=== PATIENT | male | born 1945 | race Caucasian/White ===

== ENCOUNTER → 2024-10-16 | Outpatient (CLI) | payer OTHER, SELFPAY ==
--- NOTE | 2024-10-16 15:30 | XR_ITS ---
Examination: Foot, left, 3 views Technique: AP, oblique, lateral views foot, 3 views Date and time of exam: October 16, 2024 1559 hrs. Indications: Left foot pain beginning 2 months ago. Findings: Moderate osteopenia Mild osteoarthritis first metatarsophalangeal joint Minimal bunion deformity No fracture No opaque foreign body No cortical bone destruction Mild osteoarthritis intertarsal joints Impression: Minimal bunion deformity Mild osteoarthritis
== END | disposition home or self-care (01) ==
PROVIDERS: PCP Physician Assistant; Referring Provider Physician Assistant; Visit Provider Physician Assistant
DX: M21.612 Bunion of left foot (principal); M19.072 Primary osteoarthritis, left ankle and foot
CPT/HCPCS: 73630

== ENCOUNTER → 2024-10-19 | Outpatient (CLI) | payer OTHER, SELFPAY | END | disposition home or self-care (01) | LOC: COPL 09:39 | PROVIDERS: PCP Physician Assistant; Referring Provider Physician Assistant; Visit Provider Physician Assistant | DX: I73.9 Peripheral vascular disease, unspecified (principal) ==

== ENCOUNTER → 2024-11-03 | Outpatient (CLI) | payer OTHER, SELFPAY ==
--- NOTE | 2024-11-03 11:00 | XR_ITS ---
Examination: Arterial duplex lower extremity study. Date and time of exam: November 03, 1999 2513 hours INDICATIONS: Sharp left foot pain intermittent beginning 3 months ago, high blood pressure Findings: Duplex sonographic imaging of the lower extremity arteries using B-mode/Allred scale imaging and Doppler spectral analysis and color flow. Ankle brachial indices have been recorded. Right common femoral artery demonstrates monophasic flow. Right superficial femoral artery demonstrates biphasic flow. Right popliteal artery demonstrates biphasic flow. Right posterior tibial artery demonstrated biphasic flow. Right ankle/brachial index is 0.6. Left common femoral artery demonstrates monophasic flow. Left superficial femoral artery demonstrates monophasic flow. Left popliteal artery demonstrates monophasic flow. Left posterior tibial artery demonstrated monophasic flow. Left ankle/brachial index is 1.6. Impression: Severe bilateral peripheral obstructive arterial disease Consider correlation with CTA abdominal aorta iliofemoral runoff post intravenous contrast follow-up
== END | disposition home or self-care (01) ==
PROVIDERS: PCP Physician Assistant; Referring Provider Physician Assistant; Visit Provider Physician Assistant
DX: I73.9 Peripheral vascular disease, unspecified (principal)
CPT/HCPCS: 93925

== ENCOUNTER → 2024-12-21 | Outpatient (CLI) | payer OTHER, SELFPAY ==
--- NOTE | 2024-12-21 16:33 | EKG_ITS ---
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
[2024-12-21 17:12] LABS: Basophils # (Auto) 0.1 Thou/mm3 (0.0-0.2); Basophils % (Auto) 1 % (0-2.5); Eosinophils # (Auto) 0.2 Thou/mm3 (0.0-0.5); Eosinophils % (Auto) 2 % (0-10); Hematocrit 47.5 % (41.0-53.0); Hemoglobin 15.6 g/dL (13.5-16.0); Immature Granulocytes % (Auto) 1 % (0-0); Immature Granulocytes Auto 0.06 Thou/mm3 (0.00-0.00); Lymphocytes # (Auto) 1.9 Thou/mm3 (1.0-4.8); Lymphocytes % (Auto) 21 % (10-50); Mean Corpuscular HGB Conc 32.8 g/dl (31.0-37.0); Mean Corpuscular Hemoglobin 24.6 pg (25.0-35.0); Mean Corpuscular Volume 75 fL (80-100); Monocytes # (Auto) 0.4 Thou/mm3 (0.0-0.8); Monocytes % (Auto) 5 % (0-12); Neutrophils # (Auto) 6.5 Thou/mm3 (1.8-7.7); Neutrophils % (Auto) 71 % (37-80); Nucleated Red Blood Cell % 0 /100 WBC (0); Platelet Count 518 Thou/mm3 (140-440); RDW Standard Deviation 48.2 fL (35.1-43.9); Red Blood Count 6.35 Miln/mm3 (4.50-5.90); White Blood Count 9.3 Thou/mm3 (3.8-10.6)
[2024-12-21 17:35] LABS: Albumin, Serum 4.2 gm/dL (3.4-4.8); Anion Gap 6 (7-16); Aspartate Amino Transferase 12 U/L (0-34); Calcium 9.8 mg/dL (8.3-10.6); Calcium (Corrected) 9.8 mg/dL (8.5-10.1); Carbon Dioxide 28.8 mMol/L (20.0-31.0); Chloride 103 mMol/L (98-107); Glucose 110 mg/dL (74-106); Potassium 4.8 mMol/L (3.4-5.1); Sodium 138 mMol/L (136-145); eGFR > 60 See Note
[2024-12-21 19:54] LABS: Alanine Aminotransferase 11 U/L (10-49); Albumin/Globulin Ratio 2.1 (1.2-2.2); BUN/Creatinine Ratio 19 Ratio (12-20); Bilirubin,Total 0.4 mg/dL (0.3-1.2); Blood Urea Nitrogen 19 mg/dL (9-23); Osmolality,Calculated 278 (275-295); Total Protein 6.2 gm/dL (5.7-8.2)
[2024-12-21 20:13] LABS: Alkaline Phosphatase 86 U/L (46-116)
== END | disposition home or self-care (01) ==
LOC: COPL 16:00
PROVIDERS: PCP Physician Assistant; Referring Provider Surgery Vascular Surgery; Visit Provider Surgery Vascular Surgery
DX: Z01.818 Encounter for other preprocedural examination (principal); I73.9 Peripheral vascular disease, unspecified; Z79.01 Long term (current) use of anticoagulants
CPT/HCPCS: 36415; 80053; 85025; 85610; 85730; 93005

== ENCOUNTER → 2025-01-26 | Outpatient (CLI) | payer OTHER, SELFPAY ==
[2025-01-26 10:03] LABS: Basophils # (Auto) 0.1 Thou/mm3 (0.0-0.2); Basophils % (Auto) 1 % (0-2.5); Eosinophils # (Auto) 0.2 Thou/mm3 (0.0-0.5); Eosinophils % (Auto) 3 % (0-10); Hematocrit 46.9 % (41.0-53.0); Hemoglobin 15.2 g/dL (13.5-16.0); Immature Granulocytes % (Auto) 1 % (0-0); Immature Granulocytes Auto 0.05 Thou/mm3 (0.00-0.00); Lymphocytes # (Auto) 1.2 Thou/mm3 (1.0-4.8); Lymphocytes % (Auto) 18 % (10-50); Mean Corpuscular HGB Conc 32.4 g/dl (31.0-37.0); Mean Corpuscular Volume 77 fL (80-100); Monocytes # (Auto) 0.4 Thou/mm3 (0.0-0.8); Monocytes % (Auto) 6 % (0-12); Neutrophils # (Auto) 4.7 Thou/mm3 (1.8-7.7); Neutrophils % (Auto) 72 % (37-80); Nucleated Red Blood Cell % 0 /100 WBC (0); Platelet Count 528 Thou/mm3 (140-440); RDW Standard Deviation 53.6 fL (35.1-43.9); Red Blood Count 6.09 Miln/mm3 (4.50-5.90); White Blood Count 6.5 Thou/mm3 (3.8-10.6)
[2025-01-26 10:10] LABS: Glucose Estimated Average 111 mg/dL (80-131); Hemoglobin A1C 5.5 % Hgb (4.8-6.0)
[2025-01-26 10:40] LABS: Albumin, Serum 4.2 gm/dL (3.4-4.8); Albumin/Globulin Ratio 2.1 (1.2-2.2); Alkaline Phosphatase 92 U/L (46-116); Anion Gap 6 (7-16); Aspartate Amino Transferase 13 U/L (0-34); BUN/Creatinine Ratio 12 Ratio (12-20); Bilirubin,Total 0.6 mg/dL (0.3-1.2); Blood Urea Nitrogen 13 mg/dL (9-23); Calcium 9.3 mg/dL (8.3-10.6); Calcium (Corrected) 9.3 mg/dL (8.5-10.1); Carbon Dioxide 30.7 mMol/L (20.0-31.0); Cardiac Risk Estimate 3.7 RATIO (4.0-6.7); Chloride 103 mMol/L (98-107); Cholesterol 154 mg/dL (132-200); Creatinine (Component) 1.1 mg/dL (0.6-1.3); Glucose 110 mg/dL (74-106); HDL Cholesterol 42 mg/dL (40-60); LDL Cholesterol,Calculated 87 mg/dL (0-130); Osmolality,Calculated 280 (275-295); Potassium 4.5 mMol/L (3.4-5.1); Sodium 140 mMol/L (136-145); Total Protein 6.2 gm/dL (5.7-8.2); Triglycerides 127 mg/dL (30-150); eGFR > 60 See Note
[2025-01-26 10:42] LABS: Alanine Aminotransferase 11 U/L (10-49)
[2025-01-26 10:57] LABS: Path Review Blood Smear Sent to Pathologist
== END | disposition home or self-care (01) ==
LOC: COPL 08:50
PROVIDERS: PCP Family Medicine; Referring Provider Physician Assistant; Visit Provider Physician Assistant
DX: I10 Essential (primary) hypertension (principal); E78.5 Hyperlipidemia, unspecified; R73.01 Impaired fasting glucose; D58.2 Other hemoglobinopathies; D75.839 Thrombocytosis, unspecified
CPT/HCPCS: 36415; 80053; 80061; 83036; 85025

== ENCOUNTER → 2025-01-27 | Outpatient (CLI) | payer OTHER, SELFPAY ==
--- NOTE | 2025-01-27 14:00 | XR_ITS ---
Examination: CT chest, without intravenous contrast. Sagittal and coronal 2-D reconstructions. Exam date and time: January 27, 2025 at 1400 hours Comparison June 04, 2024 INDICATIONS: Smoking history [address] years, [address] chest August 04, 2024 multiple bilateral pulmonary nodules CTDI:vol (mGy) 7.91 DLP: (mGycm) 354 Technique: Multiple 3.0 mm axial sections of the chest to been obtained. Bone and lung density settings are obtained. Sagittal and coronal 2-D reconstructions have been obtained. Low dose protocols were performed. One or more of the following dose reduction techniques were used; automated exposure control, adjustment of the mA and/or KV according to patient size, use of iterative reconstruction technique. Findings: Thoracic aortic calcification, no aneurysmal dilatation Pulmonary artery segments are not enlarged No interval paratracheal tracheobronchial or bronchopulmonary adenopathy Airspace destruction throughout the lungs 1 new 2 mm pulmonary nodule left upper lobe image 132 The remaining pulmonary nodules are unchanged No interval pneumonia or pulmonary edema Biophysical scarring No visualized liver or splenic lesion Contracted gallbladder No pancreatic or adrenal mass IMPRESSION: One new 2 mm pulmonary nodule left upper lobe, suggest continued 6 month follow-up CT chest without contrast
== END | disposition home or self-care (01) ==
LOC: CCTX 13:32
PROVIDERS: PCP Physician Assistant; Referring Provider Physician Assistant; Visit Provider Physician Assistant
DX: R91.1 Solitary pulmonary nodule (principal)
CPT/HCPCS: 71250

== ENCOUNTER 2025-03-30 15:39 | Inpatient (IN) | payer OTHER, MEDICARE, SELFPAY ==
[2025-03-30] VITALS (9 sets, daily range): BP systolic 100–138; BP diastolic 68–99; PULSE 69–112; RESP 14–98; TEMP 36.4–37; O2SAT 98–99; BMI 18.6
--- NOTE | 2025-03-30 16:00 | XR_ITS ---
Examination: CT abdomen with intravenous contrast CT pelvis with intravenous contrast 2-D coronal reconstructions 2-D sagittal reconstructions Date and time of exam:March 30, 2025, 1834 hours INDICATIONS: Abdominal pain with gastrointestinal bleeding today. CTDI: vol (mGy) 5.98 DLP: (mGycm) 326 Technique: Multiple axial sections of the abdomen and pelvis have been obtained. 64 slice high-resolution scanner used. 3 mm axial sections have been obtained, post intravenous injection 60 cc Isovue 370 2-D sagittal, coronal reconstructions obtained. Low dose protocols were performed. One or more of the following dose reduction techniques were used; automated exposure control, adjustment of the mA and/or KV according to patient size, use of iterative reconstruction technique. Findings: Fluid distended distal esophagus COPD with areas of airspace distraction No liver or splenic lesion No gallstones Marked mucosal thickening in the gastric antrum, axial image 89 with perigastric inflammatory change Mild edema around the pancreatic head Abdominal aortic calcification No hydronephrosis Normal appendix Colonic diverticulosis No diverticulitis Urinary bladder wall thickening up to 6 mm Transverse prostate dimension 3.8 cm Moderate osteopenia IMPRESSION: Fluid distended esophagus, consider reflux esophagitis Marked mucosal thickening gastric antrum, differential would include severe gastritis, underlying gastric tumor not excluded, recommend endoscopy follow-up Suspicious for mild pancreatitis Normal appendix Colonic diverticulosis Mild thickening of the urinary bladder wall, consider cystitis
--- NOTE | 2025-03-30 16:01 | PD.EDRME ---
Rapid Medical Screening Exam E Arrival date/time: 03/30/25 15:39 79-year-old male presents emergency dept today for complaint abdominal pain intermittently for the last couple of months patient reports vomiting dark black emesis yesterday Chief Complaint: Abdominal Pain Vital signs: Vital Signs Temperature 97.5 F 03/30/25 15:41 Pulse Rate 98 03/30/25 15:41 Respiratory Rate 18 03/30/25 15:41 Blood Pressure 102/69 03/30/25 15:41 Pulse Oximetry (%) 99 03/30/25 15:41 Oxygen Delivery Method Room Air 03/30/25 15:41
[2025-03-30 16:33] LABS: Basophils # (Auto) 0.1 Thou/mm3 (0.0-0.2); Basophils % (Auto) 1 % (0-2.5); Eosinophils # (Auto) 0.1 Thou/mm3 (0.0-0.5); Eosinophils % (Auto) 1 % (0-10); Hematocrit 31.1 % (41.0-53.0); Hemoglobin 10.4 g/dL (13.5-16.0); Immature Granulocytes % (Auto) 1 % (0-0); Immature Granulocytes Auto 0.17 Thou/mm3 (0.00-0.00); Lymphocytes % (Auto) 8 % (10-50); Mean Corpuscular HGB Conc 33.4 g/dl (31.0-37.0); Mean Corpuscular Hemoglobin 24.2 pg (25.0-35.0); Mean Corpuscular Volume 72 fL (80-100); Monocytes # (Auto) 0.5 Thou/mm3 (0.0-0.8); Monocytes % (Auto) 4 % (0-12); Neutrophils # (Auto) 10.2 Thou/mm3 (1.8-7.7); Neutrophils % (Auto) 85 % (37-80); Nucleated Red Blood Cell % 0 /100 WBC (0); Platelet Count 735 Thou/mm3 (140-440); RDW Standard Deviation 44.2 fL (35.1-43.9); White Blood Count 12.1 Thou/mm3 (3.8-10.6)
--- NOTE | 2025-03-30 16:38 | PC.NURSE ---
CALLED ME TO PT IN LOBBY. PT LOOKS PALE AND DIAPHORETIC AND SLUMPED OVER IN WHEELCHAIR. WHEN ASKED WHAT HAPPENED SHE STATED THAT HE TRIED TO GO TO BATHROOM AND GIVE A URINE SAMPLE BUT HE ALMOST PASSED OUT AND HE IS NOT DOING TO WELL, AND IS AL SWEATY . PT TAKEN INTO TRIAGE ROOM FOR REEVAL AND CHARGE NURSE AWARE AND PT TAKEN TO ROOM 12.
[2025-03-30 16:46] LABS: Partial Thromboplastin Time 25.5 Seconds (22.0-36.0); Prothrombin Time 11.4 Seconds (9.0-12.2)
--- NOTE | 2025-03-30 16:47 | PC.NURSE ---
PT MOVED TO ROOM 3 AT THIS TIME. PT BP 84/60 HR 89. PT REPORTED THAT HE WAS VOMITING COFFEE GROUND EMESIS SINCE YESTERDAY. 2 TIMES YESTERDAY AND 2 TIMES TODAY. PT HAS HISTORY OF BLEEDING ULCERS. PT STATES THAT 2 WEEKS AGO HE DID HAVE 1 EPISODE OF BLACK STOOL BUT STATES THAT AFTER THAT HIS STOOL HAS BEEN NORMAL COLOR. PT ON CC MONITOR. DR ASH AT BEDSIDE. FAMILY AT BEDSIDE
--- NOTE | 2025-03-30 16:50 | EKG_ITS ---
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: : 1945 Requested By: Donovan Lyles (DONALD) Order Number: [id number] Reading MD: Donovan Lyles (PHYSICAL SCIENCE AIDE) Measurements Intervals [place] Rate: 84 P: 83 [place]: 174 QRS: -75 QRSD: 104 T: 80 QT: 367 QTc: 436 Interpretive Statements SINUS RHYTHM POSSIBLE RIGHT VENTRICULAR CONDUCTION DELAY [RSR (QR) IN V1/V2] LEFT ANTERIOR FASCICULAR BLOCK [QRS AXIS <= -45, QR IN I, RS IN II] Compared to ECG 12/21/2024 16:42:20 Left anterior fascicular block now present Sinus bradycardia no longer present Left-axis deviation no longer present Incomplete right bundle-branch block no longer present /store/S0/[id number]/[id number].pdf
[2025-03-30] MEDS: PANTOPRAZOLE INJ 40 MG VIAL 80 MG IVP (16:55)
[2025-03-30] MEDS: SODIUM CHLORIDE 0.9% 1000 ML 1,000 ML 999 ML IV (16:59)
[2025-03-30 17:17] LABS: B-Type Natriuretic Peptide 22 pg/mL (0-100)
[2025-03-30 17:25] LABS: Alanine Aminotransferase 9 U/L (10-49); Albumin, Serum 4.2 gm/dL (3.4-4.8); Albumin/Globulin Ratio 2.2 (1.2-2.2); Alkaline Phosphatase 76 U/L (46-116); Anion Gap 13 (7-16); Aspartate Amino Transferase 11 U/L (0-34); BUN/Creatinine Ratio 30 Ratio (12-20); Bilirubin,Total 0.4 mg/dL (0.3-1.2); Blood Urea Nitrogen 36 mg/dL (9-23); Calcium 9.1 mg/dL (8.3-10.6); Calcium (Corrected) 9.1 mg/dL (8.5-10.1); Carbon Dioxide 25.5 mMol/L (20.0-31.0); Chloride 105 mMol/L (98-107); Creatinine (Component) 1.2 mg/dL (0.6-1.3); Estimated Creatinine Clearance 41.6 mL/min (>60); Globulin 1.9 gm/dL (2.3-3.5); Glucose 126 mg/dL (74-106); Lipase 142 U/L (12-53); Osmolality,Calculated 295 (275-295); Potassium 4.4 mMol/L (3.4-5.1); Sodium 143 mMol/L (136-145); Total Protein 6.1 gm/dL (5.7-8.2); eGFR > 60 See Note
--- NOTE | 2025-03-30 17:30 | PD.EDABDPN ---
ED Abdominal Pain RME/HPI General Chief Complaint: Abdominal Pain Stated complaint: ABDOMINAL PAIN Time seen by provider: 03/30/25 18:10 Arrival date/time: 03/30/25 15:39 RME / HPI RME / HPI narrative: 03/30/25 15:39 79-year-old male presents emergency dept today for complaint abdominal pain intermittently for the last couple of months patient reports vomiting dark black emesis yesterday DR. ASH MAIN ED EVALUATION: 79 year old male presents to the ED for evaluation of abdominal pain that began yesterday morning. The pain is located most to the epigastric region and just above the umbilicus, occurring intermittently. He describes it as aching and rates it as moderate to severe. Associated with nausea and vomiting. Although he has been able to tolerate small amounts of food, he reports that eating oatmeal yesterday seemed to exacerbate his pain. States he consulted his PCP Keila Shepard yesterday and was told the symptoms may be related to an ulcer. Labs were ordered, but pain became worse today prompting ED visit. Reports having a bowel movement yesterday, which was normal for him, no blood or black stools. Although reports he did havde small amount of blood in stool 2 weeks ago. He denies diarrhea. 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 in [place], [place]. Denies fever, chills, chest pain, cough, shortness of breath, or urinary symptoms. Related Data Home Medications ?Medication ?Instructions ?Recorded ?Confirmed fluticasone 250 mcg-salmeterol 50 1 inh inhalation BID dyspnea 07/31/21 03/31/25 mcg/dose blistr powdr for inhalation (Advair Diskus) losartan 50 mg tablet 50 mg PO HS 07/31/21 03/31/25 tiotropium bromide 18 mcg capsule 1 cap inhalation DAILY dyspnea 07/31/21 03/31/25 with inhalation device (Spiriva with HandiHaler) famotidine 10 mg tablet 10 mg PO HS 02/18/23 03/31/25 varenicline tartrate 1 mg tablet 1 mg PO DAILY 02/18/23 03/31/25 sildenafil 100 mg tablet 100 mg PO DAILY 02/17/24 03/31/25 albuterol sulfate 90 mcg/actuation 1 puff inhalation Q8H PRN 03/31/25 03/31/25 aerosol inhaler shortness of breath or wheezing aspirin 81 mg tablet 81 mg PO HS 03/31/25 03/31/25 cholecalciferol (vitamin D3) 25 25 mcg PO HS 03/31/25 03/31/25 mcg (1,000 unit) capsule (Vitamin D3) clopidogrel 75 mg tablet 75 mg PO QDAY 03/31/25 03/31/25 cyanocobalamin (vitamin B-12) 100 100 mcg PO HS 03/31/25 03/31/25 mcg tablet (Vitamin B-12) fluticasone fur. 100 mcg-umeclid 1 inh inhalation QDAY 03/31/25 03/31/25 62.5 mcg-vilant 25 mcg inhalat.powder (Trelegy Ellipta) omeprazole 20 mg capsule,delayed 20 mg PO QDAY 03/31/25 03/31/25 release Allergies Allergy/AdvReac Type Severity Reaction Status Date / Time Iodinated Contrast Media Allergy Intermediate Flushing Verified 03/30/25 17:03 Review of Systems Review of Systems Systems Reviewed: All systems reviewed, normal except as documented Past Medical History Past Medical History NEUROLOGIC: Negative Neurological Disorders, Cerebrovascular Accident or Seizures CARDIAC: Positive Cardiac Disorders, Cardiac Arrhythmia and Hypertension; Negative Atrial Fibrillation, Angina, Hypercholesterolemia, Congestive Heart Failure or Valvular Heart Disease RESPIRATORY: Positive Chronic Obstructive Pulmonary Disease (COPD), Asthma (copd) and Pneumonia; Negative Emphysema or Tuberculosis GASTROINTESTINAL: Positive Gastrointestinal Bleed, Ulcer and Gastroesophageal Reflux Disease; Negative Gastrointestinal Disorders or Diverticulosis GENITOURINARY: Positive Benign Prostatic Hyperplasia; Negative Genitourinary Disorders or Renal Disease MUSCULOSKELETAL: Positive Arthritis and Fractures (thumb); Negative Musculoskeletal Disorders ENT: Positive Cataracts (2017) ENDOCRINE: Negative Endocrine Disorders, Diabetes Mellitus Type 1, Diabetes Mellitus Type 2, Hyperthyroidism or Hypothyroidism HEMATOLOGIC: Negative Blood Disorders or Anemia PSYCHO/SOCIAL: Negative Depression or Anxiety OTHER HISTORY: Positive Blood Transfusions; Negative Falls, Blood Transfusion Reaction, Anesthesia Reactions or Cancer Family History FAMILY HISTORY: Positive Family Respiratory Disorders (mother lung cancer); Negative Family Cardiac Disorders Surgical History SURGICAL: Positive Eye Surgery and Abdominal Surgery (GASTRIC ULCER SX); Negative Cardiac Surgery or Pacemaker OTHER SURGICAL HX: STENTS PLACED IN BILATERAL LEGS DUE TO BLOOD CLOTS Social History SMOKING STATUS: Former smoker 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 HEENT: NC, AT. MMM. EOMI, clear conjunctiva, oropharynx clear. NECK: Supple without lymphadenopathy. No stiffness or restricted ROM. HEART: Normal rate and regular rhythm, normal S1/S1, no m/r/g. LUNGS: CTAB, moving air well. No crackles or wheezes are heard. ABDOMEN: Soft, large vertical midline surgical scar noted, epigastric tenderness mild to moderate, no rebound, no guarding, nondistended with good bowel sounds heard. BACK: No midline C/T/L spine pain or deformity, No CVAT, no obvious deformity. EXTREMITIES: Without cyanosis, clubbing or edema. MUSCULOSKELETAL: FROM of all major joints, no chest tenderness NEUROLOGICAL: Grossly nonfocal. Alert and oriented, moving all 4 extremities. CN not formally tested but appear grossly intact. Skin: Warm and dry without any rash. Course Quality Measures none Orders Category Date Time Status CT Screening NOW Care 03/30/25 16:01 Completed Orthopedically Impaired Teacher NOW Care 03/30/25 16:50 Active EKG (ED ONLY) *Do not use* NOW Care 03/30/25 16:50 Completed Insert IV NOW Care 03/30/25 16:[address] abdomen pelvis w con Stat Exams 03/30/25 16:00 Completed EKG (ED Only) Stat Exams 03/30/25 16:50 Draft B-Type Natriuretic Peptide Stat Lab 03/30/25 16:20 Completed CBC Stat Lab 03/30/25 16:20 Completed Comprehensive Metabolic Panel Stat Lab 03/30/25 16:20 Completed Lipase Stat Lab 03/30/25 16:20 Completed PT [Prothrombin Time with INR] Stat Lab 03/30/25 16:20 Completed PTT [Partial Thromboplastin Time] Stat Lab 03/30/25 16:20 Completed Troponin I Stat Lab 03/30/25 16:20 Completed Type and Screen Stat Lab 03/30/25 17:02 Completed UA, C/S IF [Urinalysis, C/S if Indicated] Stat Lab 03/31/25 06:00 Completed DiphenhydrAMINE INJ [Benadryl Inj] Med 03/30/25 17:03 Discontinued 50 mg IVP X1 ONE Pantoprazole Inj [Protonix Inj] Med 03/30/25 16:50 Discontinued 80 mg IVP X1 ONE Pantoprazole/Ns 80Mg IV Premix [Protonix/NS 80mg IV Med 03/30/25 19:43 Discontinued Premix] 80 mg in 100 ml IV Q10H Sodium Chloride 0.9% 1000 ml [Ns] 1,000 ml Med 03/30/25 16:50 Discontinued IV 999 mls/hr Vital Signs Vital signs: Vital Signs Temperature 97.5 F 03/30/25 15:41 Pulse Rate 98 03/30/25 15:41 Respiratory Rate 18 03/30/25 15:41 Blood Pressure 102/69 03/30/25 15:41 Pulse Oximetry (%) 99 03/30/25 15:41 Oxygen Delivery Method Room Air 03/30/25 15:41 Pulse ox is 99% on room air which is adequate. Abdominal Pain MDM MDM Narrative MDM Narrative:: Brianne Reyna am scribing for and in the presence of Dr. Ash. 79 year old male presents to the ED with epigastric abdominal pain that began yesterday morning. The pain is intermittent and localized to the epigastric region and just above the umbilicus. The pain is associated with nausea and vomiting. He consulted with his primary care provider, Dr. Keila Shepard, who suspected a possible ulcer and ordered labs; however, due to worsening symptoms today, the patient came today. The patient has a significant past medical history notable for a bleeding gastric ulcer that required surgical intervention in [place], [place] 50 years ago during which he states his pyloric valve was ?rearranged.? He reports a normal bowel movement yesterday, without blood or melena, though he did note a small amount of blood in his stool approximately two weeks ago. On physical examination, the patient has localized epigastric tenderness without signs of peritonitis. Laboratory evaluation reveals an elevated lipase level of 142, which is greater than two times the upper limit of normal and strongly suggestive of acute pancreatitis. Given this lab finding and clinical presentation, acute pancreatitis is high on differentials list. A CT scan of the abdomen has been ordered. Case was signed out to Dr. Wilcox for continued management and pending final disposition. Patient data External records reviewed:: [facility] previous records (I reviewed H&P from 02/18/2025) Clinical information provided by:: patient Social determinants that could affect healthcare access:: none Patient has the following chronic illnesses:: hypertension, COPD, CAD s/p PCI on Plavix, previous abdominal surgery as noted in HPI How is presenting disease/condition affected by chronic disease/condition?: exacerbated by Evaluation data The following diagnostics were reviewed and interpreted by me:: lab results, radiology exam(s) and EKG tracing(s) (EKG 03/30/2025 @ 1656. Sinus rhythm, rate 84, borderline widened QRS incomplete RBBB pattern. ) Lab and/or radiology exams considered but not ordered:: None Interpretation Summary: As noted above Medications / Prescriptions Medications or Prescriptions considered but not ordered:: None Medication administrations:: Medication Administration History Acetaminophen (Acetaminophen 325 Mg Tablet) 650 mg PO Q6H PRN PRN Reason: pain(1-3) and Fever >100.4 Stop: 04/29/25 20:23 Hydrocodone Bitart/Acetaminophen (Hydrocodone/Apap 5/325 Tablet) 1 tab PO Q4HR PRN PRN Reason: PAIN SCALE 4-10(Mod-Sev Stop: 04/04/25 20:23 Albuterol/Ipratropium (Albuterol/Ipratropium (Duoneb) Rt Alessandra 3 Ml Nebu) 3 ml INH Q4HRRT PRN PRN Reason: SOB or wheezing Stop: 04/29/25 22:59 Octreotide Acetate 1,000 mcg/ (Sodium Chloride) 102 mls @ 5.1 mls/hr IV .Q20H HYACINTH; Protocol Stop: 04/30/25 16:44 Octreotide Acetate 1,000 mcg/ (Sodium Chloride) 102 mls @ 5.1 mls/hr IV .Q20H ONE; Protocol Stop: 03/31/25 16:44 Last Admin: 03/30/25 21:13 Dose: 50 mcg/hr, 5.1 mls/hr Documented By: DT Ondansetron HCl (Ondansetron Inj 2 Mg/Ml Inj 2 Ml) 4 mg IVP Q6H PRN; Protocol PRN Reason: NAUSEA OR VOMITING Stop: 04/29/25 20:23 Pantoprazole Sodium (Pantoprazole Inj 40 Mg Vial) 40 mg IVP Q12HR HYACINTH Stop: 04/29/25 20:59 Last Admin: 03/30/25 20:51 Dose: 40 mg Documented By: DT Discontinued Medications Diphenhydramine HCl (Diphenhydramine Inj 50 Mg/Ml Vial) 50 mg IVP X1 ONE Stop: 03/30/25 17:04 Last Admin: 03/30/25 18:18 Dose: 50 mg Documented By: SMILEY Sodium Chloride (Ns) 1,000 mls @ 999 mls/hr IV .Q1H1M ONE Stop: 03/30/25 17:50 Last Infusion: 03/30/25 19:06 Dose: Infused Documented By: Admin: 03/30/25 16:59 Dose: 999 mls/hr Documented By: SMILEY Pantoprazole Sodium (Protonix/Ns 80mg Iv Premix) 80 mg in 100 mls @ 10 mls/hr IV Q10H HYACINTH Stop: 04/02/25 17:42 Sodium Chloride (Ns) 1,000 mls @ 75 mls/hr IV .[id number] HYACINTH Stop: 03/31/25 09:49 Sodium Chloride (Ns) 1,000 mls @ 200 mls/hr IV .Q5H HYACINTH Stop: 03/31/25 06:40 Last Admin: 03/31/25 01:52 Dose: 200 mls/hr Documented By: Infusion: 03/31/25 01:49 Dose: Infused Documented By: Admin: 03/30/25 20:49 Dose: 200 mls/hr Documented By: JESSICA Pantoprazole Sodium (Pantoprazole Inj 40 Mg Vial) 80 mg IVP X1 ONE Stop: 03/30/25 16:51 Last Admin: 03/30/25 16:55 Dose: 80 mg Documented By: SMILEY See above Consultations Consultation(s) initiated? (list below): No Diagnosis Differential diagnosis abdominal pain: abdominal pain, acute appendicitis, diverticulitis, gastroenteritis, pancreatitis and small bowel obstruction Most likely diagnosis given after review of the tests above:: Abdominal pain, r/o pancreatitis Admission Indicated Admission indicated?: not indicated Explain why admission is indicated or not indicated:: Patient signed out to Dr. Wilcox. Admission Request Was there a request for admission?: No Disposition Plan Disposition Plan: other (specify) (Signed out to Dr. Wilcox pending CT. ) Discharge Plan Plan Patient Disposition: Admit Acute Care w/in Hospital Problem List Clinical Impression: Pancreatitis
[2025-03-30 17:37] LABS: Troponin I < 0.002 ng/mL (0.0-0.045)
--- NOTE | 2025-03-30 18:09 | EDNOTE_ITS ---
Emergency Room Addendum <Linsey Mcfarlane - Last Filed: 03/30/25 20:25> Addendum Narrative: 1800: Care assumed from Dr. Brown (emergency physician). Past medical, surgical, social and family history reviewed. Vitals and home medications reviewed. Results and treatment plan discussed. They will assume the care of the patient at this time and will follow the patient, pending Abdomen CT. The following addendum documentation note is intended to reflect any pending information, findings, or radiology results not included in the patient?s initial chart by the previous shift [email or web address]. 1940: Patient CT shows some gastric wall thickening. In speaking with the patient he states that he developed upper abdominal pain yesterday and had a large coffee-ground/black emesis. He saw his physician who ordered some tests but he was unable to get those done. Patient woke up this morning and developed pain again and vomited a large amount of black emesis again. In the afternoon he had another episode of large amount of black emesis. Patient has been treated here in the emergency department with Protonix and fluids as well as Benadryl. He states that the pain and the nausea have improved. However lying in the bed the patient has a heart rate of 76 with a blood pressure 133/72. When standing the patient became very lightheaded, heart rate went to 113 and he was unable to stand long enough to perform the blood pressure. Will place patient on a Protonix drip and will call for admission to the hospital. RADIOLOGY Patient: RIKA SYKES [facility]. Record#: [id number] Birthdate: 1945 Age/Sex: 79 / M Location: [facility] Attending Dr: Ordering Physician: Rafal (DONALD)Donovan NP Date of Service: 03/30/25 Procedure(s): CT abdomen pelvis w con Accession Number(s): [id number] cc: Rafal ERVIN),Donovan BENNETT; Eddi Middleton MD; Keila Shepard PA-C~ Examination: CT abdomen with intravenous contrast CT pelvis with intravenous contrast 2-D coronal reconstructions 2-D sagittal reconstructions Date and time of exam:March 30, 2025, 1834 hours INDICATIONS: Abdominal pain with gastrointestinal bleeding today. CTDI: vol (mGy) 5.98 DLP: (mGycm) 326 Technique: Multiple axial sections of the abdomen and pelvis have been obtained. 64 slice high-resolution scanner used. 3 mm axial sections have been obtained, post intravenous injection 60 cc Isovue 370 2-D sagittal, coronal reconstructions obtained. Low dose protocols were performed. One or more of the following dose reduction techniques were used; automated exposure control, adjustment of the mA and/or KV according to patient size, use of iterative reconstruction technique. Findings: Fluid distended distal esophagus COPD with areas of airspace distraction No liver or splenic lesion No gallstones Marked mucosal thickening in the gastric antrum, axial image 89 with perigastric inflammatory change Mild edema around the pancreatic head Abdominal aortic calcification No hydronephrosis Normal appendix Colonic diverticulosis No diverticulitis Urinary bladder wall thickening up to 6 mm Transverse prostate dimension 3.8 cm Moderate osteopenia IMPRESSION: Fluid distended esophagus, consider reflux esophagitis Marked mucosal thickening gastric antrum, differential would include severe gastritis, underlying gastric tumor not excluded, recommend endoscopy follow-up Suspicious for mild pancreatitis Normal appendix Colonic diverticulosis Mild thickening of the urinary bladder wall, consider cystitis Dictated By: Eddi Middleton MD Signed By: <Electronically signed by Eddi Middleton MD in OV> 03/30/25 190 1945: Resident for Dr. Lowry, our Hospitalist, made aware of the patient?s HPI, PMHx, lab and/or radiology results. Treatment plan was discussed. Will admit for further evaluation and management. Accepts patient for admission. <Niraj Wilcox MD - Last Filed: 03/30/25 19:43> Addendum Narrative: 1800: Care assumed from Dr. Brown (emergency physician). Past medical, surgical, social and family history reviewed. Vitals and home medications reviewed. Results and treatment plan discussed. They will assume the care of the patient at this time and will follow the patient, pending Abdomen CT. The following addendum documentation note is intended to reflect any pending information, findings, or radiology results not included in the patient?s initial chart by the previous shift [email or web address]. 1940: Patient CT shows some gastric wall thickening. In speaking with the patient he states that he developed upper abdominal pain yesterday and had a large coffee-ground/black emesis. He saw his physician who ordered some tests but he was unable to get those done. Patient woke up this morning and developed pain again and vomited a large amount of black emesis again. In the afternoon he had another episode of large amount of black emesis. Patient has been treated here in the emergency department with Protonix and fluids as well as Benadryl. He states that the pain and the nausea have improved. However lying in the bed the patient has a heart rate of 76 with a blood pressure 133/72. When standing the patient became very lightheaded, heart rate went to 113 and he was unable to stand long enough to perform the blood pressure. Will place patient on a Protonix drip and will call for admission to the hospital. RADIOLOGY Patient: RIKA SYKES. Record#: [id number] Birthdate: 1945 Age/Sex: 79 / M Location: [facility] Attending Dr: Ordering Physician: Rafal ERVIN)Donovan NP Date of Service: 03/30/25 Procedure(s): CT abdomen pelvis w con Accession Number(s): [id number] cc: Rafal ERVIN)Donovan NP; Eddi Middleton MD; Keila Shepard PA-C~ Examination: CT abdomen with intravenous contrast CT pelvis with intravenous contrast 2-D coronal reconstructions 2-D sagittal reconstructions Date and time of exam:March 30, 2025, 1834 hours INDICATIONS: Abdominal pain with gastrointestinal bleeding today. CTDI: vol (mGy) 5.98 DLP: (mGycm) 326 Technique: Multiple axial sections of the abdomen and pelvis have been obtained. 64 slice high-resolution scanner used. 3 mm axial sections have been obtained, post intravenous injection 60 cc Isovue 370 2-D sagittal, coronal reconstructions obtained. Low dose protocols were performed. One or more of the following dose reduction techniques were used; automated exposure control, adjustment of the mA and/or KV according to patient size, use of iterative reconstruction technique. Findings: Fluid distended distal esophagus COPD with areas of airspace distraction No liver or splenic lesion No gallstones Marked mucosal thickening in the gastric antrum, axial image 89 with perigastric inflammatory change Mild edema around the pancreatic head Abdominal aortic calcification No hydronephrosis Normal appendix Colonic diverticulosis No diverticulitis Urinary bladder wall thickening up to 6 mm Transverse prostate dimension 3.8 cm Moderate osteopenia IMPRESSION: Fluid distended esophagus, consider reflux esophagitis Marked mucosal thickening gastric antrum, differential would include severe gastritis, underlying gastric tumor not excluded, recommend endoscopy follow-up Suspicious for mild pancreatitis Normal appendix Colonic diverticulosis Mild thickening of the urinary bladder wall, consider cystitis Dictated By: Eddi Middleton MD Signed By: <Electronically signed by Eddi Middleton MD in OV> 03/30/25 1905 <Fariba Jovi - Last Filed: 04/01/25 05:01> Addendum Narrative: 1800: Care assumed from Dr. Brown (emergency physician). Past medical, surgical, social and family history reviewed. Vitals and home medications reviewed. Results and treatment plan discussed. They will assume the care of the patient at this time and will follow the patient, pending CT abdomen pelvis. Please refer to the emergency department record for history and examination from initial visit. 1941: Patient CT shows some gastric wall thickening. After speaking with the patient, he states that he developed upper abdominal pain yesterday and had a large coffee-ground/black emesis. He saw his physician who ordered some tests but he was unable to get those done. Patient woke up this morning and developed pain again and vomited a large amount of black emesis again. In the afternoon, he had another episode of large amount of black emesis. Patient has been treated here in the emergency department with Protonix and fluids as well as Benadryl. He states that the pain and the nausea have improved. However lying in the bed the patient has a heart rate of 76 with a blood pressure 133/72. When standing the patient became very lightheaded, heart rate went to 113 and he was unable to stand long enough to perform the blood pressure. Will place patient on a Protonix drip and will call for admission to the hospital. 1944: Discussed case with Dr. Silverio, attending Dr. Lowry, our Hospitalist, made aware of the patient?s HPI, PMHx, lab and/or radiology results. Treatment plan was discussed. Will admit for further evaluation and management. Accepts patient for admission. RADIOLOGY Patient: RIKA SYKES. Record#: [id number] Birthdate: 1945 Age/Sex: 79 / M Location: [facility] Attending Dr: Ordering Physician: Rafal (DONALD)Donovan NP Date of Service: 03/30/25 Procedure(s): CT abdomen pelvis w con Accession Number(s): [id number] cc: Rafal ERVIN),Donovan BENNETT; Eddi Middleton MD; Keila Shepard PA-C~ Examination: CT abdomen with intravenous contrast CT pelvis with intravenous contrast 2-D coronal reconstructions 2-D sagittal reconstructions Date and time of exam:March 30, 2025, 1834 hours INDICATIONS: Abdominal pain with gastrointestinal bleeding today. CTDI: vol (mGy) 5.98 DLP: (mGycm) 326 Technique: Multiple axial sections of the abdomen and pelvis have been obtained. 64 slice high-resolution scanner used. 3 mm axial sections have been obtained, post intravenous injection 60 cc Isovue 370 2-D sagittal, coronal reconstructions obtained. Low dose protocols were performed. One or more of the following dose reduction techniques were used; automated exposure control, adjustment of the mA and/or KV according to patient size, use of iterative reconstruction technique. Findings: Fluid distended distal esophagus COPD with areas of airspace distraction No liver or splenic lesion No gallstones Marked mucosal thickening in the gastric antrum, axial image 89 with perigastric inflammatory change Mild edema around the pancreatic head Abdominal aortic calcification No hydronephrosis Normal appendix Colonic diverticulosis No diverticulitis Urinary bladder wall thickening up to 6 mm Transverse prostate dimension 3.8 cm Moderate osteopenia IMPRESSION: Fluid distended esophagus, consider reflux esophagitis Marked mucosal thickening gastric antrum, differential would include severe gastritis, underlying gastric tumor not excluded, recommend endoscopy follow-up Suspicious for mild pancreatitis Normal appendix Colonic diverticulosis Mild thickening of the urinary bladder wall, consider cystitis Dictated By: Eddi Middleton MD Signed By: <Electronically signed by Eddi Middleton MD in OV> 03/30/25 1905 Critical Care Time <Linsey Mcfarlane - Last Filed: 03/30/25 20:25> Critical Care Time Critical Care Time: Yes Total Critical Care Time (min.): 35 Attestation: The high probability of sudden, clinically significant deterioration in the patient?s condition required the highest level of my preparedness to intervene urgently. The services I provided to this patient were to treat and/or prevent clinically significant deterioration. Services included the following: chart data review, reviewing nursing notes and/or old charts, documentation time, clinical sales consultant collaboration regarding findings and treatment options, medication orders and management, direct patient care, vital sign assessments and ordering, interpreting and reviewing diagnostic studies and lab tests. Aggregate critical care time includes only time during which I was engaged in work directly related to the patient?s care, as described above, whether at bedside or elsewhere in the Emergency Department. It did not include time spent performing other reported procedures or the services of residents, students, nurses or physician assistants.
[2025-03-30] MEDS: DiphenhydrAMINE INJ 50 MG/ML VIAL IVP (18:18)
--- NOTE | 2025-03-30 20:32 | PD.RESHP ---
Documentation for date of: 03/30/25 HPI History of Present Illness Chief complaint: coffee ground emesis, abdominal pain History of present illness: 79-year-old male with past medical history of bleeding peptic ulcer disease, PAD s/p stent placement 1 month ago (on Plavix and aspirin), COPD, and hypertension was admitted to the hospital on 03/30/2025 after he came in to the ED with complaints of abdominal pain and coffee-ground emesis that started today. On assessment patient stated that today he started having some nausea in the morning had a vomiting episode of very dark vomit and that again in the afternoon he had another episode of very dark vomit as well. He mentioned that he did have peptic ulcer disease earlier in his age and that he had some surgery because it had bled. Patient stated that he is currently on Plavix and aspirin for the last month and a half more or less as he had stents placed on his peripheral arteries due to PAD. He denied any blood in the stool or dark stools. Patient also stated that now he drinks socially, but in the past he used to drink a little bit heavier. He had abdominal pain as well along with the nausea and vomiting. Otherwise no other complaints. Patient's hemoglobin did drop from 15.2 10/2019 5-10.4 today. ED course: Initially came in afebrile and normotensive. Initial labs were relevant for leukocytosis, low hemoglobin (10.4), thrombocytosis, and increased lipase. Initial imaging fluid abdomen/pelvis CT which showed some mild edema of the pancreas, fluid distended esophagus, mucosal thickening of gastric antrum, and colonic diverticulosis. EKG shows sinus rhythm with no acute ST changes. PMH: As above Social Hx: Past smoker, alcohol socially, denies any drugs Surgical Hx: Stent placement on peripheral arteries, shoulder surgery Medications: Plavix and aspirin Review of Systems Review of Systems Narrative Review of Systems: Constitutional: Denies sweats, Denies weight loss/gain, Denies fever, Denies chills. HEENT: Denies hearing loss, Denies ear pain, Denies postnasal drip, Denies double vision, Denies blurry vision. Respiratory: Denies shortness of breath, Denies cough, Denies wheezing. Cardiovascular: Denies chest pain, Denies palpitations, Denies sudden loss of consciousness. GI: Denies blood in stool, Denies constipation, Admits abdominal pain, Denies difficulty swallowing, Admits nausea or vomit (black). : Denies urinary incontinence, Denies pain while urinating, Denies increased urinary frequency. MSK: Denies joint pain, Denies joint swelling, Denies numbness. Skin: Denies rash, Denies itching, Denies easy bruising. Neuro: Denies headaches, Denies dizziness, Denies seizures. Past Medical History Past Medical History NEUROLOGIC: Negative Neurological Disorders, Cerebrovascular Accident or Seizures CARDIAC: Positive Cardiac Disorders, Cardiac Arrhythmia and Hypertension; Negative Atrial Fibrillation, Angina, Hypercholesterolemia, Congestive Heart Failure or Valvular Heart Disease RESPIRATORY: Positive Chronic Obstructive Pulmonary Disease (COPD), Asthma (copd) and Pneumonia; Negative Emphysema or Tuberculosis GASTROINTESTINAL: Positive Gastrointestinal Bleed, Ulcer and Gastroesophageal Reflux Disease; Negative Gastrointestinal Disorders or Diverticulosis GENITOURINARY: Positive Benign Prostatic Hyperplasia; Negative Genitourinary Disorders or Renal Disease MUSCULOSKELETAL: Positive Arthritis and Fractures (thumb); Negative Musculoskeletal Disorders ENT: Positive Cataracts (2017) ENDOCRINE: Negative Endocrine Disorders, Diabetes Mellitus Type 1, Diabetes Mellitus Type 2, Hyperthyroidism or Hypothyroidism HEMATOLOGIC: Negative Blood Disorders or Anemia PSYCHO/SOCIAL: Negative Depression or Anxiety OTHER HISTORY: Positive Blood Transfusions; Negative Falls, Blood Transfusion Reaction, Anesthesia Reactions or Cancer Family History FAMILY HISTORY: Positive Family Respiratory Disorders (mother lung cancer); Negative Family Cardiac Disorders Surgical History SURGICAL: Positive Eye Surgery and Abdominal Surgery (GASTRIC ULCER SX); Negative Cardiac Surgery or Pacemaker OTHER SURGICAL HX: STENTS PLACED IN BILATERAL LEGS DUE TO BLOOD CLOTS Social History SMOKING STATUS: Former smoker 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 Anicteric, vision grossly intact. Ears: No ear pain, no ear discharge, Hearing grossly intact. Nose: No nasal discharge. Mouth/Throat: Moist mucous membranes, no redness, no lesions. Neck: Neck supple, non-tender, no cervical lymphadenopathy. Lungs: Clear FARA to auscultation and percussion, No accessory muscle use. Cardio: Normal S1/S2, regular rhythm, no murmurs, no JVD Abdomen: Soft, epigastric tenderness, no palpable masses, peristalsis present, no guarding or rebound. Extremities: Symmetrical, no significant deformities, no peripheral edema , non-tender, peripheral pulses presents. Skin: No rashes, no lesions, warm to touch. Neuro: No focal neurological deficits. motor and sensory intact Psych: Cooperative, appropriate mood and effect. Results: Labs 03/30/25 16:20 03/30/25 16:20 Labs: Short CBC 03/30/25 Range/Units 16:20 WBC 12.1 H (3.8-10.6) Thou/mm3 Hgb 10.4 L (13.5-16.0) g/dL Hct 31.1 L (41.0-53.0) % Plt Count 735 H (140-440) Thou/mm3 BMP 03/30/25 16:20 Sodium 143 Potassium 4.4 Chloride 105 Carbon Dioxide 25.5 BUN 36 H Creatinine 1.2 Glucose 126 H Calcium 9.1 Cardiac Enzymes 03/30/25 Range/Units 16:20 Troponin I < 0.002 (0.0-0.045) ng/mL Liver Function 03/30/25 Range/Units 16:20 Total Bilirubin 0.4 (0.3-1.2) mg/dL AST 11 (0-34) U/L ALT 9 L (10-49) U/L Alkaline Phosphatase 76 (46-116) U/L Albumin 4.2 (3.4-4.8) gm/dL Quality Measures Quality Measures none Advance care planning discussed with:: patient and child Medications Home Medications and Allergies Home Medications ?Medication ?Instructions ?Recorded ?Confirmed ?Type fluticasone 250 mcg-salmeterol 50 1 inh inhalation BID dyspnea 07/31/21 02/18/23 History mcg/dose blistr powdr for inhalation (Advair Diskus) losartan 50 mg tablet 50 mg PO HS 07/31/21 02/17/24 History tiotropium bromide 18 mcg capsule 1 cap inhalation DAILY dyspnea 07/31/21 02/18/23 History with inhalation device (Spiriva with HandiHaler) famotidine 10 mg tablet 10 mg PO DAILY 02/18/23 02/17/24 History varenicline tartrate 1 mg tablet 1 mg PO DAILY 02/18/23 02/17/24 History sildenafil 100 mg tablet 100 mg PO DAILY 02/17/24 02/17/24 History Allergies Allergy/AdvReac Type Severity Reaction Status Date / Time Iodinated Contrast Media Allergy Intermediate Flushing Verified 03/30/25 17:03 Visit Medications Acetaminophen (Acetaminophen 325 Mg Tablet) 650 mg PO Q6H PRN PRN Reason: pain(1-3) and Fever >100.4 Stop: 04/29/25 20:23 Hydrocodone Bitart/Acetaminophen (Hydrocodone/Apap 5/325 Tablet) 1 tab PO Q4HR PRN PRN Reason: PAIN SCALE 4-10(Mod-Sev Stop: 04/04/25 20:23 Albuterol/Ipratropium (Albuterol/Ipratropium (Duoneb) Rt Alessandra 3 Ml Nebu) 3 ml INH Q4HRRT PRN PRN Reason: SOB or wheezing Stop: 04/29/25 22:59 Sodium Chloride (Ns) 1,000 mls @ 75 mls/hr IV .[id number] HYACINTH Stop: 03/31/25 09:49 Octreotide Acetate 1,000 mcg/ (Sodium Chloride) 102 mls @ 5.1 mls/hr IV .Q20H HYACINTH; Protocol Stop: 04/30/25 16:44 Octreotide Acetate 1,000 mcg/ (Sodium Chloride) 102 mls @ 5.1 mls/hr IV .Q20H ONE; Protocol Stop: 03/31/25 16:44 Ondansetron HCl (Ondansetron Inj 2 Mg/Ml Inj 2 Ml) 4 mg IVP Q6H PRN; Protocol PRN Reason: NAUSEA OR VOMITING Stop: 04/29/25 20:23 Pantoprazole Sodium (Pantoprazole Inj 40 Mg Vial) 40 mg IVP Q12HR HYACINTH Stop: 04/29/25 20:59 Discontinued Medications Diphenhydramine HCl (Diphenhydramine Inj 50 Mg/Ml Vial) 50 mg IVP X1 ONE Stop: 03/30/25 17:04 Last Admin: 03/30/25 18:18 Dose: 50 mg Sodium Chloride (Ns) 1,000 mls @ 999 mls/hr IV .Q1H1M ONE Stop: 03/30/25 17:50 Last Infusion: 03/30/25 19:06 Dose: Infused Pantoprazole Sodium (Protonix/Ns 80mg Iv Premix) 80 mg in 100 mls @ 10 mls/hr IV Q10H HYACINTH Stop: 04/02/25 17:42 Pantoprazole Sodium (Pantoprazole Inj 40 Mg Vial) 80 mg IVP X1 ONE Stop: 03/30/25 16:51 Last Admin: 03/30/25 16:55 Dose: 80 mg Assessment & Plan Plan 79-year-old male with past medical history of bleeding peptic ulcer disease, PAD s/p stent placement 1 month ago (on Plavix and aspirin), COPD, and hypertension was admitted to the hospital on 03/30/2025 acute blood loss anemia likely in the setting of GI bleed and mild pancreatitis. #Acute blood loss anemia #GI bleed #Hematemesis #Hx of bleeding peptic ulcer disease Patient came in with complaints of coffee-ground emesis and abdominal pain. Patient's hemoglobin today was 10.4 and previously was 15.2 on 01/2025 Patient does have a history of peptic ulcer disease which was bleeding in the past in his early 80s. Patient has not had any other endoscopy done in the past. Patient's abdomen/pelvis CT that shows some gastric antrum thickening which could be possible gastritis versus malignancy Patient does have a history of previous alcohol use heavier than usual. Plan: Octreotide drip in the setting of possible esophageal varices Protonix 40 mg twice daily IV fluids Zofran for nausea N.p.o. Repeat H&H at 2200 Type and screen ordered GI consulted, appreciate recommendations #Mild pancreatitis Patient did have some epigastric pain and lipase was elevated and abdomen/pelvis CT that show mild pancreatitis pattern. Plan: Aggressive IV hydration with normal saline at 200 mL/h. Pain management with [place] 5 and Tylenol for now as patient did not have excruciating pain. Will continue to monitor #Leukocytosis Patient is WBC 12.1 likely reactive No signs of infection nor fevers at this time. Plan: Will continue to monitor #Hx of PAD s/p stents Patient had stents placed in the peripheral arteries around a month and a half ago He was on DAPT Last took his DAPT last night Plan: In the setting of GI bleed we will hold off on DAPT therapy today Will consider starting Plavix after endoscopy. Consider stopping aspirin upon discharge and continuing Plavix upon discharge. #Hx of hypertension Patient blood pressure has been well-controlled since he came to the ED Will hold off on antihypertensive medications for now in the setting of bleed to avoid shock. Disposition: Patient admitted to med surg for GI bleed. Diet: NPO GI prophylaxis: protonix DVT prophylaxis: SCDs in the setting of possible bleed Code: FULL Case disclosed with Attending Dr. Alen Cummings PGY1 Disclaimer: Even though this this note was dictated by speech recognition and even though it was carefully revised there may still be minor errors in screen examiner due to voice recognition software. Attending Provider Attestation/Addendum Face to face evaluation was performed by me. I have personally seen and examined the patient. I discussed the assessment and plan with the entire medicine team. I reviewed available medical records, imaging studies, laboratory results. I agree with the above subjective data, objective findings, assessment and plan except as corrected by me or noted below # Anemia, suspect acute on chronic due to iron deficiency?likely acute from GI loss as below # Suspected upper GI bleed # Coffee-ground emesis # Hx of bleeding peptic ulcer disease status post EGD in 1964 per patient #Essential hypertension #Peripheral vascular disease on dual antiplatelet therapy with aspirin and Plavix -IV PPI twice daily, clear liquid diet and n.p.o. after midnight, hold dual antiplatelet therapy?might need to resume tomorrow clopidogrel, per patient he had stents placed in his lower extremity arteries 1.[address] Godoy at outpatient surgical center in [place]. GI consulted, will follow recommendations possible EGD. Trend hemoglobin closely no active bleeding hemoglobin about 11 transfuse if actively bleeding or hemoglobin drops below 7. Ambulation and SCDs for DVT prophylaxis More than > 30 minutes spent on the encounter
[2025-03-30] MEDS: SODIUM CHLORIDE 0.9% 1000 ML 1,000 ML 200 ML IV (20:49)
[2025-03-30] MEDS: PANTOPRAZOLE INJ 40 MG VIAL IVP (20:51)
[2025-03-30] MEDS: OCTREOTIDE ACET INJ 1,000 MCG in SODIUM CHLORIDE 0.9% 100 ML 5.1 MCG IV (21:13)
--- NOTE | 2025-03-30 21:36 | PD.IMCONS ---
HPI Data of Consult Requesting Physician: Anish Lowry MD Primary Care Provider: Keila Shepard PA-C Consult Narrative Reason for consult: Coffee-ground emesis History of present illness: 79 years old male evaluated at request of the ER physician and the internal medicine team for coffee-ground emesis Patient has a history of peripheral arterial disease underwent stenting and has been on aspirin and Plavix for last 1 month He does have underlying COPD and essential hypertension Presenting hemoglobin 7.1 g cc:: cc: Anish Lowry MD Review of Systems Review of Systems Systems Reviewed: All systems reviewed, normal except as documented Past Medical History Surgical History OTHER SURGICAL HX: As in the history of present illness Meds Home Medications and Allergies Home Medications ?Medication ?Instructions ?Recorded ?Confirmed ?Type fluticasone 250 mcg-salmeterol 50 1 inh inhalation BID dyspnea 07/31/21 03/31/25 History mcg/dose blistr powdr for inhalation (Advair Diskus) losartan 50 mg tablet 50 mg PO HS 07/31/21 03/31/25 History tiotropium bromide 18 mcg capsule 1 cap inhalation DAILY dyspnea 07/31/21 03/31/25 History with inhalation device (Spiriva with HandiHaler) famotidine 10 mg tablet 10 mg PO HS 02/18/23 03/31/25 History varenicline tartrate 1 mg tablet 1 mg PO DAILY 02/18/23 03/31/25 History sildenafil 100 mg tablet 100 mg PO DAILY 02/17/24 03/31/25 History albuterol sulfate 90 mcg/actuation 1 puff inhalation Q8H PRN 03/31/25 03/31/25 History aerosol inhaler shortness of breath or wheezing aspirin 81 mg tablet 81 mg PO HS 03/31/25 03/31/25 History cholecalciferol (vitamin D3) 25 25 mcg PO HS 03/31/25 03/31/25 History mcg (1,000 unit) capsule (Vitamin D3) clopidogrel 75 mg tablet 75 mg PO QDAY 03/31/25 03/31/25 History cyanocobalamin (vitamin B-12) 100 100 mcg PO HS 03/31/25 03/31/25 History mcg tablet (Vitamin B-12) fluticasone fur. 100 mcg-umeclid 1 inh inhalation QDAY 03/31/25 03/31/25 History 62.5 mcg-vilant 25 mcg inhalat.powder (Trelegy Ellipta) omeprazole 20 mg capsule,delayed 20 mg PO QDAY 03/31/25 03/31/25 History release Allergies Allergy/AdvReac Type Severity Reaction Status Date / Time Iodinated Contrast Media Allergy Intermediate Flushing Verified 03/30/25 17:03 Exam Vital Signs Temp Pulse Resp BP Pulse Ox O2 Del Method 98.6 F 75 14 135/85 H 99 Room Air 03/30/25 20:00 03/30/25 20:00 03/30/25 20:00 03/30/25 20:00 03/30/25 20:00 03/30/25 20:00 Routine Respiratory Exam Comments: Scattered rhonchi Routine Abdominal Exam Comments: Soft nontender Results Labs 04/01/25 12:50 04/01/25 12:50 Labs: Short CBC 03/30/25 Range/Units 16:20 WBC 12.1 H (3.8-10.6) Thou/mm3 Hgb 10.4 L (13.5-16.0) g/dL Hct 31.1 L (41.0-53.0) % Plt Count 735 H (140-440) Thou/mm3 BMP 03/30/25 16:20 Sodium 143 Potassium 4.4 Chloride 105 Carbon Dioxide 25.5 BUN 36 H Creatinine 1.2 Glucose 126 H Calcium 9.1 Cardiac Enzymes 03/30/25 Range/Units 16:20 Troponin I < 0.002 (0.0-0.045) ng/mL Liver Function 03/30/25 Range/Units 16:20 Total Bilirubin 0.4 (0.3-1.2) mg/dL AST 11 (0-34) U/L ALT 9 L (10-49) U/L Alkaline Phosphatase 76 (46-116) U/L Albumin 4.2 (3.4-4.8) gm/dL Assessment and Plan Additional Assessment & Plan Additional Plan: # Coffee-ground emesis # Acute posthemorrhagic anemia Plan Fiberoptic esophagogastroduodenoscopy with possible biopsy possible therapeutic intervention under intravenous moderate sedation Informed consent obtained we will proceed with the procedure Other medical problems include COPD Essential hypertension PAD status post stenting on Plavix and aspirin Thank you very much for the opportunity to participate in care of this patient
[2025-03-30 23:53] LABS: AFP Non-Pregnant < 1.30 ng/mL (<8.10)
[2025-03-31] VITALS (17 sets, daily range): BP systolic 97–133; BP diastolic 45–85; PULSE 50–79; RESP 12–98; TEMP 35.9–37; O2SAT 95–100; BMI 19.2; BMI 19.1
--- NOTE | 2025-03-31 00:02 | PC.NURSE ---
INFORMED PATIENT URINE SAMPLE NEEDED. PER PATIENT I AM UNABLE TO GO RIGHT NOW . INFORMED PATIENT OF POSSIBLE NEED FOR STRIAGHT CATH. PER PATIENT I REFUSE ANY KIND OF CATHETER .
[2025-03-31 00:14] LABS: Hematocrit 25.8 % (41.0-53.0)
[2025-03-31 00:20] LABS: Hemoglobin 8.4 g/dL (13.5-16.0)
[2025-03-31] MEDS: SODIUM CHLORIDE 0.9% 1000 ML 1,000 ML 200 ML IV (01:52)
[2025-03-31 05:41] LABS: Basophils # (Auto) 0.1 Thou/mm3 (0.0-0.2); Basophils % (Auto) 1 % (0-2.5); Eosinophils # (Auto) 0.1 Thou/mm3 (0.0-0.5); Eosinophils % (Auto) 1 % (0-10); Hematocrit 24.3 % (41.0-53.0); Immature Granulocytes % (Auto) 1 % (0-0); Immature Granulocytes Auto 0.11 Thou/mm3 (0.00-0.00); Lymphocytes # (Auto) 1.3 Thou/mm3 (1.0-4.8); Lymphocytes % (Auto) 14 % (10-50); Mean Corpuscular HGB Conc 31.7 g/dl (31.0-37.0); Mean Corpuscular Hemoglobin 23.5 pg (25.0-35.0); Mean Corpuscular Volume 74 fL (80-100); Monocytes # (Auto) 0.6 Thou/mm3 (0.0-0.8); Monocytes % (Auto) 6 % (0-12); Neutrophils # (Auto) 7.4 Thou/mm3 (1.8-7.7); Neutrophils % (Auto) 77 % (37-80); Nucleated Red Blood Cell % 0 /100 WBC (0); Platelet Count 560 Thou/mm3 (140-440); RDW Standard Deviation 46.1 fL (35.1-43.9); Red Blood Count 3.27 Miln/mm3 (4.50-5.90); White Blood Count 9.6 Thou/mm3 (3.8-10.6)
[2025-03-31 06:18] LABS: Collection Type, Urine Clean Catch
[2025-03-31 06:46] LABS: Alanine Aminotransferase 7 U/L (10-49); Albumin, Serum 3.4 gm/dL (3.4-4.8); Albumin/Globulin Ratio 2.3 (1.2-2.2); Alkaline Phosphatase 58 U/L (46-116); Anion Gap 12 (7-16); Aspartate Amino Transferase 11 U/L (0-34); BUN/Creatinine Ratio 37 Ratio (12-20); Bilirubin,Total 0.3 mg/dL (0.3-1.2); Blood Urea Nitrogen 41 mg/dL (9-23); Calcium (Corrected) 8.5 mg/dL (8.5-10.1); Chloride 111 mMol/L (98-107); Creatinine (Component) 1.1 mg/dL (0.6-1.3); Estimated Creatinine Clearance 46.8 mL/min (>60); Globulin 1.5 gm/dL (2.3-3.5); Glucose 121 mg/dL (74-106); Magnesium 1.9 mg/dL (1.6-2.6); Osmolality,Calculated 297 (275-295); Potassium 4.2 mMol/L (3.4-5.1); Sodium 144 mMol/L (136-145); Total Protein 4.9 gm/dL (5.7-8.2); eGFR > 60 See Note
[2025-03-31 07:30] LABS: Bilirubin,Urine Negative (Negative); Blood,Urine Negative (Negative); Clarity,Urine Clear (Clear/Hazy); Color,Urine Lt-Yellow (Lt Yel-Yel); Culture Indicated,Urine Not Indicated; Glucose, Urine Negative (Negative); Ketones,Urine 1+ (Negative); Leukocyte Esterase,Urine Negative (Negative); Nitrite,Urine Negative (Negative); Protein,Urine Negative (Neg - Trace); RBC,Urine 3 /hpf (0-3); Squamous Epithelial Cell,Urine < 1 /hpf (0-5); Urobilinogen,Urine Negative mg/dL (0.0-1.0); WBC,Urine 3 /hpf (0-5)
[2025-03-31 07:38] LABS: Specific Gravity,Urine 1.015 (1.001-1.035)
[2025-03-31 08:01] LABS: Hemoglobin 7.7 g/dL (13.5-16.0)
[2025-03-31] MEDS: PANTOPRAZOLE INJ 40 MG VIAL IVP ×2 (08:43→20:59)
--- NOTE | 2025-03-31 09:54 | PC.NURSE ---
Report given to endo nurse Calderon.
--- NOTE | 2025-03-31 10:38 | PC.SS ---
Follow up note: EGD today.
[2025-03-31] MEDS: RINGERS LACTATED 1000 ML 1,000 ML 150 ML IV ×2 (10:51→21:00)
[2025-03-31] MEDS: cefTRIAXone/D5w 1gm IV premix 1 GM/50 ML BAG IV (10:51)
[2025-03-31 11:22] LABS: Lipase 45 U/L (12-53)
[2025-03-31 11:56] LABS: Basophils % (Auto) 1 % (0-2.5); Eosinophils # (Auto) 0.1 Thou/mm3 (0.0-0.5); Eosinophils % (Auto) 2 % (0-10); Hematocrit 22.7 % (41.0-53.0); Immature Granulocytes % (Auto) 1 % (0-0); Immature Granulocytes Auto 0.04 Thou/mm3 (0.00-0.00); Lymphocytes % (Auto) 14 % (10-50); Mean Corpuscular HGB Conc 32.2 g/dl (31.0-37.0); Mean Corpuscular Hemoglobin 23.8 pg (25.0-35.0); Mean Corpuscular Volume 74 fL (80-100); Monocytes # (Auto) 0.4 Thou/mm3 (0.0-0.8); Monocytes % (Auto) 5 % (0-12); Neutrophils # (Auto) 5.2 Thou/mm3 (1.8-7.7); Neutrophils % (Auto) 78 % (37-80); Nucleated Red Blood Cell % 0 /100 WBC (0); Platelet Count 545 Thou/mm3 (140-440); Red Blood Count 3.07 Miln/mm3 (4.50-5.90); White Blood Count 6.7 Thou/mm3 (3.8-10.6)
[2025-03-31 12:00] LABS: Hemoglobin 7.3 g/dL (13.5-16.0)
--- NOTE | 2025-03-31 12:23 | PC.NURSE ---
Patient to endo via gurney in stable condition.
--- NOTE | 2025-03-31 13:20 | SUR.PHASEI ---
3824 Patient arrived to recovery, report received from Anu SEBASTIAN
--- NOTE | 2025-03-31 14:13 | SUR.PHASEI ---
1400 Report given to Bradley RN, patient meets discharge criteria from recovery, awake and alert, breathing unlabored, vital sign stable, denies pain and nausea, drinking water tolerating well 1413 Patient transported via gurney to room 370 without incident, patient able to ambulate from gurney to bed with standby assist from this mortgage loan underwriter, patient has a friend in his room awaiting, Bradley RN promptly in patients room, patient sitting comfortably in his bed with call light in reach when this mortgage loan underwriter left patients room
--- NOTE | 2025-03-31 15:11 | PD.ONCCONS ---
HPI Data of Consult Consult date: 03/31/25 Requesting Physician: Anish Lowry MD Primary Care Provider: Keila Shepard PA-C Consult Narrative Reason for consult: Suspected gastric cancer History of present illness: 79-year-old gentleman with history of peptic ulcer disease and peripheral vascular disease on dual antiplatelet therapy with aspirin and Plavix admitted with coffee-ground emesis and suspected upper GI bleed. Had marked mucosal thickening of the gastric antrum on CT along with fluid distended esophagus and suspicious for mild pancreatitis. Also noted was colonic diverticulosis and mild thickening of the urinary bladder. CBC this a.m. 7.3 hemoglobin 6.7 WBC 545 platelets. AFP 1.30 LFTs not elevated. Upper endoscopy reportedly performed earlier today by Dr. Ascencio results not immediately available. Patient referred for oncological consultation. cc:: cc: Anish Lowry MD Past Medical History Past Medical History Comments PMH COMMENT: Cardiac disorders cardiac arrhythmia hypertension COPD recent GI bleed history of GE reflux ulcer. BPH arthritis cataracts Meds Home Medications and Allergies Home Medications ?Medication ?Instructions ?Recorded ?Confirmed ?Type fluticasone 250 mcg-salmeterol 50 1 inh inhalation BID dyspnea 07/31/21 03/31/25 History mcg/dose blistr powdr for inhalation (Advair Diskus) losartan 50 mg tablet 50 mg PO HS 07/31/21 03/31/25 History tiotropium bromide 18 mcg capsule 1 cap inhalation DAILY dyspnea 07/31/21 03/31/25 History with inhalation device (Spiriva with HandiHaler) famotidine 10 mg tablet 10 mg PO HS 02/18/23 03/31/25 History varenicline tartrate 1 mg tablet 1 mg PO DAILY 02/18/23 03/31/25 History sildenafil 100 mg tablet 100 mg PO DAILY 02/17/24 03/31/25 History albuterol sulfate 90 mcg/actuation 1 puff inhalation Q8H PRN 03/31/25 03/31/25 History aerosol inhaler shortness of breath or wheezing aspirin 81 mg tablet 81 mg PO HS 03/31/25 03/31/25 History cholecalciferol (vitamin D3) 25 25 mcg PO HS 03/31/25 03/31/25 History mcg (1,000 unit) capsule (Vitamin D3) clopidogrel 75 mg tablet 75 mg PO QDAY 03/31/25 03/31/25 History cyanocobalamin (vitamin B-12) 100 100 mcg PO HS 03/31/25 03/31/25 History mcg tablet (Vitamin B-12) fluticasone fur. 100 mcg-umeclid 1 inh inhalation QDAY 03/31/25 03/31/25 History 62.5 mcg-vilant 25 mcg inhalat.powder (Trelegy Ellipta) omeprazole 20 mg capsule,delayed 20 mg PO QDAY 03/31/25 03/31/25 History release Allergies Allergy/AdvReac Type Severity Reaction Status Date / Time Iodinated Contrast Media Allergy Intermediate Flushing Verified 03/30/25 17:03 Exam Vital Signs Temp Pulse Resp BP Pulse Ox O2 Del Method O2 Flow Rate 97.4 F 57 L 18 110/53 L 99 Room Air 3 03/31/25 15:02 03/31/25 15:02 03/31/25 15:02 03/31/25 15:02 03/31/25 15:02 03/31/25 15:02 03/31/25 13:35 Narrative Exam Patient in no acute distress answering questions well. Results Labs 03/31/25 11:30 03/31/25 04:30 Labs: Short CBC 03/30/25 03/30/25 03/31/25 Range/Units 16:20 23:39 04:30 WBC 12.1 H 9.6 (3.8-10.6) Thou/mm3 Hgb 10.4 L 8.4 L D 7.7 L (13.5-16.0) g/dL Hct 31.1 L 25.8 L 24.3 L (41.0-53.0) % Plt Count 735 H 560 H D (140-440) Thou/mm3 03/31/25 Range/Units 11:30 WBC 6.7 (3.8-10.6) Thou/mm3 Hgb 7.3 L (13.5-16.0) g/dL Hct 22.7 L (41.0-53.0) % Plt Count 545 H (140-440) Thou/mm3 BMP 03/30/25 03/31/25 16:20 04:30 Sodium 143 144 Potassium 4.4 4.2 Chloride 105 111 H Carbon Dioxide 25.5 21.0 BUN 36 H 41 H Creatinine 1.2 1.1 Glucose 126 H 121 H Calcium 9.1 8.0 L Cardiac Enzymes 03/30/25 Range/Units 16:20 Troponin I < 0.002 (0.0-0.045) ng/mL Liver Function 03/30/25 03/31/25 Range/Units 16:20 04:30 Total Bilirubin 0.4 0.3 (0.3-1.2) mg/dL AST 11 11 (0-34) U/L ALT 9 L 7 L (10-49) U/L Alkaline Phosphatase 76 58 D (46-116) U/L Albumin 4.2 3.4 D (3.4-4.8) gm/dL Urine 03/31/25 Range/Units 06:00 Urine Color Lt-Yellow (Lt Yel-Yel) Urine Clarity Clear (Clear/Hazy) Urine pH 5.0 (5.0-7.0) Ur Specific [place] 1.015 (1.001-1.035) Urine Protein Negative (Neg - Trace) Urine Glucose (UA) Negative (Negative) Assessment and Plan Additional Assessment & Plan Additional Plan: 1. Admitted with coffee emesis abdominal pain. 2. Upper endoscopy performed today results pending. 2. Will follow.
[2025-03-31] MEDS: METOCLOPRAMIDE INJ 5 MG/ML VIAL 2 ML IVP (17:36)
--- NOTE | 2025-03-31 17:43 | ESPR_ITS ---
<Statement entered by aKren Barrera MD - 04/01/25 07:59> I agree with plan and examination findings on this note , I have personally seen and examined patient. Labs and imaging reviewed. Karen Barrera PGY3 Documentation for date of: 03/31/25 Subjective Subjective Interval history: Patient is an overnight admit. Patient seen and examined at bedside this morning. Patient states that he initially had an episode of coughing small amount of blood which then started having hematemesis with dark color vomit patient does not have history of peptic ulcer disease and was recently placed on Plavix and aspirin due to stents placed by vascular surgeon Dr. Godoy patient underwent endoscopy this afternoon, results are pending. Will continue to monitor patient's CBC and will transfuse if hemoglobin drops below 7. Patient does not complain of any abdominal pain nausea or vomiting currently. Patient states he has not noticed any melena or hematochezia. Vitals are stable and labs are reviewed. Exam Vital Signs Temp Pulse Resp BP Pulse Ox O2 Del Method O2 Flow Rate 97.4 F 57 L 18 110/53 L 99 Room Air 3 03/31/25 15:02 03/31/25 15:02 03/31/25 15:02 03/31/25 15:02 03/31/25 15:02 03/31/25 15:02 03/31/25 13:35 Narrative Exam GENERAL: elder thin male, cooperative, awake A&Ox3, Not in acute distress NEURO: no focal neurological deficits noted HEENT: Atraumatic, Normocephalic. mucous membranes moist. Eyes open, symmetrical, & clear HEART: Normal Heart Sounds LUNGS: Clear to auscultation with no wheezing or crackles. ABDOMEN: soft, non-distended, non-tender, bowel sounds heard, no guarding or rebound tenderness SKIN: No Rash or ecchymoses EXTREMITIES: No edema, tenderness, able to move all 4 extremities, pedal pulses palpated Objective Labs 04/01/25 12:50 04/01/25 12:50 Labs: Laboratory Results - last 24 hr 03/30/25 03/30/25 03/31/25 17:02 23:39 04:30 WBC 9.6 RBC 3.27 L Hgb 8.4 L D 7.7 L Hct 25.8 L 24.3 L MCV 74 L MCH 23.5 L MCHC 31.7 RDW Std Deviation 46.1 H Plt Count 560 H D Neut % (Auto) 77 Lymph % (Auto) 14 [place] % (Auto) 6 Eos % (Auto) 1 Baso % (Auto) 1 Neut # (Auto) 7.4 Lymph # (Auto) 1.3 [place] # (Auto) 0.6 Eos # (Auto) 0.1 Baso # (Auto) 0.1 Immature Gran # (Auto) 0.11 H Absolute Nucleated RBC 0.00 Immature Gran % 1 H Nucleated RBC % 0 Sodium 144 Potassium 4.2 Chloride 111 H Carbon Dioxide 21.0 Anion Gap 12 BUN 41 H Creatinine 1.1 Estim Creat Clear Calc 46.8 L eGFR > 60 BUN/Creatinine Ratio 37 H Glucose 121 H Calculated Osmolality 297 H Calcium 8.0 L Corrected Calcium 8.5 Magnesium 1.9 Total Bilirubin 0.3 AST 11 ALT 7 L Alkaline Phosphatase 58 D Total Protein 4.9 L Albumin 3.4 D Globulin 1.5 L Albumin/Globulin Ratio 2.3 H Lipase 45 D Tumor Marker AFP < 1.30 Ur Collection Type Urine Color Urine Clarity Urine pH Ur Specific [place] Urine Protein Urine Glucose (UA) Urine Ketones Urine Blood Urine Nitrite Urine Bilirubin Urine Urobilinogen (Auto) Ur Leukocyte Esterase Urine RBC Urine WBC Ur Squamous Epith Cells Urine Bacteria Ur Culture Indicated? Blood Type A Positive Antibody Screen NEGATIVE Blood Bank Wristband ID Yes 03/31/25 03/31/25 06:00 11:30 WBC 6.7 RBC 3.07 L Hgb 7.3 L Hct 22.7 L MCV 74 L MCH 23.8 L MCHC 32.2 RDW Std Deviation 46.0 H Plt Count 545 H Neut % (Auto) 78 Lymph % (Auto) 14 [place] % (Auto) 5 Eos % (Auto) 2 Baso % (Auto) 1 Neut # (Auto) 5.2 Lymph # (Auto) 1.0 [place] # (Auto) 0.4 Eos # (Auto) 0.1 Baso # (Auto) 0.0 Immature Gran # (Auto) 0.04 H Absolute Nucleated RBC 0.00 Immature Gran % 1 H Nucleated RBC % 0 Sodium Potassium Chloride Carbon Dioxide Anion Gap BUN Creatinine Estim Creat Clear Calc eGFR BUN/Creatinine Ratio Glucose Calculated Osmolality Calcium Corrected Calcium Magnesium Total Bilirubin AST ALT Alkaline Phosphatase Total Protein Albumin Globulin Albumin/Globulin Ratio Lipase Tumor Marker AFP Ur Collection Type Clean Catch Urine Color Lt-Yellow Urine Clarity Clear Urine pH 5.0 Ur Specific [place] 1.015 Urine Protein Negative Urine Glucose (UA) Negative Urine Ketones 1+ A Urine Blood Negative Urine Nitrite Negative Urine Bilirubin Negative Urine Urobilinogen (Auto) Negative Ur Leukocyte Esterase Negative Urine RBC 3 Urine WBC 3 Ur Squamous Epith Cells < 1 Urine Bacteria None Ur Culture Indicated? Not Indicated Blood Type Antibody Screen Blood Bank Wristband ID Quality Measures Quality Measures none Advance care planning discussed with:: patient Assessment & Plan Assessment Current Active Medications: Generic Name Dose Route Start Last Admin Trade Name Freq PRN Reason Stop Dose Admin Acetaminophen 650 mg 03/30/25 20:24 Acetaminophen 325 Mg Tablet PO 04/29/25 20:23 Q6H PRN pain(1-3) and Fever >100.4 Hydrocodone Bitart/Acetaminophen 1 tab 03/30/25 20:24 Hydrocodone/Apap 5/325 Tablet PO 04/04/25 20:23 Q4HR PRN PAIN SCALE 4-10(Mod-Sev Albuterol/Ipratropium 3 ml 03/30/25 20:24 Albuterol/Ipratropium (Duoneb) Rt Alessandra 3 Ml Nebu INH 04/29/25 22:59 Q4HRRT PRN SOB or wheezing Lactated Ringer's 1,000 mls @ 150 mls/hr 03/31/25 10:35 03/31/25 10:51 Lactated Ringers IV 04/30/25 10:34 150 mls/hr .Q6H40M HYACINTH Administration Ceftriaxone Sodium/Dextrose 1 gm in 50 mls @ 100 mls/hr 03/31/25 10:45 03/31/25 10:51 Rocephin/D5w 1gm Iv Premix IV 04/07/25 10:33 100 mls/hr QDAY HYACINTH Administration Metoclopramide HCl 5 mg 03/31/25 13:15 03/31/25 17:36 Metoclopramide Inj 5 Mg/Ml Vial 2 Ml IVP 04/30/25 13:14 5 mg Q12H HYACINTH Administration Protocol Ondansetron HCl 4 mg 03/30/25 20:24 Ondansetron Inj 2 Mg/Ml Inj 2 Ml IVP 04/29/25 20:23 Q6H PRN NAUSEA OR VOMITING Protocol Pantoprazole Sodium 40 mg 03/30/25 21:00 03/31/25 08:43 Pantoprazole Inj 40 Mg Vial IVP 04/29/25 20:59 40 mg Q12HR HYACINTH Administration Plan Mr. Melendez is a 79-year-old male with past medical history of bleeding peptic ulcer disease, PAD s/p stent placement 1 month ago (on Plavix and aspirin), COPD, and hypertension was admitted to the hospital on 03/30/2025 acute blood loss anemia likely in the setting of GI bleed. #Acute blood loss anemia #GI bleed #Hematemesis #Hx of bleeding peptic ulcer disease Patient came in with complaints of coffee-ground emesis and abdominal pain. Patient's hemoglobin today was 10.4 and previously was 15.2 on 01/2025 Patient does have a history of peptic ulcer disease which was bleeding in the past in his early 80s. Patient has not had any other endoscopy done in the past. Patient's abdomen/pelvis CT that shows some gastric antrum thickening which could be possible gastritis versus malignancy Patient does have a history of previous alcohol use heavier than usual. Plan: -Octreotide drip in the setting of possible esophageal varices -Protonix 40 mg twice daily -IV fluids -Zofran for nausea -Monitor Repeat H&H , will transfuse if Hgb <7, Type and screen done -GI consulted, appreciate recommendations -Endoscopy pending #Mild pancreatitis, low suspicion Patient did have some epigastric pain and lipase was elevated and abdomen/pelvis CT that show mild pancreatitis pattern. Plan: -Aggressive IV hydration with normal saline at 200 mL/h. -Pain management with [place] 5 and Tylenol for now as patient did not have excruciating pain. -repeat lipase 45 -Will continue to monitor #Leukocytosis, resolved Patient is WBC 12.1 likely reactive No signs of infection nor fevers at this time. Plan: -Will continue to monitor #Hx of PAD s/p stents Patient had stents placed in the peripheral arteries around a month and a half ago He was on DAPT Last took his DAPT last night Plan: -In the setting of GI bleed we will hold off on DAPT therapy today -Will consider starting Plavix after endoscopy. -Will Consider stopping aspirin upon discharge and continuing Plavix upon discharge. #Hx of hypertension Patient blood pressure has been well-controlled since he came to the ED Will hold off on antihypertensive medications for now in the setting of bleed to avoid shock. Health maintenance Disposition: Patient admitted to [facility] surg for GI bleed. Diet: NPO GI prophylaxis: protonix DVT prophylaxis: SCDs in the setting of possible bleed Code: FULL Assessment and plan discussed with my senior resident Dr. Barrera & attending physician Dr. Herminia Gutierrez (PGY-1)- Internal medicine resident Attending Provider Attestation/Addendum I attest that I was physically present for the evaluation, physical examination, lab and imaging review of the patient with the residents. I discussed the case with the residents and agree with the findings and plans of care as documented above. At bedside today, patient states she is feeling well and denies any complaints. His abdominal pain, nausea and vomiting have resolved. Appears comfortable, vital signs are stable. Lab results show hemoglobin of 7.7 this morning, we will obtain follow-up hemoglobin. Chemistry panel shows BUN of 41, rest of the labs are nonconcerning. Underwent EGD with gastroenterology. Oncology was consulted by GI, suspicion for malignancy. Oncology recommended tumor markers awaiting EGD and pathology results. He is also on fluid for mild pancreatitis. Sage Hope MD
[2025-03-31 19:08] LABS: Hematocrit 24.2 % (41.0-53.0)
[2025-03-31 20:36] LABS: Carcinoembryonic Antigen 0.8 ng/mL (0.0-5.0)
--- NOTE | 2025-03-31 20:45 | PC.NURSE ---
Call made to Dr Ascencio, did talked to family member, regarding patient condition and plan of care. Families and patient expressed understanding.
[2025-04-01] VITALS (8 sets, daily range): BP systolic 90–123; BP diastolic 51–56; PULSE 51–66; RESP 15–98; TEMP 36.1–36.5; O2SAT 96–100
[2025-04-01] MEDS: METOCLOPRAMIDE INJ 5 MG/ML VIAL 2 ML IVP ×2 (00:46→12:52)
[2025-04-01] MEDS: RINGERS LACTATED 1000 ML 1,000 ML 150 ML IV (03:52)
[2025-04-01] MEDS: PANTOPRAZOLE INJ 40 MG VIAL IVP ×2 (09:21→21:52)
[2025-04-01] MEDS: cefTRIAXone/D5w 1gm IV premix 1 GM/50 ML BAG IV (09:21)
--- NOTE | 2025-04-01 11:35 | PC.SS ---
Note copied from initial assessment by previous finished goods planner. SS met with patient regarding his d/c plan. Pt is alert/oriented. Pt was admitted for GI Bleed. Pt confirmed demographic and contact information is correct on facesheet. Pt resides alone. Pt ambulates independently without assistance or DME. Pt is ok with all ADLs. Patient?s pharmacy of choice is [facility]. Pt named his dtr, Aliya Melendez medical decision maker if he is unable. SS provided dc options for home or SNF. Patient?s choice is to return home upon d/c. Pt does not have an advance directive, SS offered, and pt was receptive. Pt states not diabetic and is not on dialysis. Family or Friend will provide transportation home. Pt states he followed up with PCP on Saturday. D/C plan: Return home Next of Kin: Aliya Melendez dtr, phone# [phone] PCP: Dr. Keila Shepard Address: Correct on facesheet
[2025-04-01 13:03] LABS: Basophils % (Auto) 1 % (0-2.5); Eosinophils # (Auto) 0.2 Thou/mm3 (0.0-0.5); Eosinophils % (Auto) 2 % (0-10); Immature Granulocytes % (Auto) 1 % (0-0); Immature Granulocytes Auto 0.03 Thou/mm3 (0.00-0.00); Lymphocytes # (Auto) 1.1 Thou/mm3 (1.0-4.8); Lymphocytes % (Auto) 18 % (10-50); Mean Corpuscular HGB Conc 32.1 g/dl (31.0-37.0); Mean Corpuscular Hemoglobin 23.4 pg (25.0-35.0); Mean Corpuscular Volume 73 fL (80-100); Monocytes # (Auto) 0.3 Thou/mm3 (0.0-0.8); Monocytes % (Auto) 5 % (0-12); Neutrophils # (Auto) 4.8 Thou/mm3 (1.8-7.7); Neutrophils % (Auto) 74 % (37-80); Nucleated Red Blood Cell % 0 /100 WBC (0); Platelet Count 562 Thou/mm3 (140-440); RDW Standard Deviation 45.8 fL (35.1-43.9); Red Blood Count 3.29 Miln/mm3 (4.50-5.90); White Blood Count 6.4 Thou/mm3 (3.8-10.6)
[2025-04-01 13:16] LABS: Hemoglobin 7.7 g/dL (13.5-16.0)
[2025-04-01 13:50] LABS: Alanine Aminotransferase 9 U/L (10-49); Albumin, Serum 3.5 gm/dL (3.4-4.8); Albumin/Globulin Ratio 2.7 (1.2-2.2); Alkaline Phosphatase 60 U/L (46-116); Anion Gap 9 (7-16); Aspartate Amino Transferase 12 U/L (0-34); BUN/Creatinine Ratio 18 Ratio (12-20); Bilirubin,Total 0.2 mg/dL (0.3-1.2); Blood Urea Nitrogen 16 mg/dL (9-23); Calcium 8.1 mg/dL (8.3-10.6); Calcium (Corrected) 8.5 mg/dL (8.5-10.1); Carbon Dioxide 26.6 mMol/L (20.0-31.0); Chloride 108 mMol/L (98-107); Creatinine (Component) 0.9 mg/dL (0.6-1.3); Estimated Creatinine Clearance 57.2 mL/min (>60); Globulin 1.3 gm/dL (2.3-3.5); Glucose 118 mg/dL (74-106); Magnesium 1.8 mg/dL (1.6-2.6); Osmolality,Calculated 289 (275-295); Potassium 3.9 mMol/L (3.4-5.1); Sodium 144 mMol/L (136-145); Total Protein 4.8 gm/dL (5.7-8.2); eGFR > 60 See Note
--- NOTE | 2025-04-01 15:42 | PC.SS ---
Rounding note: pending Dr. Ascencio's orders before discharge. D/c plan is home.
--- NOTE | 2025-04-01 19:44 | ESPR_ITS ---
<Statement entered by Karen Barrera MD - 04/02/25 13:38> I agree with plan and examination findings on this note , I have personally seen and examined patient. Labs and imaging reviewed. Karen Barrera PGY3 Documentation for date of: 04/01/25 Subjective Subjective Interval history: No acute overnight events reported. Patient seen and examined at bedside this morning. Initially for the first half of the morning and early afternoon patient refused to draw labs due to pain. Patient consented to labs later in the afternoon labs are reviewed hemoglobin is 7.7, hematocrit 24.0, MCV 73 MCH 23.4, CMP no significant findings. Patient had undergone EGD which showed large central ulcerated mass in the distal body of the stomach and an oozing gastric ulcer was biopsied GIs impression this mass is likely adenocarcinoma therefore oncologist Dr. Phillips is consulted and following the case. Still pending final path report for confirmation of the malignancy. Otherwise patient denies any shortness of breath dizziness denies any abdominal pain nausea or vomiting. Patient states he was able to tolerate his breakfast this morning and feels comfortable does not have any complaints right now. Exam Vital Signs Temp Pulse Resp BP Pulse Ox O2 Del Method O2 Flow Rate 97.0 F 58 L 15 97/54 L 100 Room Air 3 04/01/25 16:00 04/01/25 16:00 04/01/25 16:00 04/01/25 16:04/01/25 16:04/01/25 16:00 03/31/25 13:35 Narrative Exam GENERAL: elder thin male, cooperative, awake A&Ox3, Not in acute distress NEURO: no focal neurological deficits noted HEENT: Atraumatic, Normocephalic. mucous membranes moist. Eyes open, symmetrical, & clear HEART: Normal Heart Sounds LUNGS: Clear to auscultation with no wheezing or crackles. ABDOMEN: soft, non-distended, non-tender, bowel sounds heard, no guarding or rebound tenderness SKIN: No Rash or ecchymoses EXTREMITIES: No edema, tenderness, able to move all 4 extremities, pedal pulses palpated Objective Labs 04/02/25 04:45 04/02/25 04:45 Labs: Laboratory Results - last 24 hr 03/31/25 04/01/25 18:25 12:50 WBC 6.4 RBC 3.29 L Hgb 7.7 L Hct 24.0 L MCV 73 L MCH 23.4 L MCHC 32.1 RDW Std Deviation 45.8 H Plt Count 562 H Neut % (Auto) 74 Lymph % (Auto) 18 [place] % (Auto) 5 Eos % (Auto) 2 Baso % (Auto) 1 Neut # (Auto) 4.8 Lymph # (Auto) 1.1 [place] # (Auto) 0.3 Eos # (Auto) 0.2 Baso # (Auto) 0.0 Immature Gran # (Auto) 0.03 H Absolute Nucleated RBC 0.00 Immature Gran % 1 H Nucleated RBC % 0 Sodium 144 Potassium 3.9 Chloride 108 H Carbon Dioxide 26.6 Anion Gap 9 BUN 16 Creatinine 0.9 Estim Creat Clear Calc 57.2 L eGFR > 60 BUN/Creatinine Ratio 18 Glucose 118 H Calculated Osmolality 289 Calcium 8.1 L Corrected Calcium 8.5 Magnesium 1.8 Total Bilirubin 0.2 L AST 12 ALT 9 L Alkaline Phosphatase 60 Total Protein 4.8 L Albumin 3.5 Globulin 1.3 L Albumin/Globulin Ratio 2.7 H Carcinoembryonic Ag 0.8 Quality Measures Quality Measures none Advance care planning discussed with:: patient Assessment & Plan Assessment Current Active Medications: Generic Name Dose Route Start Last Admin Trade Name Freq PRN Reason Stop Dose Admin Acetaminophen 650 mg 03/30/25 20:24 Acetaminophen 325 Mg Tablet PO 04/29/25 20:23 Q6H PRN pain(1-3) and Fever >100.4 Hydrocodone Bitart/Acetaminophen 1 tab 03/30/25 20:24 Hydrocodone/Apap 5/325 Tablet PO 04/04/25 20:23 Q4HR PRN PAIN SCALE 4-10(Mod-Sev Albuterol/Ipratropium 3 ml 03/30/25 20:24 Albuterol/Ipratropium (Duoneb) Rt Alessandra 3 Ml Nebu INH 04/29/25 22:59 Q4HRRT PRN SOB or wheezing Metoclopramide HCl 5 mg 03/31/25 13:15 04/01/25 12:52 Metoclopramide Inj 5 Mg/Ml Vial 2 Ml IVP 04/30/25 13:14 5 mg Q12H HYACINTH Administration Protocol Ondansetron HCl 4 mg 03/30/25 20:24 Ondansetron Inj 2 Mg/Ml Inj 2 Ml IVP 04/29/25 20:23 Q6H PRN NAUSEA OR VOMITING Protocol Pantoprazole Sodium 40 mg 03/30/25 21:00 04/01/25 09:21 Pantoprazole Inj 40 Mg Vial IVP 04/29/25 20:59 40 mg Q12HR HYACINTH Administration Plan Mr. Melendez is a 79-year-old male with past medical history of bleeding peptic ulcer disease, PAD s/p stent placement 1 month ago (on Plavix and aspirin), COPD, and hypertension was admitted to the hospital on 03/30/2025 acute blood loss anemia likely in the setting of GI bleed. 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 Patient's hemoglobin today was 10.4 and previously was 15.2 on 01/2025 Patient does have a history of peptic ulcer disease which was bleeding in the past in his early 80s. Patient has not had any other endoscopy done in the past. Patient's abdomen/pelvis CT that shows some gastric antrum thickening which could be possible gastritis versus malignancy Patient does have a history of previous alcohol use heavier than usual. EGD which showed large central ulcerated mass in the distal body of the stomach and an oozing gastric ulcer was biopsied GIs impression this mass is likely adenocarcinoma therefore oncologist Dr. Phillips is consulted and following the case. Plan: -Octreotide drip discontinued on 03/31 -Protonix 40 mg twice daily -IV fluids -Zofran for nausea -Monitor Repeat H&H , will transfuse if Hgb <7, Type and screen done -GI consulted, appreciate recommendations -Oncologist Dr. Phillips consulted, appreciate recommendations #Mild pancreatitis, low suspicion Patient did have some epigastric pain and lipase was elevated and abdomen/pelvis CT that show mild pancreatitis pattern. Plan: -Aggressive IV hydration with normal saline at 200 mL/h. -Pain management with [place] 5 and Tylenol for now as patient did not have excruciating pain. -repeat lipase 45 -Will continue to monitor #Leukocytosis, resolved Patient is WBC 12.1 likely reactive No signs of infection nor fevers at this time. Plan: -Will continue to monitor #Hx of PAD s/p stents Patient had stents placed in the peripheral arteries around a month and a half ago He was on DAPT Last took his DAPT last night Plan: -In the setting of GI bleed we will hold off on DAPT therapy today -Will Consider stopping aspirin upon discharge and continuing Plavix upon discharge. #Hx of hypertension Patient blood pressure has been well-controlled since he came to the ED Will hold off on antihypertensive medications for now in the setting of bleed to avoid shock. Health maintenance Disposition: Patient admitted to [facility] for GI bleed. Diet: NPO GI prophylaxis: protonix DVT prophylaxis: SCDs in the setting of possible bleed Code: FULL Assessment and plan discussed with my senior resident Dr. Barrera & attending physician Dr. Herminia Gutierrez (PGY-1)- Internal medicine resident Attending Provider Attestation/Addendum I attest that I was physically present for the evaluation, physical examination, lab and imaging review of the patient with the residents. I discussed the case with the residents and agree with the findings and plans of care as documented above. At bedside today, patient states he is feeling well and denies any complaints. Vital signs are stable. Lab results showed drop in hemoglobin from 8.0 yesterday to 7.7 today. Discussed with GI, recommended to monitor hemoglobin level closely for 1 more day. If hemoglobin remained stable, we will plan for discharge tomorrow. Sage Hope MD
--- NOTE | 2025-04-01 22:30 | PC.NURSE ---
PATIENT WANTS TO TALK TO DR. MOORE.DR. MOORE MADE AWAE.CHELO CAME AND TALK TO PATIENT.
[2025-04-02] VITALS: BP 121/72; PULSE 63; RESP 19; TEMP 36.3; O2SAT 98
[2025-04-02] MEDS: METOCLOPRAMIDE INJ 5 MG/ML VIAL 2 ML IVP (01:07)
[2025-04-02 04:00] VITALS: BP 123/63; PULSE 65; RESP 19; TEMP 36.8; O2SAT 95
[2025-04-02 06:02] LABS: Basophils % (Auto) 1 % (0-2.5); Eosinophils # (Auto) 0.2 Thou/mm3 (0.0-0.5); Eosinophils % (Auto) 2 % (0-10); Hematocrit 23.5 % (41.0-53.0); Immature Granulocytes % (Auto) 1 % (0-0); Immature Granulocytes Auto 0.05 Thou/mm3 (0.00-0.00); Lymphocytes # (Auto) 1.3 Thou/mm3 (1.0-4.8); Lymphocytes % (Auto) 20 % (10-50); Mean Corpuscular HGB Conc 32.8 g/dl (31.0-37.0); Mean Corpuscular Hemoglobin 23.8 pg (25.0-35.0); Mean Corpuscular Volume 73 fL (80-100); Monocytes # (Auto) 0.4 Thou/mm3 (0.0-0.8); Monocytes % (Auto) 7 % (0-12); Neutrophils # (Auto) 4.4 Thou/mm3 (1.8-7.7); Neutrophils % (Auto) 70 % (37-80); Nucleated Red Blood Cell % 0 /100 WBC (0); Platelet Count 557 Thou/mm3 (140-440); RDW Standard Deviation 45.5 fL (35.1-43.9); Red Blood Count 3.23 Miln/mm3 (4.50-5.90); White Blood Count 6.3 Thou/mm3 (3.8-10.6)
[2025-04-02 06:04] LABS: Hemoglobin 7.7 g/dL (13.5-16.0)
[2025-04-02 06:27] LABS: Alanine Aminotransferase < 7 U/L (10-49); Albumin, Serum 3.3 gm/dL (3.4-4.8); Albumin/Globulin Ratio 2.2 (1.2-2.2); Alkaline Phosphatase 56 U/L (46-116); Anion Gap 12 (7-16); Aspartate Amino Transferase 11 U/L (0-34); BUN/Creatinine Ratio 13 Ratio (12-20); Bilirubin,Total 0.2 mg/dL (0.3-1.2); Blood Urea Nitrogen 12 mg/dL (9-23); Calcium 7.9 mg/dL (8.3-10.6); Calcium (Corrected) 8.5 mg/dL (8.5-10.1); Chloride 108 mMol/L (98-107); Creatinine (Component) 0.9 mg/dL (0.6-1.3); Estimated Creatinine Clearance 57.2 mL/min (>60); Globulin 1.5 gm/dL (2.3-3.5); Glucose 93 mg/dL (74-106); Magnesium 1.8 mg/dL (1.6-2.6); Osmolality,Calculated 288 (275-295); Potassium 3.5 mMol/L (3.4-5.1); Sodium 145 mMol/L (136-145); Total Protein 4.8 gm/dL (5.7-8.2); eGFR > 60 See Note
[2025-04-02 07:28] VITALS: PULSE 68; RESP 16; RESP 95; O2SAT 95
[2025-04-02 08:00] VITALS: BP 124/58; PULSE 59; RESP 18; TEMP 36.6; O2SAT 96
[2025-04-02] MEDS: PANTOPRAZOLE INJ 40 MG VIAL IVP (08:22)
[2025-04-02] MEDS: POTASSIUM CHLORIDE 20 mEq TABCR 40 MEQ PO (10:29)
--- NOTE | 2025-04-02 10:37 | ESPR_ITS ---
Documentation for date of: 04/02/25 Subjective Subjective Interval history: Spent a lot of time with the patient Clear to outline primarily with Dr. Phillips and oncology team locally here Once staging is accomplished and patient is a surgical candidate after preoperative chemoradiation I will send him to Dr. Yoon at [facility] for surgical intervention Both the patient and the daughter who are visiting from [place] are in agreement with my approach Exam Vital Signs Temp Pulse Resp BP Pulse Ox O2 Del Method O2 Flow Rate 97.9 F 59 L 18 124/58 L 96 Room Air 3 04/02/25 08:00 04/02/25 08:00 04/02/25 08:00 04/02/25 08:00 04/02/25 08:00 04/02/25 08:00 04/02/25 08:00 Objective Labs 04/02/25 04:45 04/02/25 04:45 Labs: Laboratory Results - last 24 hr 04/01/25 04/02/25 12:50 04:45 WBC 6.4 6.3 RBC 3.29 L 3.23 L Hgb 7.7 L 7.7 L Hct 24.0 L 23.5 L MCV 73 L 73 L MCH 23.4 L 23.8 L MCHC 32.1 32.8 RDW Std Deviation 45.8 H 45.5 H Plt Count 562 H 557 H Neut % (Auto) 74 70 Lymph % (Auto) 18 20 [place] % (Auto) 5 7 Eos % (Auto) 2 2 Baso % (Auto) 1 1 Neut # (Auto) 4.8 4.4 Lymph # (Auto) 1.1 1.3 [place] # (Auto) 0.3 0.4 Eos # (Auto) 0.2 0.2 Baso # (Auto) 0.0 0.0 Immature Gran # (Auto) 0.03 H 0.05 H Absolute Nucleated RBC 0.00 0.00 Immature Gran % 1 H 1 H Nucleated RBC % 0 0 Sodium 144 145 Potassium 3.9 3.5 Chloride 108 H 108 H Carbon Dioxide 26.6 25.0 Anion Gap 9 12 BUN 16 12 Creatinine 0.9 0.9 Estim Creat Clear Calc 57.2 L 57.2 L eGFR > 60 > 60 BUN/Creatinine Ratio 18 13 Glucose 118 H 93 Calculated Osmolality 289 288 Calcium 8.1 L 7.9 L Corrected Calcium 8.5 8.5 Magnesium 1.8 1.8 Total Bilirubin 0.2 L 0.2 L AST 12 11 ALT 9 L < 7 L Alkaline Phosphatase 60 56 Total Protein 4.8 L 4.8 L Albumin 3.5 3.3 L Globulin 1.3 L 1.5 L Albumin/Globulin Ratio 2.7 H 2.2 Impressions Impression: Adenocarcinoma gastric Plan As under HPI Assessment & Plan A&P Narrative # Coffee-ground emesis # Acute posthemorrhagic anemia Plan Fiberoptic esophagogastroduodenoscopy with possible biopsy possible therapeutic intervention under intravenous moderate sedation Informed consent obtained we will proceed with the procedure Other medical problems include COPD Essential hypertension PAD status post stenting on Plavix and aspirin Thank you very much for the opportunity to participate in care of this patient Time Spent With Patient Time: Total time spent is greater than 50% in coordination of care (as documented) at patient's floor/unit and/or counseling patient:
--- NOTE | 2025-04-02 10:46 | PC.SS ---
Follow up note: Pt is d/c for today. Pt will return home.
--- NOTE | 2025-04-02 11:04 | PD.ONCPROG ---
Documentation for date of: 04/02/25 Subjective Subjective Interval history: Patient admitted with hematemesis underwent endoscopy 03/31/2025 revealing large central ulcerated mass distal body of the stomach region of the antrum and pylorus. Spoke with Dr. Dumont of [facility] who stated that on preliminary diagnosis it is adenocarcinoma. Exam Vital Signs Temp Pulse Resp BP Pulse Ox O2 Del Method O2 Flow Rate 97.9 F 59 L 18 124/58 L 96 Room Air 3 04/02/25 08:00 04/02/25 08:00 04/02/25 08:00 04/02/25 08:00 04/02/25 08:00 04/02/25 08:00 04/02/25 08:00 Narrative Exam Appears comfortable no Objective Labs 04/02/25 04:45 04/02/25 04:45 Labs: Laboratory Results - last 24 hr 04/01/25 04/02/25 12:50 04:45 WBC 6.4 6.3 RBC 3.29 L 3.23 L Hgb 7.7 L 7.7 L Hct 24.0 L 23.5 L MCV 73 L 73 L MCH 23.4 L 23.8 L MCHC 32.1 32.8 RDW Std Deviation 45.8 H 45.5 H Plt Count 562 H 557 H Neut % (Auto) 74 70 Lymph % (Auto) 18 20 [place] % (Auto) 5 7 Eos % (Auto) 2 2 Baso % (Auto) 1 1 Neut # (Auto) 4.8 4.4 Lymph # (Auto) 1.1 1.3 [place] # (Auto) 0.3 0.4 Eos # (Auto) 0.2 0.2 Baso # (Auto) 0.0 0.0 Immature Gran # (Auto) 0.03 H 0.05 H Absolute Nucleated RBC 0.00 0.00 Immature Gran % 1 H 1 H Nucleated RBC % 0 0 Sodium 144 145 Potassium 3.9 3.5 Chloride 108 H 108 H Carbon Dioxide 26.6 25.0 Anion Gap 9 12 BUN 16 12 Creatinine 0.9 0.9 Estim Creat Clear Calc 57.2 L 57.2 L eGFR > 60 > 60 BUN/Creatinine Ratio 18 13 Glucose 118 H 93 Calculated Osmolality 289 288 Calcium 8.1 L 7.9 L Corrected Calcium 8.5 8.5 Magnesium 1.8 1.8 Total Bilirubin 0.2 L 0.2 L AST 12 11 ALT 9 L < 7 L Alkaline Phosphatase 60 56 Total Protein 4.8 L 4.8 L Albumin 3.5 3.3 L Globulin 1.3 L 1.5 L Albumin/Globulin Ratio 2.7 H 2.2 Assessment & Plan A&P Narrative 1. Adenocarcinoma noted on preliminary evaluation by Dr. Dumont of [facility] of biopsy taken from ulcerated mass from stomach following Dr. Ascencio's endoscopy 03/31/2025. 2. Patient has been given follow-up to be seen at the cancer treatment center 04/13/2025 8 AM 3. Brief discussion with patient and adult daughter present regarding need for completion of staging workup including a PET scan and referral to tertiary hospital for possible surgery and meeting medical oncologist Dr. Patricia for likely chemo. Time Spent With Patient Time: Total time spent is greater than 50% in coordination of care (as documented) at patient's floor/unit and/or counseling patient:
[2025-04-02 12:00] VITALS: BP 131/55; PULSE 60; RESP 17; TEMP 36.5; O2SAT 98
--- NOTE | 2025-04-02 13:12 | PD.RESDS ---
Planned Discharge Date 04/02/25 DS: Providers Provider Date of admission: 03/30/25 20:24 Primary care physician: Keila Shepard PA-C Admitting Provider: Anish Lowry MD Attending Provider on Admission: Sage Hope MD Consults: 03/30/25 20:30 Consult to Gastroenterology Routine Comment: Consulting Provider: Malachi Ascencio 03/31/25 02:20 Referral Registered Dietitian Routine Comment: Referral Respiratory Therapy Routine Comment: 03/31/25 13:18 Consult to Oncology Routine Comment: Consulting Provider: Collin Phillips Attending Provider on DC: Jennyfer Gutierrez MD Discharging Provider: Jennyfer Gutierrez MD DS: Diagnosis Problem List Completed Was Problem List Reviewed/Reconciled?: Yes Hospital Course Hospital Course Hospital course: Mr. Melendez 79-year-old male with past medical history of bleeding peptic ulcer disease, PAD s/p stent placement 1 month ago (on Plavix and aspirin), COPD, and hypertension presented to [facility] ED on 03/30/2025 with chief complaint of abdominal pain and coffee-ground emesis. Patient had 3 episodes of hemetemesis, Patient was admitted to the hospital for further work up. Patient was started on octreotide and protonix drips and GI specialist Dr. Ascencio was consulted. Patient underwent EGD and Findings were consist with normal esophagus, large central ulcerated mass in the distal body of the stomach region of the antrum and pylorus and Oozing gastric ulcer in the middle of the mass. Multiple biopsies were taken and sent to pathology. Due to high suspicion of malignancy, radiation oncologist Dr. Phillips was consulted to establish care and further recommendations. 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 Patient and his daughter who is the medical decision maker are informed of the preliminary pathology reports. Patient's symptoms of nausea and vomiting have completely resolved. Pt denies any epigastric or abdominal pain. Patient also tolerated oral diet and hemodynamically stable to be discharged home to self care. As per GI recommendations, Pt's aspirin and plavix are resumed on discharge and advised to follow up with vascular surgeon Dr. Godoy to further discuss decision anticoagulation. Discharge Recommendations -Follow-up outpatient with your primary care within 1 week after discharge follow-up outpatient with vascular surgeon Dr. Godoy outpatient to discuss your hospitalist admission and resuming aspirin and Plavix. As per GI clearance we are continuing your aspirin and Plavix however please discuss it with Dr. Godoy -You will need to repeat CBC to monitor your hemoglobin as you were in the hospital due to gastric ulcer bleed -Follow-up outpatient with radiation oncologist Dr. Phillips for further workup and final pathology reports -Take all your medications as directed -Please return to the ED if you have new or worsening symptoms Hospitalization Diagnosis #Microcytic Anemia in the setting of #Acute blood loss anemia, upper GI bleed #Ulcerated gastric mass, likely #Gastric Adenocarcinoma, preliminary report #Hematemesis - resolved #Hx of bleeding peptic ulcer disease #Mild pancreatitis, low suspicion -resolved #Leukocytosis, resolved #Hx of PAD s/p stents #Hx of hypertension Assessment and plan discussed with my attending physician Dr. Herminia Gutierrez (PGY-1)- Internal medicine resident Time Spent with Patient Time attestation: Total time spent providing and/or coordinating discharge services: Time spent: Greater than 30 minutes Exam Vital Signs Temp Pulse Resp BP Pulse Ox O2 Del Method O2 Flow Rate 97.7 F 60 17 131/55 H 98 Room Air 3 04/02/25 12:04/02/25 12:04/02/25 12:04/02/25 12:04/02/25 12:04/02/25 12:04/02/25 08:00 Narrative Exam GENERAL: elderly thin male, cooperative, awake A&Ox3, Not in acute distress NEURO: no focal neurological deficits noted HEENT: Atraumatic, Normocephalic. mucous membranes moist. Eyes open, symmetrical, & clear HEART: Normal Heart Sounds LUNGS: Clear to auscultation with no wheezing or crackles. ABDOMEN: soft, non-distended, non-tender, bowel sounds heard, no guarding or rebound tenderness SKIN: No Rash or ecchymoses EXTREMITIES: No edema, tenderness, able to move all 4 extremities, pedal pulses palpated Discharge Plan Plan Patient Disposition: HOME (Self Care) Patient condition on transfer: Stable Care Plan Goals: -Follow-up outpatient with your primary care within 1 week after discharge follow-up outpatient with vascular surgeon Dr. Godoy outpatient to discuss your hospitalist admission and resuming aspirin and Plavix. As per GI clearance we are continuing your aspirin and Plavix however please discuss it with Dr. Godoy -You will need to repeat CBC to monitor your hemoglobin as you were in the hospital due to gastric ulcer bleed -Follow-up outpatient with radiation oncologist Dr. Phillips for further workup and final pathology reports -Take all your medications as directed -Please return to the ED if you have new or worsening symptoms Prescriptions/Referrals Prescriptions/Med Rec: Continued losartan 50 mg Tablet 50 mg PO HS famotidine 10 mg Tablet 10 mg PO HS clopidogrel 75 mg tablet 75 mg PO QDAY Patient Comments: take 1 tablet by mouth once daily aspirin 81 mg tablet 81 mg PO HS omeprazole 20 mg capsule,delayed release(DR/EC) 20 mg PO QDAY cholecalciferol (vitamin D3) [Vitamin D3] 25 mcg (1,000 unit) capsule 25 mcg PO HS cyanocobalamin (vitamin B-12) [Vitamin B-12] 100 mcg tablet 100 mcg PO HS albuterol sulfate 90 mcg/actuation HFA aerosol inhaler 1 puff INHALATION Q8H PRN (Reason: shortness of breath or wheezing) Patient Comments: inhale 1 puff by mouth every 4 hours if needed Trelegy Ellipta 100-62.5-25 mcg blister with device 1 inh inhalation QDAY Discontinued fluticasone propion-salmeterol [Advair Diskus] 250-50 mcg/dose Blister With Device 1 inh INHALATION BID tiotropium bromide [Spiriva with HandiHaler] 18 mcg Capsule, W/Inhalation Device 1 cap INHALATION DAILY varenicline tartrate 1 mg tablet 1 mg PO DAILY Patient Comments: take 1/2 tablet by mouth once daily for 3 days then 1/2 tablet tw... (REFER TO PRESCRIPTION NOTES). sildenafil 100 mg Tablet 100 mg PO DAILY Referrals: Keila Shepard PA-C [Primary Care Provider] - Patient/Caregiver Discharge Instructions Print Language: Nepalese Stand Alone Forms: [facility]al Award Info., Patient Portal Info Letter Discharge Order Discharge Orders: Discharge (Routine); Ordered 04/02/25 Ordered By: Jennyfer Gutierrez Quality Discharge Quality Measures none MD Attestestation MD Attestation I attest that I was physically present for the evaluation, physical examination, lab and imaging review of the patient with the residents. I discussed the case with the residents and agree with the findings and plans of care as documented above. Sage Hope MD
[2025-04-06 06:39] LABS: CA 19-9 Antigen* 44 U/mL (<34)
== END 2025-04-02 13:14 | disposition home or self-care (01) | DRG 374 ==
LOC: SERX 18:10 → SERHOLD 21:29 → S3SX 03-31 06:01
PROVIDERS: Nurse Practitioner Primary Care; Radiology Therapeutic Radiology; Specialist; Student in an Organized Health Care Education/Training Program; Admitting Provider Internal Medicine; Emergency Provider Emergency Medicine; PCP Physician Assistant; Visit Provider Student in an Organized Health Care Education/Training Program
PROC: 0DB78ZX Excision of Stomach, Pylorus, Via Natural or Artificial Opening Endoscopic, Diagnostic (ICD-10-PCS; CPT 43239; principal; 2025-03-31 16:30)
DX: C16.9 Malignant neoplasm of stomach, unspecified (principal); K25.4 Chronic or unspecified gastric ulcer with hemorrhage; K85.90 Acute pancreatitis without necrosis or infection, unspecified; D62 Acute posthemorrhagic anemia; K92.0 Hematemesis; Z87.891 Personal history of nicotine dependence; I10 Essential (primary) hypertension; J44.9 Chronic obstructive pulmonary disease, unspecified; I73.9 Peripheral vascular disease, unspecified; R19.09 Other intra-abdominal and pelvic swelling, mass and lump; D50.9 Iron deficiency anemia, unspecified; I25.10 Atherosclerotic heart disease of native coronary artery without angina pectoris; K57.30 Diverticulosis of large intestine without perforation or abscess without bleeding; N40.0 Benign prostatic hyperplasia without lower urinary tract symptoms; K22.89 Other specified disease of esophagus; K86.89 Other specified diseases of pancreas; D75.839 Thrombocytosis, unspecified; Z79.02 Long term (current) use of antithrombotics/antiplatelets; Z79.82 Long term (current) use of aspirin; Z98.61 Coronary angioplasty status
CPT/HCPCS: 36415; 74177; 80053; 81001; 82105; 82378; 83690; 83735; 83880; 84484; 85014; 85018; 85025; 85610; 85730; 86301; 86850; 86900; 86901; 93005; 96360; 96361; 96374; 96375; 99291; A4217; A4649; J0696; J1200; J2250; J2354; J2470; J2765; J3010; J7030; J7050; J7120; Q9967; A9270

== ENCOUNTER → 2025-04-08 | Outpatient (CLI) | payer OTHER, SELFPAY ==
[2025-04-08 16:26] LABS: Basophils # (Auto) 0.1 Thou/mm3 (0.0-0.2); Basophils % (Auto) 1 % (0-2.5); Eosinophils # (Auto) 0.2 Thou/mm3 (0.0-0.5); Eosinophils % (Auto) 2 % (0-10); Hematocrit 27.2 % (41.0-53.0); Immature Granulocytes % (Auto) 1 % (0-0); Immature Granulocytes Auto 0.08 Thou/mm3 (0.00-0.00); Lymphocytes # (Auto) 1.4 Thou/mm3 (1.0-4.8); Lymphocytes % (Auto) 15 % (10-50); Mean Corpuscular Hemoglobin 22.7 pg (25.0-35.0); Mean Corpuscular Volume 71 fL (80-100); Monocytes # (Auto) 0.5 Thou/mm3 (0.0-0.8); Monocytes % (Auto) 6 % (0-12); Neutrophils # (Auto) 7.1 Thou/mm3 (1.8-7.7); Neutrophils % (Auto) 76 % (37-80); Nucleated Red Blood Cell % 0 /100 WBC (0); Platelet Count 788 Thou/mm3 (140-440); RDW Standard Deviation 44.7 fL (35.1-43.9); Red Blood Count 3.83 Miln/mm3 (4.50-5.90); White Blood Count 9.3 Thou/mm3 (3.8-10.6)
[2025-04-08 16:27] LABS: Hemoglobin 8.7 g/dL (13.5-16.0)
== END | disposition home or self-care (01) ==
LOC: COPL 15:34
PROVIDERS: Referring Provider Nurse Practitioner Family; Visit Provider Nurse Practitioner Family
DX: D62 Acute posthemorrhagic anemia (principal)
CPT/HCPCS: 36415; 85025

== ENCOUNTER 2025-04-13 07:51 | Outpatient (RCR) | payer OTHER, SELFPAY ==
--- NOTE | 2025-04-13 13:07 | CTCFLWUP_ITS ---
[facility] [address], [place] [address] FOLLOW-UP NOTE Date: 04/13/2025 MR#: [id number] Name: RIKA SYKES : 1945 Dx: C16.5 Malignant neoplasm of lesser curvature of stomach, unspecified Identification. Patient was admitted 2 weeks ago to [facility] for hematemesis and underwent upper endoscopy performed 03/31/[address] Ascencio revealing large central ulcerated mass in the distal body of stomach region of the antrum and pylorus. The lesion was described to be 30 mm in largest dimension oozing cratered gastric ulcer in the gastric antrum. Biopsy revealed invasive adenocarcinoma intestinal type with no loss of expression in all 4 mismatch repair proteins with Her 2 gastric.GEA equivocal 2+. H. pylori IHC landry occasional positive fragments suspicious for H. pylori organisms Imaging studies abdomen pelvis 03/30/2025 revealed fluid distended esophagus marked mucosal gastric antrum mild pancreatitis mild thickening of the urinary bladder. No liver or splenic lesions. Chest CT 4-25 2 mm pulmonary nodule left upper lobe. 04/08/2025 CBC hemoglobin 8.7 WBC 9.3 platelets 788,000 CEA 0.8 CA 19?9 mildly elevated at 44 Now out of the hospital patient states that he has had 1 episode of hematemesis but still able to swallow food reasonably well. Has lost 10 pounds in the past 3 months. Assessment.#1. Invasive adenocarcinoma intestinal type distal body of stomach no loss of expression in all 4 mismatch proteins #2. HER2 gastric/GEA equivocal score 2+ #3. H. pylori IHC landry occasional positive fragments suspicious for H. pylori organisms #4. CT shows no obvious regional or distant mets #5. Patient unsure whether he will move now to [place] where his 2 adult children live or be referred to tertiary center in [place]. #6. Told patient that he should decide soon since surgical eval along with medical oncology eval are needed soon. Cc: MD Keila Restrepo Electronically signed by: Collin Phillips M.D. 04/13/2025 1:04 PM
== END 2025-04-26 23:59 | disposition home or self-care (01) ==
LOC: SCTC 07:51
PROVIDERS: PCP Physician Assistant; Referring Provider Physician Assistant; Visit Provider Radiology Therapeutic Radiology
DX: C16.3 Malignant neoplasm of pyloric antrum (principal)
CPT/HCPCS: 99213; G0463

== ENCOUNTER → 2025-04-14 | Outpatient (CLI) | payer OTHER, SELFPAY ==
[2025-04-14 17:42] LABS: Urea Breath Test Positive (Negative)
== END | disposition home or self-care (01) ==
LOC: COPL 14:33
PROVIDERS: PCP Family Medicine; Referring Provider Radiology Therapeutic Radiology; Visit Provider Radiology Therapeutic Radiology
DX: C16.5 Malignant neoplasm of lesser curvature of stomach, unspecified (principal)
CPT/HCPCS: 83013; 83014

== ENCOUNTER → 2025-04-23 | Outpatient (CLI) | payer OTHER, SELFPAY ==
[2025-04-23 14:16] LABS: Basophils # (Auto) 0.1 Thou/mm3 (0.0-0.2); Basophils % (Auto) 1 % (0-2.5); Eosinophils # (Auto) 0.2 Thou/mm3 (0.0-0.5); Eosinophils % (Auto) 2 % (0-10); Hematocrit 24.8 % (41.0-53.0); Immature Granulocytes % (Auto) 1 % (0-0); Immature Granulocytes Auto 0.13 Thou/mm3 (0.00-0.00); Lymphocytes # (Auto) 1.1 Thou/mm3 (1.0-4.8); Lymphocytes % (Auto) 11 % (10-50); Mean Corpuscular Hemoglobin 21.3 pg (25.0-35.0); Mean Corpuscular Volume 69 fL (80-100); Monocytes # (Auto) 0.6 Thou/mm3 (0.0-0.8); Monocytes % (Auto) 6 % (0-12); Neutrophils # (Auto) 7.7 Thou/mm3 (1.8-7.7); Neutrophils % (Auto) 79 % (37-80); Nucleated Red Blood Cell % 0 /100 WBC (0); Platelet Count 623 Thou/mm3 (140-440); RDW Standard Deviation 43.9 fL (35.1-43.9); Red Blood Count 3.61 Miln/mm3 (4.50-5.90); White Blood Count 9.9 Thou/mm3 (3.8-10.6)
[2025-04-23 14:18] LABS: Hemoglobin 7.7 g/dL (13.5-16.0)
[2025-04-23 14:35] LABS: Ferritin 7 ng/mL (10.5-307.3); Iron 7 mcg/dL (65-175)
== END | disposition home or self-care (01) ==
LOC: COPL 13:33
PROVIDERS: PCP Family Medicine; Referring Provider Physician Assistant; Visit Provider Physician Assistant
DX: D64.9 Anemia, unspecified (principal); D75.839 Thrombocytosis, unspecified
CPT/HCPCS: 36415; 82728; 83540; 85025

== ENCOUNTER 2025-04-24 03:24 | Emergency (ER) | payer OTHER, SELFPAY ==
[2025-04-24 03:28] VITALS: BMI 18.7
[2025-04-24 03:56] VITALS: BP 102/64; PULSE 84; RESP 16; TEMP 36.7; O2SAT 97
--- NOTE | 2025-04-24 04:52 | PD.EDRME ---
Rapid Medical Screening Exam E Arrival date/time: 04/24/25 03:24 79M with history of HTN and recently diagnosed stomach cancer w/ +H. pylori presents to ED with generalized weakness. PCP states patient needs blood transfusion due to low HgB. Patient is not currently vomiting blood or having dark stools. Chief Complaint: General Adult/Misc Complain Vital signs: Vital Signs Temperature 98.0 F 04/24/25 03:56 Pulse Rate 84 04/24/25 03:56 Respiratory Rate 16 04/24/25 03:56 Blood Pressure 102/64 04/24/25 03:56 Pulse Oximetry (%) 97 04/24/25 03:56 Oxygen Delivery Method Room Air 04/24/25 03:56
[2025-04-24 06:15] VITALS: BP 102/62; PULSE 70; RESP 16; TEMP 36.5; O2SAT 98
[2025-04-24 06:26] LABS: Basophils # (Auto) 0.1 Thou/mm3 (0.0-0.2); Basophils % (Auto) 1 % (0-2.5); Eosinophils # (Auto) 0.2 Thou/mm3 (0.0-0.5); Eosinophils % (Auto) 3 % (0-10); Hematocrit 25.7 % (41.0-53.0); Immature Granulocytes % (Auto) 1 % (0-0); Immature Granulocytes Auto 0.04 Thou/mm3 (0.00-0.00); Lymphocytes # (Auto) 1.2 Thou/mm3 (1.0-4.8); Lymphocytes % (Auto) 15 % (10-50); Mean Corpuscular HGB Conc 31.1 g/dl (31.0-37.0); Mean Corpuscular Hemoglobin 21.5 pg (25.0-35.0); Mean Corpuscular Volume 69 fL (80-100); Monocytes # (Auto) 0.6 Thou/mm3 (0.0-0.8); Monocytes % (Auto) 7 % (0-12); Neutrophils # (Auto) 6.1 Thou/mm3 (1.8-7.7); Neutrophils % (Auto) 74 % (37-80); Nucleated Red Blood Cell % 0 /100 WBC (0); Platelet Count 640 Thou/mm3 (140-440); RDW Standard Deviation 44.7 fL (35.1-43.9); Red Blood Count 3.72 Miln/mm3 (4.50-5.90); White Blood Count 8.3 Thou/mm3 (3.8-10.6)
[2025-04-24 06:39] LABS: Alanine Aminotransferase 30 U/L (10-49); Albumin, Serum 4.3 gm/dL (3.4-4.8); Alkaline Phosphatase 87 U/L (46-116); Anion Gap 7 (7-16); Aspartate Amino Transferase 29 U/L (0-34); BUN/Creatinine Ratio 13 Ratio (12-20); Bilirubin,Total 0.5 mg/dL (0.3-1.2); Blood Urea Nitrogen 17 mg/dL (9-23); Calcium 9.3 mg/dL (8.3-10.6); Calcium (Corrected) 9.3 mg/dL (8.5-10.1); Carbon Dioxide 24.7 mMol/L (20.0-31.0); Chloride 107 mMol/L (98-107); Creatinine (Component) 1.3 mg/dL (0.6-1.3); Estimated Creatinine Clearance 37.5 mL/min (>60); Globulin 2.2 gm/dL (2.3-3.5); Glucose 117 mg/dL (74-106); Osmolality,Calculated 280 (275-295); Potassium 4.1 mMol/L (3.4-5.1); Sodium 139 mMol/L (136-145); Total Protein 6.5 gm/dL (5.7-8.2); eGFR 56 See Note
--- NOTE | 2025-04-24 06:48 | PD.EDRECHK ---
ED Recheck Abnl Lab Rx-RME/HPI General Chief Complaint: General Adult/Misc Complain Stated Complaint: abnormal labs needs blood transfusion hgb Time Seen by Provider: 04/24/25 06:43 Arrival date/time: 04/24/25 03:24 Limitations: no limitations RME / HPI RME / HPI narrative: 04/24/25 03:24 79M with history of HTN and recently diagnosed stomach cancer w/ +H. pylori presents to ED with generalized weakness. PCP states patient needs blood transfusion due to low HgB. Patient is not currently vomiting blood or having dark stools. DR. KELLY MAIN ED EVALUATION: 79 year old male with history of PAD status post stents, hypertension, and peptic ulcer disease, presents to the ED after being referred by his PCP for evaluation of low hemoglobin and possible blood transfusion. Reports that he was recently discharged from this facility and had follow-up lab work done with his PCP. The patient was contacted by his PCP?s office yesterday and informed that his hemoglobin was low and advised to present to the ED for further evaluation and management. Patient reports feeling globally weak but denies any other specific symptoms. Denies fevers, chills, chest pain, shortness of breath, or bleeding. Per the EMR, during his recent admission from 03/30/2025 to 04/01/2025, the patient underwent an EGD with biopsies. Preliminary findings suggested gastric adenocarcinoma, and the patient was advised to follow up with oncologist Dr. Phillips for final pathology results and further care. Related Data Home Medications ?Medication ?Instructions ?Recorded ?Confirmed losartan 50 mg tablet 50 mg PO HS 07/31/21 03/31/25 famotidine 10 mg tablet 10 mg PO HS 02/18/23 03/31/25 albuterol sulfate 90 mcg/actuation 1 puff inhalation Q8H PRN 03/31/25 03/31/25 aerosol inhaler shortness of breath or wheezing aspirin 81 mg tablet 81 mg PO HS 03/31/25 03/31/25 cholecalciferol (vitamin D3) 25 25 mcg PO HS 03/31/25 03/31/25 mcg (1,000 unit) capsule (Vitamin D3) clopidogrel 75 mg tablet 75 mg PO QDAY 03/31/25 03/31/25 cyanocobalamin (vitamin B-12) 100 100 mcg PO HS 03/31/25 03/31/25 mcg tablet (Vitamin B-12) fluticasone fur. 100 mcg-umeclid 1 inh inhalation QDAY 03/31/25 03/31/25 62.5 mcg-vilant 25 mcg inhalat.powder (Trelegy Ellipta) omeprazole 20 mg capsule,delayed 20 mg PO QDAY 03/31/25 03/31/25 release Previous Rx's ?Medication ?Instructions ?Recorded ferrous sulfate 325 mg (65 mg 325 mg PO QDAY #30 tabs 04/24/25 iron) tablet,delayed release folic acid 1 mg tablet 1 mg PO QDAY #30 tabs 04/24/25 Allergies Allergy/AdvReac Type Severity Reaction Status Date / Time Iodinated Contrast Media Allergy Intermediate Flushing Verified 04/24/25 03:33 Review of Systems Review of Systems Systems Reviewed: All systems reviewed, normal except as documented Past Medical History Past Medical History CARDIAC: Positive Cardiac Disorders, Cardiac Arrhythmia and Hypertension RESPIRATORY: Positive Chronic Obstructive Pulmonary Disease (COPD), Asthma and Pneumonia GASTROINTESTINAL: Positive Gastrointestinal Bleed, Ulcer and Gastroesophageal Reflux Disease GENITOURINARY: Positive Benign Prostatic Hyperplasia MUSCULOSKELETAL: Positive Arthritis and Fractures ENT: Positive Cataracts OTHER HISTORY: Positive Blood Transfusions Family History FAMILY HISTORY: Positive Family Respiratory Disorders Surgical History SURGICAL: Positive Eye Surgery and Abdominal Surgery; Negative Cardiac Surgery or Pacemaker Social History SMOKING STATUS: Former smoker 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 General Limitations: Present no limitations General appearance: Present alert and in no apparent distress Head Head exam: Present atraumatic, normocephalic and normal inspection Eye Eye exam: Present normal appearance, PERRL and EOMI ENT ENT exam: Present normal exam, normal oropharynx and mucous membranes moist Neck Neck exam: Present normal inspection, full ROM and trachea midline Chest Chest inspection: Present normal inspection and symmetric chest wall rise Respiratory Respiratory exam: Present normal lung sounds bilaterally Cardiovascular Cardiovascular exam: Present regular rate, normal rhythm and normal heart sounds Abdominal Exam Abdominal exam: Present soft and normal bowel sounds Extremities Exam Extremities exam: Present normal inspection and full ROM Back Exam Back exam: Present normal inspection and full ROM Neurological Exam Neurological exam: Present alert, oriented X3 and CN II-XII intact Psychiatric Psychiatric exam: Present normal affect and normal mood Skin Skin exam: Present warm, dry, intact and normal color Course Quality Measures none Orders Category Date Time Status CBC Stat Lab 04/24/25 05:57 Completed CMP [Comprehensive Metabolic Panel] Stat Lab 04/24/25 05:57 Completed Type and Screen Stat Lab 04/24/25 05:57 Results Vital Signs Vital signs: Vital Signs Temperature 98.0 F 04/24/25 03:56 Pulse Rate 84 04/24/25 03:56 Respiratory Rate 16 04/24/25 03:56 Blood Pressure 102/64 04/24/25 03:56 Pulse Oximetry (%) 97 04/24/25 03:56 Oxygen Delivery Method Room Air 04/24/25 03:56 Recheck / Abnormal Lab / Rx MDM Narrative MDM Narrative:: Brianne Reyna am scribing for and in the presence of Dr. Kelly. Assessment: Symptomatic anemia Plan: Transfusion if indicated to bring HGB above 8 Hemoglobin yesterday 7.7 and repeat today is 8.0. Blood transfusion is not indicated. I recommended an Iron transfusion however he refused. Will discharge home with po Iron and Folic acid as he is already taking vitamin B12. Patient data External records reviewed:: [facility] previous records (I reviewed admission from 03/30/2025 through 04/01/2025 ) Clinical information provided by:: patient Social determinants that could affect healthcare access:: none Patient has the following chronic illnesses:: PAD status post stents, hypertension, and peptic ulcer disease Preliminary findings suggested gastric adenocarcinoma during recent admission 03/30-04/01/2025 How is presenting disease/condition affected by chronic disease/condition?: exacerbated by Evaluation data The following diagnostics were reviewed and interpreted by me:: lab results Lab and/or radiology exams considered but not ordered:: None Interpretation Summary: As noted above Medications / Prescriptions Medications or Prescriptions considered but not ordered:: None Medication administrations:: None Consultations Consultation(s) initiated? (list below): No Diagnosis Recheck Differential Diagnosis: other (anemia, severe anemia, syptomatic anemia, GI bleed) Most likely diagnosis given after review of the tests above:: Anemia, iron deficiency Admission Indicated Admission indicated?: not indicated Admission Request Was there a request for admission?: No Disposition Plan Disposition Plan: Discharge Discharge Attestation Discharge Attestation: The patient and all family members were given an opportunity to ask questions and understood the discharge instructions. Discharge instructions specifically effects, indications for sooner follow up or return to the emergency department, and the expected course of current diagnosis. Patient condition: Stable Discharge Plan Plan Patient Disposition: HOME (Self Care) Prescriptions/Referrals Prescriptions/Med Rec: New ferrous sulfate 325 mg (65 mg iron) tablet,delayed release (DR/EC) 325 mg PO QDAY Qty: 30 3RF folic acid 1 mg tablet 1 mg PO QDAY Qty: 30 3RF No Action losartan 50 mg Tablet 50 mg PO HS famotidine 10 mg Tablet 10 mg PO HS clopidogrel 75 mg tablet 75 mg PO QDAY Patient Comments: take 1 tablet by mouth once daily aspirin 81 mg tablet 81 mg PO HS omeprazole 20 mg capsule,delayed release(DR/EC) 20 mg PO QDAY cholecalciferol (vitamin D3) [Vitamin D3] 25 mcg (1,000 unit) capsule 25 mcg PO HS cyanocobalamin (vitamin B-12) [Vitamin B-12] 100 mcg tablet 100 mcg PO HS albuterol sulfate 90 mcg/actuation HFA aerosol inhaler 1 puff INHALATION Q8H PRN (Reason: shortness of breath or wheezing) Patient Comments: inhale 1 puff by mouth every 4 hours if needed Trelegy Ellipta 100-62.5-25 mcg blister with device 1 inh inhalation QDAY Referrals: Keila Shepard PA-C [Primary Care Provider] - In 1 week Problem List Clinical Impression: Anemia, iron deficiency Patient/Caregiver Discharge Instructions Education Materials: Anemia, Anemia During Cancer, Iron Supplements Print Language: Mongolian Stand Alone Forms: Ghazal Award Info., Patient Portal Info Letter
[2025-04-24 08:23] VITALS: BP 116/87; PULSE 68; RESP 16; TEMP 36.6; O2SAT 99
== END 2025-04-24 08:28 | disposition home or self-care (01) ==
PROVIDERS: Physician Assistant; Emergency Provider Emergency Medicine; PCP Physician Assistant
DX: D50.9 Iron deficiency anemia, unspecified (principal); I10 Essential (primary) hypertension
CPT/HCPCS: 36415; 80053; 85025; 86850; 86900; 86901; 99283

== ENCOUNTER 2025-04-27 03:50 | Emergency (ER) | payer OTHER, SELFPAY ==
[2025-04-27 03:52] VITALS: BMI 18.1
[2025-04-27 04:05] VITALS: BP 105/73; PULSE 94; RESP 22; TEMP 36.6; O2SAT 97
--- NOTE | 2025-04-27 04:11 | PD.EDRME ---
Rapid Medical Screening Exam RME Arrival date/time: 04/27/25 03:50 Chief Complaint: General Adult/Misc Complain Time Seen by Provider: 04/27/25 03:57 Vital signs: Vital Signs Temperature 97.8 F 04/27/25 04:05 Pulse Rate 94 04/27/25 04:05 Respiratory Rate 22 H 04/27/25 04:05 Blood Pressure 105/73 04/27/25 04:05 Pulse Oximetry (%) 97 04/27/25 04:05 Oxygen Delivery Method Room Air 04/27/25 04:05 RME Narrative: Patient states he was evaluated in the ED 04/24 for anemia. hgb 8.0 at that time. Patient is requesting an iron transfusion. Patient informed no iron infusion available in the ED at this time. He states he will f/u at the cancer center in the morning. Patient does take oral iron at home. Oncologist: Dr. Phillips.
--- NOTE | 2025-04-27 04:43 | PC.NURSE ---
PT LEFT AFTER TALKING TO PROVIDER.
== END 2025-04-27 05:00 | disposition left against medical advice (07) ==
PROVIDERS: Emergency Provider Emergency Medicine
DX: D64.9 Anemia, unspecified (principal); Z53.29 Procedure and treatment not carried out because of patient's decision for other reasons
CPT/HCPCS: 99281

== ENCOUNTER 2025-05-04 10:06 | Emergency (ER) | payer OTHER, SELFPAY ==
[2025-05-04 10:11] VITALS: BMI 24.3
--- NOTE | 2025-05-04 10:11 | EKG_ITS ---
[facility] Test Date: 2025-05-04 Pat Name: RIKA SYKES Department: Room: - Gender: Male [employer] F[employer]: : 1945 Requested By: Champ Neri Order Number: [id number] Reading MD: Champ Neri Measurements Intervals [place] Rate: 88 P: 78 LA: 164 QRS: -77 QRSD: 110 T: 80 QT: 354 QTc: 429 Interpretive Statements SINUS RHYTHM POSSIBLE RIGHT VENTRICULAR CONDUCTION DELAY [RSR (QR) IN V1/V2] LEFT ANTERIOR FASCICULAR BLOCK [QRS AXIS <= -45, QR IN I, RS IN II] Compared to ECG 03/30/2025 16:56:10 No significant changes /store/S0/[id number]/[id number]
[2025-05-04 10:19] VITALS: BP 70/45; PULSE 96; RESP 20; TEMP 36.6; O2SAT 97
--- NOTE | 2025-05-04 10:39 | PD.EDCHEST ---
ED Chest Pain RME/HPI General Chief Complaint: Abdominal Pain Stated Complaint: ABD PAIN, CHEST PAIN Time Seen by Provider: 05/04/25 10:39 Arrival date/time: 05/04/25 10:06 Limitations: no limitations RME / HPI RME / HPI narrative: 79 year old male with history of PAD status post stents, hypertension, peptic ulcer disease, and recently diagnosed with gastric adenocarcinoma presents to the ED for chest pain beginning ~ 30 minutes before coming to the ED. Described as pressure in sensation that is located to the left side of chest, not exacerbated with walking. States he took a nitro shortly after onset of pain which did not provide relief. Additionally complains of epigastric abdominal pain beginning this morning. Patient mentioned he was scheduled to have labs performed today before his scheduled blood transfusion tomorrow. Wireless Team Member: Dr. Rousseau Oncologist: Dr. Phillips Related Data Home Medications ?Medication ?Instructions ?Recorded ?Confirmed losartan 50 mg tablet 50 mg PO HS 07/31/21 03/31/25 famotidine 10 mg tablet 10 mg PO HS 02/18/23 03/31/25 albuterol sulfate 90 mcg/actuation 1 puff inhalation Q8H PRN 03/31/25 03/31/25 aerosol inhaler shortness of breath or wheezing aspirin 81 mg tablet 81 mg PO HS 03/31/25 03/31/25 cholecalciferol (vitamin D3) 25 25 mcg PO HS 03/31/25 03/31/25 mcg (1,000 unit) capsule (Vitamin D3) clopidogrel 75 mg tablet 75 mg PO QDAY 03/31/25 03/31/25 cyanocobalamin (vitamin B-12) 100 100 mcg PO HS 03/31/25 03/31/25 mcg tablet (Vitamin B-12) fluticasone fur. 100 mcg-umeclid 1 inh inhalation QDAY 03/31/25 03/31/25 62.5 mcg-vilant 25 mcg inhalat.powder (Trelegy Ellipta) omeprazole 20 mg capsule,delayed 20 mg PO QDAY 03/31/25 03/31/25 release Previous Rx's ?Medication ?Instructions ?Recorded ferrous sulfate 325 mg (65 mg 325 mg PO QDAY #30 tabs 04/24/25 iron) tablet,delayed release folic acid 1 mg tablet 1 mg PO QDAY #30 tabs 04/24/25 Allergies Allergy/AdvReac Type Severity Reaction Status Date / Time Iodinated Contrast Media Allergy Intermediate Flushing Verified 05/04/25 10:14 Review of Systems Review of Systems Systems Reviewed: All systems reviewed, normal except as documented Past Medical History Past Medical History CARDIAC: Positive Cardiac Disorders, Cardiac Arrhythmia and Hypertension RESPIRATORY: Positive Chronic Obstructive Pulmonary Disease (COPD), Asthma and Pneumonia GASTROINTESTINAL: Positive Gastrointestinal Bleed, Ulcer and Gastroesophageal Reflux Disease GENITOURINARY: Positive Benign Prostatic Hyperplasia MUSCULOSKELETAL: Positive Arthritis and Fractures ENT: Positive Cataracts OTHER HISTORY: Positive Blood Transfusions and Cancer (STOMACH CANCER) Family History FAMILY HISTORY: Positive Family Respiratory Disorders and Family Cancer (PT'S MOM LUNG CANCER) Surgical History SURGICAL: Positive Eye Surgery and Abdominal Surgery Social History SMOKING STATUS: Never smoker 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 Exam General Limitations: Present no limitations General appearance: Present alert, in no apparent distress and other (Thin male ) Head Head exam: Present atraumatic Eye Eye exam: Present normal appearance, PERRL and EOMI ENT ENT exam: Present normal exam, normal oropharynx and mucous membranes moist Neck Neck exam: Present normal inspection, full ROM and trachea midline Chest Chest inspection: Present normal inspection and symmetric chest wall rise Respiratory Respiratory exam: Present normal lung sounds bilaterally Cardiovascular Cardiovascular exam: Present regular rate, normal rhythm, normal heart sounds and diastolic murmur (left upper sternal border, referral of heart sounds to bilateral carotids ) Abdominal Exam Abdominal exam: Present soft, tenderness (epigastric area ), normal bowel sounds and other (old surgical scar noted, well healed. 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 Care 05/04/25 10:40 Active Continuous Pulse Oximetry ONCE Care 05/04/25 10:40 Active EKG (ED ONLY) *Do not use* NOW Care 05/04/25 10:11 Completed Insert IV STAT Care 05/04/25 10:40 Active EKG (ED Only) Stat Exams 05/04/25 10:11 Draft XR chest 1V portable Stat Exams 05/04/25 10:40 Completed B-Type Natriuretic Peptide Stat Lab 05/04/25 11:16 Completed CBC Stat Lab 05/04/25 11:16 Completed Comprehensive Metabolic Panel Stat Lab 05/04/25 11:16 Completed Lipase Stat Lab 05/04/25 11:16 Completed Magnesium Stat Lab 05/04/25 11:16 Completed Partial Thromboplastin Time Stat Lab 05/04/25 11:16 Completed Prothrombin Time with INR Stat Lab 05/04/25 11:16 Completed Troponin I Stat Lab 05/04/25 11:16 Completed Troponin I Stat Lab 05/04/25 14:10 Completed Aspirin Chew Med 05/04/25 10:40 Discontinued 324 mg PO X1 ONE Ondansetron Inj [Zofran Inj] Med 05/04/25 11:11 Discontinued 4 mg IVP X1 ONE Pantoprazole Inj [Protonix Inj] Med 05/04/25 11:11 Discontinued 40 mg IVP X1 ONE Sodium Chloride 0.9% 1000 ml [Ns] 1,000 ml Med 05/04/25 10:40 Discontinued IV 999 mls/hr Oxygen Delivery NOW RT 05/04/25 10:40 Active Vital Signs Vital signs: Vital Signs Temperature 97.8 F 05/04/25 10:19 Pulse Rate 96 05/04/25 10:19 Respiratory Rate 20 05/04/25 10:19 Blood Pressure 70/45 L 05/04/25 10:19 Pulse Oximetry (%) 97 05/04/25 10:19 Oxygen Delivery Method Room Air 05/04/25 10:19 Pulse ox is 97% on room air which is adequate. Chest Pain MDM Narrative MDM Narrative:: IBrianne am scribing for and in the presence of Dr. Bowen. Patient data External records reviewed:: [facility] previous records (I reviewed ED visit on 04/24/2025 ) Clinical information provided by:: patient Social determinants that could affect healthcare access:: none Patient has the following chronic illnesses:: PAD status post stents, hypertension, peptic ulcer disease, and recently diagnosed with gastric adenocarcinoma How is presenting disease/condition affected by chronic disease/condition?: exacerbated by Evaluation data The following diagnostics were reviewed and interpreted by me:: lab results, radiology exam(s) and EKG tracing(s) (05/04/2025 @ 10:14 AM. NSR, rate 84, left axis deviation, incomplete right bundle branch block, nonspecific ST and T-wave changes, no STEMI. ) Lab and/or radiology exams considered but not ordered:: None Interpretation Summary: Ordering Physician: Champ Bowen MD Date of Service: 05/04/25 Procedure(s): XR chest 1V portable Accession Number(s): [id number] cc: Champ Bowen MD; Eddi Middleton MD~ Examination: AP chest single view Technique one AP portable upright chest single view Date and time: May 04, 2025 at 1028 hours Comparison August 02, 2021 INDICATIONS: Chest pain today. FINDINGS: Normal heart size Moderate hyperexpansion. No pneumonia or pulmonary edema Minimal biapical pleural thickening IMPRESSION: Moderate hyperexpansion, COPD No pneumonia or pulmonary edema Dictated By: Eddi Middleton MD Signed By: <Electronically signed by Eddi Middleton MD in OV> 05/04/25 1110 Medications / Prescriptions Medications or Prescriptions considered but not ordered:: None Medication administrations:: Medication Administration History Discontinued Medications Aspirin (Aspirin 81 Mg Chew) 324 mg PO X1 ONE Stop: 05/04/25 10:41 Last Admin: 05/04/25 11:03 Dose: 324 mg Documented By: Sodium Chloride (Ns) 1,000 mls @ 999 mls/hr IV .Q1H1M ONE Stop: 05/04/25 11:40 Last Infusion: 05/04/25 14:11 Dose: Infused Documented By: Admin: 05/04/25 11:14 Dose: 999 mls/hr Documented By: Ondansetron HCl (Ondansetron Inj 2 Mg/Ml Inj 2 Ml) 4 mg IVP X1 ONE; Protocol Stop: 05/04/25 11:12 Last Admin: 05/04/25 11:20 Dose: 4 mg Documented By: Pantoprazole Sodium (Pantoprazole Inj 40 Mg Vial) 40 mg IVP X1 ONE Stop: 05/04/25 11:12 Last Admin: 05/04/25 11:20 Dose: 40 mg Documented By: See above Consultations Consultation(s) initiated? (list below): No Diagnosis Most likely diagnosis given after review of the tests above:: Chest pain of uncertain cause Stomach cancer Admission Indicated Admission indicated?: not indicated Admission Request Was there a request for admission?: No Disposition Plan Disposition Plan: Discharge Discharge Attestation Discharge Attestation: The patient and all family members were given an opportunity to ask questions and understood the discharge instructions. Discharge instructions specifically effects, indications for sooner follow up or return to the emergency department, and the expected course of current diagnosis. Patient condition: Stable Discharge Plan Plan Patient Disposition: HOME (Self Care) Prescriptions/Referrals Prescriptions/Med Rec: No Action losartan 50 mg Tablet 50 mg PO HS famotidine 10 mg Tablet 10 mg PO HS clopidogrel 75 mg tablet 75 mg PO QDAY Patient Comments: take 1 tablet by mouth once daily aspirin 81 mg tablet 81 mg PO HS omeprazole 20 mg capsule,delayed release(DR/EC) 20 mg PO QDAY cholecalciferol (vitamin D3) [Vitamin D3] 25 mcg (1,000 unit) capsule 25 mcg PO HS cyanocobalamin (vitamin B-12) [Vitamin B-12] 100 mcg tablet 100 mcg PO HS albuterol sulfate 90 mcg/actuation HFA aerosol inhaler 1 puff INHALATION Q8H PRN (Reason: shortness of breath or wheezing) Patient Comments: inhale 1 puff by mouth every 4 hours if needed Trelegy Ellipta 100-62.5-25 mcg blister with device 1 inh inhalation QDAY ferrous sulfate 325 mg (65 mg iron) tablet,delayed release (DR/EC) 325 mg PO QDAY Qty: 30 3RF folic acid 1 mg tablet 1 mg PO QDAY Qty: 30 3RF Referrals: Keila Shepard PA-C [Primary Care Provider] - In 1 week Problem List Clinical Impression: Chest pain of uncertain etiology, Cancer of stomach Patient/Caregiver Discharge Instructions Education Materials: ED Chest Pain, Uncertain Cause Additional Instructions: Follow-up with your director of marketing google performance ads in 1-2 days for recheck. You can return to the emergency department sooner if symptoms worsen or if you notice any new, concerning issues. Print Language: Pashto Stand Alone Forms: [facility] Award Info., Patient Portal Info Letter
[2025-05-04 10:40] VITALS: PULSE 65; RESP 100; RESP 12
[2025-05-04 10:41] VITALS: BMI 19.6
[2025-05-04] MEDS: ASPIRIN 81 MG CHEW 324 MG PO (11:03)
[2025-05-04] MEDS: SODIUM CHLORIDE 0.9% 1000 ML 1,000 ML 999 ML IV (11:14)
[2025-05-04] MEDS: ONDANSETRON INJ 2 MG/ML INJ 2 ML 4 MG IVP (11:20)
[2025-05-04 11:32] VITALS: BP 116/45; PULSE 70; RESP 17; TEMP 36.8; O2SAT 100
[2025-05-04 11:37] LABS: Basophils # (Auto) 0.1 Thou/mm3 (0.0-0.2); Basophils % (Auto) 1 % (0-2.5); Eosinophils # (Auto) 0.1 Thou/mm3 (0.0-0.5); Eosinophils % (Auto) 1 % (0-10); Hematocrit 30.9 % (41.0-53.0); Hemoglobin 9.6 g/dL (13.5-16.0); Immature Granulocytes Auto 0.18 Thou/mm3 (0.00-0.00); Lymphocytes # (Auto) 0.7 Thou/mm3 (1.0-4.8); Lymphocytes % (Auto) 6 % (10-50); Mean Corpuscular HGB Conc 31.1 g/dl (31.0-37.0); Mean Corpuscular Hemoglobin 21.6 pg (25.0-35.0); Mean Corpuscular Volume 70 fL (80-100); Monocytes # (Auto) 0.5 Thou/mm3 (0.0-0.8); Monocytes % (Auto) 5 % (0-12); Neutrophils # (Auto) 10.5 Thou/mm3 (1.8-7.7); Neutrophils % (Auto) 87 % (37-80); Nucleated Red Blood Cell # 0.00 Thou/mm3 (0.00-0.00); Nucleated Red Blood Cell % 0 /100 WBC (0); Platelet Count 782 Thou/mm3 (140-440); RDW Standard Deviation 52.7 fL (35.1-43.9); Red Blood Count 4.44 Miln/mm3 (4.50-5.90); White Blood Count 12.1 Thou/mm3 (3.8-10.6)
[2025-05-04 11:50] LABS: INR 1.0 (0.9-1.3); Partial Thromboplastin Time 29.3 Seconds (22.0-36.0); Prothrombin Time 10.7 Seconds (9.0-12.2)
[2025-05-04 11:57] LABS: Alanine Aminotransferase 173 U/L (10-49); Albumin, Serum 4.4 gm/dL (3.4-4.8); Albumin/Globulin Ratio 1.8 (1.2-2.2); Alkaline Phosphatase 455 U/L (46-116); Anion Gap 12 (7-16); Aspartate Amino Transferase 92 U/L (0-34); BUN/Creatinine Ratio 18 Ratio (12-20); Bilirubin,Total 2.1 mg/dL (0.3-1.2); Blood Urea Nitrogen 21 mg/dL (9-23); Calcium 9.4 mg/dL (8.3-10.6); Calcium (Corrected) 9.4 mg/dL (8.5-10.1); Carbon Dioxide 22.7 mMol/L (20.0-31.0); Chloride 105 mMol/L (98-107); Creatinine (Component) 1.2 mg/dL (0.6-1.3); Estimated Creatinine Clearance 42.6 mL/min (>60); Globulin 2.4 gm/dL (2.3-3.5); Glucose 100 mg/dL (74-106); Lipase 147 U/L (12-53); Magnesium 2.1 mg/dL (1.6-2.6); Osmolality,Calculated 282 (275-295); Potassium 4.3 mMol/L (3.4-5.1); Sodium 140 mMol/L (136-145); Total Protein 6.8 gm/dL (5.7-8.2); Troponin I < 0.020 ng/mL (0.0-0.045); eGFR > 60 See Note
[2025-05-04 12:23] LABS: B-Type Natriuretic Peptide 42 pg/mL (0-100)
[2025-05-04 13:00] VITALS: BP 110/51; PULSE 65; RESP 23; TEMP 36.7; O2SAT 99
[2025-05-04 14:14] VITALS: BP 116/66; PULSE 61; PULSE 85; RESP 18; O2SAT 98
[2025-05-04 14:45] LABS: Troponin I < 0.020 ng/mL (0.0-0.045)
[2025-05-04 15:08] VITALS: BP 110/63; PULSE 76; RESP 16; O2SAT 98
== END 2025-05-04 15:09 | disposition home or self-care (01) ==
PROVIDERS: Emergency Provider Family Medicine; PCP Physician Assistant
DX: R07.9 Chest pain, unspecified (principal); C16.9 Malignant neoplasm of stomach, unspecified; I44.4 Left anterior fascicular block; J44.9 Chronic obstructive pulmonary disease, unspecified; I10 Essential (primary) hypertension
CPT/HCPCS: 36415; 71045; 80053; 83690; 83735; 83880; 84484; 85025; 85610; 85730; 93005; 96361; 96372; 96374; 96375; 99283; J2405; J2470; J7030; A9270

== ENCOUNTER → 2025-05-06 | Outpatient (CLI) | payer OTHER, SELFPAY ==
[2025-05-06] VITALS (10 sets, daily range): BP systolic 114–132; BP diastolic 56–66; PULSE 55–78; RESP 16–20; TEMP 36.4–36.9; O2SAT 96–99; BMI 19.9
== END | disposition home or self-care (01) ==
LOC: SFLEX 05:59
PROVIDERS: PCP Family Medicine; Referring Provider Family Medicine; Visit Provider Family Medicine
PROC: (CPT 36430; principal; 2025-05-06 06:00)
DX: D50.9 Iron deficiency anemia, unspecified (principal)
CPT/HCPCS: 36415; 36430; 86850; 86900; 86901; 86923; P9016

== ENCOUNTER → 2025-05-10 | Outpatient (CLI) | payer OTHER, SELFPAY ==
[2025-05-10 13:22] LABS: Immature Reticulocyte Fraction 20.8 % (2.3-13.4); Reticulocyte % (Auto) 2.2 % (0.5-1.5); Reticulocyte Absolute Auto 115.1 Biln/L (25.0-75.0); Reticulocyte Hgb Content 24.4 pg (28.0-35.0)
[2025-05-10 13:28] LABS: LDH (Lactate Dehydrogenase) 158 U/L (120-246)
[2025-05-10 13:36] LABS: Carcinoembryonic Antigen 1.3 ng/mL (0.0-5.0); Folate 21.00 ng/mL (>5.38); Vitamin B12 > 2000 pg/mL (211-911)
[2025-05-10 13:37] LABS: Ferritin 44 ng/mL (10.5-307.3); Iron 21 mcg/dL (65-175); Percent Iron Saturation 5 % (20-55); Total Iron Binding Capacity 360 mcg/dL (250-425); Unsaturated Iron Binding 339 (225-295)
[2025-05-18 06:46] LABS: Haptoglobin* 220 mg/dL (43-212)
== END | disposition home or self-care (01) ==
LOC: SCTO 11:51
PROVIDERS: PCP Physician Assistant; Referring Provider Internal Medicine Hematology & Oncology; Visit Provider Internal Medicine Hematology & Oncology
DX: C16.5 Malignant neoplasm of lesser curvature of stomach, unspecified (principal)
CPT/HCPCS: 36415; 82378; 82607; 82728; 82746; 83010; 83540; 83550; 83615; 85046

== ENCOUNTER → 2025-05-11 | Outpatient (CLI) | payer OTHER, SELFPAY ==
[2025-05-17 07:48] LABS: Helicobacter pylori Ag, Stool* NOT DETECTED (NOT DETECTED)
== END | disposition home or self-care (01) ==
LOC: SLDO 15:16
PROVIDERS: Referring Provider Internal Medicine Hematology & Oncology; Visit Provider Internal Medicine Hematology & Oncology
DX: C16.5 Malignant neoplasm of lesser curvature of stomach, unspecified (principal)
CPT/HCPCS: 87338

== ENCOUNTER 2025-05-14 08:19 | Outpatient (RCR) | payer OTHER, SELFPAY ==
--- NOTE | 2025-05-06 06:30 | CTCFLWUP_ITS ---
Patient: RIKA SYKES : 1945 Page 3 of 5 FOLLOW UP NOTE DATE OF SERVICE: 05/05/2025 NAME: RIKA SYKES ACCOUNT: [id number] : 1945 AGE: 79 INTERVAL HISTORY: Patient is here with his daughter . patient have step daughters who are here to help him. Patient have not yet decided if you want to stay in [place] or not. He wants to pursue treatment and need a referral to see surgery. Have decreased intake of food and have been losing weight. ONCOLOGY HISTORY: DIAGNOSIS: ?CloneDiagnosis? 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 Ascencio revealing large central ulcerated mass in the distal body of stomach region of the antrum and pylorus. The lesion was described to be 30 mm in largest dimension oozing cratered gastric ulcer in the gastric antrum. Biopsy revealed invasive adenocarcinoma intestinal type with no loss of expression in all 4 mismatch repair proteins with Her 2 gastric.GEA equivocal 2+. H. pylori IHC landry occasional positive fragments suspicious for H. pylori organisms Imaging studies abdomen pelvis 03/30/2025 revealed fluid distended esophagus marked mucosal gastric antrum mild pancreatitis mild thickening of the urinary bladder. No liver or splenic lesions. Chest CT 02-19 2 mm pulmonary nodule left upper lobe.patient was treated with antibiotics for 3 weeks per patient . He have lost about 60 pounds for last year . 04/08/2025 CBC hemoglobin 8.7 WBC 9.3 platelets 788,000 CEA 0.8 CA 19?9 mildly elevated at 44 OTHER MEDICAL HISTORY/CONDITIONS: invasive carcinoma stomach-intestinal type - dx 03/31/25 COPD HTN BLE stents - 01/19 Right inguinal hernai repair - 2004 Left shoulder surgery - 1972 Surgery for gastric ulcer - 1965 T and A - as child ?Clone Other Med Hx? FAMILY HISTORY: Mother:?MOTHER?LUNG?CA?-?dx?age?73 ?Clone Family Hx? SOCIAL HISTORY: Occupational?History:?[employer] /[employer] RETIRED Education?Level:?College Graduate, 4 year degree Marital?Status:? Tobacco Use:?Quit 3 yrs ago-smoked 2 PPD x 50 yrs ETOH Use:?Quit 3 mo ago darnak 3 glasses boubon daily x 30 yrs Drug?Note:?MARAJUANA???70'S Social?History?Note:?LIVES?ALONE ?Clone Social Hx? MEDICATIONS: 1. albuterol - As directed 2. Aspirin Child - 81 mg Daily 3. losartan potassium - 50 mg Daily 4. omeprazole - 20 mg Daily 5. Trelegy Ellipta - As directed?Palabra Meds? Medications Last Reconciled by Ana Maria Euceda RN on 05/05/2025 ALLERGIES: Iodine and Iodide Containing Products REVIEW OF SYSTEMS: A complete 14-point review of systems was performed and is negative except as noted in interval history. PHYSICAL EXAMINATION: VITAL SIGNS: Temperature?98, B/P?98/63, Height?68.5?inches, Oxygen?Saturation?99% Weight?131?lbs (Change?since?04/13/25:?1?lbs) PAIN: 4 - Moderate pain ECOG Performance Status: 1 - Symptomatic; ambulatory; restricted in strenuous activity GENERAL APPEARANCE: Appears well, in no apparent distress, appropriately interactive. HEENT: Normocephalic, no temporal wasting, normal conjunctiva, no scleral icterus, normal hearing, lips without lesions, neck normal range of motion. CARDIOVASCULAR: Not assessed. PULMONARY: Normal respiratory effort, no respiratory distress or use of accessory muscles, speaking in full sentences, no tachypnea. EXTREMITIES: No pedal edema or cyanosis. SKIN: Normal skin appearance. NEUROLOGIC: Alert and oriented x4. PSHYCHIATRIC: Appropriate affect, mood normal, behavior normal, intact thought and speech. LABORATORY DATA: I have personally reviewed and interpreted each of the patient?s relevant lab tests, abnormal findings are below: Date 04/24/25 05/04/25 ??WHITE?BLOOD?COUNT?(Thou/mm3) ? 12.1?H ??RED?BLOOD?COUNT?(Miln/mm3) ? 4.44?L ??HEMOGLOBIN?(gm/dl) ? 9.6?L ??HEMATOCRIT?(%) ? 30.9?L ??PLATELET?COUNT?(Thou/mm3) ? 782?H ??NEUTROPHILS?%,?AUTO?(%) ? 87?H ??LYMPH?%,?AUTO?(%) ? 6?L ??NEUTROPHILS,?AUTO?(Thou/mm3) ? 10.5?H ??GLUCOSE,RANDOM?(mg/dL) 117?H 100 ??BLOOD?UREA?NITROGEN?(mg/dL) 17 21 ??CREATININE?(mg/dL) 1.30 1.20 ??SODIUM?(mmol/L) 139 140 ??POTASSIUM?(mmol/L) 4.1 4.3 ??CHLORIDE?(mmol/L) 107 105 ??CrCl?(CandG)?(ml/min) 38.43 41.63 ??AST/SGOT?(Unit/L) 29 92?H ??ALT/SGPT?(Unit/L) 30 173?H ??ALKALINE?PHOSPHATASE?(Unit/L) 87 455?H ??BILIRUBIN,?TOTAL?(mg/dL) 0.5 2.1?H ??PROTEIN?TOTAL?(gm/dl) 6.5 6.8 ??ALBUMIN,?SERUM?(gm/dl) 4.3 4.4 ??GLOBULIN?(gm/dl) 2.2?L 2.4 ??ALBUMIN/GLOBULIN?RATIO 2.0 1.8 ??CALCIUM,?SERUM?(mg/dL) 9.3 9.4 ??CALCIUM?SERUM?(CORRECTED)?(mg/dL) 9.3 9.4 ??MAGNESIUM?(mg/dL) ? 2.1 ASSESSMENT/PLAN: Gastric cancer Patient with a new diagnosis of gastric adenocarcinoma Was diagnosed with a EGD and GI to see thoracic surgeon Will place referral to tertiary level center Patient will be a candidate for FLOT chemotherapy Will get port catheter placed If patient want to move out of [place] patient still need to be prepped for future chemotherapy with port Will start chemo HELEN to shrink tumor patient is able to eat semiliquid meals ORDERS: Order # Description [id number] Ferritin + Reticulocyte Count + Iron Panel + Vitamin B-12 + Folic Acid; Serum + Assay Of Haptoglobin Quant + Lactate Dehydrogenase (LDH) [id number] Follow Up Appointment MD [id number] CEA [id number] MD Follow Up 4 Week [id number] CBC + Comprehensive Metabolic Panel + CEA [id number] Lab Appointment RETURN TO CLINIC: I reviewed the diagnosis, prognosis, and recommended treatment/procedure options with the patient (and/or their legal retail customer service representative), including the potential benefits, risks, side effects and alternative therapies. We also discussed the option of no treatment and the possibility of clinical trial participation, if applicable. All questions were addressed, and they demonstrated understanding. They provided informed consent to proceed with the proposed plan of care. BILLING AND COMPLIANCE: I reviewed external records from providers outside my specialty as summarized above. I spent a total of 50 minutes on this patient?s care on the day of their visit excluding time spent related to any billed procedures. This time includes time spent with the patient as well as time spent documenting in the medical record, reviewing patients records and tests, obtaining history, placing orders, communicating with other healthcare professionals, counseling the patient, family or caregiver, and/or care coordination for the diagnoses above. Electronically Signed by: Sim Patricia MD T: 6:27 AM CC: PCP: Clarisse Reynolds Referring: Sim Patricia This document was completed utilizing speech recognition software. Grammatical errors, random word insertions, pronoun errors, and incomplete sentences are an occasional consequence of this system due to software limitations, ambient noise, and hardware issues. Any formal questions or concerns about the content, text or information contained within the body of this dictation should be directly addressed to the provider for clarification.
--- NOTE | 2025-05-09 15:31 | CTCCONSULT_ITS ---
Patient: RIKA SYKES : 1945 MR#: [id number] Page 3 of 5 CONSULTATION NOTE DATE OF CONSULTATION: 05/05/2025 NAME: RIKA SYKES ACCOUNT: [id number] : 1945 AGE: 79 REFERRING PHYSICIAN: Sim Patricia MD PRIMARY PHYSICIAN: Clarisse Reynolds MD REASON FOR VISIT: Gastric adenocarcinoma ONCOLOGY HISTORY: . 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 Patient had EGD after he was seen for coffee ground emesis 03/31/2025), invasive adenocarcinoma of stomach microsatellite stable HER2 2+ FISH negative 03/30/2025 CT scan measured migraine with, OTHER MEDICAL HISTORY/CONDITIONS: invasive carcinoma stomach-intestinal type - dx 03/31/25 COPD HTN BLE stents - 01/19 Right inguinal hernai repair - 2004 Left shoulder surgery - 1972 Surgery for gastric ulcer - 1965 T and A - as child FAMILY HISTORY: Mother:?MOTHER?LUNG?CA?-?dx?age?73 SOCIAL HISTORY: Occupational?History:?[employer] /[employer] RETIRED Education?Level:?College Graduate, 4 year degree Marital?Status:? Tobacco Use:?Quit 3 yrs ago-smoked 2 PPD x 50 yrs ETOH Use:?Quit 3 mo ago darnak 3 glasses boubon daily x 30 yrs Drug?Note:?MARAJUANA???70'S Social?History?Note:?LIVES?ALONE MEDICATIONS: 1. albuterol - As directed 2. Aspirin Child - 81 mg Daily 3. losartan potassium - 50 mg Daily 4. omeprazole - 20 mg Daily 5. Trelegy Ellipta - As directed Medications Last Reconciled by Ana Maria Euceda RN on 05/05/2025 ALLERGIES: Iodine and Iodide Containing Products REVIEW OF SYSTEMS: A complete 14-point review of systems was performed and is negative except as noted in interval history. PHYSICAL EXAMINATION: VITAL SIGNS: Temperature?98, B/P?98/63, Height?68.5?inches, Oxygen?Saturation?99% Weight?131?lbs (Change?since?04/13/25:?1?lbs) PAIN: 4 - Moderate pain ECOG Performance Status: 1 - Symptomatic; ambulatory; restricted in strenuous activity GENERAL APPEARANCE: Appears well, in no apparent distress, appropriately interactive. HEENT: Normocephalic, no temporal wasting, normal conjunctiva, no scleral icterus, normal hearing, lips without lesions, neck normal range of motion. CARDIOVASCULAR: Not assessed. PULMONARY: Normal respiratory effort, no respiratory distress or use of accessory muscles, speaking in full sentences, no tachypnea. EXTREMITIES: No pedal edema or cyanosis. SKIN: Normal skin appearance. NEUROLOGIC: Alert and oriented x4. PSHYCHIATRIC: Appropriate affect, mood normal, behavior normal, intact thought and speech. LABORATORY DATA: I have personally reviewed and interpreted each of the patient?s relevant lab tests, abnormal findings are below: Date 04/24/25 05/04/25 ??WHITE?BLOOD?COUNT?(Thou/mm3) 8.3 12.1?H ??RED?BLOOD?COUNT?(Miln/mm3) 3.72?L 4.44?L ??HEMOGLOBIN?(gm/dl) 8.0?L 9.6?L ??HEMATOCRIT?(%) 25.7?L 30.9?L ??PLATELET?COUNT?(Thou/mm3) 640?H 782?H ??NEUTROPHILS?%,?AUTO?(%) 74 87?H ??LYMPH?%,?AUTO?(%) 15 6?L ??NEUTROPHILS,?AUTO?(Thou/mm3) 6.1 10.5?H ??GLUCOSE,RANDOM?(mg/dL) ? 100 ??BLOOD?UREA?NITROGEN?(mg/dL) ? 21 ??CREATININE?(mg/dL) ? 1.20 ??SODIUM?(mmol/L) ? 140 ??POTASSIUM?(mmol/L) ? 4.3 ??CHLORIDE?(mmol/L) ? 105 ??CrCl?(CandG)?(ml/min) ? 41.63 ??AST/SGOT?(Unit/L) ? 92?H ??ALT/SGPT?(Unit/L) ? 173?H ??ALKALINE?PHOSPHATASE?(Unit/L) ? 455?H ??BILIRUBIN,?TOTAL?(mg/dL) ? 2.1?H ??PROTEIN?TOTAL?(gm/dl) ? 6.8 ??ALBUMIN,?SERUM?(gm/dl) ? 4.4 ??GLOBULIN?(gm/dl) ? 2.4 ??ALBUMIN/GLOBULIN?RATIO ? 1.8 ??CALCIUM,?SERUM?(mg/dL) ? 9.4 ??CALCIUM?SERUM?(CORRECTED)?(mg/dL) ? 9.4 ??MAGNESIUM?(mg/dL) ? 2.1 ASSESSMENT/PLAN: Gastric adenocarcinoma Patient have stent is marked thickening of with severe gastritis Patient was treated for H. pylori Patient need port placement and evaluation by cardiothoracic surgeon Started on flot neoadjuvant Nutrition couselling Start chemo bin IVFluids as needed Dr Ruiz for pain management ORDERS: Order # Description [id number] Follow Up Appointment [id number] CBC + Comprehensive Metabolic Panel + CEA [id number] Lab Appointment [id number] Follow Up Appointment [id number] CBC + Comprehensive Metabolic Panel + CEA [id number] Lab Appointment [id number] Follow Up Appointment [id number] CBC + Comprehensive Metabolic Panel + CEA [id number] Lab Appointment RETURN TO CLINIC: I reviewed the diagnosis, prognosis, and recommended treatment/procedure options with the patient (and/or their legal parts sales representative), including the potential benefits, risks, side effects and alternative therapies. We also discussed the option of no treatment and the possibility of clinical trial participation, if applicable. All questions were addressed, and they demonstrated understanding. They provided informed consent to proceed with the proposed plan of care. BILLING AND COMPLIANCE: I reviewed external records from providers outside my specialty as summarized above. I spent a total of 50 minutes on this patient?s care on the day of their visit excluding time spent related to any billed procedures. This time includes time spent with the patient as well as time spent documenting in the medical record, reviewing patients records and tests, obtaining history, placing orders, communicating with other healthcare professionals, counseling the patient, family or caregiver, and/or care coordination for the diagnoses above. Electronically Signed by: Sim Patricia MD T: 3:29 PM CC: PCP: Clarisse Reynolds Referring: Sim Patricia This document was completed utilizing speech recognition software. Grammatical errors, random word insertions, pronoun errors, and incomplete sentences are an occasional consequence of this system due to software limitations, ambient noise, and hardware issues. Any formal questions or concerns about the content, text or information contained within the body of this dictation should be directly addressed to the provider for clarification.
== END 2025-05-27 23:59 | disposition home or self-care (01) ==
LOC: SCTC 08:19
PROVIDERS: PCP Family Medicine; Referring Provider Internal Medicine Hematology & Oncology; Visit Provider Internal Medicine Hematology & Oncology
DX: C16.9 Malignant neoplasm of stomach, unspecified (principal)
CPT/HCPCS: 99213; G0463

== ENCOUNTER 2025-05-18 09:00 | Outpatient (CLI) | payer OTHER, SELFPAY ==
[2025-05-17 10:49] LABS: Basophils # (Auto) 0.2 Thou/mm3 (0.0-0.2); Basophils % (Auto) 1 % (0-2.5); Eosinophils # (Auto) 0.2 Thou/mm3 (0.0-0.5); Eosinophils % (Auto) 2 % (0-10); Hematocrit 38.2 % (41.0-53.0); Hemoglobin 11.7 g/dL (13.5-16.0); Immature Granulocytes Auto 0.04 Thou/mm3 (0.00-0.00); Lymphocytes # (Auto) 1.2 Thou/mm3 (1.0-4.8); Lymphocytes % (Auto) 11 % (10-50); Mean Corpuscular HGB Conc 30.6 g/dl (31.0-37.0); Mean Corpuscular Hemoglobin 22.7 pg (25.0-35.0); Mean Corpuscular Volume 74 fL (80-100); Monocytes # (Auto) 0.5 Thou/mm3 (0.0-0.8); Monocytes % (Auto) 5 % (0-12); Neutrophils # (Auto) 8.8 Thou/mm3 (1.8-7.7); Neutrophils % (Auto) 81 % (37-80); Nucleated Red Blood Cell # 0.00 Thou/mm3 (0.00-0.00); Nucleated Red Blood Cell % 0 /100 WBC (0); Platelet Count 978 Thou/mm3 (140-440); RDW Standard Deviation 64.5 fL (35.1-43.9); Red Blood Count 5.15 Miln/mm3 (4.50-5.90); White Blood Count 10.8 Thou/mm3 (3.8-10.6)
[2025-05-17 10:55] LABS: INR 1.1 (0.9-1.3); Partial Thromboplastin Time 31.6 Seconds (22.0-36.0); Prothrombin Time 11.5 Seconds (9.0-12.2)
--- NOTE | 2025-05-17 16:10 | PC.NURSE ---
consulted dr estes regarding platelet levels of 978, ok to proceed with scheduled port placement for tomorrow 05/18/2025
[2025-05-18] VITALS (10 sets, daily range): BP systolic 99–121; BP diastolic 57–69; PULSE 51–66; RESP 11–18; TEMP 36.6; O2SAT 94–100; BMI 17.7
--- NOTE | 2025-05-18 09:00 | XR_ITS ---
Examination: IR venous embolization Port-A-Cath Ultrasound-guided needle placement right internal jugular vein. Fluoroscopy AP Chest, portable single view Exam date and time: May 18, 2025 0959 hours INDICATIONS: Gastric neoplasm, need for long-term intravenous chemotherapy. Informed consent provided Technique: A timeout was completed, verifying correct patient, procedure, site, positioning, and special equipment if applicable The patient was placed in a dependent position appropriate for central line placement based on the vein to be cannulated. The patient's right neck was prepped and draped in sterile fashion. Maximum Sterile Barrier Technique used including cap, mask, sterile gown, sterile gloves, and sterile full body drape. If ultrasound technique used: sterile gel and sterile probe covers. Hand Hygiene performed using proper scrub, soap and water, or alcohol-based hand rub. Site right portable apparatus utilized to confirm patency of the right internal jugular vein. Utilizing ultrasonographic guidance successful 21-gauge needle puncture into the right internal jugular vein Ultrasound images were recorded and stored. Successful micropuncture with a 21-gauge needle was performed. 0.18 wire guide was introduced into the IVC under fluoroscopic guidance. Utilizing blunt dissection subcutaneous pocket formed for the Port-A-Cath reservoir Port-A-Cath reservoir connected to 8 [place] 22 cm catheter placed through a venous sheath into the superior vena cava in proper position The attending radiologist was present for the entire procedure Estimated blood loss3 cc. Findings: Under fluoroscopy, the tip of the catheter is in good position in the vena cava. Portable chest x-ray, post line placement, as ordered. Impression: Successful ultrasound-guided needle placement right internal jugular vein. Successful IR venous implantation Port-A-Cath Fluoroscopy 0.2 minute radiation dose 0.51 milligray 1 spot fluoroscopic chest film. AP portable chest completion procedure demonstrates satisfactory position Port-A-Cath tip SVC. May use Port-A-Cath
[2025-05-18] MEDS: LIDOCAINE INJ PF 1% 30 ML VIAL INFL (10:10)
[2025-05-18] MEDS: LIDOCAINE 1% W/EPI 1:100K 20 ML VIAL INFL (10:10)
[2025-05-18] MEDS: HEPARIN SOD LOCK SYR 100 UNIT/ML 500 UNIT STFIELD (10:10)
[2025-05-18] MEDS: SODIUM CHLORIDE 0.9% 500 ML 500 ML 20 ML IV (10:10)
[2025-05-18] MEDS: ceFAZolin/D5W 1 GM IVPB 1 GM/50 ML BAG IV ×2 (10:10)
[2025-05-18] MEDS: fentaNYL CIT INJ 50 mCg/ML AMP 2ML 75 MCG IVP (10:38)
== END 2025-05-18 11:45 | disposition home or self-care (01) ==
PROVIDERS: Radiology Diagnostic Radiology; PCP Family Medicine; Referring Provider Internal Medicine Hematology & Oncology; Visit Provider Internal Medicine Hematology & Oncology
DX: C16.5 Malignant neoplasm of lesser curvature of stomach, unspecified (principal); Z01.812 Encounter for preprocedural laboratory examination
CPT/HCPCS: 36561; 36415; 76937; 77001; 85025; 85610; 85730; C1769; C1788; C1894; J0689; J1642; J3010; J3490; J7050; J7999

== ENCOUNTER 2025-05-20 08:59 | Inpatient (IN) | payer OTHER, MEDICARE, SELFPAY ==
[2025-05-20 09:14] VITALS: BP 111/73; PULSE 94; RESP 17; TEMP 36.8; O2SAT 95; BMI 17.7
--- NOTE | 2025-05-20 09:35 | PD.EDGIBLD ---
ED GI Bleed RME/HPI General Chief complaint: GI Bleed Stated complaint: Vomiting blood, stomach CA Time Seen by Provider: 05/20/25 09:08 Arrival date/time: 05/20/25 08:59 Limitations: no limitations RME / HPI RME / HPI Narrative: DR. 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 Patient reports associated burning abdominal pain not relieved by antacids and progressive weight loss. He had a port placed recently and is scheduled to begin chemotherapy with Dr. Patricia on 05/25. Denies black stools or blood in recent loose stools. Past surgical history includes ulcer-related surgery and dilated stomach in the . Former smoker, quit 1.5 years ago. Lives alone; daughters in [place] plan to assist him during chemotherapy. Related Data Home Medications ?Medication ?Instructions ?Recorded ?Confirmed losartan 50 mg tablet 50 mg PO HS 07/31/21 05/18/25 albuterol sulfate 90 mcg/actuation 1 puff inhalation Q8H PRN 03/31/25 05/18/25 aerosol inhaler shortness of breath or wheezing aspirin 81 mg tablet 81 mg PO HS 03/31/25 05/18/25 Held on 05/18/25. Instructions: Resume on 05/20/25. cholecalciferol (vitamin D3) 25 25 mcg PO HS 03/31/25 05/18/25 mcg (1,000 unit) capsule (Vitamin D3) cyanocobalamin (vitamin B-12) 100 100 mcg PO HS 03/31/25 05/18/25 mcg tablet (Vitamin B-12) fluticasone fur. 100 mcg-umeclid 1 inh inhalation QDAY 03/31/25 05/18/25 62.5 mcg-vilant 25 mcg inhalat.powder (Trelegy Ellipta) omeprazole 20 mg capsule,delayed 20 mg PO QDAY 03/31/25 05/18/25 release fluticasone fur. 100 mcg-umeclid 1 inh inhalation Q24H 05/18/25 05/18/25 62.5 mcg-vilant 25 mcg inhalat.powder (Trelegy Ellipta) Allergies Allergy/AdvReac Type Severity Reaction Status Date / Time Iodinated Contrast Media Allergy Intermediate Flushing Verified 05/20/25 09:02 Review of Systems Review of Systems Systems Reviewed: All systems reviewed, normal except as documented Past Medical History Past Medical History CARDIAC: Positive Cardiac Disorders, Cardiac Arrhythmia and Hypertension RESPIRATORY: Positive Asthma and Pneumonia GASTROINTESTINAL: Positive Gastrointestinal Bleed, Ulcer and Gastroesophageal Reflux Disease GENITOURINARY: Positive Benign Prostatic Hyperplasia MUSCULOSKELETAL: Positive Arthritis and Fractures ENT: Positive Cataracts HEMATOLOGIC: Positive Sickle Cell Disease OTHER HISTORY: Positive Blood Transfusions and Cancer Family History FAMILY HISTORY: Positive Family Respiratory Disorders and Family Cancer Surgical History SURGICAL: Positive Eye Surgery and Abdominal Surgery Social History SMOKING STATUS: Former smoker SUBSTANCE USE: does not use ALCOHOL: Never 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 Exam General Limitations: Present no limitations General appearance: Present alert and in no apparent distress Head Head exam: Present atraumatic, normocephalic and normal inspection Eye Eye exam: Present normal appearance, PERRL and EOMI ENT ENT exam: Present normal exam, normal oropharynx and mucous membranes moist Neck Neck exam: Present normal inspection, full ROM and trachea midline Chest Chest inspection: Present normal inspection and symmetric chest wall rise Respiratory Respiratory exam: Present normal lung sounds bilaterally Cardiovascular Cardiovascular exam: Present regular rate, normal rhythm and normal heart sounds Abdominal Exam Abdominal exam: Present soft and normal bowel sounds Extremities Exam Extremities exam: Present normal inspection and full ROM Back Exam Back exam: Present normal inspection and full ROM Neurological Exam Neurological exam: Present alert, oriented X3 and CN II-XII intact Psychiatric Psychiatric exam: Present normal affect and normal mood Skin Skin exam: Present warm, dry, intact and normal color Course Quality Measures none Orders Category Date Time Status CT Screening NOW Care 05/20/25 09:37 Active EKG (ED ONLY) *Do not use* NOW Care 05/20/25 09:[address] angio chest abdomen pelvis Stat Exams 05/20/25 09:37 Completed CXR2 [XR chest 2V] Stat Exams 05/20/25 09:37 Completed EKG (ED Only) Stat Exams 05/20/25 09:37 Draft CBC Stat Lab 05/20/25 09:41 Completed CMP [Comprehensive Metabolic Panel] Stat Lab 05/20/25 09:41 Completed Lipase Stat Lab 05/20/25 09:41 Completed PT [Prothrombin Time with INR] Stat Lab 05/20/25 09:41 Completed Troponin I Stat Lab 05/20/25 09:41 Completed Type and Screen Stat Lab 05/20/25 09:41 Completed DiphenhydrAMINE INJ [Benadryl Inj] Med 05/20/25 09:39 Discontinued 50 mg IVP X1 ONE Pantoprazole/Ns 80Mg IV Premix [Protonix/NS 80mg IV Med 05/20/25 11:43 Discontinued Premix] 80 mg in 100 ml IV .STK-MED Pantoprazole/Ns 80Mg IV Premix [Protonix/NS 80mg IV Med 05/20/25 09:45 Discontinued Premix] 80 mg in 100 ml IV X1 Pantoprazole/Ns 80Mg IV Premix [Protonix/NS 80mg IV Med 05/20/25 10:00 Active Premix] 80 mg in 100 ml IV X1 Vital Signs Vital signs: Vital Signs Temperature 98.3 F 05/20/25 09:14 Pulse Rate 94 05/20/25 09:14 Respiratory Rate 17 05/20/25 09:14 Blood Pressure 111/73 05/20/25 09:14 Pulse Oximetry (%) 95 05/20/25 09:14 Oxygen Delivery Method Room Air 05/20/25 09:14 GI Bleed MDM Narrative MDM Narrative:: IMary Jane am scribing for and in the presence of Dr. Sue. Patient is a 79-year-old male with medical history notable for gastric cancer that send Emergency Department with an episode of hematemesis. Vital signs and exam as listed. Concern for perforation, bleeding cancerous lesion, bleeding ulcer among others. Place patient resuscitation room, and IV access placed, playground monitor. Ordered labs, CT angio as well as medications for symptom relief. Labs without acute hematologic or significant metabolic abnormality. Patient does have an elevated alk phos otherwise LFTs unremarkable. CT angio with evidence of multiple calcified subcentimeter pulmonary nodules bilaterally, as well as abnormal gastric antrum and duodenal bulb with mucosal thickening. Given history exam and findings, will consult gastroenterology in the hospital service. Discussed case with philatelic consultant Dr. Ascencio, would like patient admitted to be evaluated for possible endoscopy. Discussed case with hospitalist service for admission. Patient in agreement with treatment plan. 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), diagnosed March 2025 How is presenting disease/condition affected by chronic disease/condition?: exacerbated by Evaluation data The following diagnostics were reviewed and interpreted by me:: lab results, radiology exam(s) and EKG tracing(s) Lab and/or radiology exams considered but not ordered:: none Interpretation Summary: Labs without acute hematologic or significant metabolic abnormality, alk phos elevated Medications / Prescriptions Medications or Prescriptions considered but not ordered:: none Medication administrations:: Medication Administration History Pantoprazole Sodium (Protonix/Ns 80mg Iv Premix) 80 mg in 100 mls @ 10 mls/hr IV X1 ONE Stop: 05/20/25 19:59 Last Admin: 05/20/25 12:20 Dose: 10 mls/hr Documented By: ELLIOTT Discontinued Medications Diphenhydramine HCl (Diphenhydramine Inj 50 Mg/Ml Vial) 50 mg IVP X1 ONE Stop: 05/20/25 09:40 Last Admin: 05/20/25 10:59 Dose: 50 mg Documented By: ELLIOTT Comments: per dr. sue given 10-15 mins before cta for allergy Pantoprazole Sodium (Protonix/Ns 80mg Iv Premix) 80 mg in 100 mls @ 400 mls/hr IV X1 ONE Stop: 05/20/25 09:59 Last Infusion: 05/20/25 10:43 Dose: Infused Documented By: Admin: 05/20/25 10:28 Dose: 400 mls/hr Documented By: ELLIOTT Pantoprazole Sodium (Protonix/Ns 80mg Iv Premix) Confirm Administered Dose 80 mg in 100 mls @ ud IV .STK-MED ONE Stop: 05/20/25 11:44 Last Admin: 05/20/25 12:14 Dose: Not Given Documented By: ELLIOTT Non-Admin Reason: Duplicate Medication on eMAR see above Consultations Consultation(s) initiated? (list below): Yes Consultation #1 (Physician, Specialty, Details): 1:25p Dr. Ascencio Consultation #2 (Physician, Specialty, Details): Hospitalist 1:27p Diagnosis GI bleed differential diagnosis: other (upper gastrointestinal bleed secondary to malignancy, bleeding gastric ulcer, and gastritis) Most likely diagnosis given after review of the tests above:: GI cancer, upper GI bleed Admission Indicated Admission indicated?: indicated Admission Request Was there a request for admission?: Yes Admission Attestation Admission request attestation: Discussed case with Temitope from Hospitalist service regarding admission. Discussed patients ED course, exam findings, labs, and radiology results. The Hospitalist [agrees,declines] to accept the patient for admission. Disposition Plan Disposition Plan: Admit Critical Care Time Critical Care Time Critical Care Time: Yes Total Critical Care Time (min.): 80 Attestation: The high probability of sudden, clinically significant deterioration in the patient?s condition required the highest level of my preparedness to intervene urgently. The services I provided to this patient were to treat and/or prevent clinically significant deterioration. Services included the following: chart data review, reviewing nursing notes and/or old charts, documentation time, software sales consultant collaboration regarding findings and treatment options, medication orders and management, direct patient care, vital sign assessments and ordering, interpreting and reviewing diagnostic studies and lab tests. Aggregate critical care time includes only time during which I was engaged in work directly related to the patient?s care, as described above, whether at bedside or elsewhere in the Emergency Department. It did not include time spent performing other reported procedures or the services of residents, students, nurses or physician assistants. Discharge Plan Plan Patient Disposition: Admit Acute Care w/in Hospital Patient condition on transfer: Stable Prescriptions/Referrals Prescriptions/Med Rec: No Action losartan 50 mg Tablet 50 mg PO HS Trelegy Ellipta 100-62.5-25 mcg blister with device 1 inh inhalation Q24H aspirin 81 mg tablet 81 mg PO HS omeprazole 20 mg capsule,delayed release(DR/EC) 20 mg PO QDAY cholecalciferol (vitamin D3) [Vitamin D3] 25 mcg (1,000 unit) capsule 25 mcg PO HS cyanocobalamin (vitamin B-12) [Vitamin B-12] 100 mcg tablet 100 mcg PO HS albuterol sulfate 90 mcg/actuation HFA aerosol inhaler 1 puff INHALATION Q8H PRN (Reason: shortness of breath or wheezing) Patient Comments: inhale 1 puff by mouth every 4 hours if needed Trelegy Ellipta 100-62.5-25 mcg blister with device 1 inh inhalation QDAY Referrals: Keila Shepard PA-C [Primary Care Provider] - In 1 week Problem List Clinical Impression: GI (gastrointestinal bleed) Patient/Caregiver Discharge Instructions Print Language: [place] Island[place] Stand Alone Forms: [facility] Award Info., Patient Portal Info Letter
--- NOTE | 2025-05-20 09:37 | XR_ITS ---
Examination: CTA chest, with intravenous contrast. CTA abdomen, with intravenous contrast. CTA pelvis, with intravenous contrast. 2-D sagittal and coronal reconstructions. 3-D reconstructions. Date and time of exam: May 20, 2025 1059 hours, comparison CT abdomen pelvis 07/30/2025 INDICATIONS: Vomiting blood chest pain shortness of breath today CTDI vol (mgy) 5.24 DLP (MGycm) 439 Technique: Multiple CTA images, 2.0 mm slice thickness, obtained chest, abdomen, pelvis, with the high-resolution 64 slice scanner. 100 cc Isovue-370 is administered intravenously. Sagittal and coronal 2-D reconstructions are obtained. 3-D reconstructions, angiographic images are obtained. 3-D postprocessing, including vascular maximum intensity projections. Low dose protocols were performed. One or more of the following dose reduction techniques were used; automated exposure control, adjustment of the mA and/or KV according to patient size, use of iterative reconstruction technique. Findings: No thoracic degenerative aneurysm dilatation or dissection No pulmonary artery emboli No mediastinal lymphadenopathy. At least 14 noncalcified subcentimeter pulmonary nodules bilaterally, the largest in the right lung 7 mm COPD No pneumonia or pulmonary edema Liver is irregular in contour No focal liver or splenic lesions The gallbladder is distended Fluid distended stomach with marked mucosal thickening in the gastric antrum and duodenum, coronal image 32 No definite common hepatic or common bile duct stones Minimal dilatation of the pancreatic duct No hydronephrosis Heavy abdominal aortic calcification No bowel obstruction Normal appendix No diverticulitis, colonic diverticulosis is present No pelvic mass Urinary bladder intact IMPRESSION: At least 14 noncalcified subcentimeter pulmonary nodules bilaterally, continued follow-up chest imaging is needed COPD No pneumonia or pulmonary edema Abnormal gastric antrum and duodenal bulb, marked mucosal thickening, differential would include antral gastritis duodenitis, underlying gastric tumor not excluded, recommend endoscopy follow-up Recommend hepatobiliary sonography to better assess the gallbladder and common bile duct
--- NOTE | 2025-05-20 09:37 | EKG_ITS ---
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1945 Requested By: Jennifer Beck Order Number: [id number] Reading MD: Jennifer Beck Measurements Intervals [place] Rate: 84 P: 83 SC: 184 QRS: -76 QRSD: 91 T: 78 QT: 359 QTc: 426 Interpretive Statements SINUS RHYTHM LEFT AXIS DEVIATION [QRS AXIS < -30] INCOMPLETE RIGHT BUNDLE BRANCH BLOCK [90+ ms QRS DURATION, TERMINAL R IN V1/V2, 40+ ms S IN I/aVL/V4/V5/V6] INFERIOR MYOCARDIAL INFARCTION , PROBABLY OLD [40+ ms Q WAVE AND/OR ST/T ABNORMALITY IN II/aVF] Compared to ECG 05/04/2025 10:14:22 Myocardial infarct finding now present ST (T wave) deviation no longer present /store/S0/[id number].pdf
--- NOTE | 2025-05-20 09:37 | XR_ITS ---
Examination: PA lateral chest 2 views TECHNIQUE: Upright PA lateral chest 2 views Date and time: May 20, 2025 0948 hours INDICATIONS: Chest pain vomiting blood today. FINDINGS: Significant hyperexpansion Port-A-Cath satisfactory position No lobar pneumonia or pulmonary edema IMPRESSION: Significant hyperexpansion No lobar pneumonia
[2025-05-20 10:01] LABS: Basophils # (Auto) 0.2 Thou/mm3 (0.0-0.2); Basophils % (Auto) 2 % (0-2.5); Eosinophils # (Auto) 0.2 Thou/mm3 (0.0-0.5); Eosinophils % (Auto) 2 % (0-10); Hematocrit 37.9 % (41.0-53.0); Hemoglobin 11.9 g/dL (13.5-16.0); Immature Granulocytes Auto 0.13 Thou/mm3 (0.00-0.00); Lymphocytes # (Auto) 1.1 Thou/mm3 (1.0-4.8); Lymphocytes % (Auto) 11 % (10-50); Mean Corpuscular HGB Conc 31.4 g/dl (31.0-37.0); Mean Corpuscular Hemoglobin 23.0 pg (25.0-35.0); Mean Corpuscular Volume 73 fL (80-100); Monocytes # (Auto) 0.5 Thou/mm3 (0.0-0.8); Monocytes % (Auto) 5 % (0-12); Neutrophils # (Auto) 8.3 Thou/mm3 (1.8-7.7); Neutrophils % (Auto) 79 % (37-80); Nucleated Red Blood Cell # 0.00 Thou/mm3 (0.00-0.00); Nucleated Red Blood Cell % 0 /100 WBC (0); Platelet Count 808 Thou/mm3 (140-440); RDW Standard Deviation 62.4 fL (35.1-43.9); Red Blood Count 5.17 Miln/mm3 (4.50-5.90); White Blood Count 10.5 Thou/mm3 (3.8-10.6)
[2025-05-20 10:19] LABS: INR 1.0 (0.9-1.3); Prothrombin Time 11.2 Seconds (9.0-12.2)
[2025-05-20 10:26] LABS: Alanine Aminotransferase 14 U/L (10-49); Albumin, Serum 4.3 gm/dL (3.4-4.8); Albumin/Globulin Ratio 1.8 (1.2-2.2); Alkaline Phosphatase 343 U/L (46-116); Anion Gap 13 (7-16); Aspartate Amino Transferase 13 U/L (0-34); BUN/Creatinine Ratio 9 Ratio (12-20); Bilirubin,Total 0.7 mg/dL (0.3-1.2); Blood Urea Nitrogen 10 mg/dL (9-23); Calcium 9.9 mg/dL (8.3-10.6); Calcium (Corrected) 9.9 mg/dL (8.5-10.1); Carbon Dioxide 28.4 mMol/L (20.0-31.0); Chloride 102 mMol/L (98-107); Creatinine (Component) 1.1 mg/dL (0.6-1.3); Estimated Creatinine Clearance 41.9 mL/min (>60); Globulin 2.4 gm/dL (2.3-3.5); Glucose 118 mg/dL (74-106); Lipase 47 U/L (12-53); Osmolality,Calculated 284 (275-295); Potassium 3.6 mMol/L (3.4-5.1); Sodium 143 mMol/L (136-145); Total Protein 6.7 gm/dL (5.7-8.2); Troponin I < 0.020 ng/mL (0.0-0.045); eGFR > 60 See Note
[2025-05-20] MEDS: PANTOPRAZOLE/NS 80MG IV PREMIX 80 MG/100 ML BAG 400 MG IV (10:28)
--- NOTE | 2025-05-20 11:05 | PC.NURSE ---
Patient given 50mg IV Benadryl as ordered by Dr. Weems for CTA with contrast. Patient has history of reaction to contrast
--- NOTE | 2025-05-20 11:22 | PC.NURSE ---
Patient back from CT. Patient denies shortness of breath, chest pain, etc. Patient 98% on room air. Vitals stable. Plan of care ongoing
[2025-05-20 11:58] VITALS: BP 141/84; PULSE 58; RESP 17; TEMP 36.5; O2SAT 97
[2025-05-20] MEDS: PANTOPRAZOLE/NS 80MG IV PREMIX 80 MG/100 ML BAG 10 MG IV ×2 (12:20→21:38)
--- NOTE | 2025-05-20 13:28 | ESHP_ITS ---
<Statement entered by Anton Zuñiga MD - 05/20/25 17:36> Patient seen and examined at bedside. I discussed and supervised with the international broadcast music librarian physician who took care of this patient. I personally saw and examined the patient. I agree with most of the assessment and plan. Patient with history of gastric cancer (plan to start chemo next week) presented with abdominal pain/fullness and hematemesis. Reports improvement in symptoms after vomiting. CT showed large fluid filled stomach. GI onboard, plan for EGD tomorrow. Patient NPO, NG tube placed due to stomach distention. PPI drip. Plan of care discussed with attending Dr. Bowie. Anton Zuñiga MD PGY-2 Documentation for date of: 05/20/25 HPI History of Present Illness History of present illness: Mr. Melendez is a 79 yo gentleman with hx of recently diagnosed gastric adenocarcinoma (followed by Dr. Canada and Dr. Phillips, not yet on chemo-plan to start chemo on 05/24), PAD with BLE stents (on ASA and Plavix), HTN, history of PUD, COPD with no home oxygen, who presents to the ED with 2 episodes of hematemesis. Patient states that he began to experience abdominal pain around midnight that was unrelieved with his PPI and famotidine, he tried to eat some banana bread, but that did not relieve his pain, his pain persisted till 3 AM. He had 2 large-volume bright red blood emesis which did provide some relief. Pt reports that his last BM was yesterday, brown in color ROS pt endorses abdominal pain, diarrhea, pt denies fever, chills, constipation, cough ED course Dx -EKG: unremarkable, nl sinus -CTAP: Abnormal gastric antrum and duodenal bulb, marked mucosal thickening, differential would include antral gastritis duodenitis, underlying gastric tumor not excluded, recommend endoscopy follow-up -CT chest At least 14 noncalcified subcentimeter pulmonary nodules bilaterally, continued follow-up chest imaging is needed -WBC wnl , Hgb 11.9 (stable), PLT 808, Lipase wnl Tx - protonix drip Review of Systems Review of Systems Narrative Review of Systems: As per HPI Past Medical History Surgical History OTHER SURGICAL HX: L shoulder surger '73 Gastric ulcer surgery 60s BLE stents R inguinal hernia repair 2004 Social History SOCIAL: Social Hx: Past smoker, alcohol socially, denies any drugs Exam Vital Signs Temp Pulse Resp BP Pulse Ox O2 Del Method 97.7 F 58 L 17 141/84 H 97 Room Air 05/20/25 11:58 05/20/25 11:58 05/20/25 11:58 05/20/25 11:58 05/20/25 11:58 05/20/25 11:58 Narrative Exam GENERAL: no acute distress, AAO x3, sitting upright in bed HEENT: Head AT/ NC. Mucous membranes dry. PERRL. temporal wasting CARDIOVASCULAR: RRR. Normal S1/S2, No m/r/g. No pitting edema of bilateral LEs. RESPIRATORY: CTAB. No wheezing, rhonchi, crackles. GASTROINTESTINAL: Abdomen soft, mild epigastric tenderness, no palpable masses. Bowel sounds present MUSCULOSKELETAL:? No cyanosis or edema, no visible joint swelling. NEUROLOGICAL: CN II-XII grossly intact. No focal deficits. Sensation intact, symmetric.moving all 4 extremities spontaneously PSYCHIATRIC: Awake and alert, not agitated, normal mood and affect. SKIN: no jaundice, decreased turgor, several subherric keratosis on face and neck and arms Results: Labs 05/20/25 09:41 05/20/25 09:41 Labs: Short CBC 05/20/25 Range/Units 09:41 WBC 10.5 (3.8-10.6) Thou/mm3 Hgb 11.9 L (13.5-16.0) g/dL Hct 37.9 L (41.0-53.0) % Plt Count 808 H D (140-440) Thou/mm3 BMP 05/20/25 09:41 Sodium 143 Potassium 3.6 Chloride 102 Carbon Dioxide 28.4 BUN 10 Creatinine 1.1 Glucose 118 H Calcium 9.9 Cardiac Enzymes 05/20/25 Range/Units 09:41 Troponin I < 0.020 (0.0-0.045) ng/mL Liver Function 05/20/25 Range/Units 09:41 Total Bilirubin 0.7 (0.3-1.2) mg/dL AST 13 (0-34) U/L ALT 14 (10-49) U/L Alkaline Phosphatase 343 H (46-116) U/L Albumin 4.3 (3.4-4.8) gm/dL Quality Measures Quality Measures VTE prophylaxis Advance care planning discussed with:: patient Medications Home Medications and Allergies Home Medications ?Medication ?Instructions ?Recorded ?Confirmed ?Type losartan 50 mg tablet 50 mg PO HS 07/31/21 5 History albuterol sulfate 90 mcg/actuation 1 puff inhalation Q 8H PRN 03/31/25 05/18/25 History aerosol inhaler shortness of breath or wheez ing aspirin 81 mg tablet 81 mg PO HS 03/31/25 5 History Held on 05/18/25. Instructions: Resume on 05/20/25. cholecalciferol (vitamin D3) 25 25 mcg PO HS 03/31/25 05/18/25 History mcg (1,000 unit) capsule (Vitamin D3) cyanocobalamin (vitamin B-12) 100 100 mcg PO HS 05/18/25 History mcg tablet (Vitamin B-12) fluticasone fur. 100 mcg-umeclid 1 inh inhalation QDAY 03/31/25 05/18/25 History 62.5 mcg-vilant 25 mcg inhalat.powder (Trelegy Ellipta) omeprazole 20 mg capsule,delayed 20 mg PO QDAY 5 05/18/25 History release fluticasone fur. 100 mcg-umeclid 1 inh inhalation Q24H 05/18/25 05/18/25 History 62.5 mcg-vilant 25 mcg inhalat.powder (Trelegy Ellipta) Allergies Allergy/AdvReac Type Severity Reaction Status Date / Time Iodinated Contrast Media Allergy Intermediate Flushing Verified 05/20/25 09:02 Visit Medications Pantoprazole Sodium (Protonix/Ns 80mg Iv Premix) 80 mg in 100 mls @ 10 mls/hr IV X1 ONE Stop: 05/20/25 19:59 Last Admin: 05/20/25 12:20 Dose: 10 mls/hr Discontinued Medications Diphenhydramine HCl (Diphenhydramine Inj 50 Mg/Ml Vial) 50 mg IVP X1 ONE Stop: 05/20/25 09:40 Last Admin: 05/20/25 10:59 Dose: 50 mg Pantoprazole Sodium (Protonix/Ns 80mg Iv Premix) 80 mg in 100 mls @ 400 mls/hr IV X1 ONE Stop: 05/20/25 09:59 Last Infusion: 05/20/25 10:43 Dose: Infused Assessment & Plan Plan Mr. Melendez is a 79 yo gentleman with hx of recently diagnosed gastric adenocarcinoma (followed by Dr. Canada and Dr. Phillips, not yet started on chemo), PAD with BLE stents, HTN, history of PUD, COPD with no home oxygen, who presents to the ED with 2 episodes of hematemesis, concerning for upper GI bleed in the setting of gastric adenocarcinoma. Patient is scheduled to start chemotherapy on 05/24. GI consulted, pending EGD with Dr. Ascencio. #Upper GI Bleed #Gastric Adenocarcinoma (dx 03/2025) pt was recently diagnosed in 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 [facility] March, he underwent EGD with Dr. Ascencio with biopsy which confirmed cancer diagnosis. Per patient he is intended to start chemotherapy on Thursday 05/24. His daughter is planning to come from [place] on 05/24. Patient has Chemo-Port in place on right upper chest placed on 05/18. -Dr. Phillips notified of patient's admission to the hospital, Dr. Phillips states that patient is fully worked up and does not need to be consulted on this admission. -Dr. Patricia reached out to however response not yet received about patient's admission to the hospital and whether she would like to be officially consulted Dx ? CBC ? CT abdomen pelvis with contrast, with significantly distended stomach ? CT chest with multiple noncalcified pulmonary nodules previously seen on imaging every 6 month see #COPD below given gastric cancer diagnosis there is concern for metastatic disease to the lung. ? EGD pending ? GI consulted, appreciate recs Tx - LR 65 ml/hr maintenance. ?Avoid NSAIDs ?Transfusion if hemoglobin less than 7 ?Continue pantoprazole drip ?NPO now ?NG tube placed #HTN - cont home losartan 50 qd #GERD #Hx PUD at home pt takes omeprazole 20mg BID and famotidine 10 mg PRN, -cont protonix drip see #upper GI bleed above #COPD not on home oxygen, significant hyperextension seen on chest x-ray Per patient he has a history of pulmonary nodules seen on chest CT. He reports that he gets imaging done on his lungs every 6 months. His lung nodules that are certain size have been biopsied and have so far been benign. Dx ?CXR: Significant hyperexpansion and no lobar pneumonia Tx -O2 supplementation PRN #PAD s/p BLE stents Tx Hold home aspirin 81 and Plavix iso GI bleed #Microcytic Anemia Query anemia of chronic disease iso gastric cancer vs anemia 2/2 acute blood losses. -CTM Hgb for acute drops -transfuse if < 7 -consider Fe panel #Thrombocytosis Ddx query reactive thrombocytosis iso blood loss from GI bleed, vs gastric malignancy INR and PT wnl Dx - repeat coags Dispo: Home, pending potential EGD with [facility], (pt was intended to start chemo on saturday) Diet: NPO Bowel Reg: holding VTE ppx: SCD GI ppx: Protonix drip Code status: FULL Case discussed with my senior resident Dr. Zuñiga Case discussed with my attending Dr. Azeb Almaguer MD PGY-1 Attending Provider Attestation/Addendum I, Sarah Bowie DO, attest that I was physically present for the issa portions of the service and evaluated the patient with the resident and I reviewed and discussed the case with the resident and agree with the resident's findings and plans of care as documented above Patient is a 79-year-old male with past medical history of recently diagnosed gastric adenocarcinoma, PAD with bilateral stents, hypertension, COPD who presented to the ED due to hematemesis that began at 3 AM. Patient states that he has had poor p.o. intake and has lost about 10 pounds due to the gastric adenocarcinoma. He often feels epigastric discomfort after eating. However, he admits that his pain and discomfort was relieved after having his large-volume emesis this morning. He denies any previous history of hematemesis besides the time that he was diagnosed with his gastric cancer. He also denies any melena or hematochezia. In the ED, a CT was done showing abnormal gastric antrum and duodenal bulb, marked mucosal thickening. He was also noted to have multiple noncalcified subcentimeter pulmonary nodules bilaterally. Patient endorses having a history of heavy smoking and alcohol use in the past, but quit about 1 year ago. Patient takes aspirin due to his PAD and losartan for hypertension. He has been taking Maalox, Pepcid, omeprazole for his GI discomfort otherwise. CT scan was reviewed and patient has a significantly distended stomach. Will place NG tube as patient states that he is beginning to feel more nauseous and discomfort at this time. Will admit patient to telemetry for further workup and medical management of acute GI bleed. GI was consulted from ED. Will start patient on IV fluids, trend hemoglobin and continue with PPI drip. Will hold aspirin at this time due to bleeding.
[2025-05-20 14:01] VITALS: BP 165/76; PULSE 59; RESP 18; TEMP 37.1; O2SAT 95
--- NOTE | 2025-05-20 15:03 | PD.RESCONSUL ---
HPI Data of Consult Consult date: 05/20/25 Primary Care Provider: Keila Shepard PA-C Consult Narrative Reason for consult: Hematemesis History of present illness: Patient is a 79-year-old male with past medical history of recently diagnosed gastric carcinoma who presents to the ER for hematemesis. Since he was diagnosed, he has often felt the need to burp due to gas in his stomach; around 3 AM this morning, he had felt he was going to have a similar episode. However, he instead began vomiting which he described as a reddish liquid approximately 500 mL. Patient has not had this happen before, and has had no episodes since. Patient takes multiple PPIs daily due to gas issues (20 mg omeprazole twice daily, and at least 1 10 mg famotidine daily); he also reports significantly reduced appetite. 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 legs, HLD PSH: Port placement 05/18/2025, ulcer removal, stent placement both legs Social history: [id number] smoking history (60 years X 3 PPD); previous alcohol use disorder (2-3 bottles of bourbon a week; self-reported); previous marijuana use 40 years ago; no other substance abuse history Exam Vital Signs Temp Pulse Resp BP Pulse Ox O2 Del Method 98.7 F 59 L 18 165/76 H 95 Room Air 05/20/25 14:01 05/20/25 14:01 05/20/25 14:01 05/20/25 14:01 05/20/25 14:01 05/20/25 14:01 Results Labs 05/20/25 09:41 05/20/25 09:41 Labs: Short CBC 05/20/25 Range/Units 09:41 WBC 10.5 (3.8-10.6) Thou/mm3 Hgb 11.9 L (13.5-16.0) g/dL Hct 37.9 L (41.0-53.0) % Plt Count 808 H D (140-440) Thou/mm3 BMP 05/20/25 09:41 Sodium 143 Potassium 3.6 Chloride 102 Carbon Dioxide 28.4 BUN 10 Creatinine 1.1 Glucose 118 H Calcium 9.9 Cardiac Enzymes 05/20/25 Range/Units 09:41 Troponin I < 0.020 (0.0-0.045) ng/mL Liver Function 05/20/25 Range/Units 09:41 Total Bilirubin 0.7 (0.3-1.2) mg/dL AST 13 (0-34) U/L ALT 14 (10-49) U/L Alkaline Phosphatase 343 H (46-116) U/L Albumin 4.3 (3.4-4.8) gm/dL Quality Measures Quality Measures none Medications Home Medications and Allergies Home Medications ?Medication ?Instructions ?Recorded ?Confirmed ?Type losartan 50 mg tablet 50 mg PO HS 07/31/21 05/18/25 History albuterol sulfate 90 mcg/actuation 1 puff inhalation Q8H PRN 03/31/25 05/18/25 History aerosol inhaler shortness of breath or wheezing aspirin 81 mg tablet 81 mg PO HS 03/31/25 05/18/25 History Held on 05/18/25. Instructions: Resume on 05/20/25. cholecalciferol (vitamin D3) 25 25 mcg PO HS 03/31/25 05/18/25 History mcg (1,000 unit) capsule (Vitamin D3) cyanocobalamin (vitamin B-12) 100 100 mcg PO HS 03/31/25 05/18/25 History mcg tablet (Vitamin B-12) fluticasone fur. 100 mcg-umeclid 1 inh inhalation QDAY 03/31/25 05/18/25 History 62.5 mcg-vilant 25 mcg inhalat.powder (Trelegy Ellipta) omeprazole 20 mg capsule,delayed 20 mg PO QDAY 03/31/25 05/18/25 History release fluticasone fur. 100 mcg-umeclid 1 inh inhalation Q24H 05/18/25 05/18/25 History 62.5 mcg-vilant 25 mcg inhalat.powder (Trelegy Ellipta) Allergies Allergy/AdvReac Type Severity Reaction Status Date / Time Iodinated Contrast Media Allergy Intermediate Flushing Verified 05/20/25 09:02 Visit Medications Acetaminophen (Acetaminophen 325 Mg Tablet) 650 mg PO Q6H PRN PRN Reason: PAIN SCALE 1-3 (mild Stop: 06/19/25 14:31 Pantoprazole Sodium (Protonix/Ns 80mg Iv Premix) 80 mg in 100 mls @ 10 mls/hr IV X1 ONE Stop: 05/20/25 19:59 Last Admin: 05/20/25 12:20 Dose: 10 mls/hr Lactated Ringer's (Lactated Ringers) 1,000 mls @ 65 mls/hr IV .[id number] HYACINTH Stop: 05/21/25 21:31 Ondansetron HCl (Ondansetron Inj 2 Mg/Ml Inj 2 Ml) 4 mg IVP Q6H PRN; Protocol PRN Reason: NAUSEA OR VOMITING Stop: 06/19/25 14:31 Discontinued Medications Diphenhydramine HCl (Diphenhydramine Inj 50 Mg/Ml Vial) 50 mg IVP X1 ONE Stop: 05/20/25 09:40 Last Admin: 05/20/25 10:59 Dose: 50 mg Pantoprazole Sodium (Protonix/Ns 80mg Iv Premix) 80 mg in 100 mls @ 400 mls/hr IV X1 ONE Stop: 05/20/25 09:59 Last Infusion: 05/20/25 10:43 Dose: Infused Assessment & Plan Plan Patient is a 79-year-old male with PMH of recently diagnosed gastric carcinoma presenting to the ER for hematemesis. #Hematemesis Hgb stable (11.7 to 11.9 ), MCV stable (73 to 74), platelet count decreasing to previous baseline (808 from 978), INR 1.0, alk phos elevated (343), Port-A-Cath placement normal Plan: EGD for potential therapeutic intervention tomorrow; clear liquid diet; NPO midnight #COPD, HTN, HLD, COPD Plan: As per primary team Patient seen by Dr. Daron Hood MD, and staffed with Dr. Malachi Ascencio MD, attending.
--- NOTE | 2025-05-20 16:08 | PC.NURSE ---
REPORT GIVEN TO JAZ LIU. NO FURTHER QUESTIONS. PATIENT WILL BE TRANSFERRED TO ROOM 380
[2025-05-20 16:12] VITALS: BP 146/66; PULSE 54
[2025-05-20] MEDS: LOSARTAN POTASSIUM 25 MG TABLET 50 MG PO (16:12)
[2025-05-20 17:47] VITALS: BMI 17.7
[2025-05-20] MEDS: POTASSIUM CHL 10 mEq IVPB 10 MEQ/100 ML BAG 100 MEQ IV (18:10)
[2025-05-20] MEDS: RINGERS LACTATED 1000 ML 1,000 ML 65 ML IV (18:10)
[2025-05-20 18:18] VITALS: BP 142/73; PULSE 51; RESP 18; TEMP 36.1; O2SAT 99
[2025-05-20] MEDS: POTASSIUM CHL 10 mEq IVPB 10 MEQ/100 ML BAG 50 MEQ IV (20:17)
[2025-05-20 20:30] LABS: Hematocrit 37.3 % (41.0-53.0); Hemoglobin 11.3 g/dL (13.5-16.0)
--- NOTE | 2025-05-20 21:47 | PD.IMCONS ---
HPI Data of Consult Requesting Physician: Sarah Bowie DO Primary Care Provider: Keila Shepard PA-C Consult Narrative Reason for consult: Hematemesis History of present illness: Patient is a 79-year-old male with past medical history of recently diagnosed gastric carcinoma who presents to the ER for hematemesis. Since he was diagnosed, he has often felt the need to burp due to gas in his stomach; around 3 AM this morning, he had felt he was going to have a similar episode. However, he instead began vomiting which he described as a reddish liquid approximately 500 mL. Patient has not had this happen before, and has had no episodes since. Patient takes multiple PPIs daily due to gas issues (20 mg omeprazole twice daily, and at least 1 10 mg famotidine daily); he also reports significantly reduced appetite. cc:: cc: Sarah Bowie DO Review of Systems Cardiovascular Comments: hypertension Respiratory Comments: COPD Gastrointestinal Gastrointestinal: Reports as per HPI Hematologic/Lymphatic Hematologic/Lymphatic: Reports as per HPI Past Medical History Past Medical History Comments PMH COMMENT: PMH: Gastric carcinoma, COPD, HTN, vasculopathy with stents placed in both legs, HLD PSH: Port placement 05/18/2025, ulcer removal, stent placement both legs Social history: [id number] smoking history (60 years X 3 PPD); previous alcohol use disorder (2-3 bottles of bourbon a week; self-reported); previous marijuana use 40 years ago; no other substance abuse history Meds Home Medications and Allergies Home Medications ?Medication ?Instructions ?Recorded ?Confirmed ?Type losartan 50 mg tablet 50 mg PO HS 07/31/21 05/18/25 History albuterol sulfate 90 mcg/actuation 1 puff inhalation Q8H PRN 03/31/25 05/18/25 History aerosol inhaler shortness of breath or wheezing aspirin 81 mg tablet 81 mg PO HS 03/31/25 05/18/25 History Held on 05/18/25. Instructions: Resume on 05/20/25. cholecalciferol (vitamin D3) 25 25 mcg PO HS 03/31/25 05/18/25 History mcg (1,000 unit) capsule (Vitamin D3) cyanocobalamin (vitamin B-12) 100 100 mcg PO HS 03/31/25 05/18/25 History mcg tablet (Vitamin B-12) fluticasone fur. 100 mcg-umeclid 1 inh inhalation QDAY 03/31/25 05/18/25 History 62.5 mcg-vilant 25 mcg inhalat.powder (Trelegy Ellipta) omeprazole 20 mg capsule,delayed 20 mg PO QDAY 03/31/25 05/18/25 History release fluticasone fur. 100 mcg-umeclid 1 inh inhalation Q24H 05/18/25 05/18/25 History 62.5 mcg-vilant 25 mcg inhalat.powder (Trelegy Ellipta) Allergies Allergy/AdvReac Type Severity Reaction Status Date / Time Iodinated Contrast Media Allergy Intermediate Flushing Verified 05/20/25 09:02 Exam Vital Signs Temp Pulse Resp BP Pulse Ox O2 Del Method 97.0 F 51 L 18 142/73 H 99 Room Air 05/20/25 18:18 05/20/25 18:18 05/20/25 18:18 05/20/25 18:18 05/20/25 18:18 05/20/25 18:18 Routine Respiratory Exam Respiratory: Present lungs clear and CTA bilaterally Routine Cardiovascular Exam Cardiovascular: Present RRR, S1 and S2 Routine Abdominal Exam Abdominal: Present soft and normoactive bowel sounds Results Labs 05/20/25 20:20 05/20/25 09:41 Labs: Short CBC 05/20/25 05/20/25 Range/Units 09:41 20:20 WBC 10.5 (3.8-10.6) Thou/mm3 Hgb 11.9 L 11.3 L (13.5-16.0) g/dL Hct 37.9 L 37.3 L (41.0-53.0) % Plt Count 808 H D (140-440) Thou/mm3 BMP 05/20/25 09:41 Sodium 143 Potassium 3.6 Chloride 102 Carbon Dioxide 28.4 BUN 10 Creatinine 1.1 Glucose 118 H Calcium 9.9 Cardiac Enzymes 05/20/25 Range/Units 09:41 Troponin I < 0.020 (0.0-0.045) ng/mL Liver Function 05/20/25 Range/Units 09:41 Total Bilirubin 0.7 (0.3-1.2) mg/dL AST 13 (0-34) U/L ALT 14 (10-49) U/L Alkaline Phosphatase 343 H (46-116) U/L Albumin 4.3 (3.4-4.8) gm/dL Assessment and Plan Additional Assessment & Plan Additional Plan: Patient is a 79-year-old male with PMH of recently diagnosed gastric carcinoma presenting to the ER for hematemesis. #Hematemesis Hgb stable (11.7 to 11.9 ), MCV stable (73 to 74), platelet count decreasing to previous baseline (808 from 978), INR 1.0, alk phos elevated (343), Port-A-Cath placement normal Plan: EGD for potential therapeutic intervention tomorrow; clear liquid diet; NPO midnight #COPD, HTN, HLD, COPD Plan: As per primary team Patient seen by Dr. Daron Hood MD, and staffed with Dr. Malachi Ascencio MD, attending. Attending physician attestation Patient examined by me Laboratory data reviewed Imaging studies reviewed Treatment plan outlined for fiberoptic esophagogastroduodenoscopy with possible therapeutic intervention under intravenous moderate patient is scheduled for tomorrow Clear liquid diet at 12 midnight N.p.o. midnight tonight except p.o. meds IV Protonix Serial CBC Transfuse PRBC if the hemoglobin drops below 7 g Thank you very much for the opportunity to participate in the care of this patient
[2025-05-20 23:57] VITALS: PULSE 55; RESP 18; RESP 99
[2025-05-21] VITALS (17 sets, daily range): BP systolic 131–167; BP diastolic 56–105; PULSE 54–95; RESP 13–94; TEMP 36.2–36.8; O2SAT 94–100
--- NOTE | 2025-05-21 03:50 | PC.NURSE ---
Dr. Ascencio came in and examine the patient. Consent obtain from patient for endoscopy. NG tube placement not done per Dr. Ascencio advised.
[2025-05-21 06:32] LABS: Basophils # (Auto) 0.2 Thou/mm3 (0.0-0.2); Basophils % (Auto) 2 % (0-2.5); Eosinophils # (Auto) 0.3 Thou/mm3 (0.0-0.5); Eosinophils % (Auto) 3 % (0-10); Hematocrit 35.6 % (41.0-53.0); Hemoglobin 10.8 g/dL (13.5-16.0); Immature Granulocytes Auto 0.08 Thou/mm3 (0.00-0.00); Lymphocytes # (Auto) 1.5 Thou/mm3 (1.0-4.8); Lymphocytes % (Auto) 15 % (10-50); Mean Corpuscular HGB Conc 30.3 g/dl (31.0-37.0); Mean Corpuscular Hemoglobin 23.1 pg (25.0-35.0); Mean Corpuscular Volume 76 fL (80-100); Monocytes # (Auto) 0.5 Thou/mm3 (0.0-0.8); Monocytes % (Auto) 5 % (0-12); Neutrophils # (Auto) 7.3 Thou/mm3 (1.8-7.7); Neutrophils % (Auto) 75 % (37-80); Nucleated Red Blood Cell # 0.00 Thou/mm3 (0.00-0.00); Nucleated Red Blood Cell % 0 /100 WBC (0); Platelet Count 713 Thou/mm3 (140-440); RDW Standard Deviation 64.4 fL (35.1-43.9); Red Blood Count 4.68 Miln/mm3 (4.50-5.90); White Blood Count 9.7 Thou/mm3 (3.8-10.6)
--- NOTE | 2025-05-21 06:49 | ESPR_ITS ---
<Statement entered by Yrn Mena MD - 05/25/25 08:02> I reviewed above note and agree with findings and plans. I have also personally examined the patient with medicine team and went over assessment and plan with medical team including sales and marketing intern and resident physician. <Statement entered by Sergio Clemente MD - 05/21/25 14:23> Patient was seen and examined at the bedside. No acute overnight events were reported. Hemoglobin stable at 10.8. Currently awaiting EGD. He was seen on clear liquid diet. Oncologist were made aware of patient being hospitalized for possible EGD. Vitals were stable. Will follow-up with these results. GI recommendations pending. All labs and orders were reviewed. I discussed and supervised with the sales and marketing intern physician who took care of this patient. I personally saw and examined the patient. I agree with most of the assessment and plan. Disclaimer: Despite multiple revisions, due to the dictation software being used, the document bellow may not be free of grammatical errors including phonetic/typographic errors. However, this does not deter from our commitment to providing health care in the patient's best interest in mind. Plan of care discussed with attending Physician Dr. Rajesh Clemente MD PGY-3 Documentation for date of: 05/21/25 Subjective Subjective Interval history: No acute events overnight pending EGD today with Dr. Ascencio NPO no hematemesis, mild abdominal discomfort, pt reports LLE plantar foot parasthesias Exam Vital Signs Temp Pulse Resp BP Pulse Ox O2 Del Method 97.2 F 70 13 138/67 H 96 Room Air 05/21/25 04:00 05/21/25 04:00 05/21/25 04:00 05/21/25 04:00 05/21/25 04:00 05/21/25 04:00 Narrative Exam GENERAL: no acute distress, AAO x3, sitting upright in bed HEENT: Head AT/ NC. Mucous membranes dry. PERRL. temporal wasting CARDIOVASCULAR: RRR. Normal S1/S2, No m/r/g. No pitting edema of bilateral LEs. RESPIRATORY: CTAB. No wheezing, rhonchi, crackles. GASTROINTESTINAL: Abdomen soft, mild epigastric tenderness, no palpable masses. Bowel sounds present MUSCULOSKELETAL:? No cyanosis or edema, no visible joint swelling. NEUROLOGICAL: CN II-XII grossly intact. No focal deficits. Sensation intact, symmetric.moving all 4 extremities spontaneously PSYCHIATRIC: Awake and alert, not agitated, normal mood and affect. SKIN: no jaundice, decreased turgor, several sebherric keratosis on face and neck and arms Objective Labs 05/21/25 04:45 05/21/25 04:45 Labs: Laboratory Results - last 24 hr 05/20/25 05/20/25 09:41 20:20 WBC 10.5 RBC 5.17 Hgb 11.9 L 11.3 L Hct 37.9 L 37.3 L MCV 73 L MCH 23.0 L MCHC 31.4 RDW Std Deviation 62.4 H Plt Count 808 H D Neut % (Auto) 79 Lymph % (Auto) 11 [place] % (Auto) 5 Eos % (Auto) 2 Baso % (Auto) 2 Neut # (Auto) 8.3 H Lymph # (Auto) 1.1 [place] # (Auto) 0.5 Eos # (Auto) 0.2 Baso # (Auto) 0.2 Immature Gran # (Auto) 0.13 H Absolute Nucleated RBC 0.00 Immature Gran % 1 H Nucleated RBC % 0 PT 11.2 INR 1.0 Sodium 143 Potassium 3.6 Chloride 102 Carbon Dioxide 28.4 Anion Gap 13 BUN 10 Creatinine 1.1 Estim Creat Clear Calc 41.9 L eGFR > 60 BUN/Creatinine Ratio 9 L Glucose 118 H Calculated Osmolality 284 Calcium 9.9 Corrected Calcium 9.9 Total Bilirubin 0.7 AST 13 ALT 14 Alkaline Phosphatase 343 H Troponin I < 0.020 Total Protein 6.7 Albumin 4.3 Globulin 2.4 Albumin/Globulin Ratio 1.8 Lipase 47 Blood Type A Positive Antibody Screen NEGATIVE Blood Bank Wristband ID Yes Quality Measures Quality Measures VTE prophylaxis Advance care planning discussed with:: patient Assessment & Plan Assessment Current Active Medications: Generic Name Dose Route Start Last Admin Trade Name Freq PRN Reason Stop Dose Admin Acetaminophen 650 mg 05/20/25 14:32 Acetaminophen 325 Mg Tablet PO 06/19/25 14:31 Q6H PRN PAIN SCALE 1-3 (mild Lactated Ringer's 1,000 mls @ 65 mls/hr 05/20/25 14:45 05/20/25 18:10 Lactated Ringers IV 05/21/25 21:31 65 mls/hr .[id number] HYACINTH Administration Pantoprazole Sodium 80 mg in 100 mls @ 10 mls/hr 05/20/25 20:43 05/20/25 21:38 Protonix/Ns 80mg Iv Premix IV 05/23/25 18:42 10 mls/hr Q10H HYACINTH Administration Losartan Potassium 50 mg 05/20/25 15:15 05/20/25 16:12 Losartan Potassium 25 Mg Tablet PO 06/19/25 15:14 50 mg QDAY HYACINTH Administration Ondansetron HCl 4 mg 05/20/25 14:32 Ondansetron Inj 2 Mg/Ml Inj 2 Ml IVP 06/19/25 14:31 Q6H PRN NAUSEA OR VOMITING Protocol Plan Mr. Melendez is a 79 yo gentleman with hx of recently diagnosed gastric adenocarcinoma (followed by Dr. Canada and Dr. Phillips, not yet started on chemo), PAD with BLE stents, HTN, history of PUD, COPD with no home oxygen, who presents to the ED with 2 episodes of hematemesis, concerning for upper GI bleed in the setting of gastric adenocarcinoma. Patient is scheduled to start chemotherapy on 05/24. GI consulted, pending EGD with Dr. Ascencio, NPO. #Upper GI Bleed #Gastric Adenocarcinoma (dx 03/2025) pt was recently diagnosed in 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 He was admitted to [facility] with upper GI bleed in March, he underwent EGD with Dr. Ascencio with biopsy which confirmed cancer diagnosis. Per patient he is intended to start chemotherapy on Thursday 05/24. His daughter is planning to come from [place] on 05/24. Patient has Chemo-Port in place on right upper chest placed on 05/18. -Dr. Phillips notified of patient's admission to the hospital, Dr. Phillips states that patient is fully worked up and does not need to be consulted on this admission. -Dr. Patricia reached out to however response not yet received about patient's admission to the hospital and whether she would like to be officially consulted Dx ? CBC ? CT abdomen pelvis with contrast, with significantly distended stomach ? CT chest with multiple noncalcified pulmonary nodules previously seen on imaging every 6 month see #COPD below given gastric cancer diagnosis there is concern for metastatic disease to the lung. ? EGD pending today ? GI consulted, appreciate recs Tx - D5W 100 ml/hr given NPO and serum gluc 87 ?Avoid NSAIDs ?Transfusion if hemoglobin less than 7 ?Continue pantoprazole drip ?NPO now #HTN - cont home losartan 50 qd #GERD #Hx PUD at home pt takes omeprazole 20mg BID and famotidine 10 mg PRN, -cont protonix drip see #upper GI bleed above #COPD not on home oxygen, significant hyperextension seen on chest x-ray Per patient he has a history of pulmonary nodules seen on chest CT. He reports that he gets imaging done on his lungs every 6 months. His lung nodules that are certain size have been biopsied and have so far been benign. Dx ?CXR: Significant hyperexpansion and no lobar pneumonia Tx -O2 supplementation PRN #PAD s/p BLE stents Tx Hold home aspirin 81 and Plavix iso GI bleed #LLE neuropathy pt reports parasthesia of LLE plantar surface of foot. Tx - consider gabapentin while outpatient if pain persists. #Asymptomatic Bradycardia vital signs stable, bradycardia noted. Dx EKG nl sinus, intermittently bradycardic to 50s on vital sign monitoring f/u AM TSH #Microcytic Anemia Query anemia of chronic disease iso gastric cancer vs anemia 2/2 acute blood losses. -CTM Hgb for acute drops - stable -transfuse if < 7 -consider Fe panel #Thrombocytosis Ddx query reactive thrombocytosis iso blood loss from GI bleed, vs gastric malignancy INR and PT wnl Dx - repeat coags Dispo: Home, pending EGD with Sonu, (pt was intended to start chemo on saturday) Diet: NPO Bowel Reg: holding VTE ppx: SCD GI ppx: Protonix drip Code status: FULL Case discussed with my senior resident Dr. Clemente Case discussed with my attending Dr. Azeb Almaguer MD PGY-1
[2025-05-21 07:06] LABS: Alanine Aminotransferase 10 U/L (10-49); Albumin, Serum 3.6 gm/dL (3.4-4.8); Albumin/Globulin Ratio 1.6 (1.2-2.2); Alkaline Phosphatase 273 U/L (46-116); Anion Gap 11 (7-16); Aspartate Amino Transferase 12 U/L (0-34); BUN/Creatinine Ratio 11 Ratio (12-20); Bilirubin,Total 0.6 mg/dL (0.3-1.2); Blood Urea Nitrogen 11 mg/dL (9-23); Calcium 9.1 mg/dL (8.3-10.6); Calcium (Corrected) 9.4 mg/dL (8.5-10.1); Carbon Dioxide 24.6 mMol/L (20.0-31.0); Chloride 107 mMol/L (98-107); Creatinine (Component) 1.0 mg/dL (0.6-1.3); Estimated Creatinine Clearance 46.1 mL/min (>60); Globulin 2.2 gm/dL (2.3-3.5); Glucose 87 mg/dL (74-106); Magnesium 1.9 mg/dL (1.6-2.6); Osmolality,Calculated 283 (275-295); Phosphorous 3.0 mg/dL (2.4-5.1); Potassium 4.0 mMol/L (3.4-5.1); Sodium 143 mMol/L (136-145); Total Protein 5.8 gm/dL (5.7-8.2); eGFR > 60 See Note
[2025-05-21] MEDS: PANTOPRAZOLE/NS 80MG IV PREMIX 80 MG/100 ML BAG 10 MG IV (08:50)
[2025-05-21] MEDS: RINGERS LACTATED 1000 ML 1,000 ML 65 ML IV (08:52)
--- NOTE | 2025-05-21 11:08 | PC.SS ---
Patient Rosendo Melendez is a 79 Year old male admitted for Upper GI Bleed with Gastric Cancer. SS met with patient to discuss discharge plan and verify demographic information. Patient reports he lives alone. Pt ambulates independently without assistance or DME. Pt is able to complete all ADL's independently. Patient?s pharmacy of choice is [facility]. Patient listed his daughter, Aliya Melendez medical decision maker [phone]. Patient?s choice is to return home upon d/c. Pt does not have an advance directive. Family will provide transportation home. D/C plan: Return home Next of Kin: Aliya Nora, dtr, phone# [phone] PCP: Dr. Keila Shepard
--- NOTE | 2025-05-21 11:50 | PC.SS ---
SS follow up note; EGD pending. Patient will discharge home when medically cleared.
[2025-05-21] MEDS: DEXTROSE 5%-LACTATED RINGERS 500 ML 100 ML IV (17:06)
--- NOTE | 2025-05-21 19:00 | SUR.PHASEI ---
Arrived to recovery bay 1 via [facility]. Report received from Brittany SEBASTIAN. Vomiting dark pink emesis with chunks of food. Suctioned and cleaned face and chest, changed gown. No c/o pain. Dr. Ascencio made aware of emesis. Brittany stated patient had already vomited in Endo and therefore procedure was not completed.
[2025-05-21] MEDS: ONDANSETRON INJ 2 MG/ML INJ 2 ML 4 MG IVP (19:09)
--- NOTE | 2025-05-21 19:42 | SUR.PHASEI ---
Taken to room 383 via gurney. No c/o pain or discomfort. Awake, alert, oriented. Ambulated to bed and made comfortable. Tolerated ambulation well. Call light in hand, bed alarm on. Bed in lowest position.
[2025-05-22] VITALS (10 sets, daily range): BP systolic 121–153; BP diastolic 61–73; PULSE 51–69; RESP 14–97; TEMP 36–36.7; O2SAT 94–97
[2025-05-22] MEDS: PANTOPRAZOLE/NS 80MG IV PREMIX 80 MG/100 ML BAG 10 MG IV ×2 (01:00→12:11)
[2025-05-22 05:57] LABS: Basophils # (Auto) 0.1 Thou/mm3 (0.0-0.2); Basophils % (Auto) 1 % (0-2.5); Eosinophils # (Auto) 0.3 Thou/mm3 (0.0-0.5); Eosinophils % (Auto) 3 % (0-10); Hematocrit 35.2 % (41.0-53.0); Hemoglobin 10.8 g/dL (13.5-16.0); Immature Granulocytes Auto 0.09 Thou/mm3 (0.00-0.00); Lymphocytes # (Auto) 1.1 Thou/mm3 (1.0-4.8); Lymphocytes % (Auto) 11 % (10-50); Mean Corpuscular HGB Conc 30.7 g/dl (31.0-37.0); Mean Corpuscular Hemoglobin 22.8 pg (25.0-35.0); Mean Corpuscular Volume 74 fL (80-100); Monocytes # (Auto) 0.4 Thou/mm3 (0.0-0.8); Monocytes % (Auto) 4 % (0-12); Neutrophils # (Auto) 7.9 Thou/mm3 (1.8-7.7); Neutrophils % (Auto) 80 % (37-80); Nucleated Red Blood Cell # 0.00 Thou/mm3 (0.00-0.00); Nucleated Red Blood Cell % 0 /100 WBC (0); Platelet Count 657 Thou/mm3 (140-440); RDW Standard Deviation 62.6 fL (35.1-43.9); Red Blood Count 4.73 Miln/mm3 (4.50-5.90); White Blood Count 9.9 Thou/mm3 (3.8-10.6)
--- NOTE | 2025-05-22 06:00 | XR_ITS ---
Examination: AP chest single view TECHNIQUE: AP portable upright chest single view INDICATIONS: Choking post endoscopy FINDINGS: Mild opacity left base Moderate hyperexpansion Port-A-Cath line SVC satisfactory position Normal heart size IMPRESSION: Mild pneumonia left base consider aspiration pneumonia
[2025-05-22 06:43] LABS: Alanine Aminotransferase 8 U/L (10-49); Albumin, Serum 3.6 gm/dL (3.4-4.8); Albumin/Globulin Ratio 1.8 (1.2-2.2); Alkaline Phosphatase 246 U/L (46-116); Anion Gap 9 (7-16); Aspartate Amino Transferase 12 U/L (0-34); BUN/Creatinine Ratio 10 Ratio (12-20); Bilirubin,Total 0.7 mg/dL (0.3-1.2); Blood Urea Nitrogen 11 mg/dL (9-23); Calcium 8.9 mg/dL (8.3-10.6); Calcium (Corrected) 9.2 mg/dL (8.5-10.1); Carbon Dioxide 26.3 mMol/L (20.0-31.0); Chloride 106 mMol/L (98-107); Creatinine (Component) 1.1 mg/dL (0.6-1.3); Estimated Creatinine Clearance 47.5 mL/min (>60); Globulin 2.0 gm/dL (2.3-3.5); Glucose 91 mg/dL (74-106); Magnesium 2.1 mg/dL (1.6-2.6); Osmolality,Calculated 280 (275-295); Phosphorous 2.9 mg/dL (2.4-5.1); Potassium 5.0 mMol/L (3.4-5.1); Sodium 141 mMol/L (136-145); Thyroid Stimulating Hormone 3.24 uIU/mL (0.55-4.78); Total Protein 5.6 gm/dL (5.7-8.2); eGFR > 60 See Note
--- NOTE | 2025-05-22 07:12 | ESPR_ITS ---
<Statement entered by Yrn Mena MD - 05/25/25 08:34> I reviewed above note and agree with findings and plans. I have also personally examined the patient with medicine team and went over assessment and plan with medical team including sports management intern and resident physician. Documentation for date of: 05/22/25 Subjective Subjective Interval history: s/p EGD with Dr. Ascencio, pt had emesis during procedure and directly after scope was removed, there was concern for aspiration Trial Clear diet in the evening, however if pt unable to tolerate, make NPO. per discussion with Dr. Ascencio, there is concern for gastric outlet obstruction 2/2 gastric malignancy. pending Gastric contrast series with IR on saturday to evaluate obstruction prior to likely transfer to tertiary center for gastrectomy Exam Vital Signs Temp Pulse Resp BP Pulse Ox O2 Del Method O2 Flow Rate 97.1 F 51 L 14 121/61 94 L Room Air 3 05/22/25 04:00 05/22/25 04:00 05/22/25 04:00 05/22/25 04:00 05/22/25 04:00 05/22/25 04:00 05/21/25 18:45 Narrative Exam GENERAL: no acute distress, AAO x3, sitting upright in bed HEENT: Head AT/ NC. Mucous membranes dry. PERRL. temporal wasting CARDIOVASCULAR: RRR. Normal S1/S2, No m/r/g. No pitting edema of bilateral LEs. RESPIRATORY: CTAB. No wheezing, rhonchi, crackles. GASTROINTESTINAL: Abdomen soft, mild epigastric tenderness, no palpable masses. Bowel sounds present MUSCULOSKELETAL:? No cyanosis or edema, no visible joint swelling. NEUROLOGICAL: CN II-XII grossly intact. No focal deficits. Sensation intact, symmetric.moving all 4 extremities spontaneously PSYCHIATRIC: Awake and alert, not agitated, normal mood and affect. SKIN: no jaundice, decreased turgor, several sebherric keratosis on face and neck and arms Objective Labs 05/23/25 07:59 05/23/25 07:59 Labs: Laboratory Results - last 24 hr 05/22/25 05:40 WBC 9.9 RBC 4.73 Hgb 10.8 L Hct 35.2 L MCV 74 L MCH 22.8 L MCHC 30.7 L RDW Std Deviation 62.6 H Plt Count 657 H D Neut % (Auto) 80 Lymph % (Auto) 11 [place] % (Auto) 4 Eos % (Auto) 3 Baso % (Auto) 1 Neut # (Auto) 7.9 H Lymph # (Auto) 1.1 [place] # (Auto) 0.4 Eos # (Auto) 0.3 Baso # (Auto) 0.1 Immature Gran # (Auto) 0.09 H Absolute Nucleated RBC 0.00 Immature Gran % 1 H Nucleated RBC % 0 Sodium 141 Potassium 5.0 D Chloride 106 Carbon Dioxide 26.3 Anion Gap 9 BUN 11 Creatinine 1.1 Estim Creat Clear Calc 47.5 L eGFR > 60 BUN/Creatinine Ratio 10 L Glucose 91 Calculated Osmolality 280 Calcium 8.9 Corrected Calcium 9.2 Phosphorus 2.9 Magnesium 2.1 Total Bilirubin 0.7 AST 12 ALT 8 L Alkaline Phosphatase 246 H D Total Protein 5.6 L Albumin 3.6 Globulin 2.0 L Albumin/Globulin Ratio 1.8 TSH 3.24 Quality Measures Quality Measures VTE prophylaxis Advance care planning discussed with:: patient and other Assessment & Plan Assessment Current Active Medications: Generic Name Dose Route Start Last Admin Trade Name Freq PRN Reason Stop Dose Admin Acetaminophen 650 mg 05/20/25 14:32 Acetaminophen 325 Mg Tablet PO 06/19/25 14:31 Q6H PRN PAIN SCALE 1-3 (mild Pantoprazole Sodium 80 mg in 100 mls @ 10 mls/hr 05/20/25 20:43 05/22/25 01:00 Protonix/Ns 80mg Iv Premix IV 05/23/25 18:42 10 mls/hr Q10H HYACINTH Administration Losartan Potassium 50 mg 05/20/25 15:15 05/20/25 16:12 Losartan Potassium 25 Mg Tablet PO 06/19/25 15:14 50 mg QDAY HYACINTH Administration Ondansetron HCl 4 mg 05/20/25 14:32 05/21/25 19:09 Ondansetron Inj 2 Mg/Ml Inj 2 Ml IVP 06/19/25 14:31 4 mg Q6H PRN Administration NAUSEA OR VOMITING Protocol Plan Mr. Melendez is a 79 yo gentleman with hx of recently diagnosed gastric adenocarcinoma (followed by Dr. Canada and Dr. Phillips, not yet started on chemo), PAD with BLE stents, HTN, history of PUD, COPD with no home oxygen, who presents to the ED with 2 episodes of hematemesis, concerning for upper GI bleed in the setting of gastric adenocarcinoma. Patient is scheduled to start chemotherapy on 05/24. GI consulted, s/p EGD with large volume emesis, c/f aspiration. on EGD, no active bleeding, pending IR GI upper series on Saturday, likely outlet obstruction, will likely require transfer to tertiary center for pyloric stent vs gastrectomy. update Harshad. #Upper GI Bleed from ulcerated gastric tumor #Gastric Adenocarcinoma (dx 03/2025) #Query Gastric outlet obstruction pt was recently diagnosed in 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 He was admitted to [facility] with upper GI bleed in March, he underwent EGD with Dr. Ascencio with biopsy which confirmed cancer diagnosis. Per patient he is intended to start chemotherapy on Thursday 05/24. His daughter is planning to come from [place] on 05/24. Patient has Chemo-Port in place on right upper chest placed on 05/18. -Dr. Phillips notified of patient's admission to the hospital, Dr. Phillips states that patient is fully worked up and does not need to be consulted on this admission. -Dr. Patricia reached out to however response not yet received about patient's admission to the hospital and whether she would like to be officially consulted EGD with old food, too thick for NG suction, defer NG tube, c/f #aspiration, pending IR directed Gastric series. following GI IR series on saturday, if it demonstrates gastric outlet obstruction pt will likely require transfer to tertiary care center, or pyloric stent or gastrectomy. Dx ? CBC ? CT abdomen pelvis with contrast, with significantly distended stomach ? CT chest with multiple noncalcified pulmonary nodules previously seen on imaging every 6 month see #COPD below given gastric cancer diagnosis there is concern for metastatic disease to the lung. ? EGD with no active bleeding, ulceration of gastric tumor, likely source of previous bleeding, concern for gastric outlet obstruction - pending IR gastric upper GI series ? GI consulted, appreciate recs Tx - D5W 75 ml/hr given NPO and serum gluc 87 ?Avoid NSAIDs ?Transfusion if hemoglobin less than 7 ?Continue pantoprazole 40 BID IV ?Trial Clear liquid diet, but make NPO if pt does not tolerate #c/f aspiration pneumonitis vs pna during EGD, pt had emesis, and after scope was removed pt had 500 cc of emesis. pt afebrile and lungs are CTAB. WBC wnl Dx - CTM signs of systemic infection - consider repeat CXR if becomes symptomatic Tx - consider abx with anaerobic coverage given c/f aspiration pneumonia - aspiration precautions - zofran 4mg PRN - head of bed at 45 degrees #HTN - cont home losartan 50 qd #GERD #Hx PUD at home pt takes omeprazole 20mg BID and famotidine 10 mg PRN, -cont protonix drip see #upper GI bleed above #COPD not on home oxygen, significant hyperextension seen on chest x-ray Per patient he has a history of pulmonary nodules seen on chest CT. He reports that he gets imaging done on his lungs every 6 months. His lung nodules that are certain size have been biopsied and have so far been benign. Dx ?CXR: Significant hyperexpansion and no lobar pneumonia Tx -O2 supplementation PRN #PAD s/p BLE stents Tx Hold home aspirin 81 and Plavix iso GI bleed #LLE neuropathy pt reports parasthesia of LLE plantar surface of foot. Tx - consider gabapentin while outpatient if pain persists. - SCDs #Asymptomatic Bradycardia vital signs stable, bradycardia noted. Dx EKG nl sinus, intermittently bradycardic to 50s on vital sign monitoring TSH wnl #Microcytic Anemia Query anemia of chronic disease iso gastric cancer vs anemia 2/2 acute blood losses. -CTM Hgb for acute drops - stable -transfuse if < 7 -consider Fe panel #Thrombocytosis Ddx query reactive thrombocytosis iso blood loss from GI bleed, vs gastric malignancy INR and PT wnl Dispo: pending GI series on saturday with IR, likely gastric outlet obstruction, c/f aspiration pneumonia vs pneumonitis, will likely need transfer to tertiary care. Diet: trial clear liquid diet Bowel Reg: holding VTE ppx: SCD GI ppx: Protonix 40 BID Code status: FULL Case discussed with my senior resident Dr. Clemente Case discussed with my attending Dr. Azeb Almaguer MD PGY-1
[2025-05-22] MEDS: DEXTROSE 5%-LACTATED RINGERS 1,000 ML 75 ML IV ×2 (10:17→18:18)
--- NOTE | 2025-05-22 18:36 | ESPR_ITS ---
Documentation for date of: 05/22/25 Subjective Subjective Interval history: Care plan discussed with the internal medicine resident Waiting for Gastrografin upper GI series if totally obstructed Patient has 2 choices to have a stent placement at the level of the pyloric channel or do a surgical gastroenterostomy for palliation That she will be made on Saturday Unfortunately upper GI series can be done at radiology is not available for the weekend Exam Vital Signs Temp Pulse Resp BP Pulse Ox O2 Del Method O2 Flow Rate 97.7 F 58 L 16 136/62 H 97 Room Air 3 05/22/25 12:07 05/22/25 12:07 05/22/25 12:07 05/22/25 12:07 05/22/25 12:07 05/22/25 12:07 05/21/25 18:45 Objective Labs 05/23/25 07:59 05/23/25 07:59 Labs: Laboratory Results - last 24 hr 05/22/25 05:40 WBC 9.9 RBC 4.73 Hgb 10.8 L Hct 35.2 L MCV 74 L MCH 22.8 L MCHC 30.7 L RDW Std Deviation 62.6 H Plt Count 657 H D Neut % (Auto) 80 Lymph % (Auto) 11 [place] % (Auto) 4 Eos % (Auto) 3 Baso % (Auto) 1 Neut # (Auto) 7.9 H Lymph # (Auto) 1.1 [place] # (Auto) 0.4 Eos # (Auto) 0.3 Baso # (Auto) 0.1 Immature Gran # (Auto) 0.09 H Absolute Nucleated RBC 0.00 Immature Gran % 1 H Nucleated RBC % 0 Sodium 141 Potassium 5.0 D Chloride 106 Carbon Dioxide 26.3 Anion Gap 9 BUN 11 Creatinine 1.1 Estim Creat Clear Calc 47.5 L eGFR > 60 BUN/Creatinine Ratio 10 L Glucose 91 Calculated Osmolality 280 Calcium 8.9 Corrected Calcium 9.2 Phosphorus 2.9 Magnesium 2.1 Total Bilirubin 0.7 AST 12 ALT 8 L Alkaline Phosphatase 246 H D Total Protein 5.6 L Albumin 3.6 Globulin 2.0 L Albumin/Globulin Ratio 1.8 TSH 3.24 Impressions Impression: Gastric adenocarcinoma Gastric outlet obstruction Plan as in the history of present illness Assessment & Plan A&P Narrative Patient is a 79-year-old male with PMH of recently diagnosed gastric carcinoma presenting to the ER for hematemesis. #Hematemesis Hgb stable (11.7 to 11.9 ), MCV stable (73 to 74), platelet count decreasing to previous baseline (808 from 978), INR 1.0, alk phos elevated (343), Port-A-Cath placement normal Plan: EGD for potential therapeutic intervention tomorrow; clear liquid diet; NPO midnight #COPD, HTN, HLD, COPD Plan: As per primary team Patient seen by Dr. Daron Hood MD, and staffed with Dr. Malachi Ascencio MD, attending. Attending physician attestation Patient examined by me Laboratory data reviewed Imaging studies reviewed Treatment plan outlined for fiberoptic esophagogastroduodenoscopy with possible therapeutic intervention under intravenous moderate patient is scheduled for tomorrow Clear liquid diet at 12 midnight N.p.o. midnight tonight except p.o. meds IV Protonix Serial CBC Transfuse PRBC if the hemoglobin drops below 7 g Thank you very much for the opportunity to participate in the care of this patient Time Spent With Patient Time: Total time spent is greater than 50% in coordination of care (as documented) at patient's floor/unit and/or counseling patient:
[2025-05-22] MEDS: SIMETHICONE 80 MG CHEW PO (23:29)
--- NOTE | 2025-05-23 03:46 | XR_ITS ---
Examination: Abdomen AP single view Technique: AP portable supine abdomen, single view Exam date and time: May 23, 2025, 0352 hours INDICATIONS: Abdominal distention today. FINDINGS: Mild to moderate stool throughout the colon. No obstruction. Surgical clips GE junction. No free air. Prominent osteopenia. Heavy vascular calcification IMPRESSION: Nonobstructive bowel gas pattern
[2025-05-23 03:56] VITALS: BP 142/83; PULSE 58; RESP 18; TEMP 36.4; O2SAT 95
[2025-05-23] MEDS: SIMETHICONE 80 MG CHEW PO ×3 (06:45→22:16)
[2025-05-23 08:00] VITALS: BP 140/70; PULSE 52; RESP 15; TEMP 36.3; O2SAT 97
[2025-05-23] MEDS: DEXTROSE 5%-LACTATED RINGERS 1,000 ML 75 ML IV ×2 (08:06→22:18)
[2025-05-23 08:14] LABS: Basophils # (Auto) 0.2 Thou/mm3 (0.0-0.2); Basophils % (Auto) 2 % (0-2.5); Eosinophils # (Auto) 0.2 Thou/mm3 (0.0-0.5); Eosinophils % (Auto) 2 % (0-10); Hematocrit 36.0 % (41.0-53.0); Hemoglobin 10.9 g/dL (13.5-16.0); Immature Granulocytes Auto 0.10 Thou/mm3 (0.00-0.00); Lymphocytes # (Auto) 1.0 Thou/mm3 (1.0-4.8); Lymphocytes % (Auto) 11 % (10-50); Mean Corpuscular HGB Conc 30.3 g/dl (31.0-37.0); Mean Corpuscular Hemoglobin 22.6 pg (25.0-35.0); Mean Corpuscular Volume 75 fL (80-100); Monocytes # (Auto) 0.4 Thou/mm3 (0.0-0.8); Monocytes % (Auto) 5 % (0-12); Neutrophils # (Auto) 7.2 Thou/mm3 (1.8-7.7); Neutrophils % (Auto) 79 % (37-80); Nucleated Red Blood Cell # 0.00 Thou/mm3 (0.00-0.00); Nucleated Red Blood Cell % 0 /100 WBC (0); Platelet Count 617 Thou/mm3 (140-440); RDW Standard Deviation 61.6 fL (35.1-43.9); Red Blood Count 4.82 Miln/mm3 (4.50-5.90); White Blood Count 9.1 Thou/mm3 (3.8-10.6)
[2025-05-23 08:52] LABS: Alanine Aminotransferase < 7 U/L (10-49); Albumin, Serum 3.5 gm/dL (3.4-4.8); Albumin/Globulin Ratio 1.8 (1.2-2.2); Alkaline Phosphatase 225 U/L (46-116); Anion Gap 11 (7-16); Aspartate Amino Transferase 12 U/L (0-34); BUN/Creatinine Ratio 10 Ratio (12-20); Bilirubin,Total 0.6 mg/dL (0.3-1.2); Blood Urea Nitrogen 9 mg/dL (9-23); Calcium 8.5 mg/dL (8.3-10.6); Calcium (Corrected) 8.9 mg/dL (8.5-10.1); Carbon Dioxide 25.9 mMol/L (20.0-31.0); Chloride 104 mMol/L (98-107); Creatinine (Component) 0.9 mg/dL (0.6-1.3); Estimated Creatinine Clearance 57.6 mL/min (>60); Globulin 2.0 gm/dL (2.3-3.5); Glucose 121 mg/dL (74-106); Magnesium 1.6 mg/dL (1.6-2.6); Osmolality,Calculated 280 (275-295); Phosphorous 2.4 mg/dL (2.4-5.1); Potassium 3.8 mMol/L (3.4-5.1); Sodium 141 mMol/L (136-145); Total Protein 5.5 gm/dL (5.7-8.2); eGFR > 60 See Note
[2025-05-23 10:49] VITALS: BMI 15.0
[2025-05-23 10:57] VITALS: PULSE 65; RESP 16; RESP 97
[2025-05-23] MEDS: POTASSIUM CHL 10 mEq IVPB 10 MEQ/100 ML BAG 75 MEQ IV ×2 (11:00→12:52)
[2025-05-23 12:00] VITALS: BP 142/64; PULSE 54; RESP 16; TEMP 36.5; O2SAT 96
[2025-05-23] MEDS: Magnesium Sulfate 4 GM Ivpb 4 GM/50 ML BAG IV (14:11)
[2025-05-23] MEDS: PREGABALIN 50 MG CAPSULE PO ×2 (14:11→21:57)
[2025-05-23 16:00] VITALS: BP 159/75; PULSE 59; RESP 15; TEMP 36.7; O2SAT 96
--- NOTE | 2025-05-23 17:07 | ESPR_ITS ---
<Statement entered by Yrn Mena MD - 05/28/25 07:33> I reviewed above note and agree with findings and plans. I have also personally examined the patient with medicine team and went over assessment and plan with medical team including international coordinator and resident physician. Documentation for date of: 05/23/25 Subjective Subjective Interval history: No acute events overnight given simethicone for bloating, no emesis Exam Vital Signs Temp Pulse Resp BP Pulse Ox O2 Del Method O2 Flow Rate 98.0 F 59 L 15 159/75 H 96 Room Air 3 05/23/25 16:00 05/23/25 16:00 05/23/25 16:00 05/23/25 16:00 05/23/25 16:00 05/23/25 16:00 05/21/25 18:45 Narrative Exam GENERAL: no acute distress, AAO x3, sitting upright in bed HEENT: Head AT/ NC. Mucous membranes dry. PERRL. temporal wasting CARDIOVASCULAR: RRR. Normal S1/S2, No m/r/g. No pitting edema of bilateral LEs. R chest with chemo port intact, no erythema or bleeding. RESPIRATORY: CTAB. No wheezing, rhonchi, crackles. GASTROINTESTINAL: Abdomen soft, mild epigastric tenderness, no palpable masses. hypoactive bowel sounds MUSCULOSKELETAL:? No cyanosis or edema, no visible joint swelling. NEUROLOGICAL: CN II-XII grossly intact. No focal deficits. Sensation intact, symmetric.moving all 4 extremities spontaneously PSYCHIATRIC: Awake and alert, not agitated, normal mood and affect. SKIN: no jaundice, decreased turgor, several sebherric keratosis on face and neck and arms Objective Labs 05/23/25 07:59 05/23/25 07:59 Labs: Laboratory Results - last 24 hr 05/23/25 07:59 WBC 9.1 RBC 4.82 Hgb 10.9 L Hct 36.0 L MCV 75 L MCH 22.6 L MCHC 30.3 L RDW Std Deviation 61.6 H Plt Count 617 H D Neut % (Auto) 79 Lymph % (Auto) 11 [place] % (Auto) 5 Eos % (Auto) 2 Baso % (Auto) 2 Neut # (Auto) 7.2 Lymph # (Auto) 1.0 [place] # (Auto) 0.4 Eos # (Auto) 0.2 Baso # (Auto) 0.2 Immature Gran # (Auto) 0.10 H Absolute Nucleated RBC 0.00 Immature Gran % 1 H Nucleated RBC % 0 Sodium 141 Potassium 3.8 D Chloride 104 Carbon Dioxide 25.9 Anion Gap 11 BUN 9 Creatinine 0.9 Estim Creat Clear Calc 57.6 L eGFR > 60 BUN/Creatinine Ratio 10 L Glucose 121 H Calculated Osmolality 280 Calcium 8.5 Corrected Calcium 8.9 Phosphorus 2.4 Magnesium 1.6 Total Bilirubin 0.6 AST 12 ALT < 7 L Alkaline Phosphatase 225 H D Total Protein 5.5 L Albumin 3.5 Globulin 2.0 L Albumin/Globulin Ratio 1.8 Quality Measures Quality Measures VTE prophylaxis Advance care planning discussed with:: patient and other Assessment & Plan Assessment Current Active Medications: Generic Name Dose Route Start Last Admin Trade Name Freq PRN Reason Stop Dose Admin Dextrose/Lactated Ringer's 1,000 mls @ 75 mls/hr 05/22/25 17:00 05/23/25 08:06 D5-Lr IV 06/21/25 16:59 75 mls/hr .[id number] HYACINTH Administration Ondansetron HCl 4 mg 05/20/25 14:32 05/21/25 19:09 Ondansetron Inj 2 Mg/Ml Inj 2 Ml IVP 06/19/25 14:31 4 mg Q6H PRN Administration NAUSEA OR VOMITING Protocol Pantoprazole Sodium 40 mg 05/23/25 09:00 05/23/25 08:06 Pantoprazole Inj 40 Mg Vial IVP 06/22/25 08:59 40 mg BID HYACINTH Administration Pregabalin 50 mg 05/23/25 14:00 05/23/25 14:11 Pregabalin 50 Mg Capsule PO 06/22/25 13:59 50 mg TID HYACINTH Administration Simethicone 80 mg 05/22/25 23:13 05/23/25 16:15 Simethicone 80 Mg Chew PO 06/21/25 23:12 80 mg QID PRN Administration GAS Plan Mr. Melendez is a 79 yo gentleman with hx of recently diagnosed gastric adenocarcinoma (followed by Dr. Canada and Dr. Phillips, not yet started on chemo), PAD with BLE stents, HTN, history of PUD, COPD with no home oxygen, who presents to the ED with 2 episodes of hematemesis, concerning for upper GI bleed in the setting of gastric adenocarcinoma. Patient is scheduled to start chemotherapy on 05/24. GI consulted, s/p EGD with large volume emesis, c/f aspiration. on EGD, no active bleeding, pending IR GI upper series on Saturday, likely outlet obstruction, will likely require transfer to tertiary center for pyloric stent vs gastrectomy. Dr. Mon was updated regarding pt status and plan. started pregabalin for nerve pain. NPO at midnight. #Upper GI Bleed from ulcerated gastric tumor #Gastric Adenocarcinoma (dx 03/2025) #Query Gastric outlet obstruction pt was recently diagnosed in 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 He was admitted to [facility] with upper GI bleed in March, he underwent EGD with Dr. Ascencio with biopsy which confirmed cancer diagnosis. Per patient he is intended to start chemotherapy on Thursday 05/24. His daughter is planning to come from [place] on 05/24. Patient has Chemo-Port in place on right upper chest placed on 05/18. -Dr. Phillips notified of patient's admission to the hospital, Dr. Phillips states that patient is fully worked up and does not need to be consulted on this admission. -Dr. Mon notified of pt status, consider J tube for feeds if needed. EGD with old food, too thick for NG suction, defer NG tube, c/f #aspiration, pending IR directed Gastric series. following GI IR series on saturday, if it demonstrates gastric outlet obstruction pt will likely require transfer to tertiary care center, or pyloric stent or gastrectomy. Dx ? CBC ? CT abdomen pelvis with contrast, with significantly distended stomach ? CT chest with multiple noncalcified pulmonary nodules previously seen on imaging every 6 month see #COPD below given gastric cancer diagnosis there is concern for metastatic disease to the lung. ? EGD with no active bleeding, ulceration of gastric tumor, likely source of previous bleeding, concern for gastric outlet obstruction - pending IR gastric upper GI series ? GI consulted, appreciate recs Tx - D5W 75 ml/hr given NPO and serum gluc low normal ?Avoid NSAIDs ?Transfusion if hemoglobin less than 7 ?Continue pantoprazole 40 BID IV - NPO at midnight #c/f aspiration pneumonitis vs pna during EGD, pt had emesis, and after scope was removed pt had 500 cc of emesis. pt afebrile and lungs are CTAB. WBC wnl Dx - CTM signs of systemic infection - consider repeat CXR if becomes symptomatic Tx - consider abx with anaerobic coverage given c/f aspiration pneumonia - aspiration precautions - zofran 4mg PRN - head of bed at 45 degrees #HTN - cont home losartan 50 qd #GERD #Hx PUD at home pt takes omeprazole 20mg BID and famotidine 10 mg PRN, -cont protonix drip see #upper GI bleed above #COPD not on home oxygen, significant hyperextension seen on chest x-ray Per patient he has a history of pulmonary nodules seen on chest CT. He reports that he gets imaging done on his lungs every 6 months. His lung nodules that are certain size have been biopsied and have so far been benign. Dx ?CXR: Significant hyperexpansion and no lobar pneumonia Tx -O2 supplementation PRN #PAD s/p BLE stents Tx Hold home aspirin 81 and Plavix iso GI bleed #LLE neuropathy pt reports parasthesia of LLE plantar surface of foot. Tx - Start pregabalin 50mg TID - SCDs #Asymptomatic Bradycardia vital signs stable, bradycardia noted. Dx EKG nl sinus, intermittently bradycardic to 50s on vital sign monitoring TSH wnl #Microcytic Anemia Query anemia of chronic disease iso gastric cancer vs anemia 2/2 acute blood losses. -CTM Hgb for acute drops - stable -transfuse if < 7 -consider Fe panel #Thrombocytosis Ddx query reactive thrombocytosis iso blood loss from GI bleed, vs gastric malignancy INR and PT wnl Dispo: pending GI series on saturday with IR, likely gastric outlet obstruction, c/f aspiration pneumonia vs pneumonitis, will likely need transfer to tertiary care. Dr mon notified Diet: NPO midnight. Bowel Reg: holding VTE ppx: SCD GI ppx: Protonix 40 BID Code status: FULL Case discussed with my attending Dr. Rajesh Almaguer MD PGY-1
--- NOTE | 2025-05-23 19:57 | ESPR_ITS ---
Documentation for date of: 05/23/25 Subjective Subjective Interval history: Hemoglobin hematocrit relatively stable Upper GI series planned for tomorrow morning Exam Vital Signs Temp Pulse Resp BP Pulse Ox O2 Del Method O2 Flow Rate 98.0 F 59 L 15 159/75 H 96 Room Air 3 05/23/25 16:00 05/23/25 16:00 05/23/25 16:00 05/23/25 16:00 05/23/25 16:00 05/23/25 16:00 05/21/25 18:45 Objective Labs 05/23/25 07:59 05/23/25 07:59 Labs: Laboratory Results - last 24 hr 05/23/25 07:59 WBC 9.1 RBC 4.82 Hgb 10.9 L Hct 36.0 L MCV 75 L MCH 22.6 L MCHC 30.3 L RDW Std Deviation 61.6 H Plt Count 617 H D Neut % (Auto) 79 Lymph % (Auto) 11 [place] % (Auto) 5 Eos % (Auto) 2 Baso % (Auto) 2 Neut # (Auto) 7.2 Lymph # (Auto) 1.0 [place] # (Auto) 0.4 Eos # (Auto) 0.2 Baso # (Auto) 0.2 Immature Gran # (Auto) 0.10 H Absolute Nucleated RBC 0.00 Immature Gran % 1 H Nucleated RBC % 0 Sodium 141 Potassium 3.8 D Chloride 104 Carbon Dioxide 25.9 Anion Gap 11 BUN 9 Creatinine 0.9 Estim Creat Clear Calc 57.6 L eGFR > 60 BUN/Creatinine Ratio 10 L Glucose 121 H Calculated Osmolality 280 Calcium 8.5 Corrected Calcium 8.9 Phosphorus 2.4 Magnesium 1.6 Total Bilirubin 0.6 AST 12 ALT < 7 L Alkaline Phosphatase 225 H D Total Protein 5.5 L Albumin 3.5 Globulin 2.0 L Albumin/Globulin Ratio 1.8 Impressions Impression: Gastric outlet obstruction Gastrografin upper GI series tomorrow Depending upon the results we will make future decisions that will include pyloric channel stent versus gastroenterostomy Assessment & Plan A&P Narrative Patient is a 79-year-old male with PMH of recently diagnosed gastric carcinoma presenting to the ER for hematemesis. #Hematemesis Hgb stable (11.7 to 11.9 ), MCV stable (73 to 74), platelet count decreasing to previous baseline (808 from 978), INR 1.0, alk phos elevated (343), Port-A-Cath placement normal Plan: EGD for potential therapeutic intervention tomorrow; clear liquid diet; NPO midnight #COPD, HTN, HLD, COPD Plan: As per primary team Patient seen by Dr. Daron Hood MD, and staffed with Dr. Malachi Ascencio MD, attending. Attending physician attestation Patient examined by me Laboratory data reviewed Imaging studies reviewed Treatment plan outlined for fiberoptic esophagogastroduodenoscopy with possible therapeutic intervention under intravenous moderate patient is scheduled for tomorrow Clear liquid diet at 12 midnight N.p.o. midnight tonight except p.o. meds IV Protonix Serial CBC Transfuse PRBC if the hemoglobin drops below 7 g Thank you very much for the opportunity to participate in the care of this patient Time Spent With Patient Time: Total time spent is greater than 50% in coordination of care (as documented) at patient's floor/unit and/or counseling patient:
[2025-05-23 20:00] VITALS: BP 153/73; PULSE 60; RESP 17; TEMP 36.9; O2SAT 98
[2025-05-24] VITALS: BP 151/74; PULSE 59; RESP 17; TEMP 36.8; O2SAT 94
[2025-05-24 04:00] VITALS: BP 156/89; PULSE 75; RESP 16; TEMP 36.6; O2SAT 94
[2025-05-24 05:44] LABS: Basophils # (Auto) 0.1 Thou/mm3 (0.0-0.2); Basophils % (Auto) 1 % (0-2.5); Eosinophils # (Auto) 0.2 Thou/mm3 (0.0-0.5); Eosinophils % (Auto) 3 % (0-10); Hematocrit 33.9 % (41.0-53.0); Hemoglobin 10.4 g/dL (13.5-16.0); Immature Granulocytes Auto 0.05 Thou/mm3 (0.00-0.00); Lymphocytes # (Auto) 1.0 Thou/mm3 (1.0-4.8); Lymphocytes % (Auto) 13 % (10-50); Mean Corpuscular HGB Conc 30.7 g/dl (31.0-37.0); Mean Corpuscular Hemoglobin 22.6 pg (25.0-35.0); Mean Corpuscular Volume 74 fL (80-100); Monocytes # (Auto) 0.4 Thou/mm3 (0.0-0.8); Monocytes % (Auto) 6 % (0-12); Neutrophils # (Auto) 6.0 Thou/mm3 (1.8-7.7); Neutrophils % (Auto) 77 % (37-80); Nucleated Red Blood Cell # 0.00 Thou/mm3 (0.00-0.00); Nucleated Red Blood Cell % 0 /100 WBC (0); Platelet Count 590 Thou/mm3 (140-440); RDW Standard Deviation 60.1 fL (35.1-43.9); Red Blood Count 4.61 Miln/mm3 (4.50-5.90); White Blood Count 7.8 Thou/mm3 (3.8-10.6)
[2025-05-24 06:20] LABS: Alanine Aminotransferase < 7 U/L (10-49); Albumin, Serum 3.3 gm/dL (3.4-4.8); Albumin/Globulin Ratio 1.7 (1.2-2.2); Alkaline Phosphatase 201 U/L (46-116); Anion Gap 10 (7-16); Aspartate Amino Transferase < 10 U/L (0-34); BUN/Creatinine Ratio 6 Ratio (12-20); Bilirubin,Total 0.6 mg/dL (0.3-1.2); Blood Urea Nitrogen 5 mg/dL (9-23); Calcium 8.4 mg/dL (8.3-10.6); Calcium (Corrected) 9.0 mg/dL (8.5-10.1); Carbon Dioxide 26.7 mMol/L (20.0-31.0); Chloride 105 mMol/L (98-107); Creatinine (Component) 0.8 mg/dL (0.6-1.3); Estimated Creatinine Clearance 63.9 mL/min (>60); Globulin 1.9 gm/dL (2.3-3.5); Glucose 131 mg/dL (74-106); Magnesium 1.9 mg/dL (1.6-2.6); Osmolality,Calculated 282 (275-295); Phosphorous 2.6 mg/dL (2.4-5.1); Potassium 3.6 mMol/L (3.4-5.1); Sodium 142 mMol/L (136-145); Total Protein 5.2 gm/dL (5.7-8.2); eGFR > 60 See Note
--- NOTE | 2025-05-24 07:43 | ESPR_ITS ---
<Statement entered by Yrn Mena MD - 05/29/25 12:37> I reviewed above note and agree with findings and plans. I have also personally examined the patient with medicine team and went over assessment and plan with medical team including merchandising intern and resident physician. <Statement entered by Sergio Clemente MD - 05/24/25 13:59> Patient was seen and examined at the bedside. No acute overnight events reported. Blood pressure was slightly elevated. Hemoglobin stable at 10.4. White count unremarkable. Upper GI series revealed severe esophageal dysmotility and active peptic ulcer disease duodenal bulb. Currently awaiting GI recommendations for further management. Most likely patient needs gastric outlet obstruction repair with jejunostomy tube. Will follow-up with their recommendations. Patient might need to be started on PPN given has not been fed for the last 4 days. All labs and orders were reviewed. I discussed and supervised with the merchandising intern physician who took care of this patient. I personally saw and examined the patient. I agree with most of the assessment and plan. Disclaimer: Despite multiple revisions, due to the dictation software being used, the document bellow may not be free of grammatical errors including phonetic/typographic errors. However, this does not deter from our commitment to providing health care in the patient's best interest in mind. Plan of care discussed with attending Physician Dr. Rajesh Clemente MD PGY-3 Documentation for date of: 05/24/25 Subjective Subjective Interval history: No acute events overnight pt reports sleeping well and that the pregabalin helped with his BLE nerve pain pt got upper GI series which showed gastric outlet obstruction, per Dr. Ascencio, reccomends transfer to tertiary [facility] stent. Dr. Patricia notified, query Jtube? given pt without adequate nutrition prior to and during admission, dietitian consulted, pending PICC line placement for CPN Exam Vital Signs Temp Pulse Resp BP Pulse Ox O2 Del Method O2 Flow Rate 97.9 F 75 16 156/89 H 94 L Room Air 3 05/24/25 04:00 05/24/25 04:00 05/24/25 04:00 05/24/25 04:00 05/24/25 04:00 05/24/25 04:00 05/21/25 18:45 Narrative Exam GENERAL: no acute distress, AAO x3, sitting upright in bed, frail. HEENT: Head AT/ NC. Mucous membranes dry. PERRL. temporal wasting CARDIOVASCULAR: RRR. Normal S1/S2, No m/r/g. No pitting edema of bilateral LEs. R chest with chemo port intact, no erythema or bleeding. RESPIRATORY: CTAB. No wheezing, rhonchi, crackles. GASTROINTESTINAL: Abdomen soft, non tender, no palpable masses. hypoactive bowel sounds MUSCULOSKELETAL:? No cyanosis or edema, no visible joint swelling. NEUROLOGICAL: CN II-XII grossly intact. No focal deficits. Sensation intact, symmetric.moving all 4 extremities spontaneously PSYCHIATRIC: Awake and alert, not agitated, normal mood and affect. SKIN: no jaundice, decreased turgor, several sebherric keratosis on face and neck and arms Objective Labs 05/24/25 05:15 05/24/25 05:15 Labs: Laboratory Results - last 24 hr 05/23/25 05/24/25 07:59 05:15 WBC 9.1 7.8 RBC 4.82 4.61 Hgb 10.9 L 10.4 L Hct 36.0 L 33.9 L MCV 75 L 74 L MCH 22.6 L 22.6 L MCHC 30.3 L 30.7 L RDW Std Deviation 61.6 H 60.1 H Plt Count 617 H D 590 H Neut % (Auto) 79 77 Lymph % (Auto) 11 13 [place] % (Auto) 5 6 Eos % (Auto) 2 3 Baso % (Auto) 2 1 Neut # (Auto) 7.2 6.0 Lymph # (Auto) 1.0 1.0 [place] # (Auto) 0.4 0.4 Eos # (Auto) 0.2 0.2 Baso # (Auto) 0.2 0.1 Immature Gran # (Auto) 0.10 H 0.05 H Absolute Nucleated RBC 0.00 0.00 Immature Gran % 1 H 1 H Nucleated RBC % 0 0 Sodium 141 142 Potassium 3.8 D 3.6 Chloride 104 105 Carbon Dioxide 25.9 26.7 Anion Gap 11 10 BUN 9 5 L Creatinine 0.9 0.8 Estim Creat Clear Calc 57.6 L 63.9 eGFR > 60 > 60 BUN/Creatinine Ratio 10 L 6 L Glucose 121 H 131 H Calculated Osmolality 280 282 Calcium 8.5 8.4 Corrected Calcium 8.9 9.0 Phosphorus 2.4 2.6 Magnesium 1.6 1.9 Total Bilirubin 0.6 0.6 AST 12 < 10 ALT < 7 L < 7 L Alkaline Phosphatase 225 H D 201 H D Total Protein 5.5 L 5.2 L Albumin 3.5 3.3 L Globulin 2.0 L 1.9 L Albumin/Globulin Ratio 1.8 1.7 Quality Measures Quality Measures VTE prophylaxis Advance care planning discussed with:: patient and child Assessment & Plan Assessment Current Active Medications: Generic Name Dose Route Start Last Admin Trade Name Freq PRN Reason Stop Dose Admin Dextrose/Lactated Ringer's 1,000 mls @ 75 mls/hr 05/22/25 17:00 05/23/25 22:18 D5-Lr IV 06/21/25 16:59 75 mls/hr .[id number] HYACINTH Administration Ondansetron HCl 4 mg 05/20/25 14:32 05/21/25 19:09 Ondansetron Inj 2 Mg/Ml Inj 2 Ml IVP 06/19/25 14:31 4 mg Q6H PRN Administration NAUSEA OR VOMITING Protocol Pantoprazole Sodium 40 mg 05/23/25 09:00 05/23/25 21:58 Pantoprazole Inj 40 Mg Vial IVP 06/22/25 08:59 40 mg BID HYACINTH Administration Pregabalin 50 mg 05/23/25 14:00 05/24/25 06:20 Pregabalin 50 Mg Capsule PO 06/22/25 13:59 Not Given TID HYACINTH Simethicone 80 mg 05/22/25 23:13 05/23/25 22:16 Simethicone 80 Mg Chew PO 06/21/25 23:12 80 mg QID PRN Administration GAS Plan Mr. Melendez is a 79 yo gentleman with hx of recently diagnosed gastric adenocarcinoma (followed by Dr. Canada and Dr. Phillips, not yet started on chemo), PAD with BLE stents, HTN, history of PUD, COPD with no home oxygen, who presents to the ED with 2 episodes of hematemesis, concerning for upper GI bleed in the setting of gastric adenocarcinoma. Patient is scheduled to start chemotherapy on 05/24. GI consulted, s/p EGD with large volume emesis, c/f aspiration. on EGD, no active bleeding, s/p IR GI upper series which demonstrated outlet obstruction, will require transfer to tertiary center for pyloric stent vs gastrectomy. Dr. Patricia was updated regarding pt status and plan for picc line and CPN. #Upper GI Bleed from ulcerated gastric tumor #Gastric outlet obstruction 2/2 #Gastric Adenocarcinoma (dx 03/2025) pt was recently diagnosed in 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 He was admitted to [facility] with upper GI bleed in March, he underwent EGD with Dr. Ascencio with biopsy which confirmed cancer diagnosis. Per patient he is intended to start chemotherapy on Thursday 05/24. His daughter is planning to come from [place] on 05/24. Patient has Chemo-Port in place on right upper chest placed on 05/18. -Dr. Phillips notified of patient's admission to the hospital, Dr. Phillips states that patient is fully worked up and does not need to be consulted on this admission. -Dr. Patricia notified of pt status, consider J tube for feeds if needed. EGD with old food, too thick for NG suction, defer NG tube, c/f #aspiration, pending IR directed Gastric series. Upper GI series with Gastric outlet obstruction, pending transfer to tertiary care for pyloric stent placement, and pending PICC line placement for CPN. Dr. Patricia notified of pt status, query Jtube vs CPN preference Dx ? CBC ? CT abdomen pelvis with contrast, with significantly distended stomach ? CT chest with multiple noncalcified pulmonary nodules previously seen on imaging every 6 month see #COPD below given gastric cancer diagnosis there is concern for metastatic disease to the lung. ? EGD with no active bleeding, ulceration of gastric tumor, likely source of previous bleeding, concern for gastric outlet obstruction - s/p IR gastric upper GI series, which demonstrated gastric outlet obstruction ? GI consulted, appreciate recs Tx ?Avoid NSAIDs ?Transfusion if hemoglobin less than 7 ?Continue pantoprazole 40 BID IV - NPO, pending IR PICC line, and CPN initiation likely tomorrow. #anorexia 2/2 gastric outlet obstruction #weight loss 2/2 malignancy #Malnutrition Current weight 60.3 kg, pt had significant weight loss 2/2 malignancy pt kept with minimal caloric intake during admission given c/f gastric outlet obstruction. query Dr. Patricia for J tube vs CPN initiation for meeting caloric needs Dx - consult dietition, appreciate recs - weekly triglycerides Tx - D5 LR 75 ml/hr given NPO and serum gluc low normal - pending PICC line placement tomorrow -f/u coags #c/f aspiration pneumonitis vs pna r/o during EGD, pt had emesis, and after scope was removed pt had 500 cc of emesis. pt afebrile and lungs are CTAB. WBC wnl Dx - CTM signs of systemic infection - consider repeat CXR if becomes symptomatic Tx - consider abx with anaerobic coverage given c/f aspiration pneumonia - aspiration precautions - zofran 4mg PRN - head of bed at 45 degrees #HTN - cont home losartan 50 qd #GERD #Hx PUD at home pt takes omeprazole 20mg BID and famotidine 10 mg PRN, -cont protonix drip see #upper GI bleed above #COPD not on home oxygen, significant hyperextension seen on chest x-ray Per patient he has a history of pulmonary nodules seen on chest CT. He reports that he gets imaging done on his lungs every 6 months. His lung nodules that are certain size have been biopsied and have so far been benign. Dx ?CXR: Significant hyperexpansion and no lobar pneumonia Tx -O2 supplementation PRN #PAD s/p BLE stents Tx Hold home aspirin 81 and Plavix iso GI bleed #LLE neuropathy pt reports parasthesia of LLE plantar surface of foot. pt reports improvement of symptoms Tx - Start pregabalin 50mg TID - SCDs #Asymptomatic Bradycardia vital signs stable, bradycardia noted. Dx EKG nl sinus, intermittently bradycardic to 50s on vital sign monitoring TSH wnl #Microcytic Anemia Query anemia of chronic disease iso gastric cancer vs anemia 2/2 acute blood losses. -CTM Hgb for acute drops - stable -transfuse if < 7 -consider Fe panel #Thrombocytosis Ddx query reactive thrombocytosis iso blood loss from GI bleed, vs gastric malignancy INR and PT wnl Dispo: Gastric outlet obstruction, requiring pyloric stenting therefore transfer initiated. pending picc line for cpn. Diet: NPO Bowel Reg: holding VTE ppx: SCD GI ppx: Protonix 40 BID Code status: FULL Case discussed with my senior resident Dr. Clemente Case discussed with my attending Dr. Rajesh Almaguer MD PGY-1
[2025-05-24 08:00] VITALS: BP 157/78; PULSE 95; RESP 18; TEMP 36.3; O2SAT 93
--- NOTE | 2025-05-24 08:05 | XR_ITS ---
Examination: Upper GI series with KUB Esophagram standard Fluoroscopy Upright PA chest single view Date and time: May 16, 2025 1004 hours INDICATIONS: Upper abdominal pain months TECHNIQUE AND FINDINGS: Upright PA chest single view shows hyperexpansion Patient swallowed thin barium with 29 spot fluoroscopic films of the esophagus and stomach Fluoroscopy 0.3 minute radiation dose 50.66 milligray Primary peristaltic esophageal waves Numerous secondary and tertiary esophageal contractions as well as esophageal spasm Abundant fluid in the stomach which diminishes detail No gross gastric deformity Duodenal bulb demonstrates mucosal edema IMPRESSION: Severe esophageal dysmotility Active peptic disease duodenum bulb
--- NOTE | 2025-05-24 10:25 | PC.SS ---
SS rounding note; GI Series pending with Dr. Ascencio. Possible transfer. Patient will discharge home when medically cleared.
[2025-05-24] MEDS: HYDROCORTISONE SOD SUCC INJ 100 MG VIAL IV (10:37)
[2025-05-24] MEDS: Magnesium Sulfate 2 GM Ivpb 2 GM/50 ML BAG IV (11:42)
[2025-05-24] MEDS: POTASSIUM CHL 10 mEq IVPB 10 MEQ/100 ML BAG 70 MEQ IV ×2 (11:42→14:07)
[2025-05-24 12:00] VITALS: BP 143/61; PULSE 69; RESP 17; TEMP 36.3; O2SAT 95
[2025-05-24] MEDS: DEXTROSE 5%-LACTATED RINGERS 1,000 ML 75 ML IV (14:06)
[2025-05-24] MEDS: PREGABALIN 50 MG CAPSULE PO ×2 (14:07→21:23)
[2025-05-24 15:39] LABS: INR 1.1 (0.9-1.3); Prothrombin Time 11.7 Seconds (9.0-12.2)
[2025-05-24 15:44] LABS: Triglycerides 92 mg/dL (30-150)
[2025-05-24 16:00] VITALS: BP 135/56; PULSE 67; RESP 18; TEMP 36.6; O2SAT 96
--- NOTE | 2025-05-24 16:15 | PC.CC ---
Addendum entered by Sybil Whitt RN 05/24/25 17:36: 1725: received call from Salma w/ [facility], she stated that they will need insurance auth to continue the transfer request. Transfer nurse will get auth in the morning Addendum entered by Sybil Whitt RN 05/24/25 17:05: error: donnie spoke to [facility] for another patient not this patient. Addendum entered by Sybil Whitt RN 05/24/25 17:04: 1700: initiated transfer request w/ [facility], Donnie needs auth. transfer nurse to get auth in the morning. Donnie spoke to [facility]. 1648: initiated transfer request with [facility] 1646: per Shelly brooks/ [facility], Dr davenport stated if patient needs specialty procedure, he is unable Original Note: spoke to Emerald brooks/ [facility], she suggested, we send clinicals [facility], [facility], [facility], [facility], and [place]. Called [facility], ba[place] . Clinicals sent. received order for transfer for GI and surgery for stent placement and pyloric channel and eval for total gastrectomy w/ J-tube placement. Called [facility], per [place] they are declining d/t capacity.
[2025-05-24 20:00] VITALS: BP 139/65; PULSE 56; RESP 16; TEMP 36.1; O2SAT 95
--- NOTE | 2025-05-24 20:56 | PD.IMPROG ---
Documentation for date of: 05/24/25 Subjective Subjective Interval history: Upper GI series does show duodenal bulb deformity Visibility is obscured because of the presence of still lot of food Start the patient on clear liquid diet PPN started after discussion with the internal medicine team Would recommend transfer to a tertiary center for placement of a pyloric channel stent to prevent nausea vomiting as there is significant gastric motility disorder as well as gastric outlet obstruction Exam Vital Signs Temp Pulse Resp BP Pulse Ox O2 Del Method O2 Flow Rate 97.9 F 67 18 135/56 H 96 Room Air 3 05/24/25 16:00 05/24/25 16:00 05/24/25 16:00 05/24/25 16:00 05/24/25 16:00 05/24/25 16:00 05/21/25 18:45 Objective Labs 05/24/25 05:15 05/24/25 05:15 Labs: Laboratory Results - last 24 hr 05/24/25 05/24/25 05:15 15:17 WBC 7.8 RBC 4.61 Hgb 10.4 L Hct 33.9 L MCV 74 L MCH 22.6 L MCHC 30.7 L RDW Std Deviation 60.1 H Plt Count 590 H Neut % (Auto) 77 Lymph % (Auto) 13 [place] % (Auto) 6 Eos % (Auto) 3 Baso % (Auto) 1 Neut # (Auto) 6.0 Lymph # (Auto) 1.0 [place] # (Auto) 0.4 Eos # (Auto) 0.2 Baso # (Auto) 0.1 Immature Gran # (Auto) 0.05 H Absolute Nucleated RBC 0.00 Immature Gran % 1 H Nucleated RBC % 0 PT 11.7 INR 1.1 Sodium 142 Potassium 3.6 Chloride 105 Carbon Dioxide 26.7 Anion Gap 10 BUN 5 L Creatinine 0.8 Estim Creat Clear Calc 63.9 eGFR > 60 BUN/Creatinine Ratio 6 L Glucose 131 H Calculated Osmolality 282 Calcium 8.4 Corrected Calcium 9.0 Phosphorus 2.6 Magnesium 1.9 Total Bilirubin 0.6 AST < 10 ALT < 7 L Alkaline Phosphatase 201 H D Total Protein 5.2 L Albumin 3.3 L Globulin 1.9 L Albumin/Globulin Ratio 1.7 Triglycerides 92 Impressions 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 #Hematemesis Hgb stable (11.7 to 11.9 ), MCV stable (73 to 74), platelet count decreasing to previous baseline (808 from 978), INR 1.0, alk phos elevated (343), Port-A-Cath placement normal Plan: EGD for potential therapeutic intervention tomorrow; clear liquid diet; NPO midnight #COPD, HTN, HLD, COPD Plan: As per primary team Patient seen by Dr. Daron Hood MD, and staffed with Dr. Malachi Ascencio MD, attending. Attending physician attestation Patient examined by me Laboratory data reviewed Imaging studies reviewed Treatment plan outlined for fiberoptic esophagogastroduodenoscopy with possible therapeutic intervention under intravenous moderate patient is scheduled for tomorrow Clear liquid diet at 12 midnight N.p.o. midnight tonight except p.o. meds IV Protonix Serial CBC Transfuse PRBC if the hemoglobin drops below 7 g Thank you very much for the opportunity to participate in the care of this patient Time Spent With Patient Time: Total time spent is greater than 50% in coordination of care (as documented) at patient's floor/unit and/or counseling patient:
[2025-05-25] VITALS: BP 144/71; PULSE 56; RESP 18; TEMP 36.2; O2SAT 95
[2025-05-25] MEDS: DEXTROSE 5%-LACTATED RINGERS 1,000 ML 75 ML IV ×2 (04:00→17:12)
[2025-05-25] MEDS: PREGABALIN 50 MG CAPSULE PO ×3 (05:17→21:03)
[2025-05-25 05:48] LABS: Basophils # (Auto) 0.1 Thou/mm3 (0.0-0.2); Basophils % (Auto) 1 % (0-2.5); Eosinophils # (Auto) 0.2 Thou/mm3 (0.0-0.5); Eosinophils % (Auto) 1 % (0-10); Hematocrit 33.2 % (41.0-53.0); Hemoglobin 10.2 g/dL (13.5-16.0); Immature Granulocytes Auto 0.24 Thou/mm3 (0.00-0.00); Lymphocytes # (Auto) 1.4 Thou/mm3 (1.0-4.8); Lymphocytes % (Auto) 11 % (10-50); Mean Corpuscular HGB Conc 30.7 g/dl (31.0-37.0); Mean Corpuscular Hemoglobin 22.3 pg (25.0-35.0); Mean Corpuscular Volume 73 fL (80-100); Monocytes # (Auto) 0.6 Thou/mm3 (0.0-0.8); Monocytes % (Auto) 4 % (0-12); Neutrophils # (Auto) 10.3 Thou/mm3 (1.8-7.7); Neutrophils % (Auto) 81 % (37-80); Nucleated Red Blood Cell # 0.00 Thou/mm3 (0.00-0.00); Nucleated Red Blood Cell % 0 /100 WBC (0); Platelet Count 599 Thou/mm3 (140-440); RDW Standard Deviation 59.9 fL (35.1-43.9); Red Blood Count 4.57 Miln/mm3 (4.50-5.90); White Blood Count 12.7 Thou/mm3 (3.8-10.6)
[2025-05-25 06:45] LABS: Alanine Aminotransferase < 7 U/L (10-49); Albumin, Serum 3.2 gm/dL (3.4-4.8); Albumin/Globulin Ratio 1.8 (1.2-2.2); Alkaline Phosphatase 176 U/L (46-116); Anion Gap 10 (7-16); Aspartate Amino Transferase < 10 U/L (0-34); BUN/Creatinine Ratio 6 Ratio (12-20); Bilirubin,Total 0.5 mg/dL (0.3-1.2); Blood Urea Nitrogen 5 mg/dL (9-23); Calcium 8.4 mg/dL (8.3-10.6); Calcium (Corrected) 9.0 mg/dL (8.5-10.1); Carbon Dioxide 24.3 mMol/L (20.0-31.0); Chloride 108 mMol/L (98-107); Creatinine (Component) 0.8 mg/dL (0.6-1.3); Estimated Creatinine Clearance 63.9 mL/min (>60); Globulin 1.8 gm/dL (2.3-3.5); Glucose 129 mg/dL (74-106); Magnesium 2.0 mg/dL (1.6-2.6); Osmolality,Calculated 282 (275-295); Phosphorous 2.5 mg/dL (2.4-5.1); Potassium 3.7 mMol/L (3.4-5.1); Sodium 142 mMol/L (136-145); Total Protein 5.0 gm/dL (5.7-8.2); eGFR > 60 See Note
--- NOTE | 2025-05-25 07:49 | XR_ITS ---
Examination: AP chest single view TECHNIQUE: AP portable upright chest single view. Date and time: May 25, 2025, 0758 hours Comparison May 22, 2025 INDICATION: Shortness of breath today FINDINGS: Significant hyperexpansion Accentuation basilar bronchovascular markings. Right internal jugular Port-A-Cath tip satisfactory position No lobar pneumonia or pulmonary edema IMPRESSION: COPD. Basilar bronchitis pattern
[2025-05-25 07:55] VITALS: BP 134/68; PULSE 60; RESP 17; TEMP 36.2; O2SAT 98
--- NOTE | 2025-05-25 08:19 | ESPR_ITS ---
<Statement entered by Yrn Mena MD - 05/29/25 12:38> I reviewed above note and agree with findings and plans. I have also personally examined the patient with medicine team and went over assessment and plan with medical team including sport intern and resident physician. <Statement entered by Sergio Clemente MD - 05/25/25 15:22> Patient was seen and examined at the bedside. No acute overnight events were reported. Patient reported that he is able to tolerate clear liquid. Denied any nausea or vomiting. Oncologist recommended to hold off on PICC line and perform J-tube placement and patient would need to follow-up with cancer specialist outpatient. Dr. Ascencio recommended to transfer the patient out for placement of J-tube. Transfer process was started. Transfer nurse is aware. Hemoglobin is stable. Will continue with clear liquid diet with aspiration precautions. All labs and orders were reviewed. I discussed and supervised with the sport intern physician who took care of this patient. I personally saw and examined the patient. I agree with most of the assessment and plan. Disclaimer: Despite multiple revisions, due to the dictation software being used, the document bellow may not be free of grammatical errors including phonetic/typographic errors. However, this does not deter from our commitment to providing health care in the patient's best interest in mind. Plan of care discussed with attending Physician Dr. Rajesh Clemente MD PGY-3 Documentation for date of: 05/25/25 Subjective Subjective Interval history: No acute events overnight Event note: pt case discussed with oncologist Dr. Patricia who recommends J tube placement to provide nutrition while patient has gastric outlet obstruction 2/2 gastric adenocarcinoma, she states that she does not recommend pyloric stent because it will likely fail shortly after placement with recurrence of gastric outlet obstruction because gastric cancer is the likely cause of the obstruction. after J tube is placed for nutrition, pt can be initiated on chemotherapy. Per GI, Dr. Ascencio, the J tube cannot be placed here at [facility] because it is technically more difficult given pt has gastric mass, thus recommends transfer to tertiary care facility for IR guided placement of J tube pt updated about the plan for J tube at tertiary [facility]. Exam Vital Signs Temp Pulse Resp BP Pulse Ox O2 Del Method O2 Flow Rate 97.1 F 60 17 134/68 H 98 Room Air 3 05/25/25 07:55 05/25/25 07:55 05/25/25 07:55 05/25/25 07:55 05/25/25 07:55 05/25/25 07:55 05/21/25 18:45 Narrative Exam GENERAL: no acute distress, AAO x3, sitting upright in bed, frail. HEENT: Head AT/ NC. Mucous membranes dry. PERRL. temporal wasting CARDIOVASCULAR: RRR. Normal S1/S2, No m/r/g. No pitting edema of bilateral LEs. R chest with chemo port intact, no erythema or bleeding. RESPIRATORY: CTAB. No wheezing, rhonchi, crackles. GASTROINTESTINAL: Abdomen soft, non tender, no palpable masses. hypoactive bowel sounds, interactive belching. MUSCULOSKELETAL:? No cyanosis or edema, no visible joint swelling. NEUROLOGICAL: CN II-XII grossly intact. No focal deficits. Sensation intact, symmetric.moving all 4 extremities spontaneously PSYCHIATRIC: Awake and alert, not agitated, normal mood and affect. SKIN: no jaundice, decreased turgor, several sebherric keratosis on face and neck and arms Objective Labs 05/25/25 05:23 05/25/25 05:23 Labs: Laboratory Results - last 24 hr 05/24/25 05/25/25 15:17 05:23 WBC 12.7 H D RBC 4.57 Hgb 10.2 L Hct 33.2 L MCV 73 L MCH 22.3 L MCHC 30.7 L RDW Std Deviation 59.9 H Plt Count 599 H Neut % (Auto) 81 H Lymph % (Auto) 11 [place] % (Auto) 4 Eos % (Auto) 1 Baso % (Auto) 1 Neut # (Auto) 10.3 H Lymph # (Auto) 1.4 [place] # (Auto) 0.6 Eos # (Auto) 0.2 Baso # (Auto) 0.1 Immature Gran # (Auto) 0.24 H Absolute Nucleated RBC 0.00 Immature Gran % 2 H Nucleated RBC % 0 PT 11.7 INR 1.1 Sodium 142 Potassium 3.7 Chloride 108 H Carbon Dioxide 24.3 Anion Gap 10 BUN 5 L Creatinine 0.8 Estim Creat Clear Calc 63.9 eGFR > 60 BUN/Creatinine Ratio 6 L Glucose 129 H Calculated Osmolality 282 Calcium 8.4 Corrected Calcium 9.0 Phosphorus 2.5 Magnesium 2.0 Total Bilirubin 0.5 AST < 10 ALT < 7 L Alkaline Phosphatase 176 H D Total Protein 5.0 L Albumin 3.2 L Globulin 1.8 L Albumin/Globulin Ratio 1.8 Triglycerides 92 Quality Measures Quality Measures VTE prophylaxis Advance care planning discussed with:: patient and child Assessment & Plan Assessment Current Active Medications: Generic Name Dose Route Start Last Admin Trade Name Freq PRN Reason Stop Dose Admin Diphenhydramine HCl 12.5 mg 05/24/25 09:41 Diphenhydramine Inj 50 Mg/Ml Vial IVP 05/29/25 09:40 X1 PRN contrast allergy Dextrose/Lactated Ringer's 1,000 mls @ 75 mls/hr 05/22/25 17:00 05/25/25 04:00 D5-Lr IV 06/21/25 16:59 75 mls/hr .[id number] HYACINTH Administration Potassium Chloride 10 meq in 100 mls @ 100 mls/hr 05/25/25 07:51 Kcl Ivpb IV 05/25/25 09:50 Q1H HYACINTH Losartan Potassium 50 mg 05/25/25 09:00 Losartan Potassium 25 Mg Tablet PO 06/24/25 08:59 QDAY HYACINTH Ondansetron HCl 4 mg 05/20/25 14:32 05/21/25 19:09 Ondansetron Inj 2 Mg/Ml Inj 2 Ml IVP 06/19/25 14:31 4 mg Q6H PRN Administration NAUSEA OR VOMITING Protocol Pantoprazole Sodium 40 mg 05/23/25 09:00 05/24/25 21:23 Pantoprazole Inj 40 Mg Vial IVP 06/22/25 08:59 40 mg BID HYACINTH Administration Patient Own Medication 100 ea 05/25/25 09:00 Patient's Own Inhaler 1 Ea Inhaler INH 06/24/25 08:59 DAILY HYACINTH Pregabalin 50 mg 05/23/25 14:00 05/25/25 05:17 Pregabalin 50 Mg Capsule PO 06/22/25 13:59 50 mg TID HYACINTH Administration Simethicone 80 mg 05/22/25 23:13 05/23/25 22:16 Simethicone 80 Mg Chew PO 06/21/25 23:12 80 mg QID PRN Administration GAS Plan Mr. Melendez is a 79 yo gentleman with hx of recently diagnosed gastric adenocarcinoma (followed by Dr. Canada and Dr. Phillips, not yet started on chemo), PAD with BLE stents, HTN, history of PUD, COPD with no home oxygen, who presents to the ED with 2 episodes of hematemesis, concerning for upper GI bleed in the setting of gastric adenocarcinoma. Patient is scheduled to start chemotherapy on 05/24. GI consulted, s/p EGD with large volume emesis, c/f aspiration. on EGD, no active bleeding, s/p IR GI upper series which demonstrated outlet obstruction, pending transfer to tertiary center for IR guided J tube placement and subsequent initiation of chemo, tolerating clears well, increased belching. #Upper GI Bleed from ulcerated gastric tumor #Gastric outlet obstruction 2/2 #Gastric Adenocarcinoma (dx 03/2025) pt was recently diagnosed in 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 He was admitted to [facility] with upper GI bleed in March, he underwent EGD with Dr. Ascencio with biopsy which confirmed cancer diagnosis. Per patient he is intended to start chemotherapy workup on Saturday His daughter is planning to come from [place] on 05/24. (daughters Alia and Moriah). Patient has Chemo-Port in place on right upper chest placed on 05/18. -Dr. Phillips notified of patient's admission to the hospital, Dr. Phillips states that patient is fully worked up and does not need to be consulted on this admission. -Dr. Patricia notified of pt status EGD with old food, too thick for NG suction, defer NG tube, c/f #aspiration, pending IR directed Gastric series. Upper GI series with Gastric outlet obstruction, pending transfer to tertiary care for j tube. Dr. Patricia notified of pt status, pending transfer for J tube under IR guidance. Dx ? CBC ? CT abdomen pelvis with contrast, with significantly distended stomach ? CT chest with multiple noncalcified pulmonary nodules previously seen on imaging every 6 month see #COPD below given gastric cancer diagnosis there is concern for metastatic disease to the lung. ? EGD with no active bleeding, ulceration of gastric tumor, likely source of previous bleeding, concern for gastric outlet obstruction - s/p IR gastric upper GI series, which demonstrated gastric outlet obstruction - pending transfer to tertiary care center for J tube placement under IR guidance. ? GI consulted, appreciate recs Tx ?Avoid NSAIDs ?Transfusion if hemoglobin less than 7 ?Continue pantoprazole 40 BID IV #anorexia 2/2 gastric outlet obstruction #weight loss 2/2 malignancy #Malnutrition Current weight 60.3 kg, pt had significant weight loss 2/2 malignancy pt kept with minimal caloric intake during admission given c/f gastric outlet obstruction. per onc, reccomend J tube for nutrition. pending transfer Dx - consult dietition, appreciate recs Tx - D5 LR 75 ml/hr given minimal PO caloric intake and serum gluc low normal - Clear liquid diet, with clear supplementation. #c/f aspiration pneumonitis vs pna r/o during EGD, pt had emesis, and after scope was removed pt had 500 cc of emesis. pt afebrile and lungs are CTAB. WBC slightly elevated Dx - CTM signs of systemic infection - repeat CXR negative Tx - consider abx with anaerobic coverage given c/f aspiration pneumonia - aspiration precautions - zofran 4mg PRN - head of bed at 45 degrees #HTN - cont home losartan 50 qd #GERD #Hx PUD at home pt takes omeprazole 20mg BID and famotidine 10 mg PRN, -cont protonix drip see #upper GI bleed above #COPD not on home oxygen, significant hyperextension seen on chest x-ray Per patient he has a history of pulmonary nodules seen on chest CT. He reports that he gets imaging done on his lungs every 6 months. His lung nodules that are certain size have been biopsied and have so far been benign. Dx ?CXR: Significant hyperexpansion and no lobar pneumonia Tx -cont home trellegy inhaler -O2 supplementation PRN #PAD s/p BLE stents Tx Hold home aspirin 81 and Plavix iso GI bleed #LLE neuropathy pt reports parasthesia of LLE plantar surface of foot. pt reports improvement of symptoms Tx - Start pregabalin 50mg TID - SCDs #Asymptomatic Bradycardia vital signs stable, bradycardia noted. Dx EKG nl sinus, intermittently bradycardic to 50s on vital sign monitoring TSH wnl #Microcytic Anemia Query anemia of chronic disease iso gastric cancer vs anemia 2/2 acute blood losses. -CTM Hgb for acute drops - stable -transfuse if < 7 #Thrombocytosis Ddx query reactive thrombocytosis iso blood loss from GI bleed, vs gastric malignancy INR and PT wnl Dispo: Gastric outlet obstruction 2/2 malignancy, pending transfer for J tube placement at tertiary care center. tolerating clears. Diet: Clear liquid diet with clear supplementation per dietitian guidance. Bowel Reg: holding VTE ppx: SCD GI ppx: Protonix 40 BID Code status: FULL Case discussed with my senior resident Dr. Clemente Case discussed with my attending Dr. Rajesh Almaguer MD PGY-1
[2025-05-25 08:28] VITALS: BP 132/68; PULSE 60
[2025-05-25] MEDS: LOSARTAN POTASSIUM 25 MG TABLET 50 MG PO (08:28)
[2025-05-25] MEDS: POTASSIUM CHL 10 mEq IVPB 10 MEQ/100 ML BAG 100 MEQ IV ×2 (08:29→12:11)
--- NOTE | 2025-05-25 10:39 | PC.CM ---
Addendum entered by Nina Bass RN 05/25/25 14:28: 1410 I faxed updated information to [facility]. 1340 I received a call from my doctor stating patient needs IR for j tube placement due to gastric outlet obstruction 2/2 to gastric adenocarcinoma. 1320 I received a call from Sirisha at [facility] and she states patient has been accepted by GI and now are having general surgery review patient. Addendum entered by Nina Bass RN 05/25/25 14:24: 1110 [facility] called and asked me to fax over updated information. I sent information today. Addendum entered by Nina Bass RN 05/25/25 10:51: 1045 I received a call back from Ricci with [facility] and he states Dr. Lorenzo reviewed patient and he declined due to the fact he cannot do both procedures at his facility. [facility] Declined. 1030I received a call from Ricci with [facility]. He states they did get authorization from [facility]. He obtained information on patient and he was going to present patient to their MD. Original Note: 0900 I spoke to luis manuel boy[facility] and I spoke to Pramod. I let them know patient needs authorization for [facility] and for [facility]. Pramod states she will call and give authorization to [facility] and to [facility].
[2025-05-25 11:01] VITALS: BMI 19.7
--- NOTE | 2025-05-25 11:30 | PC.DIETICIAN ---
Nutrition recommendations If J-tube is placed, consider: 1. Jevity 1.5 at 10 ml/hr via J-tube by pump. Advance 10 ml every 12 hrs to goal rate of 60 ml/hr x 24 hrs. If no IV fluids, water flushes of 40 ml/hr (or per MD). Pt might be at risk for refeeding syndrome: 2. Thiamine 100mg/day for 7 days; provide first dose at least 30 minutes before starting nutrition. 3. Multivitamins/Minerals.
[2025-05-25 12:00] VITALS: BP 137/56; PULSE 61; RESP 18; TEMP 36.2; O2SAT 96
[2025-05-25] MEDS: VILANTEROL PO (12:11)
[2025-05-25] MEDS: TRELEGY PO (12:11)
[2025-05-25] MEDS: UMECLIDINIUM PO (12:11)
--- NOTE | 2025-05-25 13:42 | PD.RESEVENT ---
Documentation for date of: 05/25/25 Event Note Event Note: pt case discussed with oncologist Dr. Patricia who recommends J tube placement to provide nutrition while patient has gastric outlet obstruction 2/2 gastric adenocarcinoma, she states that she does not recommend pyloric stent because it will likely fail shortly after placement with recurrence of gastric outlet obstruction because gastric cancer is the likely cause of the obstruction. after J tube is placed for nutrition, pt can be initiated on chemotherapy. Per GI, Dr. Ascencio, the J tube cannot be placed here at [facility] because it is technically more difficult given pt has gastric mass, thus recommends transfer to tertiary care facility for IR guided placement of J tube.
--- NOTE | 2025-05-25 14:33 | PC.SS ---
Rounding note: Pt. will be a transfer.
[2025-05-25 16:00] VITALS: BP 139/59; PULSE 62; RESP 18; TEMP 36.3; O2SAT 97
--- NOTE | 2025-05-25 19:45 | ESPR_ITS ---
Documentation for date of: 05/25/25 Subjective Subjective Interval history: Case discussed with the internal medicine team Transfer to a tertiary center for J-tube placement before the chemotherapy can be started to keep up with nutrition Exam Vital Signs Temp Pulse Resp BP Pulse Ox O2 Del Method O2 Flow Rate 97.3 F 62 18 139/59 H 97 Room Air 3 05/25/25 16:00 05/25/25 16:00 05/25/25 16:00 05/25/25 16:00 05/25/25 16:00 05/25/25 16:00 05/25/25 12:00 Objective Labs 05/25/25 05:23 05/25/25 05:23 Labs: Laboratory Results - last 24 hr 05/25/25 05:23 WBC 12.7 H D RBC 4.57 Hgb 10.2 L Hct 33.2 L MCV 73 L MCH 22.3 L MCHC 30.7 L RDW Std Deviation 59.9 H Plt Count 599 H Neut % (Auto) 81 H Lymph % (Auto) 11 [place] % (Auto) 4 Eos % (Auto) 1 Baso % (Auto) 1 Neut # (Auto) 10.3 H Lymph # (Auto) 1.4 [place] # (Auto) 0.6 Eos # (Auto) 0.2 Baso # (Auto) 0.1 Immature Gran # (Auto) 0.24 H Absolute Nucleated RBC 0.00 Immature Gran % 2 H Nucleated RBC % 0 Sodium 142 Potassium 3.7 Chloride 108 H Carbon Dioxide 24.3 Anion Gap 10 BUN 5 L Creatinine 0.8 Estim Creat Clear Calc 63.9 eGFR > 60 BUN/Creatinine Ratio 6 L Glucose 129 H Calculated Osmolality 282 Calcium 8.4 Corrected Calcium 9.0 Phosphorus 2.5 Magnesium 2.0 Total Bilirubin 0.5 AST < 10 ALT < 7 L Alkaline Phosphatase 176 H D Total Protein 5.0 L Albumin 3.2 L Globulin 1.8 L Albumin/Globulin Ratio 1.8 Impressions Impression: Gastric outlet obstruction gastric motility disorder Gastric adenocarcinoma Transfer to a tertiary center for placement of a J-tube by IR Assessment & Plan A&P Narrative Patient is a 79-year-old male with PMH of recently diagnosed gastric carcinoma presenting to the ER for hematemesis. #Hematemesis Hgb stable (11.7 to 11.9 ), MCV stable (73 to 74), platelet count decreasing to previous baseline (808 from 978), INR 1.0, alk phos elevated (343), Port-A-Cath placement normal Plan: EGD for potential therapeutic intervention tomorrow; clear liquid diet; NPO midnight #COPD, HTN, HLD, COPD Plan: As per primary team Patient seen by Dr. Daron Hood MD, and staffed with Dr. Malachi Ascencio MD, attending. Attending physician attestation Patient examined by me Laboratory data reviewed Imaging studies reviewed Treatment plan outlined for fiberoptic esophagogastroduodenoscopy with possible therapeutic intervention under intravenous moderate patient is scheduled for tomorrow Clear liquid diet at 12 midnight N.p.o. midnight tonight except p.o. meds IV Protonix Serial CBC Transfuse PRBC if the hemoglobin drops below 7 g Thank you very much for the opportunity to participate in the care of this patient Time Spent With Patient Time: Total time spent is greater than 50% in coordination of care (as documented) at patient's floor/unit and/or counseling patient:
[2025-05-25 20:00] VITALS: BP 136/63; PULSE 59; RESP 20; TEMP 36.6; O2SAT 96
[2025-05-25 22:20] LABS: Collection Type, Urine Clean Catch; RBC,Urine 0 /hpf (0-3); Squamous Epithelial Cell,Urine 0 /hpf (0-5)
[2025-05-25 22:39] LABS: Bilirubin,Urine Negative (Negative); Blood,Urine Negative (Negative); Clarity,Urine Clear (Clear/Hazy); Color,Urine Yellow (Lt Yel-Yel); Culture Indicated,Urine Not Indicated; Glucose, Urine Negative (Negative); Ketones,Urine Negative (Negative); Leukocyte Esterase,Urine Negative (Negative); Nitrite,Urine Negative (Negative); PH,Urine 7.0 (5.0-7.0); Protein,Urine Negative (Neg - Trace); Specific Gravity,Urine 1.011 (1.001-1.035); Urobilinogen,Urine 4.0 mg/dL (0.0-1.0); WBC,Urine 1 /hpf (0-5)
[2025-05-26] VITALS (7 sets, daily range): BP systolic 123–142; BP diastolic 65–82; PULSE 54–71; RESP 15–20; TEMP 36.6–37.2; O2SAT 95–97
[2025-05-26] MEDS: PREGABALIN 50 MG CAPSULE PO ×3 (06:45→21:57)
[2025-05-26] MEDS: UMECLIDINIUM PO (08:28)
[2025-05-26] MEDS: VILANTEROL PO (08:28)
[2025-05-26] MEDS: LOSARTAN POTASSIUM 25 MG TABLET 50 MG PO (08:28)
[2025-05-26] MEDS: TRELEGY PO (08:28)
--- NOTE | 2025-05-26 08:44 | PC.CM ---
Addendum entered by Nina Bass RN 05/26/25 13:24: [address] Almaguer and she states patient will not need to be transferred afer all. Dr. Rosales will be able to put in the j-tube tomorrow. Transfer canceled. Addendum entered by Nina Bass RN 05/26/25 09:41: 0930 I received a call from Tonie with the transfer center at [facility]. She asked if we found out if our surgeon was consulted. She also asked if our IR could do the j-tube placement. I let her know our IR would not be able to do the procedure here at our facility. I let her know I reached out to my doctor and I will call her one I hear back from my doctor. 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 I reviewed notes and I do not see that we consulted surgery. I spoke to DR. Almaguer and I let her know that [facility] [place] is reviewing patient and they want to now if we consulted our surgeon. states she will find out and get back to me.
[2025-05-26 08:48] LABS: Basophils # (Auto) 0.1 Thou/mm3 (0.0-0.2); Basophils % (Auto) 1 % (0-2.5); Eosinophils # (Auto) 0.2 Thou/mm3 (0.0-0.5); Eosinophils % (Auto) 2 % (0-10); Hematocrit 35.7 % (41.0-53.0); Hemoglobin 10.7 g/dL (13.5-16.0); Immature Granulocytes Auto 0.12 Thou/mm3 (0.00-0.00); Lymphocytes # (Auto) 0.9 Thou/mm3 (1.0-4.8); Lymphocytes % (Auto) 10 % (10-50); Mean Corpuscular HGB Conc 30.0 g/dl (31.0-37.0); Mean Corpuscular Hemoglobin 22.4 pg (25.0-35.0); Mean Corpuscular Volume 75 fL (80-100); Monocytes # (Auto) 0.6 Thou/mm3 (0.0-0.8); Monocytes % (Auto) 6 % (0-12); Neutrophils # (Auto) 7.2 Thou/mm3 (1.8-7.7); Neutrophils % (Auto) 79 % (37-80); Nucleated Red Blood Cell # 0.00 Thou/mm3 (0.00-0.00); Nucleated Red Blood Cell % 0 /100 WBC (0); Platelet Count 643 Thou/mm3 (140-440); RDW Standard Deviation 62.5 fL (35.1-43.9); Red Blood Count 4.77 Miln/mm3 (4.50-5.90); White Blood Count 9.1 Thou/mm3 (3.8-10.6)
[2025-05-26] MEDS: DEXTROSE 5%-LACTATED RINGERS 1,000 ML 75 ML IV ×2 (09:04→21:56)
[2025-05-26 09:18] LABS: Alanine Aminotransferase < 7 U/L (10-49); Albumin, Serum 3.4 gm/dL (3.4-4.8); Albumin/Globulin Ratio 1.7 (1.2-2.2); Alkaline Phosphatase 181 U/L (46-116); Anion Gap 8 (7-16); Aspartate Amino Transferase < 8 U/L (0-34); BUN/Creatinine Ratio 5 Ratio (12-20); Bilirubin,Total 0.7 mg/dL (0.3-1.2); Blood Urea Nitrogen < 5 mg/dL (9-23); Calcium 8.7 mg/dL (8.3-10.6); Calcium (Corrected) 9.2 mg/dL (8.5-10.1); Carbon Dioxide 27.8 mMol/L (20.0-31.0); Chloride 105 mMol/L (98-107); Creatinine (Component) 1.0 mg/dL (0.6-1.3); Estimated Creatinine Clearance 51.9 mL/min (>60); Globulin 2.0 gm/dL (2.3-3.5); Glucose 111 mg/dL (74-106); Magnesium 1.5 mg/dL (1.6-2.6); Osmolality,Calculated 279 (275-295); Phosphorous 3.0 mg/dL (2.4-5.1); Potassium 3.9 mMol/L (3.4-5.1); Sodium 141 mMol/L (136-145); Total Protein 5.4 gm/dL (5.7-8.2); eGFR > 60 See Note
--- NOTE | 2025-05-26 10:02 | ESPR_ITS ---
<Statement entered by Yrn Mena MD - 05/29/25 12:39> I reviewed above note and agree with findings and plans. I have also personally examined the patient with medicine team and went over assessment and plan with medical team including statistics intern and resident physician. <Statement entered by Sergio Clemente MD - 05/26/25 17:11> Patient was seen and examined at the bedside. No acute overnight events were noted. Jejunostomy tube will be placed tomorrow by surgeon, Dr Rosalse. Canceled transfer process. Patient will be n.p.o. after midnight. A.m. labs and coagulation panel for tomorrow. Will likely start Jevity tube feeds tomorrow after placement of jejunostomy tube. Family was updated. All labs and orders were reviewed. I discussed and supervised with the statistics intern physician who took care of this patient. I personally saw and examined the patient. I agree with most of the assessment and plan. Disclaimer: Despite multiple revisions, due to the dictation software being used, the document bellow may not be free of grammatical errors including phonetic/typographic errors. However, this does not deter from our commitment to providing health care in the patient's best interest in mind. Plan of care discussed with attending Physician Dr. Rajesh Clemente MD PGY-3 Documentation for date of: 05/26/25 Subjective Subjective Interval history: No acute events overnight npo at midnight plan for laparotomy with placement of feeding jejunostomy with Dr. Rosales cancel transfer, spoke to drier transfer car operator nurse. discussed pt case with dietitian, will start jevity feeds, likely tomorrow. Exam Vital Signs Temp Pulse Resp BP Pulse Ox O2 Del Method O2 Flow Rate 98.2 F 71 16 132/72 H 95 Room Air 3 05/26/25 07:47 05/26/25 08:28 05/26/25 07:47 05/26/25 08:28 05/26/25 07:47 05/26/25 04:00 05/25/25 12:00 Narrative Exam GENERAL: no acute distress, AAO x3, sitting upright in bed, frail. HEENT: Head AT/ NC. Mucous membranes dry. PERRL. temporal wasting CARDIOVASCULAR: RRR. Normal S1/S2, No m/r/g. No pitting edema of bilateral LEs. R chest with chemo port intact, no erythema or bleeding. RESPIRATORY: CTAB. No wheezing, rhonchi, crackles. GASTROINTESTINAL: Abdomen soft, non tender, no palpable masses. bowel sounds present , intermittent belching. MUSCULOSKELETAL:? No cyanosis or edema, no visible joint swelling. NEUROLOGICAL: CN II-XII grossly intact. No focal deficits. Sensation intact, symmetric.moving all 4 extremities spontaneously PSYCHIATRIC: Awake and alert, not agitated, normal mood and affect. SKIN: no jaundice, decreased turgor, several sebherric keratosis on face and neck and arms Objective Labs 05/26/25 08:38 05/26/25 08:38 Labs: Laboratory Results - last 24 hr 05/25/25 05/26/25 22:00 08:38 WBC 9.1 RBC 4.77 Hgb 10.7 L Hct 35.7 L MCV 75 L MCH 22.4 L MCHC 30.0 L RDW Std Deviation 62.5 H Plt Count 643 H D Neut % (Auto) 79 Lymph % (Auto) 10 [place] % (Auto) 6 Eos % (Auto) 2 Baso % (Auto) 1 Neut # (Auto) 7.2 Lymph # (Auto) 0.9 L [place] # (Auto) 0.6 Eos # (Auto) 0.2 Baso # (Auto) 0.1 Immature Gran # (Auto) 0.12 H Absolute Nucleated RBC 0.00 Immature Gran % 1 H Nucleated RBC % 0 Sodium 141 Potassium 3.9 Chloride 105 Carbon Dioxide 27.8 Anion Gap 8 BUN < 5 L Creatinine 1.0 Estim Creat Clear Calc 51.9 L eGFR > 60 BUN/Creatinine Ratio 5 L Glucose 111 H Calculated Osmolality 279 Calcium 8.7 Corrected Calcium 9.2 Phosphorus 3.0 Magnesium 1.5 L Total Bilirubin 0.7 AST < 8 ALT < 7 L Alkaline Phosphatase 181 H Total Protein 5.4 L Albumin 3.4 Globulin 2.0 L Albumin/Globulin Ratio 1.7 Ur Collection Type Clean Catch Urine Color Yellow Urine Clarity Clear Urine pH 7.0 Ur Specific [place] 1.011 Urine Protein Negative Urine Glucose (UA) Negative Urine Ketones Negative Urine Blood Negative Urine Nitrite Negative Urine Bilirubin Negative Urine Urobilinogen (Auto) 4.0 Ur Leukocyte Esterase Negative Urine RBC 0 Urine WBC 1 Ur Squamous Epith Cells 0 Urine Bacteria None Ur Culture Indicated? Not Indicated Quality Measures Quality Measures VTE prophylaxis Advance care planning discussed with:: patient and child Assessment & Plan Assessment Current Active Medications: Generic Name Dose Route Start Last Admin Trade Name Freq PRN Reason Stop Dose Admin Trelegy 100/62.5/25 0 ea 05/25/25 09:00 05/26/25 08:28 Mcg (Fluticasone, PO 06/24/25 08:59 1 puff Umeclidinium, DAILY HYACINTH Administration Vilanterol) Inhaler Diphenhydramine HCl 12.5 mg 05/24/25 09:41 Diphenhydramine Inj 50 Mg/Ml Vial IVP 05/29/25 09:40 X1 PRN contrast allergy Dextrose/Lactated Ringer's 1,000 mls @ 75 mls/hr 05/22/25 17:00 05/26/25 09:04 D5-Lr IV 06/21/25 16:59 75 mls/hr .[id number] HYACINTH Administration Magnesium Sulfate 4 gm in 50 mls @ 12.5 mls/hr 05/26/25 09:54 Magnesium Sulfate Ivpb IV 05/26/25 13:53 X1 ONE Losartan Potassium 50 mg 05/25/25 09:00 05/26/25 08:28 Losartan Potassium 25 Mg Tablet PO 06/24/25 08:59 50 mg QDAY HYACINTH Administration Ondansetron HCl 4 mg 05/20/25 14:32 05/21/25 19:09 Ondansetron Inj 2 Mg/Ml Inj 2 Ml IVP 06/19/25 14:31 4 mg Q6H PRN Administration NAUSEA OR VOMITING Protocol Pantoprazole Sodium 40 mg 05/23/25 09:00 05/26/25 08:28 Pantoprazole Inj 40 Mg Vial IVP 06/22/25 08:59 40 mg BID HYACINTH Administration Pregabalin 50 mg 05/23/25 14:00 05/26/25 06:45 Pregabalin 50 Mg Capsule PO 06/22/25 13:59 50 mg TID HYACINTH Administration Simethicone 80 mg 05/22/25 23:13 05/23/25 22:16 Simethicone 80 Mg Chew PO 06/21/25 23:12 80 mg QID PRN Administration GAS Plan Mr. Melendez is a 79 yo gentleman with hx of recently diagnosed gastric adenocarcinoma (followed by Dr. [place] and Dr. Phillips, not yet started on chemo), PAD with BLE stents, HTN, history of PUD, COPD with no home oxygen, who presents to the ED with 2 episodes of hematemesis, concerning for upper GI bleed in the setting of gastric adenocarcinoma. Patient is scheduled to start chemotherapy on 05/24. GI consulted, s/p EGD with large volume emesis, c/f aspiration. on EGD, no active bleeding, s/p IR GI upper series which demonstrated outlet obstruction, CANCELLED transfer, NPO at midnight pending laproscopic J tube placement with Dr. Rosales #Upper GI Bleed from ulcerated gastric tumor #Gastric outlet obstruction 2/2 #Gastric Adenocarcinoma (dx 03/2025) pt was recently diagnosed in 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 He was admitted to [facility] with upper GI bleed in March, he underwent EGD with Dr. Ascencio with biopsy which confirmed cancer diagnosis. Per patient he is intended to start chemotherapy workup on Saturday His daughter is planning to come from [place] on 05/24. (daughters Alia and Moriah). Patient has Chemo-Port in place on right upper chest placed on 05/18. -Dr. Phillips notified of patient's admission to the hospital, Dr. Phillips states that patient is fully worked up and does not need to be consulted on this admission. -Dr. Patricia notified of pt status EGD with old food, too thick for NG suction, defer NG tube, c/f #aspiration, pending IR directed Gastric series. Upper GI series with Gastric outlet obstruction, pending transfer to tertiary care for j tube. Dr. Patricia notified of pt status, can initiate chemo after pt stable on J tube feeds. Dx ? CBC ? CT abdomen pelvis with contrast, with significantly distended stomach ? CT chest with multiple noncalcified pulmonary nodules previously seen on imaging every 6 month see #COPD below given gastric cancer diagnosis there is concern for metastatic disease to the lung. ? EGD with no active bleeding, ulceration of gastric tumor, likely source of previous bleeding, concern for gastric outlet obstruction - s/p IR gastric upper GI series, which demonstrated gastric outlet obstruction - CANCELLED transfer to tertiary care center for J tube placement under IR guidance. ? GI consulted, appreciate recs Tx ?Avoid NSAIDs ?Transfusion if hemoglobin less than 7 ?Continue pantoprazole 40 BID IV #anorexia 2/2 gastric outlet obstruction #weight loss 2/2 malignancy #Malnutrition Current weight 60.3 kg, pt had significant weight loss 2/2 malignancy pt kept with minimal caloric intake during admission given c/f gastric outlet obstruction. per onc, reccomend J tube for nutrition. transfer cancelled, NPO at midnight, pending lap, J tube placement with Dr. Rosales monitor for possible refeeding syndrome. Dx - consult dietition, appreciate recs Tx - D5 LR 75 ml/hr given minimal PO caloric intake and serum gluc low normal - pending Jevity feeds through J tube. * Jevity 1.5 at 10 ml/hr via J-tube by pump. Advance 10 ml every 12 hrs to goal rate of 60 ml/hr x 24 hrs. If no IV fluids, water flushes of 40 ml/hr (or per MD). * Pt might be at risk for re feeding syndrome: Thiamine 100mg/day for 7 days; provide first dose at least 30 minutes before starting nutrition. Multivitamins/Minerals #c/f aspiration pneumonitis vs pna r/o during EGD, pt had emesis, and after scope was removed pt had 500 cc of emesis. pt afebrile and lungs are CTAB. WBC slightly elevated Dx - CTM signs of systemic infection - repeat CXR negative Tx - aspiration precautions - zofran 4mg PRN - head of bed at 45 degrees #HTN - cont home losartan 50 qd #GERD #Hx PUD at home pt takes omeprazole 20mg BID and famotidine 10 mg PRN, -cont protonix drip see #upper GI bleed above #COPD not on home oxygen, significant hyperextension seen on chest x-ray Per patient he has a history of pulmonary nodules seen on chest CT. He reports that he gets imaging done on his lungs every 6 months. His lung nodules that are certain size have been biopsied and have so far been benign. Dx ?CXR: Significant hyperexpansion and no lobar pneumonia Tx -cont home trellegy inhaler -O2 supplementation PRN #PAD s/p BLE stents Tx Hold home aspirin 81 and Plavix iso GI bleed #LLE neuropathy pt reports parasthesia of LLE plantar surface of foot. pt reports improvement of symptoms Tx - Start pregabalin 50mg TID - SCDs #Asymptomatic Bradycardia vital signs stable, bradycardia noted. Dx EKG nl sinus, intermittently bradycardic to 50s on vital sign monitoring TSH wnl #Microcytic Anemia Query anemia of chronic disease iso gastric cancer vs anemia 2/2 acute blood losses. -CTM Hgb for acute drops - stable -transfuse if < 7 #Thrombocytosis Ddx query reactive thrombocytosis iso blood loss from GI bleed, vs gastric malignancy INR and PT wnl Dispo: Gastric outlet obstruction 2/2 malignancy, pending transfer for J tube placement at tertiary care center. tolerating clears. Diet: NPO pending j tube placement Bowel Reg: holding VTE ppx: SCD GI ppx: Protonix 40 BID Code status: FULL Case discussed with my senior resident Dr. Clemente Case discussed with my attending Dr. Rajesh Almaguer MD PGY-1
[2025-05-26] MEDS: Magnesium Sulfate 4 GM Ivpb 4 GM/50 ML BAG IV (10:19)
--- NOTE | 2025-05-26 11:23 | PC.SS ---
Addendum entered by TRISTIAN Jonas 05/26/25 11:43: [employer] confirmed with patient that last appointment with PCP was in February 2025. Original Note: SS update: Patient will d/c home with [facility], PCP: Dr. Keila Shepard, pt pending [place] for tomorrow.
--- NOTE | 2025-05-26 12:30 | PD.SURCONS ---
HPI Consult details Consult date: 05/26/25 Reason for consultation narrative: Gastric outlet obstruction secondary to gastric adenocarcinoma History of present illness: 79-year-old male with history of hypertension, COPD was recently diagnosed with gastric adenocarcinoma. He underwent placement of a Port-A-Cath to start neoadjuvant chemotherapy. He was admitted with hematemesis. Patient has been tolerating clear liquids, however, he is unable to eat solid food due to gastric outlet obstruction. I was asked for placement of jejunostomy feeding tube due to gastric outlet obstruction. Review of Systems Constitutional Constitutional: Denies chills and Reports weight loss Cardiovascular Cardiovascular: Denies chest pain Respiratory Respiratory: Denies cough Gastrointestinal Gastrointestinal: Denies abdominal pain and Reports bloating Hematologic/Lymphatic Hematologic/Lymphatic: Denies easy bleeding and Reports easy bruising Past Medical History Surgical History OTHER SURGICAL HX: Vagotomy with pyloroplasty, left inguinal hernia repair, lower extremity stent placement Social History SMOKING STATUS: Former smoker SUBSTANCE USE: does not use ALCOHOL: Former Meds Home Medications and Allergies Home Medications ?Medication ?Instructions ?Recorded ?Confirmed ?Type losartan 50 mg tablet 50 mg PO HS 07/31/21 05/21/25 History albuterol sulfate 90 mcg/actuation 1 puff inhalation Q8H PRN 03/31/25 05/21/25 History aerosol inhaler shortness of breath or wheezing aspirin 81 mg tablet 81 mg PO HS 03/31/25 05/21/25 History Held on 05/18/25. Instructions: Resume on 05/20/25. cholecalciferol (vitamin D3) 25 25 mcg PO HS 03/31/25 05/21/25 History mcg (1,000 unit) capsule (Vitamin D3) cyanocobalamin (vitamin B-12) 100 100 mcg PO HS 03/31/25 05/21/25 History mcg tablet (Vitamin B-12) fluticasone fur. 100 mcg-umeclid 1 inh inhalation QDAY 03/31/25 05/21/25 History 62.5 mcg-vilant 25 mcg inhalat.powder (Trelegy Ellipta) omeprazole 20 mg capsule,delayed 20 mg PO BID 03/31/25 05/21/25 History release fluticasone fur. 100 mcg-umeclid 1 inh inhalation Q24H 05/18/25 05/21/25 History 62.5 mcg-vilant 25 mcg inhalat.powder (Trelegy Ellipta) famotidine 10 mg tablet (Acid 10 mg PO Q6H PRN acid reflux 05/21/25 05/21/25 History Controller) Allergies Allergy/AdvReac Type Severity Reaction Status Date / Time Iodinated Contrast Media Allergy Intermediate Flushing Verified 05/20/25 09:02 Exam Vital Signs Temp Pulse Resp BP Pulse Ox O2 Del Method O2 Flow Rate 97.9 F 62 16 123/75 95 Room Air 3 05/26/25 12:00 05/26/25 12:00 05/26/25 12:00 05/26/25 12:00 05/26/25 12:00 05/26/25 12:00 05/25/25 12:00 Constitutional Constitutional: no acute distress Routine Abdominal Exam Abdominal: Present soft, normoactive bowel sounds and surgical scars (He has supraumbilical laparotomy scar); Absent tenderness or distended Assessment & Plan Problem List (1) Gastric adenocarcinoma: Status: Acute Additional Assessment Additional comments: Will keep patient n.p.o. after midnight and plan for laparotomy with placement of feeding jejunostomy. Risks include but not limited to infection, bleeding, injury to bowel, stomach, liver, spleen, surround neurovascular structures, feeding tube malfunction, infection and or dislodgment, pneumonia, blood clot, heart attack, stroke and discussed with the patient. Benefits and alternatives explained to him, all his questions answered, he agreed and consented to proceed with the operation.
--- NOTE | 2025-05-26 14:35 | PC.SS ---
Rounding note: Pt. will receive [employer] tomorrow, will return home with HH.
--- NOTE | 2025-05-26 22:02 | ESPR_ITS ---
Documentation for date of: 05/26/25 Subjective Subjective Interval history: Surgical consult appreciated I was trying to avoid an ex lap But nutrition of the patient is important Exam Vital Signs Temp Pulse Resp BP Pulse Ox O2 Del Method O2 Flow Rate 98.9 F 63 18 142/82 H 95 Room Air 3 05/26/25 20:00 05/26/25 20:00 05/26/25 20:00 05/26/25 20:00 05/26/25 20:00 05/26/25 20:00 05/25/25 12:00 Objective Labs 05/26/25 08:38 05/26/25 08:38 Labs: Laboratory Results - last 24 hr 05/25/25 05/26/25 22:00 08:38 WBC 9.1 RBC 4.77 Hgb 10.7 L Hct 35.7 L MCV 75 L MCH 22.4 L MCHC 30.0 L RDW Std Deviation 62.5 H Plt Count 643 H D Neut % (Auto) 79 Lymph % (Auto) 10 [place] % (Auto) 6 Eos % (Auto) 2 Baso % (Auto) 1 Neut # (Auto) 7.2 Lymph # (Auto) 0.9 L [place] # (Auto) 0.6 Eos # (Auto) 0.2 Baso # (Auto) 0.1 Immature Gran # (Auto) 0.12 H Absolute Nucleated RBC 0.00 Immature Gran % 1 H Nucleated RBC % 0 Sodium 141 Potassium 3.9 Chloride 105 Carbon Dioxide 27.8 Anion Gap 8 BUN < 5 L Creatinine 1.0 Estim Creat Clear Calc 51.9 L eGFR > 60 BUN/Creatinine Ratio 5 L Glucose 111 H Calculated Osmolality 279 Calcium 8.7 Corrected Calcium 9.2 Phosphorus 3.0 Magnesium 1.5 L Total Bilirubin 0.7 AST < 8 ALT < 7 L Alkaline Phosphatase 181 H Total Protein 5.4 L Albumin 3.4 Globulin 2.0 L Albumin/Globulin Ratio 1.7 Ur Collection Type Clean Catch Urine Color Yellow Urine Clarity Clear Urine pH 7.0 Ur Specific [place] 1.011 Urine Protein Negative Urine Glucose (UA) Negative Urine Ketones Negative Urine Blood Negative Urine Nitrite Negative Urine Bilirubin Negative Urine Urobilinogen (Auto) 4.0 Ur Leukocyte Esterase Negative Urine RBC 0 Urine WBC 1 Ur Squamous Epith Cells 0 Urine Bacteria None Ur Culture Indicated? Not Indicated Impressions Impression: Failure to thrive Gastric outlet obstruction Gastric motility disorder Surgical jejunostomy tomorrow Assessment & Plan A&P Narrative Patient is a 79-year-old male with PMH of recently diagnosed gastric carcinoma presenting to the ER for hematemesis. #Hematemesis Hgb stable (11.7 to 11.9 ), MCV stable (73 to 74), platelet count decreasing to previous baseline (808 from 978), INR 1.0, alk phos elevated (343), Port-A-Cath placement normal Plan: EGD for potential therapeutic intervention tomorrow; clear liquid diet; NPO midnight #COPD, HTN, HLD, COPD Plan: As per primary team Patient seen by Dr. Daron Hood MD, and staffed with Dr. Malachi Ascencio MD, attending. Attending physician attestation Patient examined by me Laboratory data reviewed Imaging studies reviewed Treatment plan outlined for fiberoptic esophagogastroduodenoscopy with possible therapeutic intervention under intravenous moderate patient is scheduled for tomorrow Clear liquid diet at 12 midnight N.p.o. midnight tonight except p.o. meds IV Protonix Serial CBC Transfuse PRBC if the hemoglobin drops below 7 g Thank you very much for the opportunity to participate in the care of this patient Time Spent With Patient Time: Total time spent is greater than 50% in coordination of care (as documented) at patient's floor/unit and/or counseling patient:
[2025-05-27] VITALS (15 sets, daily range): BP systolic 101–144; BP diastolic 43–78; PULSE 56–85; RESP 12–20; TEMP 36.1–36.8; O2SAT 91–100
[2025-05-27 06:12] LABS: Basophils # (Auto) 0.1 Thou/mm3 (0.0-0.2); Basophils % (Auto) 2 % (0-2.5); Eosinophils # (Auto) 0.2 Thou/mm3 (0.0-0.5); Eosinophils % (Auto) 3 % (0-10); Hematocrit 35.1 % (41.0-53.0); Hemoglobin 10.5 g/dL (13.5-16.0); Immature Granulocytes Auto 0.09 Thou/mm3 (0.00-0.00); Lymphocytes # (Auto) 1.2 Thou/mm3 (1.0-4.8); Lymphocytes % (Auto) 14 % (10-50); Mean Corpuscular HGB Conc 29.9 g/dl (31.0-37.0); Mean Corpuscular Hemoglobin 22.1 pg (25.0-35.0); Mean Corpuscular Volume 74 fL (80-100); Monocytes # (Auto) 0.5 Thou/mm3 (0.0-0.8); Monocytes % (Auto) 6 % (0-12); Neutrophils # (Auto) 6.4 Thou/mm3 (1.8-7.7); Neutrophils % (Auto) 75 % (37-80); Nucleated Red Blood Cell # 0.00 Thou/mm3 (0.00-0.00); Nucleated Red Blood Cell % 0 /100 WBC (0); Platelet Count 578 Thou/mm3 (140-440); RDW Standard Deviation 61.2 fL (35.1-43.9); Red Blood Count 4.76 Miln/mm3 (4.50-5.90); White Blood Count 8.6 Thou/mm3 (3.8-10.6)
[2025-05-27 06:23] LABS: Alanine Aminotransferase < 7 U/L (10-49); Albumin, Serum 3.3 gm/dL (3.4-4.8); Albumin/Globulin Ratio 1.7 (1.2-2.2); Alkaline Phosphatase 169 U/L (46-116); Anion Gap 3 (7-16); Aspartate Amino Transferase < 10 U/L (0-34); BUN/Creatinine Ratio 5 Ratio (12-20); Bilirubin,Total 0.7 mg/dL (0.3-1.2); Blood Urea Nitrogen < 5 mg/dL (9-23); Calcium 8.9 mg/dL (8.3-10.6); Calcium (Corrected) 9.5 mg/dL (8.5-10.1); Carbon Dioxide 29.8 mMol/L (20.0-31.0); Chloride 108 mMol/L (98-107); Creatinine (Component) 1.0 mg/dL (0.6-1.3); Estimated Creatinine Clearance 51.9 mL/min (>60); Globulin 1.9 gm/dL (2.3-3.5); Glucose 114 mg/dL (74-106); Magnesium 1.7 mg/dL (1.6-2.6); Osmolality,Calculated 279 (275-295); Phosphorous 3.2 mg/dL (2.4-5.1); Potassium 5.0 mMol/L (3.4-5.1); Sodium 141 mMol/L (136-145); Total Protein 5.2 gm/dL (5.7-8.2); eGFR > 60 See Note
--- NOTE | 2025-05-27 08:00 | ESPR_ITS ---
<Statement entered by Yrn Mena MD - 05/29/25 12:40> I reviewed above note and agree with findings and plans. I have also personally examined the patient with medicine team and went over assessment and plan with medical team including pr internship and resident physician. <Statement entered by Sergio Clemente MD - 05/27/25 17:27> Patient was seen and examined at the bedside. Patient is admitted here for nausea and vomiting related to gastric outlet obstruction due to GI malignancy. No acute overnight events were reported. Patient received J-tube for nutrition under care of surgeon, Dr Rosales. Patient was started on Jevity tube feeds and will be evaluated for feeding intolerance if any. Patient's family is aware. Will likely start Jevity tube feeds once patient receive the tube today. Monitor for refeeding syndrome. Electrolytes were repleted. Patient has been getting D5 LR which will be likely discontinued once tube feeds will begin. GI is following the case. All labs and orders were reviewed. I discussed and supervised with the pr internship physician who took care of this patient. I personally saw and examined the patient. I agree with most of the assessment and plan. Disclaimer: Despite multiple revisions, due to the dictation software being used, the document bellow may not be free of grammatical errors including phonetic/typographic errors. However, this does not deter from our commitment to providing health care in the patient's best interest in mind. Plan of care discussed with attending Physician Dr. Rajesh Clemente MD PGY-3 Documentation for date of: 05/27/25 Subjective Subjective Interval history: No acute events overnight pt NPO pending J tube placement with Dr. Rosales today. J tube feeding recs per Dietitian are in. Exam Vital Signs Temp Pulse Resp BP Pulse Ox O2 Del Method O2 Flow Rate 97.8 F 60 19 141/66 H 94 L Room Air 3 05/27/25 04:00 05/27/25 04:00 05/27/25 04:00 05/27/25 04:00 05/27/25 04:00 05/27/25 04:00 05/25/25 12:00 Narrative Exam GENERAL: no acute distress, AAO x3, sitting upright in bed, frail. HEENT: Head AT/ NC. Mucous membranes dry. PERRL. temporal wasting CARDIOVASCULAR: RRR. Normal S1/S2, No m/r/g. No pitting edema of bilateral LEs. R chest with chemo port intact, no erythema or bleeding. RESPIRATORY: CTAB. No wheezing, rhonchi, crackles. GASTROINTESTINAL: Abdomen soft, non tender, no palpable masses. bowel sounds present , intermittent belching. MUSCULOSKELETAL:? No cyanosis or edema, no visible joint swelling. NEUROLOGICAL: CN II-XII grossly intact. No focal deficits. Sensation intact, symmetric.moving all 4 extremities spontaneously PSYCHIATRIC: Awake and alert, not agitated, normal mood and affect. SKIN: no jaundice, decreased turgor, several sebherric keratosis on face and neck and arms Objective Labs 05/27/25 05:00 05/27/25 05:00 Labs: Laboratory Results - last 24 hr 05/26/25 05/27/25 08:38 05:00 WBC 9.1 8.6 RBC 4.77 4.76 Hgb 10.7 L 10.5 L Hct 35.7 L 35.1 L MCV 75 L 74 L MCH 22.4 L 22.1 L MCHC 30.0 L 29.9 L RDW Std Deviation 62.5 H 61.2 H Plt Count 643 H D 578 H D Neut % (Auto) 79 75 Lymph % (Auto) 10 14 [place] % (Auto) 6 6 Eos % (Auto) 2 3 Baso % (Auto) 1 2 Neut # (Auto) 7.2 6.4 Lymph # (Auto) 0.9 L 1.2 [place] # (Auto) 0.6 0.5 Eos # (Auto) 0.2 0.2 Baso # (Auto) 0.1 0.1 Immature Gran # (Auto) 0.12 H 0.09 H Absolute Nucleated RBC 0.00 0.00 Immature Gran % 1 H 1 H Nucleated RBC % 0 0 Sodium 141 141 Potassium 3.9 5.0 D Chloride 105 108 H Carbon Dioxide 27.8 29.8 Anion Gap 8 3 L BUN < 5 L < 5 L Creatinine 1.0 1.0 Estim Creat Clear Calc 51.9 L 51.9 L eGFR > 60 > 60 BUN/Creatinine Ratio 5 L 5 L Glucose 111 H 114 H Calculated Osmolality 279 279 Calcium 8.7 8.9 Corrected Calcium 9.2 9.5 Phosphorus 3.0 3.2 Magnesium 1.5 L 1.7 Total Bilirubin 0.7 0.7 AST < 8 < 10 ALT < 7 L < 7 L Alkaline Phosphatase 181 H 169 H Total Protein 5.4 L 5.2 L Albumin 3.4 3.3 L Globulin 2.0 L 1.9 L Albumin/Globulin Ratio 1.7 1.7 Quality Measures Quality Measures VTE prophylaxis Advance care planning discussed with:: patient and child Assessment & Plan Assessment Current Active Medications: Generic Name Dose Route Start Last Admin Trade Name Freq PRN Reason Stop Dose Admin Trelegy 100/62.03/21 0 ea 05/25/25 09:00 05/26/25 08:28 Mcg (Fluticasone, PO 06/24/25 08:59 1 puff Umeclidinium, DAILY HYACINTH Administration Vilanterol) Inhaler Diphenhydramine HCl 12.5 mg 05/24/25 09:41 Diphenhydramine Inj 50 Mg/Ml Vial IVP 05/29/25 09:40 X1 PRN contrast allergy Dextrose/Lactated Ringer's 1,000 mls @ 75 mls/hr 05/22/25 17:00 05/26/25 21:56 D5-Lr IV 06/21/25 16:59 75 mls/hr .[id number] HYACINTH Administration Magnesium Sulfate 4 gm in 50 mls @ 12.5 mls/hr 05/27/25 07:59 Magnesium Sulfate Ivpb IV 05/27/25 11:58 X1 ONE Losartan Potassium 50 mg 05/25/25 09:00 05/26/25 08:28 Losartan Potassium 25 Mg Tablet PO 06/24/25 08:59 50 mg QDAY HYACINTH Administration Ondansetron HCl 4 mg 05/20/25 14:32 05/21/25 19:09 Ondansetron Inj 2 Mg/Ml Inj 2 Ml IVP 06/19/25 14:31 4 mg Q6H PRN Administration NAUSEA OR VOMITING Protocol Pantoprazole Sodium 40 mg 05/23/25 09:00 05/26/25 21:56 Pantoprazole Inj 40 Mg Vial IVP 06/22/25 08:59 40 mg BID HYACINTH Administration Pharmacy Consult 1 each 05/26/25 10:38 Pha To Consult Parenteral Nutr 1 Each Each XX 06/25/25 10:37 PRN PRN CONSULT Pregabalin 50 mg 05/23/25 14:00 05/27/25 05:15 Pregabalin 50 Mg Capsule PO 06/22/25 13:59 Not Given TID HYACINTH Simethicone 80 mg 05/22/25 23:13 05/23/25 22:16 Simethicone 80 Mg Chew PO 06/21/25 23:12 80 mg QID PRN Administration GAS Plan Mr. Melendez is a 79 yo gentleman with hx of recently diagnosed gastric adenocarcinoma (followed by Dr. Canada and Dr. Phillips, not yet started on chemo), PAD with BLE stents, HTN, history of PUD, COPD with no home oxygen, who presents to the ED with 2 episodes of hematemesis, concerning for upper GI bleed in the setting of gastric adenocarcinoma. Patient is scheduled to start chemotherapy on 05/24. GI consulted, s/p EGD with large volume emesis, c/f aspiration. on EGD, no active bleeding, s/p IR GI upper series which demonstrated outlet obstruction, CANCELLED transfer, NPO pending laproscopic J tube placement with Dr. Rosales today #Upper GI Bleed from ulcerated gastric tumor-stable #Gastric outlet obstruction 2/ #Gastric Adenocarcinoma (dx 03/2025) pt was recently diagnosed in 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 He was admitted to [facility] with upper GI bleed in March, he underwent EGD with Dr. Ascencio with biopsy which confirmed cancer diagnosis. Per patient he is intended to start chemotherapy workup on Saturday His daughter is planning to come from [place] on 05/24. (daughters Alia and Moriah). Patient has Chemo-Port in place on right upper chest placed on 05/18. -Dr. Phillips notified of patient's admission to the hospital, Dr. Phillips states that patient is fully worked up and does not need to be consulted on this admission. -Dr. Patricia notified of pt status EGD with old food, too thick for NG suction, defer NG tube, c/f #aspiration, pending IR directed Gastric series. Upper GI series with Gastric outlet obstruction, pending transfer to tertiary care for j tube. Dr. Patricia notified of pt status, can initiate chemo after pt stable on J tube feeds. (Harshad, q2week chemotherapy) Dx ? CBC ? CT abdomen pelvis with contrast, with significantly distended stomach ? CT chest with multiple noncalcified pulmonary nodules previously seen on imaging every 6 month see #COPD below given gastric cancer diagnosis there is concern for metastatic disease to the lung. ? EGD with no active bleeding, ulceration of gastric tumor, likely source of previous bleeding, concern for gastric outlet obstruction - s/p IR gastric upper GI series, which demonstrated gastric outlet obstruction - CANCELLED transfer to tertiary [facility] for J tube placement under IR guidance. ? GI consulted, appreciate recs Tx ?Avoid NSAIDs ?Transfusion if hemoglobin less than 7 ?Continue pantoprazole 40 BID IV #anorexia 2/2 gastric outlet obstruction-s/p J tube placement 05/27 #weight loss 2/2 malignancy #Malnutrition Current weight 60.3 kg, pt had significant weight loss 2/2 malignancy pt kept with minimal caloric intake during admission given c/f gastric outlet obstruction. per onc, reccomend J tube for nutrition. transfer cancelled, NPO at midnight, pending lap, J tube placement with Dr. Rosales monitor for possible refeeding syndrome. Dx - consult dietition, appreciate recs Tx - D5 LR 75 ml/hr given minimal PO caloric intake and serum gluc low normal - pending Jevity feeds through J tube. * Jevity 1.5 at 10 ml/hr via J-tube by pump. Advance 10 ml every 12 hrs to goal rate of 60 ml/hr x 24 hrs. If no IV fluids, water flushes of 40 ml/hr (or per MD). * Pt might be at risk for re feeding syndrome:Thiamine 100mg/day for 7 days; provide first dose at least 30 minutes before starting nutrition. Multivitamins/Minerals #c/f aspiration pneumonitis vs pna r/o during EGD, pt had emesis, and after scope was removed pt had 500 cc of emesis. pt afebrile and lungs are CTAB. WBC slightly elevated Dx - CTM signs of systemic infection - repeat CXR negative Tx - aspiration precautions - zofran 4mg PRN - head of bed at 45 degrees #HTN - cont home losartan 50 qd #GERD #Hx PUD at home pt takes omeprazole 20mg BID and famotidine 10 mg PRN, -cont protonix drip see #upper GI bleed above #COPD not on home oxygen, significant hyperextension seen on chest x-ray Per patient he has a history of pulmonary nodules seen on chest CT. He reports that he gets imaging done on his lungs every 6 months. His lung nodules that are certain size have been biopsied and have so far been benign. Dx ?CXR: Significant hyperexpansion and no lobar pneumonia Tx -cont home trellegy inhaler (pt own medication) -O2 supplementation PRN #PAD s/p BLE stents Tx Hold home aspirin 81 and Plavix iso GI bleed #LLE neuropathy pt reports parasthesia of LLE plantar surface of foot. pt reports improvement of symptoms Tx - cont pregabalin 50mg TID - SCDs #Asymptomatic Bradycardia vital signs stable, bradycardia noted. Dx EKG nl sinus, intermittently bradycardic to 50s on vital sign monitoring TSH wnl #Microcytic Anemia Query anemia of chronic disease iso gastric cancer vs anemia 2/2 acute blood losses. -CTM Hgb for acute drops - stable -transfuse if < 7 #Thrombocytosis Ddx query reactive thrombocytosis iso blood loss from GI bleed, vs gastric malignancy INR and PT wnl Dispo: Gastric outlet obstruction 2/2 malignancy,pending Jtube placement with Dr. Rosales Diet: NPO pending j tube placement today Bowel Reg: holding VTE ppx: SCD GI ppx: Protonix 40 BID Code status: FULL Case discussed with my senior resident Dr. Clemente Case discussed with my attending Dr. Rajesh Almaguer MD PGY-1
[2025-05-27] MEDS: Magnesium Sulfate 4 GM Ivpb 4 GM/50 ML BAG IV (08:45)
[2025-05-27] MEDS: LOSARTAN POTASSIUM 25 MG TABLET 50 MG PO (08:45)
[2025-05-27] MEDS: UMECLIDINIUM PO (08:46)
[2025-05-27] MEDS: VILANTEROL PO (08:46)
[2025-05-27] MEDS: TRELEGY PO (08:46)
[2025-05-27 10:30] LABS: INR 1.2 (0.9-1.3); Prothrombin Time 12.5 Seconds (9.0-12.2)
--- NOTE | 2025-05-27 13:50 | SUR.PHASEI ---
1350:Pt. wakes to name then drifts back to sleep, vitals stable, breathing unlabored, no complaint of pain or nausea, dressing to ABD CDI, J- tube is connected to leg bag to catch drainage. Per OR Rn Lpn Lvnkatharine Ortiz, leg bag is to be removed for feedings, then placed back on afterwards. Per MD Rosales he will update floor nurses tomorrow for when tube feedings can start. Report received from MD Low SEBASTIAN.
--- NOTE | 2025-05-27 13:50 | SUR.PHASEI ---
1350: Pt. wakes to name then drifts back to sleep, vitals stable, breathing unlabored, no complaint of pain or nausea, dressing to ABD CDI, peg tube is connected to leg bag to catch drainage. Per OR Data Modeling Architect Angel, leg bag is to be removed for feedings, then placed back on afterwards. Report received from MD Guerrero and Angel SEBASTIAN.
[2025-05-27] MEDS: fentaNYL CIT INJ 50 mCg/ML AMP 2ML IVP ×3 (13:59→14:31)
--- NOTE | 2025-05-27 14:19 | PD.SUROPNT ---
Date of Procedure 05/27/25 Pre Op Diagnosis Gastric outlet obstruction secondary to gastric adenocarcinoma Post Op Diagnosis Gastric outlet obstruction secondary to gastric adenocarcinoma Procedure Mini laparotomy with placement of feeding jejunostomy Findings Significantly distended stomach. Large fixed tumor at the distal aspect of the stomach near pylorus Procedure Description Patient brought into the operating room in supine position. After administration of general tracheal anesthesia, patient's abdomen prepped and draped in standard surgical manner. A mini laparotomy incision was made in mid epigastrium over his previous scar and dissection was deepened into soft tissue. Anterior abdominal fascia was divided. Patient was noted to have some adhesions from previous operation that were divided. He was noted to have significantly distended stomach extending to periumbilical region. The incision had to be extended distally so the small bowel could be reached. He was noted to have a large and fixed mass at the distal aspect of the stomach. The small bowel was eviscerated. An approximately 30 to 35 cm distal to ligament of Treitz a pursestring suture was placed using 2-0 Vicryl and a small enterotomy was created. A 20 [place] drain was placed through the enterotomy site and it was advanced distally. A second layer of pursestring suture using 2-0 Vicryl placed around the enterotomy site to secure the drain. An approximately 8 mm incision was made in the left mid abdomen and a drain was brought out of the opening. The jejunum around the feeding tube was secured with interrupted sutures using 3-0 silk into anterior abdominal fascia to further secure the feeding tube. Hemostasis was adequate and satisfactory. Anterior abdominal fascia was closed with running 0 PDS. The wound was washed and irrigated and the incision was closed with kaylan. Sterile dressings over the incision and drain sponge was placed around the feeding tube. Patient tolerated the procedure well. He was extubated. He was breathing spontaneously without difficulty and was transferred to postanesthesia care in stable condition. Instruments, needles and sponge counts were reported to be correct x 2. A drainage bag was placed at the end of the jejunostomy feeding tube. Anesthesia GETA Pathology / specimen None Estimated Blood Loss 10 Condition Stable Disposition PACU Surgeon Ziggy Rosales MD Surgical Staff Operation Date: 05/27/25 15:00 <No data on this case meets the specified criteria>
--- NOTE | 2025-05-27 14:59 | PC.SS ---
Rounding note: patient to have Jtube surgery with Dr. Rosales.
--- NOTE | 2025-05-27 15:00 | SUR.PHASEI ---
1500:Pt. AAOx4, vitals stable, breathing unlabored, complaint of pain, gave as much pain medication as I could safely, Pt. sensitive to pain medication, as soon as it was administered he would quickly fall asleep and SPO2 would decrease. Dressing to ABD CDI, leg bag attached to J-tube, gave report to Maricruz SEBASTIAN prior to transfer to room 383. Family made aware of transfer to room.
[2025-05-27] MEDS: DEXTROSE 5%-LACTATED RINGERS 1,000 ML 75 ML IV (15:40)
[2025-05-27] MEDS: CEFOXITIN 1 GM in SODIUM CHLORIDE 0.9% (Popper) 50 ML IV ×2 (17:26→23:04)
[2025-05-27] MEDS: MORPHINE SULF INJ 10 MG/ML VIAL 2 MG IVP ×2 (17:27→21:17)
[2025-05-27] MEDS: ACETAMINOPHEN IVPB 1,000 MG/100 ML VIAL 250 MG IV ×2 (18:01→23:04)
--- NOTE | 2025-05-27 19:32 | PD.IMPROG ---
Documentation for date of: 05/27/25 Subjective Subjective Interval history: Patient status post placement of a feeding gastrostomy tube via mini lap Fixed large tumor in the distal body of the stomach approaching pylorus and pyloric channel Exam Vital Signs Temp Pulse Resp BP Pulse Ox O2 Del Method O2 Flow Rate 97.8 F 60 18 109/65 91 L Nasal Cannula 3 05/27/25 15:40 05/27/25 15:40 05/27/25 15:40 05/27/25 15:40 05/27/25 15:40 05/27/25 15:40 05/27/25 15:40 Objective Labs 05/27/25 05:00 05/27/25 05:00 Labs: Laboratory Results - last 24 hr 05/27/25 05/27/25 05:00 10:04 WBC 8.6 RBC 4.76 Hgb 10.5 L Hct 35.1 L MCV 74 L MCH 22.1 L MCHC 29.9 L RDW Std Deviation 61.2 H Plt Count 578 H D Neut % (Auto) 75 Lymph % (Auto) 14 [place] % (Auto) 6 Eos % (Auto) 3 Baso % (Auto) 2 Neut # (Auto) 6.4 Lymph # (Auto) 1.2 [place] # (Auto) 0.5 Eos # (Auto) 0.2 Baso # (Auto) 0.1 Immature Gran # (Auto) 0.09 H Absolute Nucleated RBC 0.00 Immature Gran % 1 H Nucleated RBC % 0 PT 12.5 H INR 1.2 Sodium 141 Potassium 5.0 D Chloride 108 H Carbon Dioxide 29.8 Anion Gap 3 L BUN < 5 L Creatinine 1.0 Estim Creat Clear Calc 51.9 L eGFR > 60 BUN/Creatinine Ratio 5 L Glucose 114 H Calculated Osmolality 279 Calcium 8.9 Corrected Calcium 9.5 Phosphorus 3.2 Magnesium 1.7 Total Bilirubin 0.7 AST < 10 ALT < 7 L Alkaline Phosphatase 169 H Total Protein 5.2 L Albumin 3.3 L Globulin 1.9 L Albumin/Globulin Ratio 1.7 Impressions Impression: Gastric outlet obstruction status postplacement of a jejunostomy tube via mini lap Can start feeding through the jejunostomy tube Be very careful patient does not accidentally pull the tube out Assessment & Plan A&P Narrative Patient is a 79-year-old male with PMH of recently diagnosed gastric carcinoma presenting to the ER for hematemesis. #Hematemesis Hgb stable (11.7 to 11.9 ), MCV stable (73 to 74), platelet count decreasing to previous baseline (808 from 978), INR 1.0, alk phos elevated (343), Port-A-Cath placement normal Plan: EGD for potential therapeutic intervention tomorrow; clear liquid diet; NPO midnight #COPD, HTN, HLD, COPD Plan: As per primary team Patient seen by Dr. Daron Hood MD, and staffed with Dr. Malachi Ascencio MD, attending. Attending physician attestation Patient examined by me Laboratory data reviewed Imaging studies reviewed Treatment plan outlined for fiberoptic esophagogastroduodenoscopy with possible therapeutic intervention under intravenous moderate patient is scheduled for tomorrow Clear liquid diet at 12 midnight N.p.o. midnight tonight except p.o. meds IV Protonix Serial CBC Transfuse PRBC if the hemoglobin drops below 7 g Thank you very much for the opportunity to participate in the care of this patient Time Spent With Patient Time: Total time spent is greater than 50% in coordination of care (as documented) at patient's floor/unit and/or counseling patient:
[2025-05-28] VITALS (7 sets, daily range): BP systolic 121–139; BP diastolic 54–65; PULSE 52–79; RESP 15–19; TEMP 36.1–36.6; O2SAT 94–98
[2025-05-28] MEDS: ACETAMINOPHEN IVPB 1,000 MG/100 ML VIAL 250 MG IV ×2 (05:14→12:14)
[2025-05-28] MEDS: DEXTROSE 5%-LACTATED RINGERS 1,000 ML 75 ML IV (05:14)
[2025-05-28] MEDS: CEFOXITIN 1 GM in SODIUM CHLORIDE 0.9% (Popper) 50 ML IV ×2 (05:14→12:04)
[2025-05-28] MEDS: MORPHINE SULF INJ 10 MG/ML VIAL 2 MG IVP ×4 (05:31→23:34)
--- NOTE | 2025-05-28 06:12 | ESPR_ITS ---
<Statement entered by Yrn Mena MD - 05/31/25 16:11> I reviewed above note and agree with findings and plans. I have also personally examined the patient with medicine team and went over assessment and plan with medical team including spring intern and resident physician. <Statement entered by Young Espana MD - 05/28/25 16:54> Patient was examined and case was reviewed with team including attending physician. Note reviewed, I agree with most of its contents and agree with the patient's care. Patient seen today at the bedside found awake, alert, orientedx3. No overnight events reported. Vitals and labs reviewed. Patient is postop J-tube placement. Spoke to general surgery who recommended starting tube feeds we will initiate them as per dietary's recommendations and will advance to goal. Once at goal patient will be candidate for discharge. Case discussed with my attending Dr. Rajesh Espana MD PGY-2 Disclaimer: Despite multiple revisions, due to the dictation software being used, the document bellow may not be free of grammatical errors including phonetic/typographic errors. However, this does not deter from our commitment to providing health care in the patient's best interest in mind. Documentation for date of: 05/28/25 Subjective Subjective Interval history: NAEO Patient evaluated at bedside. Reports pain around site of incision, pain with sitting up unsupported. Per Dr. Rosales, kong to start tube feeding through jejunostomy feeding tube at 10 cc an hour. May start advancing tube feeding tomorrow by 10 cc every 6 hours until goal is reached. Also the feeding tube must be flushed with 50 cc water every 6 hours. Exam Vital Signs Temp Pulse Resp BP Pulse Ox O2 Del Method O2 Flow Rate 97.0 F 56 L 17 121/64 97 Nasal Cannula 3 05/28/25 04:00 05/28/25 04:00 05/28/25 04:00 05/28/25 04:00 05/28/25 04:00 05/28/25 00:00 05/28/25 00:00 Narrative Exam GENERAL: no acute distress, AAO x3, sitting upright in bed, frail. HEENT: Head AT/ NC. Mucous membranes dry. PERRL. temporal wasting CARDIOVASCULAR: RRR. Normal S1/S2, No m/r/g. No pitting edema of bilateral LEs. R chest with chemo port intact, no erythema or bleeding. RESPIRATORY: CTAB. No wheezing, rhonchi, crackles. GASTROINTESTINAL: Abdomen soft, non tender, nondistended. Incision is clean, dry and intact. Jejunostomy tube in place and intact with bilious drainage. MUSCULOSKELETAL:? No cyanosis or edema, no visible joint swelling. NEUROLOGICAL: CN II-XII grossly intact. No focal deficits. Sensation intact, symmetric.moving all 4 extremities spontaneously PSYCHIATRIC: Awake and alert, not agitated, normal mood and affect. SKIN: no jaundice, decreased turgor, several sebherric keratosis on face and neck and arms Objective Labs 05/28/25 05:43 05/28/25 05:43 Labs: Laboratory Results - last 24 hr 05/27/25 05/27/25 05:00 10:04 WBC 8.6 RBC 4.76 Hgb 10.5 L Hct 35.1 L MCV 74 L MCH 22.1 L MCHC 29.9 L RDW Std Deviation 61.2 H Plt Count 578 H D Neut % (Auto) 75 Lymph % (Auto) 14 Lane % (Auto) 6 Eos % (Auto) 3 Baso % (Auto) 2 Neut # (Auto) 6.4 Lymph # (Auto) 1.2 Lane # (Auto) 0.5 Eos # (Auto) 0.2 Baso # (Auto) 0.1 Immature Gran # (Auto) 0.09 H Absolute Nucleated RBC 0.00 Immature Gran % 1 H Nucleated RBC % 0 PT 12.5 H INR 1.2 Sodium 141 Potassium 5.0 D Chloride 108 H Carbon Dioxide 29.8 Anion Gap 3 L BUN < 5 L Creatinine 1.0 Estim Creat Clear Calc 51.9 L eGFR > 60 BUN/Creatinine Ratio 5 L Glucose 114 H Calculated Osmolality 279 Calcium 8.9 Corrected Calcium 9.5 Phosphorus 3.2 Magnesium 1.7 Total Bilirubin 0.7 AST < 10 ALT < 7 L Alkaline Phosphatase 169 H Total Protein 5.2 L Albumin 3.3 L Globulin 1.9 L Albumin/Globulin Ratio 1.7 Quality Measures Quality Measures VTE prophylaxis Advance care planning discussed with:: patient and child Assessment & Plan Assessment Current Active Medications: Generic Name Dose Route Start Last Admin Trade Name Freq PRN Reason Stop Dose Admin Albuterol 2.5 mg 05/27/25 13:49 Albuterol Rt 2.5 Mg/0.5 Ml Nebu INH X1 PRN WHEEZING Trelegy 100/62.5/25 0 ea 05/25/25 09:00 05/27/25 08:46 Mcg (Fluticasone, PO 06/24/25 08:59 1 puff Umeclidinium, DAILY HYACINTH Administration Vilanterol) Inhaler Dextrose/Lactated Ringer's 1,000 mls @ 75 mls/hr 05/22/25 17:00 05/28/25 05:14 D5-Lr IV 06/21/25 16:59 75 mls/hr .[id number] HYACINTH Administration Cefoxitin Sodium 1 gm/ Sodium 50 mls @ 100 mls/hr 05/27/25 18:00 05/28/25 05:14 Chloride IV 05/28/25 17:00 100 mls/hr Q6HR HYACINTH Administration Acetaminophen 1,000 mg in 100 mls @ 250 mls/hr 05/27/25 17:14 05/28/25 05:14 Ofirmev Inj IV 05/28/25 12:23 250 mls/hr Q6HR HYACINTH Administration Losartan Potassium 50 mg 05/25/25 09:00 05/27/25 08:45 Losartan Potassium 25 Mg Tablet PO 06/24/25 08:59 50 mg QDAY HYACINTH Administration Morphine Sulfate 2 mg 05/27/25 15:11 05/28/25 05:31 Morphine Sulf Inj 10 Mg/Ml Vial IVP 06/01/25 15:10 2 mg Q3H PRN Administration PAIN Ondansetron HCl 4 mg 05/20/25 14:32 05/21/25 19:09 Ondansetron Inj 2 Mg/Ml Inj 2 Ml IVP 06/19/25 14:31 4 mg Q6H PRN Administration NAUSEA OR VOMITING Protocol Pantoprazole Sodium 40 mg 05/23/25 09:00 05/27/25 21:05 Pantoprazole Inj 40 Mg Vial IVP 06/22/25 08:59 40 mg BID HYACINTH Administration Pharmacy Consult 1 each 05/26/25 10:38 Pha To Consult Parenteral Nutr 1 Each Each XX 06/25/25 10:37 PRN PRN CONSULT Pregabalin 50 mg 05/23/25 14:00 05/28/25 05:27 Pregabalin 50 Mg Capsule PO 06/22/25 13:59 Not Given TID HYACINTH Simethicone 80 mg 05/22/25 23:13 05/23/25 22:16 Simethicone 80 Mg Chew PO 06/21/25 23:12 80 mg QID PRN Administration GAS Plan Mr. Melendez is a 79 yo gentleman with hx of recently diagnosed gastric adenocarcinoma (followed by Dr. Canada and Dr. Phillips, not yet started on chemo), PAD with BLE stents, HTN, history of PUD, COPD with no home oxygen, who presents to the ED with 2 episodes of hematemesis, concerning for upper GI bleed in the setting of gastric adenocarcinoma. Patient is scheduled to start chemotherapy on 05/24. GI consulted, s/p EGD with large volume emesis, c/f aspiration. on EGD, no active bleeding, s/p IR GI upper series which demonstrated outlet obstruction, CANCELLED transfer, J tube placed 05/27. #Upper GI Bleed from ulcerated gastric tumor-stable #Gastric outlet obstruction #Gastric Adenocarcinoma (dx 03/2025) Diagnosed in 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 Admitted to [facility] with upper GI bleed in March, underwent EGD with Dr. Ascencio with biopsy which confirmed cancer diagnosis. Patient has Chemo-Port in place on right upper chest placed on 05/18. Dr. Patricia notified of pt status, can initiate chemo after pt stable on J tube feeds. (Harshad, q2week chemotherapy) Plan: - Daily CBC to monitor H&H - Avoid NSAIDs - Transfusion if hgb <7 - Continue Pantoprazole 40 mg BID IV ? GI consulted, appreciate recs #Anorexia 2/2 gastric outlet obstruction-s/p J tube placement 05/27 #Weight loss 2/2 malignancy #Malnutrition Jejunostomy placement 05/27 Plan: - Start Jevity 1.5 mg at 10 mL/hr via J tube by pump on 05/28 - Advance tube feeds by 10 cc every 6 hours , starting 05/29, until goal rate of 60 mL/hr x 24 hours achieved. If no IV fluids, water flushes of 40 mL/hr - Thiamine 100 mg/day x 7 days, c/f refeeding syndrome (Provide first dose at least 30 minutes before starting nutrition) #Hypertension - chronic Home meds: Losartan 50 mg daily BP appropriate Plan: - Continue Losartan 50 mg daily #GERD #Hx PUD Home meds: Omeprazole 20mg BID, Famotidine 10 mg PRN, Plan: - Continue Pantoprazole 40 mg BID IV #COPD Not on home oxygen Per patient he has a history of pulmonary nodules seen on chest CT. He reports that he gets imaging done on his lungs every 6 months. His lung nodules that are certain size have been biopsied and have so far been benign. SpO2 appropriate on 3L CXR 05/25: Significant hyperexpansion. Basilar bronchitis pattern. No lobar PNA or pulmonary edema. Plan: -Continue home Trelegy inhaler (pt own medication) -O2 supplementation PRN #PAD s/p BLE stents Plan: Hold home aspirin 81 and Plavix i/s/o GI bleed #LLE neuropathy Parasthesia of LLE plantar surface of foot Home meds: Pregabalin 50 mg TID Pt reports improved sx on home med Tx - Continue pregabalin 50mg TID - SCDs #Asymptomatic Bradycardia VSS TSH WNL EKG normal sinus bradycardia to 50s Plan: - CTM #Microcytic Anemia Query anemia of chronic disease iso gastric cancer vs anemia 2/2 acute blood losses. Hgb stable Plan: -CTM Hgb -transfuse if < 7 #Leukocytosis WBC 15.6 on 05/28 Most likely 2/2 reactive i/s/o J tube placement Plan: - CTM #Thrombocytosis - downtrending DDX: reactive thrombocytosis iso blood loss from GI bleed, vs gastric malignancy Plan: - CTM Dispo: Starting J tube Jevity feeds today, needs to be stable on tube feeds at goal rate before discharge Diet: Jevity feeds through J tube Bowel Reg: holding VTE ppx: SCD GI ppx: Protonix 40 BID Code status: FULL Plan discussed with Dr. Eid (senior resident) and Dr. Mena (attending) Phyllis Miller, PGY1
[2025-05-28 06:25] LABS: Basophils # (Auto) 0.1 Thou/mm3 (0.0-0.2); Basophils % (Auto) 1 % (0-2.5); Eosinophils # (Auto) 0.0 Thou/mm3 (0.0-0.5); Eosinophils % (Auto) 0 % (0-10); Hematocrit 37.7 % (41.0-53.0); Hemoglobin 11.5 g/dL (13.5-16.0); Immature Granulocytes Auto 0.27 Thou/mm3 (0.00-0.00); Lymphocytes # (Auto) 0.7 Thou/mm3 (1.0-4.8); Lymphocytes % (Auto) 4 % (10-50); Mean Corpuscular HGB Conc 30.5 g/dl (31.0-37.0); Mean Corpuscular Hemoglobin 22.4 pg (25.0-35.0); Mean Corpuscular Volume 73 fL (80-100); Monocytes # (Auto) 0.6 Thou/mm3 (0.0-0.8); Monocytes % (Auto) 4 % (0-12); Neutrophils # (Auto) 14.0 Thou/mm3 (1.8-7.7); Neutrophils % (Auto) 89 % (37-80); Nucleated Red Blood Cell # 0.00 Thou/mm3 (0.00-0.00); Nucleated Red Blood Cell % 0 /100 WBC (0); Platelet Count 563 Thou/mm3 (140-440); RDW Standard Deviation 60.7 fL (35.1-43.9); Red Blood Count 5.14 Miln/mm3 (4.50-5.90); White Blood Count 15.6 Thou/mm3 (3.8-10.6)
[2025-05-28 07:40] LABS: Alanine Aminotransferase < 7 U/L (10-49); Albumin, Serum 3.3 gm/dL (3.4-4.8); Albumin/Globulin Ratio 1.5 (1.2-2.2); Alkaline Phosphatase 165 U/L (46-116); Anion Gap 11 (7-16); Aspartate Amino Transferase 15 U/L (0-34); BUN/Creatinine Ratio 5 Ratio (12-20); Bilirubin,Total 1.0 mg/dL (0.3-1.2); Blood Urea Nitrogen < 5 mg/dL (9-23); Calcium 8.7 mg/dL (8.3-10.6); Calcium (Corrected) 9.3 mg/dL (8.5-10.1); Carbon Dioxide 21.5 mMol/L (20.0-31.0); Chloride 105 mMol/L (98-107); Creatinine (Component) 1.1 mg/dL (0.6-1.3); Estimated Creatinine Clearance 47.1 mL/min (>60); Globulin 2.2 gm/dL (2.3-3.5); Glucose 143 mg/dL (74-106); Magnesium 1.8 mg/dL (1.6-2.6); Osmolality,Calculated 273 (275-295); Phosphorous 3.4 mg/dL (2.4-5.1); Potassium 5.2 mMol/L (3.4-5.1); Sodium 137 mMol/L (136-145); Total Protein 5.5 gm/dL (5.7-8.2); eGFR > 60 See Note
[2025-05-28] MEDS: LOSARTAN POTASSIUM 25 MG TABLET 50 MG PO (10:00)
[2025-05-28] MEDS: TRELEGY PO (10:00)
[2025-05-28] MEDS: VILANTEROL PO (10:00)
[2025-05-28] MEDS: UMECLIDINIUM PO (10:00)
[2025-05-28] MEDS: DEXTROSE 50%-WATER INJ 50 ML SYRINGE IVP (10:25)
[2025-05-28] MEDS: INSULIN HUM REGULAR 1 UNIT/0.01 ML (PER UNIT) 5 UNIT IV (10:27)
[2025-05-28] MEDS: PREGABALIN 50 MG CAPSULE PO (13:10)
--- NOTE | 2025-05-28 13:19 | PD.SURPROG ---
Documentation for date of: 05/28/25 Subjective Subjective Narrative: Patient is seen and examined. He is resting comfortably. He is complaining of incisional pain. Exam Vital Signs Temp Pulse Resp BP Pulse Ox O2 Del Method O2 Flow Rate 97.3 F 79 17 136/54 H 94 L Room Air 3 05/28/25 12:00 05/28/25 12:00 05/28/25 12:00 05/28/25 12:05/28/25 12:05/28/25 12:05/28/25 00:00 Constitutional Constitutional: no acute distress Routine Abdominal Exam Comments: Abdomen is soft and nondistended. Incision is clean, dry and intact. Jejunostomy tube in place and intact with bilious drainage Assessment & Plan Assessment Additional comments: Postop day #1 status post laparotomy with placement of feeding jejunostomy Plan Patient may start having sips of clear liquids. Start tube feeding through jejunostomy feeding tube at 10 cc an hour today. May start advancing tube feeding tomorrow by 10 cc every 6 hours until goal is reached. Also the feeding tube must be flushed with 50 cc water every 6 hours. PROCEDURES: Procedures Mini laparotomy with placement of feeding jejunostomy
--- NOTE | 2025-05-28 14:39 | PC.SS ---
Rounding note: patient received surgery with Dr. Rosales, is now receiving tube feeding.
--- NOTE | 2025-05-28 16:16 | PC.SS ---
SS update: PIPE [employer]TER MARINE spoke to Nathan at [facility] informing that if the patient in room 383 R.A is needing formula over the weekend, the providing agency is [facility] [employer] Phone number: [phone] and fax: [phone].
--- NOTE | 2025-05-28 17:20 | PC.NURSE ---
Called Dr. Rosales and notified pt was having increased pain to stomach and it was getting hard to the touch. Per Dr. Rosales, insert NG tube to LIS.
[2025-05-28] MEDS: THIAMINE 100 MG TABLET PO (17:41)
[2025-05-28] MEDS: MULTIVITAMINS TABLET 1 TAB PO (17:42)
--- NOTE | 2025-05-28 18:48 | PC.NURSE ---
NG tube attempted x2 with no success. Will give report to noc shift and pass on insertion of NG tube.
--- NOTE | 2025-05-28 19:14 | PD.IMPROG ---
Documentation for date of: 05/28/25 Subjective Subjective Interval history: Some pain at the site of the jejunostomy tube placement which is incisional pain No nausea vomiting Exam Vital Signs Temp Pulse Resp BP Pulse Ox O2 Del Method O2 Flow Rate 97.8 F 64 18 139/61 H 97 Room Air 3 05/28/25 16:00 05/28/25 16:00 05/28/25 16:00 05/28/25 16:00 05/28/25 16:00 05/28/25 16:00 05/28/25 00:00 Objective Labs 05/28/25 05:43 05/28/25 05:43 Labs: Laboratory Results - last 24 hr 05/28/25 05:43 WBC 15.6 H D RBC 5.14 Hgb 11.5 L Hct 37.7 L MCV 73 L MCH 22.4 L MCHC 30.5 L RDW Std Deviation 60.7 H Plt Count 563 H Neut % (Auto) 89 H Lymph % (Auto) 4 L [place] % (Auto) 4 Eos % (Auto) 0 Baso % (Auto) 1 Neut # (Auto) 14.0 H Lymph # (Auto) 0.7 L [place] # (Auto) 0.6 Eos # (Auto) 0.0 Baso # (Auto) 0.1 Immature Gran # (Auto) 0.27 H Absolute Nucleated RBC 0.00 Immature Gran % 2 H Nucleated RBC % 0 Sodium 137 Potassium 5.2 H Chloride 105 Carbon Dioxide 21.5 Anion Gap 11 BUN < 5 L Creatinine 1.1 Estim Creat Clear Calc 47.1 L eGFR > 60 BUN/Creatinine Ratio 5 L Glucose 143 H Calculated Osmolality 273 L Calcium 8.7 Corrected Calcium 9.3 Phosphorus 3.4 Magnesium 1.8 Total Bilirubin 1.0 AST 15 ALT < 7 L Alkaline Phosphatase 165 H Total Protein 5.5 L Albumin 3.3 L Globulin 2.2 L Albumin/Globulin Ratio 1.5 Impressions Impression: Obstructing gastric adenocarcinoma leading to gastric outlet obstruction Status post placement of a jejunostomy tube Start trickle feeding via the jejunostomy tube Assessment & Plan A&P Narrative Patient is a 79-year-old male with PMH of recently diagnosed gastric carcinoma presenting to the ER for hematemesis. #Hematemesis Hgb stable (11.7 to 11.9 ), MCV stable (73 to 74), platelet count decreasing to previous baseline (808 from 978), INR 1.0, alk phos elevated (343), Port-A-Cath placement normal Plan: EGD for potential therapeutic intervention tomorrow; clear liquid diet; NPO midnight #COPD, HTN, HLD, COPD Plan: As per primary team Patient seen by Dr. Daron Hood MD, and staffed with Dr. Malachi Ascencio MD, attending. Attending physician attestation Patient examined by me Laboratory data reviewed Imaging studies reviewed Treatment plan outlined for fiberoptic esophagogastroduodenoscopy with possible therapeutic intervention under intravenous moderate patient is scheduled for tomorrow Clear liquid diet at 12 midnight N.p.o. midnight tonight except p.o. meds IV Protonix Serial CBC Transfuse PRBC if the hemoglobin drops below 7 g Thank you very much for the opportunity to participate in the care of this patient Time Spent With Patient Time: Total time spent is greater than 50% in coordination of care (as documented) at patient's floor/unit and/or counseling patient:
--- NOTE | 2025-05-28 21:09 | PC.NURSE ---
Tried to put NG tube 2x but didnt go in, Will try again in a later time.
[2025-05-28] MEDS: SIMETHICONE 80 MG CHEW PO (22:05)
--- NOTE | 2025-05-28 22:15 | PC.NURSE ---
MD Rosales made aware that pt is requesting to hold the NG tube insertion for tonight after trying multiple times tonight without sucess, per MD its okay but pt will be strict NPO, NG tube feeding okay to continue.
[2025-05-29] VITALS (9 sets, daily range): BP systolic 132–152; BP diastolic 60–88; PULSE 65–81; RESP 16–95; TEMP 36.2–36.7; O2SAT 93–99
[2025-05-29] MEDS: MORPHINE SULF INJ 10 MG/ML VIAL 2 MG IVP ×2 (05:50→10:15)
[2025-05-29] MEDS: DEXTROSE 5%-LACTATED RINGERS 1,000 ML 75 ML IV (05:53)
[2025-05-29 06:02] LABS: Basophils # (Auto) 0.1 Thou/mm3 (0.0-0.2); Basophils % (Auto) 1 % (0-2.5); Eosinophils # (Auto) 0.3 Thou/mm3 (0.0-0.5); Eosinophils % (Auto) 2 % (0-10); Hematocrit 35.8 % (41.0-53.0); Hemoglobin 10.9 g/dL (13.5-16.0); Immature Granulocytes Auto 0.13 Thou/mm3 (0.00-0.00); Lymphocytes # (Auto) 1.3 Thou/mm3 (1.0-4.8); Lymphocytes % (Auto) 10 % (10-50); Mean Corpuscular HGB Conc 30.4 g/dl (31.0-37.0); Mean Corpuscular Hemoglobin 22.1 pg (25.0-35.0); Mean Corpuscular Volume 73 fL (80-100); Monocytes # (Auto) 0.7 Thou/mm3 (0.0-0.8); Monocytes % (Auto) 5 % (0-12); Neutrophils # (Auto) 10.5 Thou/mm3 (1.8-7.7); Neutrophils % (Auto) 81 % (37-80); Nucleated Red Blood Cell # 0.00 Thou/mm3 (0.00-0.00); Nucleated Red Blood Cell % 0 /100 WBC (0); Platelet Count 553 Thou/mm3 (140-440); RDW Standard Deviation 59.8 fL (35.1-43.9); Red Blood Count 4.93 Miln/mm3 (4.50-5.90); White Blood Count 13.0 Thou/mm3 (3.8-10.6)
[2025-05-29 06:46] LABS: Alanine Aminotransferase < 7 U/L (10-49); Albumin, Serum 3.2 gm/dL (3.4-4.8); Albumin/Globulin Ratio 1.8 (1.2-2.2); Alkaline Phosphatase 156 U/L (46-116); Anion Gap 9 (7-16); Aspartate Amino Transferase 12 U/L (0-34); BUN/Creatinine Ratio 10 Ratio (12-20); Bilirubin,Total 0.6 mg/dL (0.3-1.2); Blood Urea Nitrogen 9 mg/dL (9-23); Calcium 8.4 mg/dL (8.3-10.6); Calcium (Corrected) 9.0 mg/dL (8.5-10.1); Carbon Dioxide 23.6 mMol/L (20.0-31.0); Chloride 106 mMol/L (98-107); Creatinine (Component) 0.9 mg/dL (0.6-1.3); Estimated Creatinine Clearance 57.6 mL/min (>60); Globulin 1.8 gm/dL (2.3-3.5); Glucose 97 mg/dL (74-106); Magnesium 1.5 mg/dL (1.6-2.6); Osmolality,Calculated 276 (275-295); Phosphorous 2.7 mg/dL (2.4-5.1); Potassium 4.2 mMol/L (3.4-5.1); Sodium 139 mMol/L (136-145); Total Protein 5.0 gm/dL (5.7-8.2); eGFR > 60 See Note
--- NOTE | 2025-05-29 07:31 | PD.SURPROG ---
Documentation for date of: 05/29/25 Subjective Subjective Narrative: Patient is seen and examined. He has some incisional tenderness. Last night patient had worsening abdominal distention, an NG tube was attempted however was not successful. This morning his abdominal distention has improved, he denies any nausea or vomiting. He had bowel movement yesterday. He is tolerating tube feeding via jejunostomy tube with 10 cc an hour Exam Vital Signs Temp Pulse Resp BP Pulse Ox O2 Del Method O2 Flow Rate 97.5 F 68 18 138/63 H 93 L Room Air 3 05/29/25 04:00 05/29/25 04:00 05/29/25 04:00 05/29/25 04:00 05/29/25 04:00 05/29/25 04:00 05/28/25 00:00 Constitutional Constitutional: no acute distress Routine Abdominal Exam Comments: His abdomen is soft and minimally distended. His incision is clean, dry and intact. Jejunostomy tube in place and intact Assessment & Plan Assessment Additional comments: Postop day #2 status post laparotomy with placement of feeding jejunostomy. Patient's abdominal distention is due to his gastric outlet obstruction as he has significantly distended stomach. He will need to be kept n.p.o. or he will require some kind of gastric tube to decompress stomach (NG, OG or possibly PEG tube). Plan Keep patient strict n.p.o. Advance tube feeding to 20 cc an hour, then advance by 10 cc every 6 hours until goal is reached. PROCEDURES: Procedures Mini laparotomy with placement of feeding jejunostomy
[2025-05-29] MEDS: DOCUSATE SOD LIQD 100 MG/10 ML UDC GT ×2 (09:14→21:11)
[2025-05-29] MEDS: THIAMINE 100 MG TABLET PO (09:15)
[2025-05-29] MEDS: MULTIVITAMINS TABLET 1 TAB PO (09:15)
[2025-05-29] MEDS: LOSARTAN POTASSIUM 25 MG TABLET 50 MG PO (09:15)
[2025-05-29] MEDS: Magnesium Sulfate 2 GM Ivpb 2 GM/50 ML BAG IV (10:16)
--- NOTE | 2025-05-29 12:12 | ESPR_ITS ---
<Statement entered by Yrn Mena MD - 05/31/25 16:11> I reviewed above note and agree with findings and plans. I have also personally examined the patient with medicine team and went over assessment and plan with medical team including [employer] internship and resident physician. <Statement entered by Young Espana MD - 05/30/25 00:18> Patient was examined and case was reviewed with team including attending physician. Note reviewed, I agree with most of its contents and agree with the patient's care. Patient seen today at the bedside found awake, alert, orientedx3. No overnight events reported. Vitals and labs reviewed. Patient apparently was having abdominal distention multiple attempts to place NG tube were made however unsuccessful. Patient stated that he coughed some blood up likely secondary to trauma after multiple attempts of NG tube insertion. Spoke to general surgery who recommended strict n.p.o. at this time. Additionally J-tube feedings being advanced as tolerated. Patient also having bowel movements at this time as reported. Patient also states that he wants to move around however any type of movement he states he gets severe pain and pain regimen was adjusted. Case discussed with my attending Dr. Rajesh Espana MD PGY-2 Documentation for date of: 05/29/25 Subjective Subjective Interval history: Patient had abdominal distension, tried to put in NG tube, failed. Patient had one episode of hemoptysis after NG tube placement attempt. No more episodes since then. NPO, per Dr. Rosales. Patient reports pain when using abdominal muscles to sit up, around site of J tube insertion. Getting morphine 2 mg IV q3h and pantoprazole 40 mg BID for acid reflux. Patient had 1 BM yesterday, no bright red blood per rectum or black stool. Currently at 20 cc/hr tube feeds. Exam Vital Signs Temp Pulse Resp BP Pulse Ox O2 Del Method O2 Flow Rate 97.6 F 65 16 152/88 H 93 L Room Air 3 05/29/25 08:00 05/29/25 09:15 05/29/25 08:00 05/29/25 09:15 05/29/25 08:00 05/29/25 08:00 05/28/25 00:00 Narrative Exam GENERAL: no acute distress, AAO x3, sitting upright in bed, frail. HEENT: Head AT/ NC. Mucous membranes dry. PERRL. temporal wasting CARDIOVASCULAR: RRR. Normal S1/S2, No m/r/g. No pitting edema of bilateral LEs. R chest with chemo port intact, no erythema or bleeding. RESPIRATORY: CTAB. No wheezing, rhonchi, crackles. GASTROINTESTINAL: Abdomen soft, non tender, nondistended. Incision is clean, dry and intact. Jejunostomy tube in place, no drainage or bleeding around insertion site. Tenderness to palpation around J tube site. MUSCULOSKELETAL:? No cyanosis or edema, no visible joint swelling. NEUROLOGICAL: CN II-XII grossly intact. No focal deficits. Sensation intact, symmetric.moving all 4 extremities spontaneously PSYCHIATRIC: Awake and alert, not agitated, normal mood and affect. SKIN: no jaundice, decreased turgor, several sebherric keratosis on face and neck and arms Objective Labs 05/29/25 05:11 05/29/25 05:11 Labs: Laboratory Results - last 24 hr 05/29/25 05:11 WBC 13.0 H RBC 4.93 Hgb 10.9 L Hct 35.8 L MCV 73 L MCH 22.1 L MCHC 30.4 L RDW Std Deviation 59.8 H Plt Count 553 H Neut % (Auto) 81 H Lymph % (Auto) 10 [place] % (Auto) 5 Eos % (Auto) 2 Baso % (Auto) 1 Neut # (Auto) 10.5 H Lymph # (Auto) 1.3 [place] # (Auto) 0.7 Eos # (Auto) 0.3 Baso # (Auto) 0.1 Immature Gran # (Auto) 0.13 H Absolute Nucleated RBC 0.00 Immature Gran % 1 H Nucleated RBC % 0 Sodium 139 Potassium 4.2 D Chloride 106 Carbon Dioxide 23.6 Anion Gap 9 BUN 9 Creatinine 0.9 Estim Creat Clear Calc 57.6 L eGFR > 60 BUN/Creatinine Ratio 10 L Glucose 97 Calculated Osmolality 276 Calcium 8.4 Corrected Calcium 9.0 Phosphorus 2.7 Magnesium 1.5 L Total Bilirubin 0.6 AST 12 ALT < 7 L Alkaline Phosphatase 156 H Total Protein 5.0 L Albumin 3.2 L Globulin 1.8 L Albumin/Globulin Ratio 1.8 Quality Measures Quality Measures VTE prophylaxis Advance care planning discussed with:: patient and child Assessment & Plan Assessment Current Active Medications: Generic Name Dose Route Start Last Admin Trade Name Freq PRN Reason Stop Dose Admin Albuterol 2.5 mg 05/27/25 13:49 Albuterol Rt 2.5 Mg/0.5 Ml Nebu INH X1 PRN WHEEZING Trelegy 100/62./ 0 ea 05/25/25 09:00 05/29/25 10:16 Mcg (Fluticasone, PO 06/24/25 08:59 Not Given Umeclidinium, DAILY HYACINTH Vilanterol) Inhaler Docusate Sodium 100 mg 05/29/25 09:00 05/29/25 09:14 Docusate Sod Liqd 100 Mg/10 Ml Udc GT 06/28/25 08:59 100 mg BID HYACINTH Administration Protocol Dextrose/Lactated Ringer's 1,000 mls @ 75 mls/hr 05/22/25 17:00 05/29/25 05:53 D5-Lr IV 06/21/25 16:59 75 mls/hr .[id number] HYACINTH Administration Losartan Potassium 50 mg 05/25/25 09:00 05/29/25 09:15 Losartan Potassium 25 Mg Tablet PO 06/24/25 08:59 50 mg QDAY HYACINTH Administration Morphine Sulfate 2 mg 05/27/25 15:11 05/29/25 10:15 Morphine Sulf Inj 10 Mg/Ml Vial IVP 06/01/25 15:10 2 mg Q3H PRN Administration PAIN Multivitamins 1 tab 05/28/25 14:30 05/29/25 09:15 Multivitamins Tablet PO 06/27/25 14:29 1 tab QDAY HYACINTH Administration Ondansetron HCl 4 mg 05/20/25 14:32 05/21/25 19:09 Ondansetron Inj 2 Mg/Ml Inj 2 Ml IVP 06/19/25 14:31 4 mg Q6H PRN Administration NAUSEA OR VOMITING Protocol Pantoprazole Sodium 40 mg 05/23/25 09:00 05/29/25 09:14 Pantoprazole Inj 40 Mg Vial IVP 06/22/25 08:59 40 mg BID HYACINTH Administration Pharmacy Consult 1 each 05/26/25 10:38 Pha To Consult Parenteral Nutr 1 Each Each XX 06/25/25 10:37 PRN PRN CONSULT Pregabalin 50 mg 05/23/25 14:00 05/29/25 05:45 Pregabalin 50 Mg Capsule PO 06/22/25 13:59 Not Given TID HYACINTH Simethicone 80 mg 05/22/25 23:13 05/28/25 22:05 Simethicone 80 Mg Chew PO 06/21/25 23:12 80 mg QID PRN Administration GAS Thiamine HCl 100 mg 05/28/25 14:30 05/29/25 09:15 Thiamine 100 Mg Tablet PO 06/27/25 14:29 100 mg QDAY HYACINTH Administration Plan Mr. Melendez is a 79 yo gentleman with hx of recently diagnosed gastric adenocarcinoma (followed by Dr. Canada and Dr. Phillips, not yet started on chemo), PAD with BLE stents, HTN, history of PUD, COPD with no home oxygen, who presents to the ED with 2 episodes of hematemesis, concerning for upper GI bleed in the setting of gastric adenocarcinoma. Patient is scheduled to start chemotherapy on 05/24. GI consulted, s/p EGD with large volume emesis, c/f aspiration. on EGD, no active bleeding, s/p IR GI upper series which demonstrated outlet obstruction, CANCELLED transfer, J tube placed 05/27, advancing tube feeds. #Upper GI Bleed from ulcerated gastric tumor-stable #Gastric outlet obstruction #Gastric Adenocarcinoma (dx 03/2025) Diagnosed in 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 Admitted to [facility] with upper GI bleed in March, underwent EGD with Dr. Ascencio with biopsy which confirmed cancer diagnosis. Patient has Chemo-Port in place on right upper chest placed on 05/18. Dr. Patricia notified of pt status, can initiate chemo after pt stable on J tube feeds. (Harshad, q2week chemotherapy) Plan: - Daily CBC to monitor H&H - Avoid NSAIDs - Transfusion if hgb <7 - Continue Pantoprazole 40 mg BID IV - Pain management with [place] 5-325 q6h, morphine 2 mg q3h PRN ? GI consulted, appreciate recs #Anorexia 2/2 gastric outlet obstruction-s/p J tube placement 05/27 #Weight loss 2/2 malignancy #Malnutrition Jejunostomy placement 05/27 Plan: - Increase Jevity 1.5 mg at 10 mL/hr J tube feeds by 10 cc q6h to goal rate 60 cc/hr - Advance tube feeds by 10 cc every 6 hours , starting 05/29, until goal rate of 60 mL/hr x 24 hours achieved. If no IV fluids, water flushes of 40 mL/hr - Thiamine 100 mg/day x 7 days, c/f refeeding syndrome (Provide first dose at least 30 minutes before starting nutrition) #Hypertension - chronic Home meds: Losartan 50 mg daily BP appropriate Plan: - Continue Losartan 50 mg daily #GERD #Hx PUD Home meds: Omeprazole 20mg BID, Famotidine 10 mg PRN, Plan: - Continue Pantoprazole 40 mg BID IV #COPD Not on home oxygen Per patient he has a history of pulmonary nodules seen on chest CT. He reports that he gets imaging done on his lungs every 6 months. His lung nodules that are certain size have been biopsied and have so far been benign. SpO2 appropriate on 3L CXR 05/25: Significant hyperexpansion. Basilar bronchitis pattern. No lobar PNA or pulmonary edema. Plan: -Continue home Trelegy inhaler (pt own medication) -O2 supplementation PRN #PAD s/p BLE stents Plan: Hold home aspirin 81 and Plavix i/s/o GI bleed #LLE neuropathy Parasthesia of LLE plantar surface of foot Home meds: Pregabalin 50 mg TID Pt reports improved sx on home med Tx - Continue pregabalin 50mg TID - SCDs #Asymptomatic Bradycardia VSS TSH WNL EKG normal sinus bradycardia to 50s Plan: - CTM #Microcytic Anemia Query anemia of chronic disease iso gastric cancer vs anemia 2/2 acute blood losses. Hgb stable Plan: -CTM Hgb -transfuse if < 7 #Leukocytosis WBC 15.6 on 05/28 Most likely 2/2 reactive i/s/o J tube placement Plan: - CTM #Thrombocytosis - downtrending DDX: reactive thrombocytosis iso blood loss from GI bleed, vs gastric malignancy Plan: - CTM Dispo: Increasing J tube Jevity feeds today Diet: Jevity feeds through J tube Bowel Reg: holding VTE ppx: SCD GI ppx: Protonix 40 BID Code status: FULL Plan discussed with Dr. Eid (senior resident) and Dr. Mena (attending) Phyllis Miller, PGY1
[2025-05-29] MEDS: HYDROcodone/APAP 5/325 TABLET 1 TAB PO (13:27)
[2025-05-29] MEDS: PREGABALIN 50 MG CAPSULE PO (13:27)
[2025-05-29] MEDS: ALBUTEROL/IPRATROPIUM (Duoneb) RT SOL 3 ML NEBU INH (15:05)
--- NOTE | 2025-05-29 17:06 | ESPR_ITS ---
Documentation for date of: 05/29/25 Subjective Subjective Interval history: Patient on trickle feed at 10 cc an hour via the jejunostomy tube which can be increased to the appropriate rate as tolerated Did have a bowel movement last night Exam Vital Signs Temp Pulse Resp BP Pulse Ox O2 Del Method O2 Flow Rate 98.1 F 72 19 132/60 H 93 L Room Air 3 05/29/25 16:41 05/29/25 16:41 05/29/25 16:41 05/29/25 16:41 05/29/25 16:41 05/29/25 16:41 05/28/25 00:00 Objective Labs 05/29/25 05:11 05/29/25 05:11 Labs: Laboratory Results - last 24 hr 05/29/25 05:11 WBC 13.0 H RBC 4.93 Hgb 10.9 L Hct 35.8 L MCV 73 L MCH 22.1 L MCHC 30.4 L RDW Std Deviation 59.8 H Plt Count 553 H Neut % (Auto) 81 H Lymph % (Auto) 10 [place] % (Auto) 5 Eos % (Auto) 2 Baso % (Auto) 1 Neut # (Auto) 10.5 H Lymph # (Auto) 1.3 [place] # (Auto) 0.7 Eos # (Auto) 0.3 Baso # (Auto) 0.1 Immature Gran # (Auto) 0.13 H Absolute Nucleated RBC 0.00 Immature Gran % 1 H Nucleated RBC % 0 Sodium 139 Potassium 4.2 D Chloride 106 Carbon Dioxide 23.6 Anion Gap 9 BUN 9 Creatinine 0.9 Estim Creat Clear Calc 57.6 L eGFR > 60 BUN/Creatinine Ratio 10 L Glucose 97 Calculated Osmolality 276 Calcium 8.4 Corrected Calcium 9.0 Phosphorus 2.7 Magnesium 1.5 L Total Bilirubin 0.6 AST 12 ALT < 7 L Alkaline Phosphatase 156 H Total Protein 5.0 L Albumin 3.2 L Globulin 1.8 L Albumin/Globulin Ratio 1.8 Impressions Impression: Gastric outlet obstruction due to adenocarcinoma requiring placement of a jejunostomy tube Increase the rate via jejunostomy tube as tolerated Assessment & Plan A&P Narrative Patient is a 79-year-old male with PMH of recently diagnosed gastric carcinoma presenting to the ER for hematemesis. #Hematemesis Hgb stable (11.7 to 11.9 ), MCV stable (73 to 74), platelet count decreasing to previous baseline (808 from 978), INR 1.0, alk phos elevated (343), Port-A-Cath placement normal Plan: EGD for potential therapeutic intervention tomorrow; clear liquid diet; NPO midnight #COPD, HTN, HLD, COPD Plan: As per primary team Patient seen by Dr. Daron Hood MD, and staffed with Dr. Malachi Ascencio MD, attending. Attending physician attestation Patient examined by me Laboratory data reviewed Imaging studies reviewed Treatment plan outlined for fiberoptic esophagogastroduodenoscopy with possible therapeutic intervention under intravenous moderate patient is scheduled for tomorrow Clear liquid diet at 12 midnight N.p.o. midnight tonight except p.o. meds IV Protonix Serial CBC Transfuse PRBC if the hemoglobin drops below 7 g Thank you very much for the opportunity to participate in the care of this patient Time Spent With Patient Time: Total time spent is greater than 50% in coordination of care (as documented) at patient's floor/unit and/or counseling patient:
[2025-05-29] MEDS: HYDROcodone/APAP 5/325 TABLET 1 TAB GT (19:23)
[2025-05-29] MEDS: PREGABALIN 50 MG CAPSULE GT (21:12)
[2025-05-30] MEDS: HYDROcodone/APAP 5/325 TABLET 1 TAB GT ×3 (03:11→19:49)
[2025-05-30 04:00] VITALS: BP 154/79; PULSE 74; RESP 18; TEMP 36.4; O2SAT 92
[2025-05-30] MEDS: PREGABALIN 50 MG CAPSULE GT ×3 (05:23→22:06)
[2025-05-30 06:51] LABS: Alanine Aminotransferase < 7 U/L (10-49); Albumin, Serum 3.2 gm/dL (3.4-4.8); Albumin/Globulin Ratio 2.0 (1.2-2.2); Alkaline Phosphatase 148 U/L (46-116); Anion Gap 10 (7-16); Aspartate Amino Transferase 13 U/L (0-34); BUN/Creatinine Ratio 14 Ratio (12-20); Bilirubin,Total 0.6 mg/dL (0.3-1.2); Blood Urea Nitrogen 13 mg/dL (9-23); Calcium 8.2 mg/dL (8.3-10.6); Calcium (Corrected) 8.8 mg/dL (8.5-10.1); Carbon Dioxide 24.9 mMol/L (20.0-31.0); Chloride 105 mMol/L (98-107); Creatinine (Component) 0.9 mg/dL (0.6-1.3); Estimated Creatinine Clearance 57.6 mL/min (>60); Globulin 1.6 gm/dL (2.3-3.5); Glucose 113 mg/dL (74-106); Magnesium 2.0 mg/dL (1.6-2.6); Osmolality,Calculated 280 (275-295); Phosphorous 3.4 mg/dL (2.4-5.1); Potassium 4.0 mMol/L (3.4-5.1); Sodium 140 mMol/L (136-145); Total Protein 4.8 gm/dL (5.7-8.2); eGFR > 60 See Note
[2025-05-30 07:31] LABS: Basophils # (Auto) 0.1 Thou/mm3 (0.0-0.2); Basophils % (Auto) 1 % (0-2.5); Eosinophils # (Auto) 0.3 Thou/mm3 (0.0-0.5); Eosinophils % (Auto) 3 % (0-10); Hematocrit 34.5 % (41.0-53.0); Hemoglobin 10.7 g/dL (13.5-16.0); Immature Granulocytes Auto 0.04 Thou/mm3 (0.00-0.00); Lymphocytes # (Auto) 1.1 Thou/mm3 (1.0-4.8); Lymphocytes % (Auto) 12 % (10-50); Mean Corpuscular HGB Conc 31.0 g/dl (31.0-37.0); Mean Corpuscular Hemoglobin 22.2 pg (25.0-35.0); Mean Corpuscular Volume 72 fL (80-100); Monocytes # (Auto) 0.5 Thou/mm3 (0.0-0.8); Monocytes % (Auto) 6 % (0-12); Neutrophils # (Auto) 7.1 Thou/mm3 (1.8-7.7); Neutrophils % (Auto) 77 % (37-80); Nucleated Red Blood Cell # 0.00 Thou/mm3 (0.00-0.00); Nucleated Red Blood Cell % 0 /100 WBC (0); Platelet Count 458 Thou/mm3 (140-440); RDW Standard Deviation 58.9 fL (35.1-43.9); Red Blood Count 4.81 Miln/mm3 (4.50-5.90); White Blood Count 9.2 Thou/mm3 (3.8-10.6)
[2025-05-30 08:00] VITALS: BP 137/68; PULSE 70; RESP 16; TEMP 36.1; O2SAT 94
[2025-05-30] MEDS: UMECLIDINIUM PO (08:57)
[2025-05-30] MEDS: VILANTEROL PO (08:57)
[2025-05-30] MEDS: TRELEGY PO (08:57)
[2025-05-30 08:58] VITALS: BP 137/68; PULSE 70
[2025-05-30] MEDS: DOCUSATE SOD LIQD 100 MG/10 ML UDC GT ×2 (08:58→20:29)
[2025-05-30] MEDS: LOSARTAN POTASSIUM 25 MG TABLET 50 MG GT (08:58)
[2025-05-30] MEDS: THIAMINE 100 MG TABLET GT (08:58)
[2025-05-30] MEDS: MULTIVITAMINS TABLET 1 TAB PO (08:59)
--- NOTE | 2025-05-30 09:32 | PC.CM ---
Addendum entered by Nina Bass RN 05/30/25 17:50: Patient has [employer] insurance so we will need to use [facility] and [employer] infusion company. Addendum entered by Nina Bass RN 05/30/25 17:49: During rounding I was told patient is not ready for discharge. Patient is getting trick feeds at this time and they are not able to advance. Patient will need new orders with dietary recommendations on the orders once patient is close to discharge. Addendum entered by Nina Bass RN 05/30/25 10:26: I left a message with dietary to verify the orders for g-tube feeds. Original Note: I called and spoke to Dr. Urban to find out if patient is ready to discharge with home healht and g-tube feeds. He states this is his first day so he will need to review patient. Patient will needs to be set up with home health and infusion team. Patient has [employer] insurance so [facility] and [employer] infusion company.
[2025-05-30 12:00] VITALS: BP 131/64; PULSE 89; RESP 17; TEMP 36.6; O2SAT 91
--- NOTE | 2025-05-30 12:00 | XR_ITS ---
Examination: AP chest single view Technique one AP portable semiupright chest single view Date and time: May 30, 2025, 1336 hrs., Comparison May 25, 2025 Indications: Gastric cancer diagnosis with gastrointestinal bleeding and chest pain today. Findings: Significant hyperexpansion Mild pneumonia left base. Right internal jugular Port-A-Cath tip satisfactory position No pulmonary edema Impression: Mild pneumonia left base
--- NOTE | 2025-05-30 12:44 | PD.SURPROG ---
Documentation for date of: 05/30/25 Subjective Subjective Narrative: Tolerating tube feeds well with no nausea, currently at 40 cc an hour, feeling that his distention is overall improved and pain is well-controlled with [place] Exam Vital Signs Temp Pulse Resp BP Pulse Ox O2 Del Method O2 Flow Rate 97.8 F 89 17 131/64 H 91 L Room Air 3 05/30/25 12:00 05/30/25 12:00 05/30/25 12:00 05/30/25 12:05/30/25 12:05/30/25 12:05/28/25 00:00 Constitutional Constitutional: no acute distress Routine Respiratory Exam Respiratory: Present no resp distress Routine Abdominal Exam Abdominal: Present soft and wound (Midline wound with kaylan intact, no surrounding erythema); Absent tenderness or distended Results Results: Laboratory Laboratory results: results reviewed Assessment & Plan Plan 79M with obstructing gastric CA s/p jejunostomy placement 05/27, recovering well Continue advancing tube feeds to goal PROCEDURES: Procedures Mini laparotomy with placement of feeding jejunostomy
--- NOTE | 2025-05-30 15:48 | ESPR_ITS ---
<Statement entered by Bi Toscano MD - 05/30/25 16:45> Senior Resident Attestation: I supervised/discussed management plan with design intern physician Dr. Roy, and was involved in the care of this patient. I personally saw and examined the patient and discussed the assessment and plan with the entire medicine team, including my attending. I agree with the assessment and plan as documented. No acute overnight events reported. Patient was seen and examined at the bedside. Patient reports mild pain at incision site when he cough but otherwise normal. He is tolerating G-tube feeds. Chest x-ray showed possible pneumonia over the left base and he was started on doxycycline and ceftriaxone. Will continue current management and monitor patient. Patient's care was discussed with attending physician, Dr. Pate. Bi Toscano MD PGY-3. Documentation for date of: 05/30/25 Subjective Subjective Interval history: Patient was seen at the bedside this morning. He reports that his pain is well controlled. Last bowel movement was two days ago. Denies dysuria, nausea, or vomiting. Endorses acid reflux but is aware he is receiving omeprazole. Denies shortness of breath. J-tube feeds are running at 40 mL/hr. Nursing staff notified the team of patient?s report of sharp left upper quadrant pain, worsened with inspiration. Upon evaluation, the patient stated he believes the abdominal pain is related to forceful coughing while attempting to expectorate mucus. Exam Vital Signs Temp Pulse Resp BP Pulse Ox O2 Del Method O2 Flow Rate 97.8 F 89 17 131/64 H 91 L Room Air 3 05/30/25 12:05/30/25 12:05/30/25 12:05/30/25 12:05/30/25 12:05/30/25 12:05/28/25 00:00 Narrative Exam GENERAL: no acute distress, AAO x3, sitting upright in bed, frail. HEENT: Head AT/ NC. Mucous membranes dry. PERRL. temporal wasting CARDIOVASCULAR: RRR. Normal S1/S2, No m/r/g. No pitting edema of bilateral LEs. R chest with chemo port intact, no erythema or bleeding. RESPIRATORY: CTAB. No wheezing, rhonchi, crackles. GASTROINTESTINAL: Abdomen soft, non tender, nondistended. Incision is clean, dry and intact. Jejunostomy tube in place, no drainage or bleeding around insertion site. Tenderness to palpation around J tube site. MUSCULOSKELETAL: No cyanosis or edema, no visible joint swelling. NEUROLOGICAL: CN II-XII grossly intact. No focal deficits. Sensation intact, symmetric.moving all 4 extremities spontaneously PSYCHIATRIC: Awake and alert, not agitated, normal mood and affect. SKIN: no jaundice, decreased turgor, several sebherric keratosis on face and neck and arms Objective Labs 05/31/25 05:51 05/31/25 05:51 Labs: Laboratory Results - last 24 hr 05/30/25 05/30/25 04:32 06:40 WBC 9.2 RBC 4.81 Hgb 10.7 L Hct 34.5 L MCV 72 L MCH 22.2 L MCHC 31.0 RDW Std Deviation 58.9 H Plt Count 458 H D Neut % (Auto) 77 Lymph % (Auto) 12 [place] % (Auto) 6 Eos % (Auto) 3 Baso % (Auto) 1 Neut # (Auto) 7.1 Lymph # (Auto) 1.1 [place] # (Auto) 0.5 Eos # (Auto) 0.3 Baso # (Auto) 0.1 Immature Gran # (Auto) 0.04 H Absolute Nucleated RBC 0.00 Immature Gran % 0 Nucleated RBC % 0 Sodium 140 Potassium 4.0 Chloride 105 Carbon Dioxide 24.9 Anion Gap 10 BUN 13 Creatinine 0.9 Estim Creat Clear Calc 57.6 L eGFR > 60 BUN/Creatinine Ratio 14 Glucose 113 H Calculated Osmolality 280 Calcium 8.2 L Corrected Calcium 8.8 Phosphorus 3.4 Magnesium 2.0 Total Bilirubin 0.6 AST 13 ALT < 7 L Alkaline Phosphatase 148 H Total Protein 4.8 L Albumin 3.2 L Globulin 1.6 L Albumin/Globulin Ratio 2.0 Quality Measures Quality Measures VTE prophylaxis Advance care planning discussed with:: patient and child Assessment & Plan Assessment Current Active Medications: Generic Name Dose Route Start Last Admin Trade Name Freq PRN Reason Stop Dose Admin Hydrocodone Bitart/Acetaminophen 1 tab 05/29/25 19:15 05/30/25 11:03 Hydrocodone/Apap 5/325 Tablet GT 06/03/25 12:44 1 tab Q6HR PRN Administration PAIN SCALE 4-10(Mod-Sev Albuterol 2.5 mg 05/27/25 13:49 Albuterol Rt 2.5 Mg/0.5 Ml Nebu INH X1 PRN WHEEZING Trelegy 100/62.5/25 0 ea 05/25/25 09:00 05/30/25 08:57 Mcg (Fluticasone, PO 06/24/25 08:59 1 puff Umeclidinium, DAILY HYACINTH Administration Vilanterol) Inhaler Docusate Sodium 100 mg 05/29/25 09:00 05/30/25 08:58 Docusate Sod Liqd 100 Mg/10 Ml Udc GT 06/28/25 08:59 100 mg BID HYACINTH Administration Protocol Losartan Potassium 50 mg 05/30/25 09:00 05/30/25 08:58 Losartan Potassium 25 Mg Tablet GT 06/29/25 08:59 50 mg QDAY HYACINTH Administration Morphine Sulfate 2 mg 05/29/25 12:35 Morphine Sulf Inj 10 Mg/Ml Vial IVP 06/01/25 15:10 Q3H PRN BREAKTHROUGH PAIN Multivitamins 1 tab 05/28/25 14:30 05/30/25 08:59 Multivitamins Tablet PO 06/27/25 14:29 1 tab QDAY HYACINTH Administration Ondansetron HCl 4 mg 05/20/25 14:32 05/21/25 19:09 Ondansetron Inj 2 Mg/Ml Inj 2 Ml IVP 06/19/25 14:31 4 mg Q6H PRN Administration NAUSEA OR VOMITING Protocol Pantoprazole Sodium 40 mg 05/23/25 09:00 05/30/25 08:57 Pantoprazole Inj 40 Mg Vial IVP 06/22/25 08:59 40 mg BID HYACINTH Administration Pharmacy Consult 1 each 05/26/25 10:38 Pha To Consult Parenteral Nutr 1 Each Each XX 06/25/25 10:37 PRN PRN CONSULT Pregabalin 50 mg 05/29/25 22:00 05/30/25 14:16 Pregabalin 50 Mg Capsule GT 06/28/25 21:59 50 mg TID HYACINTH Administration Simethicone 80 mg 05/22/25 23:13 05/28/25 22:05 Simethicone 80 Mg Chew PO 06/21/25 23:12 80 mg QID PRN Administration GAS Thiamine HCl 100 mg 05/30/25 09:00 05/30/25 08:58 Thiamine 100 Mg Tablet GT 06/29/25 08:59 100 mg QDAY HYACINTH Administration Plan Mr. Melendez is a 79 yo gentleman with hx of recently diagnosed gastric adenocarcinoma (followed by Dr. Canada and Dr. Phillips, not yet started on chemo), PAD with BLE stents, HTN, history of PUD, COPD with no home oxygen, who presents to the ED with 2 episodes of hematemesis, concerning for upper GI bleed in the setting of gastric adenocarcinoma. Patient is scheduled to start chemotherapy on 05/24. GI consulted, s/p EGD with large volume emesis, c/f aspiration. on EGD, no active bleeding, s/p IR GI upper series which demonstrated outlet obstruction, CANCELLED transfer, J tube placed 05/27, advancing tube feeds. Patient reports productive cough. #Community-acquired pneumonia Productive cough present CXR (05/30): Mild pneumonia left base WBC 9.2, afebrile Plan: - Start IV Ceftriaxone 1g QD and Doxycycline 100mg BID - Monitor for clinical response: vitals, O2 requirement, WBC trend and respiratory symptoms - Encourage incentive spirometry #Upper GI Bleed from ulcerated gastric tumor-stable #Gastric outlet obstruction #Gastric Adenocarcinoma (dx 03/2025) Diagnosed in 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 Admitted to [facility] with upper GI bleed in March, underwent EGD with Dr. Ascencio with biopsy which confirmed cancer diagnosis. Patient has Chemo-Port in place on right upper chest placed on 05/18. Dr. Patricia notified of pt status, can initiate chemo after pt stable on J tube feeds. (Harshad, q2week chemotherapy) Plan: - Daily CBC to monitor H&H - Avoid NSAIDs - Transfusion if hgb <7 - Continue Pantoprazole 40 mg BID IV - Pain management with [place] 5-325 q6h, morphine 2 mg q3h PRN ? GI consulted, appreciate recs #Failure to thrive #Anorexia 2/2 gastric outlet obstruction-s/p J tube placement 05/27 #Weight loss 2/2 malignancy #Malnutrition Jejunostomy placement 05/27 Plan: - Increase Jevity 1.5 mg at 10 mL/hr J tube feeds by 10 cc q6h to goal rate 60 cc/hr - Advance tube feeds by 10 cc every 6 hours , starting 05/29, until goal rate of 60 mL/hr x 24 hours achieved. If no IV fluids, water flushes of 40 mL/hr - Thiamine 100 mg/day x 7 days, c/f refeeding syndrome (Provide first dose at least 30 minutes before starting nutrition) #Hypertension - chronic Home meds: Losartan 50 mg daily BP appropriate Plan: - Continue Losartan 50 mg daily #GERD #Hx PUD Home meds: Omeprazole 20mg BID, Famotidine 10 mg PRN, Plan: - Continue Pantoprazole 40 mg BID IV #COPD Not on home oxygen Per patient he has a history of pulmonary nodules seen on chest CT. He reports that he gets imaging done on his lungs every 6 months. His lung nodules that are certain size have been biopsied and have so far been benign. SpO2 appropriate on 3L CXR 05/25: Significant hyperexpansion. Basilar bronchitis pattern. No lobar PNA or pulmonary edema. Plan: -Continue home Trelegy inhaler (pt own medication) -O2 supplementation PRN #PAD s/p BLE stents Plan: Hold home aspirin 81 and Plavix i/s/o GI bleed #LLE neuropathy Parasthesia of LLE plantar surface of foot Home meds: Pregabalin 50 mg TID Pt reports improved sx on home med Tx - Continue pregabalin 50mg TID - SCDs #Asymptomatic Bradycardia VSS TSH WNL EKG normal sinus bradycardia to 50s Plan: - CTM #Microcytic Anemia Query anemia of chronic disease iso gastric cancer vs anemia 2/2 acute blood losses. Hgb stable Plan: -CTM Hgb -transfuse if < 7 #Leukocytosis (resolved) WBC 15.6 on 05/28 Most likely 2/2 reactive i/s/o J tube placement Plan: - CTM #Thrombocytosis (downtrending) DDX: reactive thrombocytosis iso blood loss from GI bleed, vs gastric malignancy Plan: - CTM Dispo: Increasing J tube Jevity feeds today Diet: Jevity feeds through J tube Bowel Reg: holding VTE ppx: SCD GI ppx: Protonix 40 BID Code status: FULL Patient plan of care was discussed with the senior resident, Dr. Toscano, and attending physician, Dr. Pate. Castillo Roy, DO PGY-1 Attending Provider Attestation/Addendum I have examined the patient, reviewed labs and imaging findings, discussed the case with the resident(s), and reviewed entered orders. I agree with the plan of care as outlined in this note, with these additional summaries/recommendations: Patient and daughter seen at bedside. No acute overnight events. Patient continues to endorse intermittent moderate/severe abdominal pain at times. Discussed increasing pain regimen and patient to notify nursing staff if his pain is uncontrolled throughout the day. Patient is receiving trickle feeds through J-tube in the setting of gastric outlet obstruction secondary to gastric adenocarcinoma. Patient has upcoming appointment with oncology to discuss treatment options including chemotherapy, surgery, radiation. Patient has failure to thrive and consult in house dietary. Will continue to advance tube feeds as tolerated. Will monitor closely for refeeding syndrome. Repeat hematology and chemistry panel in AM. All questions answered to satisfaction. Please see residents note for additional details and management. Dr. Herlinda MD
[2025-05-30 16:00] VITALS: BP 133/75; PULSE 60; RESP 18; TEMP 36.4; O2SAT 94
--- NOTE | 2025-05-30 16:14 | PC.SS ---
Rounding: Pt still not at goal feeds, DC plan home with HH 24-48hrs
[2025-05-30] MEDS: cefTRIAXone/D5w 1gm IV premix 1 GM/50 ML BAG IV (16:30)
--- NOTE | 2025-05-30 16:50 | ESPR_ITS ---
Documentation for date of: 05/30/25 Subjective Subjective Interval history: Jejunal feeding rate via jejunostomy at 40 cc an hour Less abdominal distention Exam Vital Signs Temp Pulse Resp BP Pulse Ox O2 Del Method O2 Flow Rate 97.8 F 89 17 131/64 H 91 L Room Air 3 05/30/25 12:00 05/30/25 12:00 05/30/25 12:00 05/30/25 12:00 05/30/25 12:00 05/30/25 12:00 05/28/25 00:00 Objective Labs 05/30/25 06:40 05/30/25 04:32 Labs: Laboratory Results - last 24 hr 05/30/25 05/30/25 04:32 06:40 WBC 9.2 RBC 4.81 Hgb 10.7 L Hct 34.5 L MCV 72 L MCH 22.2 L MCHC 31.0 RDW Std Deviation 58.9 H Plt Count 458 H D Neut % (Auto) 77 Lymph % (Auto) 12 [place] % (Auto) 6 Eos % (Auto) 3 Baso % (Auto) 1 Neut # (Auto) 7.1 Lymph # (Auto) 1.1 [place] # (Auto) 0.5 Eos # (Auto) 0.3 Baso # (Auto) 0.1 Immature Gran # (Auto) 0.04 H Absolute Nucleated RBC 0.00 Immature Gran % 0 Nucleated RBC % 0 Sodium 140 Potassium 4.0 Chloride 105 Carbon Dioxide 24.9 Anion Gap 10 BUN 13 Creatinine 0.9 Estim Creat Clear Calc 57.6 L eGFR > 60 BUN/Creatinine Ratio 14 Glucose 113 H Calculated Osmolality 280 Calcium 8.2 L Corrected Calcium 8.8 Phosphorus 3.4 Magnesium 2.0 Total Bilirubin 0.6 AST 13 ALT < 7 L Alkaline Phosphatase 148 H Total Protein 4.8 L Albumin 3.2 L Globulin 1.6 L Albumin/Globulin Ratio 2.0 Impressions Impression: Status post jejunostomy for failure to thrive on enteral hyperalimentation Continue current management Assessment & Plan A&P Narrative Patient is a 79-year-old male with PMH of recently diagnosed gastric carcinoma presenting to the ER for hematemesis. #Hematemesis Hgb stable (11.7 to 11.9 ), MCV stable (73 to 74), platelet count decreasing to previous baseline (808 from 978), INR 1.0, alk phos elevated (343), Port-A-Cath placement normal Plan: EGD for potential therapeutic intervention tomorrow; clear liquid diet; NPO midnight #COPD, HTN, HLD, COPD Plan: As per primary team Patient seen by Dr. Daron Hood MD, and staffed with Dr. Malachi Ascencio MD, attending. Attending physician attestation Patient examined by me Laboratory data reviewed Imaging studies reviewed Treatment plan outlined for fiberoptic esophagogastroduodenoscopy with possible therapeutic intervention under intravenous moderate patient is scheduled for tomorrow Clear liquid diet at 12 midnight N.p.o. midnight tonight except p.o. meds IV Protonix Serial CBC Transfuse PRBC if the hemoglobin drops below 7 g Thank you very much for the opportunity to participate in the care of this patient Time Spent With Patient Time: Total time spent is greater than 50% in coordination of care (as documented) at patient's floor/unit and/or counseling patient:
[2025-05-30] MEDS: ONDANSETRON INJ 2 MG/ML INJ 2 ML 4 MG IVP (19:56)
[2025-05-30 20:00] VITALS: BP 146/75; PULSE 75; RESP 18; TEMP 36.3; O2SAT 93
[2025-05-30] MEDS: DOXYCYCLINE INJ 100 MG in SODIUM CHLORIDE 0.9% (POP) 100 ML IV (20:29)
--- NOTE | 2025-05-30 21:32 | PC.NURSE ---
Pt is throwing up and noted more distention that yesterday, nausea meds given per MD order, MD Lynch made aware, to hold tube feeding at this time. Pt was informed and verbalizes understanding.
[2025-05-31] VITALS: BP 145/78; PULSE 73; RESP 18; TEMP 36.6; O2SAT 92
[2025-05-31 04:00] VITALS: BP 148/81; PULSE 79; RESP 18; TEMP 36.3; O2SAT 91
[2025-05-31] MEDS: HYDROcodone/APAP 5/325 TABLET 1 TAB GT ×3 (04:18→22:59)
[2025-05-31] MEDS: PREGABALIN 50 MG CAPSULE GT ×2 (05:17→15:27)
[2025-05-31 06:12] LABS: Basophils # (Auto) 0.1 Thou/mm3 (0.0-0.2); Basophils % (Auto) 1 % (0-2.5); Eosinophils # (Auto) 0.3 Thou/mm3 (0.0-0.5); Eosinophils % (Auto) 3 % (0-10); Hematocrit 35.5 % (41.0-53.0); Hemoglobin 10.7 g/dL (13.5-16.0); Immature Granulocytes Auto 0.06 Thou/mm3 (0.00-0.00); Lymphocytes # (Auto) 1.1 Thou/mm3 (1.0-4.8); Lymphocytes % (Auto) 11 % (10-50); Mean Corpuscular HGB Conc 30.1 g/dl (31.0-37.0); Mean Corpuscular Hemoglobin 21.8 pg (25.0-35.0); Mean Corpuscular Volume 72 fL (80-100); Monocytes # (Auto) 0.5 Thou/mm3 (0.0-0.8); Monocytes % (Auto) 5 % (0-12); Neutrophils # (Auto) 8.2 Thou/mm3 (1.8-7.7); Neutrophils % (Auto) 81 % (37-80); Nucleated Red Blood Cell # 0.00 Thou/mm3 (0.00-0.00); Nucleated Red Blood Cell % 0 /100 WBC (0); Platelet Count 447 Thou/mm3 (140-440); RDW Standard Deviation 59.7 fL (35.1-43.9); Red Blood Count 4.91 Miln/mm3 (4.50-5.90); White Blood Count 10.2 Thou/mm3 (3.8-10.6)
--- NOTE | 2025-05-31 06:50 | PC.NURSE ---
MD Zuñiga made aware of pts vomiting around 500cc coffee ground colored, per MD will let day team know, nausea meds administered.
[2025-05-31 06:52] LABS: Alanine Aminotransferase 9 U/L (10-49); Albumin, Serum 3.3 gm/dL (3.4-4.8); Albumin/Globulin Ratio 1.7 (1.2-2.2); Alkaline Phosphatase 144 U/L (46-116); Anion Gap 8 (7-16); Aspartate Amino Transferase 14 U/L (0-34); BUN/Creatinine Ratio 13 Ratio (12-20); Bilirubin,Total 0.6 mg/dL (0.3-1.2); Blood Urea Nitrogen 12 mg/dL (9-23); Calcium 8.5 mg/dL (8.3-10.6); Calcium (Corrected) 9.1 mg/dL (8.5-10.1); Carbon Dioxide 28.8 mMol/L (20.0-31.0); Chloride 102 mMol/L (98-107); Creatinine (Component) 0.9 mg/dL (0.6-1.3); Estimated Creatinine Clearance 57.6 mL/min (>60); Globulin 2.0 gm/dL (2.3-3.5); Glucose 109 mg/dL (74-106); Magnesium 1.9 mg/dL (1.6-2.6); Osmolality,Calculated 278 (275-295); Phosphorous 3.2 mg/dL (2.4-5.1); Potassium 3.8 mMol/L (3.4-5.1); Sodium 139 mMol/L (136-145); Total Protein 5.3 gm/dL (5.7-8.2); eGFR > 60 See Note
[2025-05-31 07:26] VITALS: BP 111/63; PULSE 67; RESP 17; TEMP 36.3; O2SAT 94
--- NOTE | 2025-05-31 08:21 | PD.SURPROG ---
Documentation for date of: 05/31/25 Subjective Subjective Narrative: Patient is seen and examined. He was reported to have coffee-ground emesis. He has been tolerating jejunostomy tube feeding at 40 mL an hour and was reported to have a bowel movement Exam Vital Signs Temp Pulse Resp BP Pulse Ox O2 Del Method O2 Flow Rate 97.3 F 67 17 111/63 94 L Room Air 3 05/31/25 07:26 05/31/25 07:26 05/31/25 07:26 05/31/25 07:05/31/25 07:26 05/31/25 07:05/28/25 00:00 Constitutional Constitutional: no acute distress Routine Abdominal Exam Comments: Abdomen is soft and mildly distended. Incision is clean, dry and intact. Jejunostomy in place and intact Assessment & Plan Assessment Additional comments: Postop day #4 status post laparotomy with placement of feeding jejunostomy. Coffee-ground emesis is due to gastric adenocarcinoma and not related to jejunostomy feeding tube Plan Continue jejunostomy tube feeding. Coffee-ground emesis is due to gastric adenocarcinoma and not related to jejunostomy tube feeding. He will continue to experience intermittent episodes of emesis due to gastric outlet obstruction and tube feeding does not need to be stopped for that. PROCEDURES: Procedures Mini laparotomy with placement of feeding jejunostomy
[2025-05-31] MEDS: cefTRIAXone/D5w 1gm IV premix 1 GM/50 ML BAG IV (08:27)
[2025-05-31] MEDS: DOXYCYCLINE INJ 100 MG in SODIUM CHLORIDE 0.9% (POP) 100 ML IV ×2 (08:27→20:34)
--- NOTE | 2025-05-31 11:08 | PC.NURSE ---
Tube feeding resumed as per Dr. Rosales's order. Patient denies pain or nausea.
--- NOTE | 2025-05-31 11:28 | PC.NURSE ---
Tube feedings initiated at 1105. At 1128, patient began experiencing severe nausea and expressed the urge to vomit. Tube feeding was immediately stopped/discontinued. Dr. Rosales was notified.
[2025-05-31] MEDS: ONDANSETRON INJ 2 MG/ML INJ 2 ML 4 MG IVP (11:35)
[2025-05-31 11:41] VITALS: BP 145/74; PULSE 73; RESP 20; TEMP 36.3; O2SAT 92
--- NOTE | 2025-05-31 14:35 | ESPR_ITS ---
Documentation for date of: 05/31/25 Subjective Subjective Interval history: Patient had a bout of hematemesis I was called in by the internal medicine team Hemoglobin hematocrit around 10.7 and 35.5 same as yesterday No need for repeat endoscopy as patient is probably losing blood from his large mid body gastric adenocarcinoma Continue jejunostomy feeding Exam Vital Signs Temp Pulse Resp BP Pulse Ox O2 Del Method O2 Flow Rate 97.3 F 73 20 145/74 H 92 L Room Air 3 05/31/25 11:41 05/31/25 11:41 05/31/25 11:41 05/31/25 11:41 05/31/25 11:41 05/31/25 11:41 05/28/25 00:00 Objective Labs 05/31/25 05:51 05/31/25 05:51 Labs: Laboratory Results - last 24 hr 05/31/25 05:51 WBC 10.2 RBC 4.91 Hgb 10.7 L Hct 35.5 L MCV 72 L MCH 21.8 L MCHC 30.1 L RDW Std Deviation 59.7 H Plt Count 447 H Neut % (Auto) 81 H Lymph % (Auto) 11 [place] % (Auto) 5 Eos % (Auto) 3 Baso % (Auto) 1 Neut # (Auto) 8.2 H Lymph # (Auto) 1.1 [place] # (Auto) 0.5 Eos # (Auto) 0.3 Baso # (Auto) 0.1 Immature Gran # (Auto) 0.06 H Absolute Nucleated RBC 0.00 Immature Gran % 1 H Nucleated RBC % 0 Sodium 139 Potassium 3.8 Chloride 102 Carbon Dioxide 28.8 Anion Gap 8 BUN 12 Creatinine 0.9 Estim Creat Clear Calc 57.6 L eGFR > 60 BUN/Creatinine Ratio 13 Glucose 109 H Calculated Osmolality 278 Calcium 8.5 Corrected Calcium 9.1 Phosphorus 3.2 Magnesium 1.9 Total Bilirubin 0.6 AST 14 ALT 9 L Alkaline Phosphatase 144 H Total Protein 5.3 L Albumin 3.3 L Globulin 2.0 L Albumin/Globulin Ratio 1.7 Impressions Impression: # Hematemesis secondary to oozing of blood from the gastric adenocarcinoma No need for a repeat endoscopy Monitor CBC and transfuse if the hemoglobin drops below 7 g May be discussion should take place with the patient and the family if he was to undergo chemotherapy and then subsequent major surgical intervention or just called hospice Assessment & Plan A&P Narrative Patient is a 79-year-old male with PMH of recently diagnosed gastric carcinoma presenting to the ER for hematemesis. #Hematemesis Hgb stable (11.7 to 11.9 ), MCV stable (73 to 74), platelet count decreasing to previous baseline (808 from 978), INR 1.0, alk phos elevated (343), Port-A-Cath placement normal Plan: EGD for potential therapeutic intervention tomorrow; clear liquid diet; NPO midnight #COPD, HTN, HLD, COPD Plan: As per primary team Patient seen by Dr. Daron Hood MD, and staffed with Dr. Malachi Ascencio MD, attending. Attending physician attestation Patient examined by me Laboratory data reviewed Imaging studies reviewed Treatment plan outlined for fiberoptic esophagogastroduodenoscopy with possible therapeutic intervention under intravenous moderate patient is scheduled for tomorrow Clear liquid diet at 12 midnight N.p.o. midnight tonight except p.o. meds IV Protonix Serial CBC Transfuse PRBC if the hemoglobin drops below 7 g Thank you very much for the opportunity to participate in the care of this patient Time Spent With Patient Time: Total time spent is greater than 50% in coordination of care (as documented) at patient's floor/unit and/or counseling patient:
--- NOTE | 2025-05-31 15:08 | PC.CC ---
Addendum entered by Sybil Whitt RN 05/31/25 15:37: per LEMUEL Mcghee, pt does not want SNF, pt prefers Home with HH. Litzy will update doctor. Original Note: During rounds, Dr. Pate stated pt will need SNF instead of Home health. LEMUEL Mcghee to follow up.
--- NOTE | 2025-05-31 15:44 | PC.DIETICIAN ---
Nutrition prescription If J-tube feeds are resumed, consider: Osmolite 1.5 at 20 ml/hr via J-tube by pump. Advance 10 ml every 8 hrs to goal rate of 60 ml/hr x 24 hrs. If no IV fluids, water flushes of 40 ml/hr (or per MD). *No need to check residuals with J-tube feeds.
[2025-05-31 15:53] VITALS: BP 122/65; PULSE 78; RESP 20; TEMP 36.3; O2SAT 94
--- NOTE | 2025-05-31 16:21 | PC.SS ---
SS follow up note; SS followed up with patient and patient's daughter at bedside to discuss discharge plan. Patient and patient's daughter report they would like patient to discharge home with HH, no preference in HH agency. Patient was vomiting today therefore tube feedings had to be stopped. SS notified transfer nurse that Discharge plan will be home with HH.
--- NOTE | 2025-05-31 19:10 | XR_ITS ---
Examination: Abdomen AP single view Technique: AP portable supine abdomen, single view Exam date and time: May 31 1931 hours INDICATIONS: Vomiting today. FINDINGS: Contrast throughout the colon Nonobstructive bowel gas pattern No free air Midline surgical kaylan Iliac endoluminal stents IMPRESSION: Nonobstructive bowel gas pattern
--- NOTE | 2025-05-31 19:12 | PC.NURSE ---
Updated MD Ascencio in regards to pts current status not tolerating peg tube feeds d/t vomiting. Per MD hold peg tube feedings and keep pt NPO for now and new order for KUB. Orders entered and report given to night nurse Luis Antonio SEBASTIAN.
--- NOTE | 2025-05-31 19:15 | ESPR_ITS ---
<Statement entered by Young Espana MD - 05/31/25 19:33> Patient was examined and case was reviewed with team including attending physician. Note reviewed, I agree with most of its contents and agree with the patient's care. Patient seen today at the bedside found awake, alert, orientedx3. No overnight events reported. Vitals and labs reviewed. Patient today developed nausea and vomiting with tube feeds. Tube feeds were held and patient was put on bowel rest for today. Will know formulation in the a.m. General surgery and GI notified. Case discussed with my attending Dr. Herlinda Espana MD PGY-2 Documentation for date of: 05/31/25 Subjective Subjective Interval history: Overnight patient had 1 episode of coffee-ground emesis. Consulted Dr. Ascencio, no EGD, most likely secondary to gastric adenocarcinoma. Notified Dr. Rosales. Patient evaluated at bedside. No new symptoms. Patient was at 40 cc/hr tube feeds when he developed nausea and vomiting. Tube feeds held for bowel rest today. Will restart at 20 cc/hr with Osmolite formula starting 06/01, as this formula contains less fiber. Exam Vital Signs Temp Pulse Resp BP Pulse Ox O2 Del Method O2 Flow Rate 97.3 F 78 20 122/65 94 L Room Air 3 05/31/25 15:53 05/31/25 15:53 05/31/25 15:53 05/31/25 15:53 05/31/25 15:53 05/31/25 15:53 05/28/25 00:00 Narrative Exam GENERAL: no acute distress, AAO x3, sitting upright in bed, frail. HEENT: Head AT/ NC. Mucous membranes dry. PERRL. temporal wasting CARDIOVASCULAR: RRR. Normal S1/S2, No m/r/g. No pitting edema of bilateral LEs. R chest with chemo port intact, no erythema or bleeding. RESPIRATORY: CTAB. No wheezing, rhonchi, crackles. GASTROINTESTINAL: Abdomen soft, non tender, nondistended. Incision is clean, dry and intact. Jejunostomy tube in place, no drainage or bleeding around insertion site. Tenderness to palpation around J tube site. MUSCULOSKELETAL: No cyanosis or edema, no visible joint swelling. NEUROLOGICAL: CN II-XII grossly intact. No focal deficits. Sensation intact, symmetric.moving all 4 extremities spontaneously PSYCHIATRIC: Awake and alert, not agitated, normal mood and affect. SKIN: no jaundice, decreased turgor, several sebherric keratosis on face and neck and arms Objective Labs 06/01/25 05:12 06/01/25 05:12 Labs: Laboratory Results - last 24 hr 05/31/25 05:51 WBC 10.2 RBC 4.91 Hgb 10.7 L Hct 35.5 L MCV 72 L MCH 21.8 L MCHC 30.1 L RDW Std Deviation 59.7 H Plt Count 447 H Neut % (Auto) 81 H Lymph % (Auto) 11 [place] % (Auto) 5 Eos % (Auto) 3 Baso % (Auto) 1 Neut # (Auto) 8.2 H Lymph # (Auto) 1.1 [place] # (Auto) 0.5 Eos # (Auto) 0.3 Baso # (Auto) 0.1 Immature Gran # (Auto) 0.06 H Absolute Nucleated RBC 0.00 Immature Gran % 1 H Nucleated RBC % 0 Sodium 139 Potassium 3.8 Chloride 102 Carbon Dioxide 28.8 Anion Gap 8 BUN 12 Creatinine 0.9 Estim Creat Clear Calc 57.6 L eGFR > 60 BUN/Creatinine Ratio 13 Glucose 109 H Calculated Osmolality 278 Calcium 8.5 Corrected Calcium 9.1 Phosphorus 3.2 Magnesium 1.9 Total Bilirubin 0.6 AST 14 ALT 9 L Alkaline Phosphatase 144 H Total Protein 5.3 L Albumin 3.3 L Globulin 2.0 L Albumin/Globulin Ratio 1.7 Quality Measures Quality Measures VTE prophylaxis Advance care planning discussed with:: patient Assessment & Plan Assessment Current Active Medications: Generic Name Dose Route Start Last Admin Trade Name Freq PRN Reason Stop Dose Admin Hydrocodone Bitart/Acetaminophen 1 tab 05/29/25 19:15 05/31/25 15:23 Hydrocodone/Apap 5/325 Tablet GT 06/03/25 12:44 1 tab Q6HR PRN Administration PAIN SCALE 4-10(Mod-Sev Albuterol 2.5 mg 05/27/25 13:49 Albuterol Rt 2.5 Mg/0.5 Ml Nebu INH X1 PRN WHEEZING Trelegy 100/62.5 0 ea 05/25/25 09:00 05/31/25 09:19 Mcg (Fluticasone, PO 06/24/25 08:59 Not Given Umeclidinium, DAILY HYACINTH Vilanterol) Inhaler Docusate Sodium 100 mg 05/29/25 09:00 05/31/25 07:59 Docusate Sod Liqd 100 Mg/10 Ml Udc GT 06/28/25 08:59 Not Given BID HYACINTH Protocol Doxycycline Hyclate 100 mg/ 100 mls @ 100 mls/hr 05/30/25 21:00 05/31/25 08:27 Sodium Chloride IV 06/06/25 20:59 100 mls/hr BID HYACINTH Administration Ceftriaxone Sodium/Dextrose 1 gm in 50 mls @ 100 mls/hr 05/30/25 16:10 05/31/25 08:27 Rocephin/D5w 1gm Iv Premix IV 06/06/25 16:09 100 mls/hr QDAY HYACINTH Administration Losartan Potassium 50 mg 05/30/25 09:00 05/31/25 07:59 Losartan Potassium 25 Mg Tablet GT 06/29/25 08:59 Not Given QDAY HYACINTH Morphine Sulfate 2 mg 05/29/25 12:35 Morphine Sulf Inj 10 Mg/Ml Vial IVP 06/01/25 15:10 Q3H PRN BREAKTHROUGH PAIN Multivitamins 1 tab 05/28/25 14:30 05/31/25 08:00 Multivitamins Tablet PO 06/27/25 14:29 Not Given QDAY HYACINTH Ondansetron HCl 4 mg 05/20/25 14:32 05/31/25 11:35 Ondansetron Inj 2 Mg/Ml Inj 2 Ml IVP 06/19/25 14:31 4 mg Q6H PRN Administration NAUSEA OR VOMITING Protocol Pantoprazole Sodium 40 mg 05/23/25 09:00 05/31/25 08:27 Pantoprazole Inj 40 Mg Vial IVP 06/22/25 08:59 40 mg BID HYACINTH Administration Pharmacy Consult 1 each 05/26/25 10:38 Pha To Consult Parenteral Nutr 1 Each Each XX 06/25/25 10:37 PRN PRN CONSULT Pregabalin 50 mg 05/29/25 22:00 05/31/25 15:27 Pregabalin 50 Mg Capsule GT 06/28/25 21:59 50 mg TID HYACINTH Administration Simethicone 80 mg 05/22/25 23:13 05/28/25 22:05 Simethicone 80 Mg Chew PO 06/21/25 23:12 80 mg QID PRN Administration GAS Thiamine HCl 100 mg 05/30/25 09:00 05/31/25 08:00 Thiamine 100 Mg Tablet GT 06/29/25 08:59 Not Given QDAY HYACINTH Plan Mr. Melendez is a 79 yo gentleman with hx of recently diagnosed gastric adenocarcinoma (followed by Dr. Canada and Dr. Phillips, not yet started on chemo), PAD with BLE stents, HTN, history of PUD, COPD with no home oxygen, who presents to the ED with 2 episodes of hematemesis, concerning for upper GI bleed in the setting of gastric adenocarcinoma. Patient is scheduled to start chemotherapy on 05/24. GI consulted, s/p EGD with large volume emesis, c/f aspiration. on EGD, no active bleeding, s/p IR GI upper series which demonstrated outlet obstruction, CANCELLED transfer, J tube placed 05/27. Advancing tube feeds #Upper GI Bleed from ulcerated gastric tumor-stable #Gastric outlet obstruction #Gastric Adenocarcinoma (dx 03/2025) Diagnosed in 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 Admitted to [facility] with upper GI bleed in March, underwent EGD with Dr. Ascencio with biopsy which confirmed cancer diagnosis. Patient has Chemo-Port in place on right upper chest placed on 05/18. Dr. Patricia notified of pt status, can initiate chemo after pt stable on J tube feeds. (Harshad, q2week chemotherapy) 1 episode of coffee-ground emesis most likely secondary to gastric adenocarcinoma. Per Dr. Ascencio, no EGD necessary as emesis 2/2 Plan: - Daily CBC to monitor H&H - Avoid NSAIDs - Transfusion if hgb <7 - Continue Pantoprazole 40 mg BID IV - Pain management with [place] 5-325 q6h, morphine 2 mg q3h PRN ? GI consulted, appreciate recs #Anorexia 2/2 gastric outlet obstruction-s/p J tube placement 05/27 #Weight loss 2/2 malignancy #Malnutrition Jejunostomy placement 05/27 Patient not tolerating Jevity feeds at 40 cc/h. Plan: - Bowel rest w/ tube feed held 05/31. Start Osmolite formula at 20 cc/hr, increase by 10 cc/hr to goal rate 60 cc/hr - Thiamine 100 mg/day x 7 days, c/f refeeding syndrome (Provide first dose at least 30 minutes before starting nutrition) #Community-acquired pneumonia Productive cough present CXR (05/30): Mild pneumonia left base Afebrile, no leukocytosis Plan: - Continue IV Ceftriaxone 1g QD and Doxycycline 100mg BID (05/30 - 06/06) - CTM with temp, daily CBC - Encourage incentive spirometry #Hypertension - chronic Home meds: Losartan 50 mg daily BP appropriate Plan: - Continue Losartan 50 mg daily #GERD #Hx PUD Home meds: Omeprazole 20mg BID, Famotidine 10 mg PRN, Plan: - Continue Pantoprazole 40 mg BID IV #COPD Not on home oxygen Per patient he has a history of pulmonary nodules seen on chest CT. He reports that he gets imaging done on his lungs every 6 months. His lung nodules that are certain size have been biopsied and have so far been benign. SpO2 appropriate on 3L CXR 05/25: Significant hyperexpansion. Basilar bronchitis pattern. No lobar PNA or pulmonary edema. Plan: -Continue home Trelegy inhaler (pt own medication) -O2 supplementation PRN #PAD s/p BLE stents Plan: Hold home aspirin 81 and Plavix i/s/o GI bleed #LLE neuropathy Parasthesia of LLE plantar surface of foot Home meds: Pregabalin 50 mg TID Pt reports improved sx on home med Plan: - Continue pregabalin 50mg TID - SCDs #Asymptomatic Bradycardia VSS TSH WNL EKG normal sinus bradycardia to 50s Plan: - CTM #Microcytic Anemia Query anemia of chronic disease iso gastric cancer vs anemia 2/2 acute blood losses. Hgb stable Plan: -CTM Hgb -transfuse if < 7 #Leukocytosis WBC 15.6 on 05/28 Most likely 2/2 reactive i/s/o J tube placement Plan: - CTM #Thrombocytosis - downtrending DDX: reactive thrombocytosis iso blood loss from GI bleed, vs gastric malignancy Plan: - CTM Dispo: Bowel rest today, increase Osmolite tube feeds starting 06/01, starting at 20 cc/hr Diet: Osmolite feeds through J tube Bowel Reg: Docusate 100 mg BID, simethicone 80 mg QID VTE ppx: SCD GI ppx: Protonix 40 BID Code status: FULL Plan discussed with Dr. Eid (senior resident) and Dr. Pate (attending) Phyllis Miller, PGY1 Attending Provider Attestation/Addendum I have examined the patient, reviewed labs and imaging findings, discussed the case with the resident(s), and reviewed entered orders. I agree with the plan of care as outlined in this note, with these additional summaries/recommendations: Patient seen at bedside. Overnight patient had episode of hematemesis and tube feeds were placed on hold. No further episodes. Patient was seen by GI and general surgery and most likely hematemesis related to gastric adenocarcinoma. No repeat EGD or surgical intervention needed at this time. Tube feeds were resumed today and unfortunately patient developed intractable nausea and vomiting. Tube feeds stopped again and we will proceed with bowel rest today. Case discussed with dietary and tube feeds will be adjusted to see if this leads to improvement in intractable nausea/vomiting. Overall prognosis is guarded at this time as patient has gastric adenocarcinoma now with malnutrition and failure to thrive. We will continue to optimize nutritional goals but ultimately patient needs close outpatient follow-up with oncology center. Family and patient inquired about prognosis from malignancy which I will defer to oncology. I also discussed goals of care and jail placement as patient appears unable to complete all his ADLs at this time. Patient and daughter seen at bedside. No acute overnight events. Patient continues to endorse intermittent moderate/severe abdominal pain at times. Discussed increasing pain regimen and patient to notify nursing staff if his pain is uncontrolled throughout the day. Patient is receiving trickle feeds through J- tube in the setting of gastric outlet obstruction secondary to gastric adenocarcinoma. Patient has upcoming appointment with oncology to discuss treatment options including chemotherapy, surgery, radiation. Continue antibiotics for left base pneumonia. Will monitor closely for refeeding syndrome. Repeat hematology and chemistry panel in AM. All questions answered to satisfaction. Please see residents note for additional details and management. Dr. Herlinda MD
[2025-05-31 20:00] VITALS: BP 138/79; PULSE 65; RESP 16; TEMP 36.1; O2SAT 93
[2025-06-01] VITALS: BP 135/79; PULSE 78; RESP 16; TEMP 36.2; O2SAT 94
[2025-06-01] MEDS: HYDROcodone/APAP 5/325 TABLET 1 TAB GT ×3 (06:08→22:26)
[2025-06-01 06:09] LABS: Basophils # (Auto) 0.1 Thou/mm3 (0.0-0.2); Basophils % (Auto) 1 % (0-2.5); Eosinophils # (Auto) 0.4 Thou/mm3 (0.0-0.5); Eosinophils % (Auto) 4 % (0-10); Hematocrit 36.3 % (41.0-53.0); Hemoglobin 11.4 g/dL (13.5-16.0); Immature Granulocytes Auto 0.10 Thou/mm3 (0.00-0.00); Lymphocytes # (Auto) 1.2 Thou/mm3 (1.0-4.8); Lymphocytes % (Auto) 13 % (10-50); Mean Corpuscular HGB Conc 31.4 g/dl (31.0-37.0); Mean Corpuscular Hemoglobin 22.5 pg (25.0-35.0); Mean Corpuscular Volume 72 fL (80-100); Monocytes # (Auto) 0.5 Thou/mm3 (0.0-0.8); Monocytes % (Auto) 5 % (0-12); Neutrophils # (Auto) 6.9 Thou/mm3 (1.8-7.7); Neutrophils % (Auto) 75 % (37-80); Nucleated Red Blood Cell # 0.00 Thou/mm3 (0.00-0.00); Nucleated Red Blood Cell % 0 /100 WBC (0); Platelet Count 305 Thou/mm3 (140-440); RDW Standard Deviation 59.0 fL (35.1-43.9); Red Blood Count 5.07 Miln/mm3 (4.50-5.90); White Blood Count 9.2 Thou/mm3 (3.8-10.6)
[2025-06-01 06:40] LABS: Alanine Aminotransferase 15 U/L (10-49); Albumin, Serum 3.5 gm/dL (3.4-4.8); Albumin/Globulin Ratio 1.8 (1.2-2.2); Alkaline Phosphatase 142 U/L (46-116); Anion Gap 11 (7-16); Aspartate Amino Transferase 23 U/L (0-34); BUN/Creatinine Ratio 16 Ratio (12-20); Bilirubin,Total 0.6 mg/dL (0.3-1.2); Blood Urea Nitrogen 14 mg/dL (9-23); Calcium 8.7 mg/dL (8.3-10.6); Calcium (Corrected) 9.1 mg/dL (8.5-10.1); Carbon Dioxide 24.9 mMol/L (20.0-31.0); Chloride 103 mMol/L (98-107); Creatinine (Component) 0.9 mg/dL (0.6-1.3); Estimated Creatinine Clearance 57.6 mL/min (>60); Globulin 1.9 gm/dL (2.3-3.5); Glucose 79 mg/dL (74-106); Magnesium 1.4 mg/dL (1.6-2.6); Osmolality,Calculated 277 (275-295); Phosphorous 3.1 mg/dL (2.4-5.1); Potassium 4.4 mMol/L (3.4-5.1); Sodium 139 mMol/L (136-145); Total Protein 5.4 gm/dL (5.7-8.2); eGFR > 60 See Note
[2025-06-01 08:00] VITALS: BP 108/59; PULSE 59; RESP 18; TEMP 36.4; O2SAT 92
[2025-06-01] MEDS: UMECLIDINIUM PO (08:41)
[2025-06-01] MEDS: TRELEGY PO (08:41)
[2025-06-01] MEDS: VILANTEROL PO (08:41)
[2025-06-01] MEDS: cefTRIAXone/D5w 1gm IV premix 1 GM/50 ML BAG IV (08:41)
[2025-06-01] MEDS: DOXYCYCLINE INJ 100 MG in SODIUM CHLORIDE 0.9% (POP) 100 ML IV ×2 (09:19→20:22)
[2025-06-01] MEDS: Magnesium Sulfate 2 GM Ivpb 2 GM/50 ML BAG IV (09:19)
[2025-06-01] MEDS: METOCLOPRAMIDE INJ 5 MG/ML VIAL 2 ML IVP (11:59)
[2025-06-01 12:00] VITALS: BP 110/58; PULSE 62; RESP 18; TEMP 36.4; O2SAT 94
--- NOTE | 2025-06-01 13:00 | PC.NURSE ---
MD made aware of patient abdomen distended and patient vomiting mendes emesis and J-tube feeding paused.
[2025-06-01] MEDS: SIMETHICONE 80 MG CHEW PO ×2 (13:51→20:21)
[2025-06-01] MEDS: FAMOTIDINE 20 MG TABLET 40 MG PO ×2 (14:04→20:22)
--- NOTE | 2025-06-01 15:19 | PC.PT ---
Patient is safe to ambulate to the bathroom with no AD and no staff. Patient is safe to ambulate in the halls with no AD and 1 staff for safety over long distances. RN made aware.
[2025-06-01 16:00] VITALS: BP 106/71; PULSE 63; RESP 18; TEMP 36.4; O2SAT 97
--- NOTE | 2025-06-01 17:56 | ESPR_ITS ---
<Statement entered by Young Espana MD - 06/02/25 14:56> Patient was examined and case was reviewed with team including attending physician. Note reviewed, I agree with most of its contents and agree with the patient's care. Patient seen today at the bedside found awake, alert, orientedx3. No overnight events reported. Vital signs stable at this time. Patient and family frustrated as patient has been unable to tolerate tube feeds at this time as patient continues to have nausea and vomiting refractory to medications we give. They want the patient to be discharged to be able to go to his oncology appointment on . Will continue to monitor at this time. Case discussed with my attending Dr. Pate. Young Espana MD PGY-2 Documentation for date of: 06/01/25 Subjective Subjective Interval history: NAEO Patient restarted on tube feeds (Osmolite) 20 cc/hr. Was on tube feeds for 1 hour when he developed abdominal distension and pain. Tube feeds were stopped. Patient has been refusing Pantoprazole as he does not think that it is helping his GERD sx. Switched Pantoprazole to Famotidine, added Reglan per Dr. Ascencio's recommendations. Patient's last BM was 3 days ago, loose at that time w/o melena or hematochezia. Gave patient warm water enema today. Continue to hold tube feeds until patient has BM. Attempted to call Dr. Patricia today, did not get an answer. Patient's family concerned about starting chemotherapy for gastric adenocarcinoma, has an appointment with her on . Exam Vital Signs Temp Pulse Resp BP Pulse Ox O2 Del Method O2 Flow Rate 97.6 F 63 18 106/71 97 Room Air 3 06/01/25 16:00 06/01/25 16:06/01/25 16:06/01/25 16:06/01/25 16:06/01/25 16:05/28/25 00:00 Narrative Exam General: No acute distress, well nourished, lying in bed Eye: PERRL, EOMI, normal conjunctiva, no scleral icterus HENT: Normocephalic, atraumatic, normal hearing, moist oral mucosa, temporal wasting Neck: Supple, non-tender, no JVD, no lymphadenopathy Lungs: Clear to auscultation bilaterally, non-labored respirations, symmetric chest rise, no use of accessory muscles Heart: Normal S1 and S2, no S3 or S4 appreciated. Normal rate and regular rhythm, no murmurs, rubs gallops, or edema. Peripheral pulses intact bilaterally, capillary refill brisk distally. R chest with chemo port intact Abdomen: Jejunostomy tube in place, no drainage or bleeding around insertion site. Tenderness to palpation around J tube site. Mild abdominal distension. Musculoskeletal: Normal range of motion and strength, no tenderness or swelling Skin: Skin is warm, dry, no rashes. No jaundice. Midline abdominal incision intact with stables, clean, no drainage. Neurologic: Alert, awake and oriented x3. CN II-XII grossly intact. No focal neuro deficits. No signs of meningeal irritation noted. Psychiatric: Cooperative, appropriate mood and affect Objective Labs 06/01/25 05:12 06/01/25 05:12 Labs: Laboratory Results - last 24 hr 06/01/25 05:12 WBC 9.2 RBC 5.07 Hgb 11.4 L Hct 36.3 L MCV 72 L MCH 22.5 L MCHC 31.4 RDW Std Deviation 59.0 H Plt Count 305 D Neut % (Auto) 75 Lymph % (Auto) 13 [place] % (Auto) 5 Eos % (Auto) 4 Baso % (Auto) 1 Neut # (Auto) 6.9 Lymph # (Auto) 1.2 [place] # (Auto) 0.5 Eos # (Auto) 0.4 Baso # (Auto) 0.1 Immature Gran # (Auto) 0.10 H Absolute Nucleated RBC 0.00 Immature Gran % 1 H Nucleated RBC % 0 Sodium 139 Potassium 4.4 D Chloride 103 Carbon Dioxide 24.9 Anion Gap 11 BUN 14 Creatinine 0.9 Estim Creat Clear Calc 57.6 L eGFR > 60 BUN/Creatinine Ratio 16 Glucose 79 Calculated Osmolality 277 Calcium 8.7 Corrected Calcium 9.1 Phosphorus 3.1 Magnesium 1.4 L Total Bilirubin 0.6 AST 23 ALT 15 Alkaline Phosphatase 142 H Total Protein 5.4 L Albumin 3.5 Globulin 1.9 L Albumin/Globulin Ratio 1.8 Quality Measures Quality Measures VTE prophylaxis Advance care planning discussed with:: patient and child Assessment & Plan Assessment Current Active Medications: Generic Name Dose Route Start Last Admin Trade Name Freq PRN Reason Stop Dose Admin Hydrocodone Bitart/Acetaminophen 1 tab 05/29/25 19:15 06/01/25 16:23 Hydrocodone/Apap 5/325 Tablet GT 06/03/25 12:44 1 tab Q6HR PRN Administration PAIN SCALE 4-10(Mod-Sev Albuterol 2.5 mg 05/27/25 13:49 Albuterol Rt 2.5 Mg/0.5 Ml Nebu INH X1 PRN WHEEZING Trelegy 100/62.5/25 0 ea 05/25/25 09:00 06/01/25 08:41 Mcg (Fluticasone, PO 06/24/25 08:59 1 puff Umeclidinium, DAILY HYACINTH Administration Vilanterol) Inhaler Docusate Sodium 100 mg 05/29/25 09:00 06/01/25 08:43 Docusate Sod Liqd 100 Mg/10 Ml Udc GT 06/28/25 08:59 Not Given BID HYACINTH Protocol Famotidine 40 mg 06/01/25 13:45 06/01/25 14:04 Famotidine 20 Mg Tablet PO 07/01/25 13:44 40 mg BID HYACINTH Administration Doxycycline Hyclate 100 mg/ 100 mls @ 100 mls/hr 05/30/25 21:00 06/01/25 09:19 Sodium Chloride IV 06/06/25 20:59 100 mls/hr BID HYACINTH Administration Ceftriaxone Sodium/Dextrose 1 gm in 50 mls @ 100 mls/hr 05/30/25 16:10 06/01/25 08:41 Rocephin/D5w 1gm Iv Premix IV 06/06/25 16:09 100 mls/hr QDAY HYACINTH Administration Losartan Potassium 50 mg 05/30/25 09:00 06/01/25 08:43 Losartan Potassium 25 Mg Tablet GT 06/29/25 08:59 Not Given QDAY HYACINTH Metoclopramide HCl 5 mg 06/01/25 12:00 06/01/25 11:59 Metoclopramide Inj 5 Mg/Ml Vial 2 Ml IVP 07/01/25 11:59 5 mg Q6HR HYACINTH Administration Protocol Multivitamins 1 tab 05/28/25 14:30 06/01/25 08:44 Multivitamins Tablet PO 06/27/25 14:29 Not Given QDAY HYACINTH Ondansetron HCl 4 mg 05/20/25 14:32 05/31/25 11:35 Ondansetron Inj 2 Mg/Ml Inj 2 Ml IVP 06/19/25 14:31 4 mg Q6H PRN Administration NAUSEA OR VOMITING Protocol Pharmacy Consult 1 each 05/26/25 10:38 Pha To Consult Parenteral Nutr 1 Each Each XX 06/25/25 10:37 PRN PRN CONSULT Pregabalin 50 mg 05/29/25 22:00 06/01/25 13:15 Pregabalin 50 Mg Capsule GT 06/28/25 21:59 Not Given TID HYACINTH Simethicone 80 mg 05/22/25 23:13 06/01/25 13:51 Simethicone 80 Mg Chew PO 06/21/25 23:12 80 mg QID PRN Administration GAS Thiamine HCl 100 mg 05/30/25 09:00 06/01/25 08:44 Thiamine 100 Mg Tablet GT 06/29/25 08:59 Not Given QDAY HYACINTH Plan Mr. Melendez is a 79 y/o gentleman with hx of recently diagnosed gastric adenocarcinoma (followed by Dr. Canada and Dr. Phillips, not yet started on chemo), PAD with BLE stents, HTN, history of PUD, COPD with no home oxygen, who was admitted for upper GI bleed i/s/o gastric adenocarcinoma. IR GI upper series which demonstrated outlet obstruction 2/2 gastric cancer. J tube placed 05/27. Advancing tube feeds. #Upper GI Bleed from ulcerated gastric tumor-stable #Gastric outlet obstruction #Gastric Adenocarcinoma (dx 03/2025) Diagnosed in 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 Admitted to [facility] with upper GI bleed in March, underwent EGD with Dr. Ascencio with biopsy which confirmed cancer diagnosis. Patient has Chemo-Port in place on right upper chest placed on 05/18. Dr. Patricia notified of pt status, can initiate chemo after pt stable on J tube feeds. (Harshad, q2week chemotherapy) 1 episode of coffee-ground emesis most likely secondary to gastric adenocarcinoma. Per Dr. Ascencio, no EGD necessary as emesis 2/2 Patient's pain has been managed well with [place] q6h, not needing PRN morphine Plan: - Daily CBC to monitor H&H - Avoid NSAIDs - Transfusion if hgb <7 - Continue Pantoprazole 40 mg BID IV - Pain management with [place] 5-325 q6h, morphine 2 mg q3h PRN ? GI consulted, appreciate recs #Anorexia 2/2 gastric outlet obstruction-s/p J tube placement 05/27 #Weight loss 2/2 malignancy #Malnutrition Jejunostomy placement 05/27 Patient not tolerating Jevity feeds at 40 cc/h or Osmolite feeds at 20 cc/hr Plan: - Tube feeds held again 2/2 abdominal distension and pain. Will hold until patient has BM - Thiamine 100 mg/day x 7 days, c/f refeeding syndrome #Constipation Patient has not had a bowel movement in 3 days Patient continues to develop pain and abdominal distension when tube feeds are restarted (both with Jevity and Osmolite feeds) Abdominal XR 05/31: Nonobstructive bowel gas pattern, contrast throughout, no free air Plan: - Warm water enema - Colace 00 mg BID - Continue simethicone 80 mg QID #GERD #Hx PUD Home meds: Omeprazole 20mg BID, Famotidine 10 mg PRN, Patient continues to have acid reflux with frequent burping and occasional vomitus i/s/o gastric adenocarcinoma cause gastric outles obstruction Patient has been refusing pantoprazole as he does not think this is helping his sx Plan: - D/C pantoprazole - Started Famotidine 40 mg BID - Started Reglan 5 mg IV q6h per Dr. Ascencio - Will continue to assess sx #Community-acquired pneumonia Productive cough present CXR (05/30): Mild pneumonia left base Afebrile, no leukocytosis Plan: - Continue IV Ceftriaxone 1g QD and Doxycycline 100mg BID (05/30 - 06/06) - CTM with temp, daily CBC - Encourage incentive spirometry #Hypertension - chronic Home meds: Losartan 50 mg daily BP appropriate Plan: - Continue Losartan 50 mg daily #COPD Not on home oxygen Per patient he has a history of pulmonary nodules seen on chest CT. He reports that he gets imaging done on his lungs every 6 months. His lung nodules that are certain size have been biopsied and have so far been benign. SpO2 appropriate on 3L CXR 05/25: Significant hyperexpansion. Basilar bronchitis pattern. No lobar PNA or pulmonary edema. Plan: -Continue home Trelegy inhaler (pt own medication) -O2 supplementation PRN #PAD s/p BLE stents Plan: Hold home aspirin 81 and Plavix i/s/o GI bleed #LLE neuropathy Parasthesia of LLE plantar surface of foot Home meds: Pregabalin 50 mg TID Pt reports improved sx on home med Plan: - Continue pregabalin 50mg TID - SCDs #Asymptomatic Bradycardia VSS TSH WNL EKG normal sinus bradycardia to 50s Plan: - CTM #Microcytic Anemia Query anemia of chronic disease iso gastric cancer vs anemia 2/2 acute blood losses. Hgb stable Plan: -CTM Hgb -transfuse if < 7 #Leukocytosis WBC 15.6 on 05/28 Most likely 2/2 reactive i/s/o J tube placement Plan: - CTM #Thrombocytosis - downtrending DDX: reactive thrombocytosis iso blood loss from GI bleed, vs gastric malignancy Plan: - CTM Dispo: held tube feeds i/s/o abdominal distension and constipation, pending BM Diet: Osmolite feeds through J tube Bowel Reg: Docusate 100 mg BID, simethicone 80 mg QID, warm water enema VTE ppx: SCD GI ppx: Protonix 40 BID Code status: FULL Plan discussed with Dr. Eid (senior resident) and Dr. Pate (attending) Attending Provider Attestation/Addendum I have examined the patient, reviewed labs and imaging findings, discussed the case with the resident(s), and reviewed entered orders. I agree with the plan of care as outlined in this note, with these additional summaries/recommendations: Patient seen at bedside. No acute overnight events. Tube feeds were resumed today with new formula osmolite 1.5 RTH and unfortunately patient developed intractable nausea/abdominal pain again. Tube feeds unfortunately stopped again. Patient denies having a bowel movement in 3 days and constipation possibly contributing to patients symptoms. We will give aggressive bowel regimen today. If patient has BM we will resume tube feeds tomorrow to see if he tolerates. If no improvement we will have further goals of care. Overall prognosis is guarded at this time as patient has gastric adenocarcinoma now with malnutrition and failure to thrive. We will continue to optimize nutritional goals but ultimately patient needs close outpatient follow-up with oncology center. Family and patient inquired about prognosis from malignancy which I will defer to oncology. Patient updated on the plan and agreement. All questions answered to satisfaction. Please see residents note for additional details and management. Dr. Herlinda MD
[2025-06-01 20:00] VITALS: BP 100/61; PULSE 65; RESP 16; TEMP 36.3; O2SAT 93
[2025-06-01] MEDS: DOCUSATE SOD LIQD 100 MG/10 ML UDC GT (20:24)
--- NOTE | 2025-06-01 20:46 | PC.NURSE ---
okay to give 2100 meds through peg tube per Dr. Gallardo. Keep holding feedings per .
--- NOTE | 2025-06-01 21:02 | ESPR_ITS ---
Documentation for date of: 06/01/25 Subjective Subjective Interval history: Hemoglobin hematocrit 11.4 and 36 point Exam Vital Signs Temp Pulse Resp BP Pulse Ox O2 Del Method O2 Flow Rate 97.6 F 63 18 106/71 97 Room Air 3 06/01/25 16:00 06/01/25 16:00 06/01/25 16:00 06/01/25 16:00 06/01/25 16:00 06/01/25 16:00 05/28/25 00:00 Objective Labs 06/01/25 05:12 06/01/25 05:12 Labs: Laboratory Results - last 24 hr 06/01/25 05:12 WBC 9.2 RBC 5.07 Hgb 11.4 L Hct 36.3 L MCV 72 L MCH 22.5 L MCHC 31.4 RDW Std Deviation 59.0 H Plt Count 305 D Neut % (Auto) 75 Lymph % (Auto) 13 [place] % (Auto) 5 Eos % (Auto) 4 Baso % (Auto) 1 Neut # (Auto) 6.9 Lymph # (Auto) 1.2 [place] # (Auto) 0.5 Eos # (Auto) 0.4 Baso # (Auto) 0.1 Immature Gran # (Auto) 0.10 H Absolute Nucleated RBC 0.00 Immature Gran % 1 H Nucleated RBC % 0 Sodium 139 Potassium 4.4 D Chloride 103 Carbon Dioxide 24.9 Anion Gap 11 BUN 14 Creatinine 0.9 Estim Creat Clear Calc 57.6 L eGFR > 60 BUN/Creatinine Ratio 16 Glucose 79 Calculated Osmolality 277 Calcium 8.7 Corrected Calcium 9.1 Phosphorus 3.1 Magnesium 1.4 L Total Bilirubin 0.6 AST 23 ALT 15 Alkaline Phosphatase 142 H Total Protein 5.4 L Albumin 3.5 Globulin 1.9 L Albumin/Globulin Ratio 1.8 Impressions Impression: Large centrally ulcerated mass in the mid body of the stomach going all the way up to pyloric channel that is adenocarcinoma most of the cause of bleeding Fortunately hemoglobin hematocrit has stabilized Patient also had an admission gastric motility disorder Advance diet as tolerated probably liquid diet Try to resume the jejunostomy feeding Assessment & Plan A&P Narrative Patient is a 79-year-old male with PMH of recently diagnosed gastric carcinoma presenting to the ER for hematemesis. #Hematemesis Hgb stable (11.7 to 11.9 ), MCV stable (73 to 74), platelet count decreasing to previous baseline (808 from 978), INR 1.0, alk phos elevated (343), Port-A-Cath placement normal Plan: EGD for potential therapeutic intervention tomorrow; clear liquid diet; NPO midnight #COPD, HTN, HLD, COPD Plan: As per primary team Patient seen by Dr. Daron Hood MD, and staffed with Dr. Malachi Ascencio MD, attending. Attending physician attestation Patient examined by me Laboratory data reviewed Imaging studies reviewed Treatment plan outlined for fiberoptic esophagogastroduodenoscopy with possible therapeutic intervention under intravenous moderate patient is scheduled for tomorrow Clear liquid diet at 12 midnight N.p.o. midnight tonight except p.o. meds IV Protonix Serial CBC Transfuse PRBC if the hemoglobin drops below 7 g Thank you very much for the opportunity to participate in the care of this patient Time Spent With Patient Time: Total time spent is greater than 50% in coordination of care (as documented) at patient's floor/unit and/or counseling patient:
[2025-06-01] MEDS: PREGABALIN 50 MG CAPSULE GT (22:26)
[2025-06-02] VITALS: BP 119/71; PULSE 70; RESP 16; TEMP 36.3; O2SAT 95
[2025-06-02] MEDS: METOCLOPRAMIDE INJ 5 MG/ML VIAL 2 ML IVP (05:03)
[2025-06-02] MEDS: PREGABALIN 50 MG CAPSULE GT ×3 (05:04→21:40)
[2025-06-02] MEDS: HYDROcodone/APAP 5/325 TABLET 1 TAB GT ×3 (05:04→21:40)
[2025-06-02 08:00] VITALS: BP 135/75; PULSE 61; RESP 16; TEMP 36.4; O2SAT 95
[2025-06-02] MEDS: DOXYCYCLINE INJ 100 MG in SODIUM CHLORIDE 0.9% (POP) 100 ML IV ×2 (09:15→21:37)
[2025-06-02] MEDS: UMECLIDINIUM PO (09:15)
[2025-06-02] MEDS: TRELEGY PO (09:15)
[2025-06-02] MEDS: cefTRIAXone/D5w 1gm IV premix 1 GM/50 ML BAG IV (09:15)
[2025-06-02] MEDS: VILANTEROL PO (09:15)
[2025-06-02] MEDS: FAMOTIDINE 20 MG TABLET 40 MG PO ×2 (09:19→21:54)
[2025-06-02 09:53] LABS: Basophils # (Auto) 0.2 Thou/mm3 (0.0-0.2); Basophils % (Auto) 2 % (0-2.5); Eosinophils # (Auto) 0.4 Thou/mm3 (0.0-0.5); Eosinophils % (Auto) 6 % (0-10); Hematocrit 36.1 % (41.0-53.0); Hemoglobin 11.0 g/dL (13.5-16.0); Immature Granulocytes Auto 0.05 Thou/mm3 (0.00-0.00); Lymphocytes # (Auto) 1.3 Thou/mm3 (1.0-4.8); Lymphocytes % (Auto) 17 % (10-50); Mean Corpuscular HGB Conc 30.5 g/dl (31.0-37.0); Mean Corpuscular Hemoglobin 21.7 pg (25.0-35.0); Mean Corpuscular Volume 71 fL (80-100); Monocytes # (Auto) 0.4 Thou/mm3 (0.0-0.8); Monocytes % (Auto) 5 % (0-12); Neutrophils # (Auto) 5.3 Thou/mm3 (1.8-7.7); Neutrophils % (Auto) 70 % (37-80); Nucleated Red Blood Cell # 0.00 Thou/mm3 (0.00-0.00); Nucleated Red Blood Cell % 0 /100 WBC (0); Platelet Count 461 Thou/mm3 (140-440); RDW Standard Deviation 58.6 fL (35.1-43.9); Red Blood Count 5.06 Miln/mm3 (4.50-5.90); White Blood Count 7.5 Thou/mm3 (3.8-10.6)
[2025-06-02 10:14] LABS: Alanine Aminotransferase 12 U/L (10-49); Albumin, Serum 3.5 gm/dL (3.4-4.8); Albumin/Globulin Ratio 1.8 (1.2-2.2); Alkaline Phosphatase 141 U/L (46-116); Anion Gap 14 (7-16); Aspartate Amino Transferase 15 U/L (0-34); BUN/Creatinine Ratio 18 Ratio (12-20); Bilirubin,Total 0.7 mg/dL (0.3-1.2); Blood Urea Nitrogen 14 mg/dL (9-23); Calcium 8.8 mg/dL (8.3-10.6); Calcium (Corrected) 9.2 mg/dL (8.5-10.1); Carbon Dioxide 24.0 mMol/L (20.0-31.0); Cardiac Risk Estimate 3.9 RATIO (4.0-6.7); Chloride 101 mMol/L (98-107); Cholesterol 112 mg/dL (132-200); Creatinine (Component) 0.8 mg/dL (0.6-1.3); Estimated Creatinine Clearance 64.8 mL/min (>60); Globulin 2.0 gm/dL (2.3-3.5); Glucose 73 mg/dL (74-106); HDL Cholesterol 29 mg/dL (40-60); LDL Cholesterol,Calculated 60 mg/dL (0-130); Magnesium 1.9 mg/dL (1.6-2.6); Osmolality,Calculated 277 (275-295); Phosphorous 2.9 mg/dL (2.4-5.1); Potassium 4.1 mMol/L (3.4-5.1); Sodium 139 mMol/L (136-145); Total Protein 5.5 gm/dL (5.7-8.2); Triglycerides 113 mg/dL (30-150); eGFR > 60 See Note
[2025-06-02 12:00] VITALS: BP 112/71; PULSE 65; RESP 16; TEMP 36.6; O2SAT 95
--- NOTE | 2025-06-02 12:19 | PC.PT ---
Patient ambulated ~200ft with no AD yesterday and has been up to the bathroom xI multiple times per RN and patient's family at bedside. Will D/C patient from PT services at this time.
--- NOTE | 2025-06-02 13:53 | PD.RESPRO ---
Documentation for date of: 06/02/25 Subjective Subjective Interval history: Yesterday, added famotidine 40 mg BID and Reglan 5 mg IV q6h. No sx improvement. D/C pantoprazole, as patient was refusing doses as he did not feel that they were helping his acid reflux. Patient had not had BM in 3 days, given warm water enema, patient had loose stool. Patient had abdominal XR 05/31 that showed nonobstructive bowel gas pattern with contrast throughout. Since patient has not had food PO and has not been at goal rate for tube feeds, in addition to imaging study, unlikely there is a blockage below the J tube. Today, added pantoprazole 40 mg BID back for multimodal acid reflux control. Continues to endorse acid reflux and nausea. Started free water flushes through J tube to see if the tube feeds are irritating his intestines or if any fluid through the J tube causes pain and idstension. Talked with Dr. Patricia today. Patient will have phone visit with Dr. Patricia tomorrow, 06/03. She recommended NG tube for decompression of stomach, though patient already failed NG placement attempt several times previously during this hospitalization. She also recommended transferring to another facility such as [facility] for patient to get a stent placement to bypass the gastric adenocarcinoma to relieve the pain 2/2 cancer and/or gastric acid buildup. Exam Vital Signs Temp Pulse Resp BP Pulse Ox O2 Del Method O2 Flow Rate 97.8 F 65 16 112/71 95 Room Air 3 06/02/25 12:06/02/25 12:06/02/25 12:06/02/25 12:06/02/25 12:06/02/25 12:05/28/25 00:00 Narrative Exam General: No acute distress, well nourished, lying in bed Eye: PERRL, EOMI, normal conjunctiva, no scleral icterus HENT: Normocephalic, atraumatic, normal hearing, moist oral mucosa, temporal wasting Neck: Supple, non-tender, no JVD, no lymphadenopathy Lungs: Clear to auscultation bilaterally, non-labored respirations, symmetric chest rise, no use of accessory muscles Heart: Normal S1 and S2, no S3 or S4 appreciated. Normal rate and regular rhythm, no murmurs, rubs gallops, or edema. Peripheral pulses intact bilaterally, capillary refill brisk distally. R chest with chemo port intact Abdomen: Jejunostomy tube in place, no drainage or bleeding around insertion site. Tenderness to palpation around J tube site. Mild abdominal distension. Musculoskeletal: Normal range of motion and strength, no tenderness or swelling Skin: Skin is warm, dry, no rashes. No jaundice. Midline abdominal incision intact with stables, clean, no drainage. Neurologic: Alert, awake and oriented x3. CN II-XII grossly intact. No focal neuro deficits. No signs of meningeal irritation noted. Psychiatric: Cooperative, appropriate mood and affect Objective Labs 06/02/25 09:05 06/02/25 09:05 Labs: Laboratory Results - last 24 hr 06/02/25 09:05 WBC 7.5 RBC 5.06 Hgb 11.0 L Hct 36.1 L MCV 71 L MCH 21.7 L MCHC 30.5 L RDW Std Deviation 58.6 H Plt Count 461 H D Neut % (Auto) 70 Lymph % (Auto) 17 [place] % (Auto) 5 Eos % (Auto) 6 Baso % (Auto) 2 Neut # (Auto) 5.3 Lymph # (Auto) 1.3 [place] # (Auto) 0.4 Eos # (Auto) 0.4 Baso # (Auto) 0.2 Immature Gran # (Auto) 0.05 H Absolute Nucleated RBC 0.00 Immature Gran % 1 H Nucleated RBC % 0 Sodium 139 Potassium 4.1 Chloride 101 Carbon Dioxide 24.0 Anion Gap 14 BUN 14 Creatinine 0.8 Estim Creat Clear Calc 64.8 eGFR > 60 BUN/Creatinine Ratio 18 Glucose 73 L Calculated Osmolality 277 Calcium 8.8 Corrected Calcium 9.2 Phosphorus 2.9 Magnesium 1.9 Total Bilirubin 0.7 AST 15 ALT 12 Alkaline Phosphatase 141 H Total Protein 5.5 L Albumin 3.5 Globulin 2.0 L Albumin/Globulin Ratio 1.8 Triglycerides 113 Cholesterol 112 L LDL Cholesterol, Calc 60 HDL Cholesterol 29 L Cholesterol/HDL Ratio 3.9 L Quality Measures Quality Measures VTE prophylaxis Assessment & Plan Assessment Current Active Medications: Generic Name Dose Route Start Last Admin Trade Name Freq PRN Reason Stop Dose Admin Hydrocodone Bitart/Acetaminophen 1 tab 05/29/25 19:15 06/02/25 05:04 Hydrocodone/Apap 5/325 Tablet GT 06/06/25 19:14 1 tab Q6HR PRN Administration PAIN SCALE 4-10(Mod-Sev Albuterol 2.5 mg 05/27/25 13:49 Albuterol Rt 2.5 Mg/0.5 Ml Nebu INH X1 PRN WHEEZING Trelegy 100/62.5 0 ea 05/25/25 09:00 06/02/25 09:15 Mcg (Fluticasone, PO 06/24/25 08:59 1 puff Umeclidinium, DAILY HYACINTH Administration Vilanterol) Inhaler Docusate Sodium 100 mg 05/29/25 09:00 06/02/25 09:16 Docusate Sod Liqd 100 Mg/10 Ml Udc GT 06/28/25 08:59 Not Given BID HYACINTH Protocol Famotidine 40 mg 06/01/25 13:45 06/02/25 09:19 Famotidine 20 Mg Tablet PO 07/01/25 13:44 20 mg BID HYACINTH Administration Doxycycline Hyclate 100 mg/ 100 mls @ 100 mls/hr 05/30/25 21:00 06/02/25 09:15 Sodium Chloride IV 06/06/25 20:59 100 mls/hr BID HYACINTH Administration Ceftriaxone Sodium/Dextrose 1 gm in 50 mls @ 100 mls/hr 05/30/25 16:10 06/02/25 09:15 Rocephin/D5w 1gm Iv Premix IV 06/06/25 16:09 100 mls/hr QDAY HYACINTH Administration Losartan Potassium 50 mg 05/30/25 09:00 06/02/25 10:01 Losartan Potassium 25 Mg Tablet GT 06/29/25 08:59 Not Given QDAY HYACINTH Metoclopramide HCl 5 mg 06/01/25 12:00 06/02/25 11:47 Metoclopramide Inj 5 Mg/Ml Vial 2 Ml IVP 07/01/25 11:59 Not Given Q6HR HYACINTH Protocol Multivitamins 1 tab 05/28/25 14:30 06/02/25 09:16 Multivitamins Tablet PO 06/27/25 14:29 Not Given QDAY HYACINTH Ondansetron HCl 4 mg 05/20/25 14:32 05/31/25 11:35 Ondansetron Inj 2 Mg/Ml Inj 2 Ml IVP 06/19/25 14:31 4 mg Q6H PRN Administration NAUSEA OR VOMITING Protocol Pantoprazole Sodium 40 mg 06/02/25 14:00 Pantoprazole 40 Mg Tablet PO 07/02/25 13:59 BID HYACINTH Pharmacy Consult 1 each 05/26/25 10:38 Pha To Consult Parenteral Nutr 1 Each Each XX 06/25/25 10:37 PRN PRN CONSULT Pregabalin 50 mg 05/29/25 22:00 06/02/25 05:04 Pregabalin 50 Mg Capsule GT 06/28/25 21:59 50 mg TID HYACINTH Administration Simethicone 80 mg 05/22/25 23:13 06/01/25 20:21 Simethicone 80 Mg Chew PO 06/21/25 23:12 80 mg QID PRN Administration GAS Thiamine HCl 100 mg 05/30/25 09:00 06/02/25 09:16 Thiamine 100 Mg Tablet GT 06/29/25 08:59 Not Given QDAY HYACINTH Plan Mr. Melendez is a 79 y/o gentleman with hx of recently diagnosed gastric adenocarcinoma (followed by Dr. Canada and Dr. Phillips, not yet started on chemo), PAD with BLE stents, HTN, history of PUD, COPD with no home oxygen, who was admitted for upper GI bleed i/s/o gastric adenocarcinoma. IR GI upper series which demonstrated outlet obstruction 2/2 gastric cancer. J tube placed 05/27. Not tolerating advancing tube feeds. #Upper GI Bleed from ulcerated gastric tumor-stable #Gastric outlet obstruction #Gastric Adenocarcinoma (dx 03/2025) Diagnosed in 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 [facility] with upper GI bleed in March, underwent EGD with Dr. Ascencio with biopsy which confirmed cancer diagnosis. Patient has Chemo-Port in place on right upper chest placed on 05/18. Patient continues to have acid reflux, pain, and distension of abdomen with any administration of tube feeds or medicaitons through J tube Per Dr. Patricia 06/02: Recommended transferring to another facility such as [facility] for patient to get a stent placement to bypass the gastric adenocarcinoma to relieve the pain 2/2 cancer and/or gastric acid buildup Plan: - Daily CBC to monitor H&H - Avoid NSAIDs - Transfusion if hgb <7 - Continue Pantoprazole 40 mg BID IV, famotidine 40 mg BID, Reglan 5 mg IV q6h - Pain management with Nucla 5-325 q6h, morphine 2 mg q3h PRN ? GI consulted, appreciate recs #Anorexia 2/2 gastric outlet obstruction-s/p J tube placement 05/27 #Weight loss 2/2 malignancy #Malnutrition Jejunostomy placement 05/27 Patient not tolerating Jevity feeds at 40 cc/h or Osmolite feeds at 20 cc/hr Patient had BM 2/2 warm water enema 06/01. Plan: - Tube feeds held again 2/2 abdominal distension and pain. Free water flushes through J tube to see if the tube feeds are irritating his intestines or if any fluid through the J tube causes pain and idstension. - Thiamine 100 mg/day x 7 days, c/f refeeding syndrome #Constipation - resolved Resolved with warm water enema Abdominal XR 05/31: Nonobstructive bowel gas pattern, contrast throughout, no free air Plan: - Colace 00 mg BID - Continue simethicone 80 mg QID #GERD #Hx PUD Home meds: Omeprazole 20mg BID, Famotidine 10 mg PRN Patient continues to have acid reflux with frequent burping and occasional vomitus i/s/o gastric adenocarcinoma cause gastric outles obstruction Plan: - Continue Famotidine 40 mg BID, Pantoprazole 40 mg BID IV, Reglan 5 mg IV q6h - CTM sx #Community-acquired pneumonia Productive cough present CXR (05/30): Mild pneumonia left base Afebrile, no leukocytosis Plan: - Continue IV Ceftriaxone 1g QD and Doxycycline 100mg BID (05/30 - 06/06) - CTM with temp, daily CBC - Encourage incentive spirometry #Hypertension - chronic Home meds: Losartan 50 mg daily BP appropriate Plan: - Continue Losartan 50 mg daily #COPD Not on home oxygen Per patient he has a history of pulmonary nodules seen on chest CT. He reports that he gets imaging done on his lungs every 6 months. His lung nodules that are certain size have been biopsied and have so far been benign. SpO2 appropriate on 3L CXR 05/25: Significant hyperexpansion. Basilar bronchitis pattern. No lobar PNA or pulmonary edema. Plan: -Continue home Trelegy inhaler (pt own medication) -O2 supplementation PRN #PAD s/p BLE stents Plan: Hold home aspirin 81 and Plavix i/s/o GI bleed #LLE neuropathy Parasthesia of LLE plantar surface of foot Home meds: Pregabalin 50 mg TID Pt reports improved sx on home med Plan: - Continue pregabalin 50mg TID - SCDs #Asymptomatic Bradycardia VSS TSH WNL EKG normal sinus bradycardia to 50s Plan: - CTM #Microcytic Anemia DDX: anemia of chronic disease iso gastric cancer vs anemia 2/2 acute blood losses. Hgb stable Plan: -CTM Hgb -transfuse if < 7 #Leukocytosis WBC 15.6 on 05/28 Most likely 2/2 reactive i/s/o J tube placement Plan: - CTM #Thrombocytosis - downtrending DDX: reactive thrombocytosis iso blood loss from GI bleed, vs gastric malignancy Plan: - CTM Dispo: held tube feeds i/s/o abdominal distension and constipation, pending BM Diet: Osmolite feeds through J tube Bowel Reg: Docusate 100 mg BID, simethicone 80 mg QID, warm water enema VTE ppx: SCD GI ppx: Protonix 40 BID Code status: FULL Plan discussed with Dr. Eid (senior resident) and Dr. Pate (attending) Phyllis Miller MD PGY1
[2025-06-02] MEDS: DEXTROSE 5%-0.45% NS 1,000 ML 50 ML IV (14:43)
--- NOTE | 2025-06-02 15:00 | ESDS_ITS ---
<Statement entered by Young Espana MD - 06/02/25 15:55> Patient was examined and case was reviewed with team including attending physician. Note reviewed, I agree with most of its contents and agree with the patient's care. Case discussed with my attending Dr. Herlinda Espana MD PGY-2 Planned Discharge Date 06/02/25 DS: Providers Provider Date of admission: 05/20/25 14:32 Primary care physician: Keila Shepard PA-C Admitting Provider: Sarah Bowie DO Attending Provider on Admission: Sidney Pate MD Consults: 05/20/25 14:38 Consult to Gastroenterology Urgent Comment: Consulting Provider: Malachi Ascencio 05/20/25 16:12 PT [Referral Physical Therapy] Routine Comment: Physician Instructions: Instructions: frailty, fall risk 05/24/25 14:51 Referral Registered Dietitian Routine Comment: 05/24/25 20:19 Referral Respiratory Therapy Routine Comment: 05/25/25 13:39 Referral - Internal Audit Consultant Routine Service Needed for Transfer: Interventional Radiology Addl Comments:: pt case discussed with oncologist Dr. Patricia who recommends J tube placement to provide nutrition while patient has gastric outlet obstruction 2/2 gastric adenocarcinoma. Per GI, Dr. Ascencio, the J tube cannot be placed here at [facility] because it is technically more difficult given pt has gastric mass, thus recommends transfer to tertiary care facility for IR guided placement of J tube. 05/26/25 10:56 Consult to General Surgery Routine Comment: Consulting Provider: Ziggy Rosales Attending Provider on DC: Dr. Pate Discharging Provider: Dr. Pate DS: Diagnosis Problem List Completed Was Problem List Reviewed/Reconciled?: Yes Hospital Course Hospital Course Hospital course: Hospital Course Mr. Melendez is a 79-year-old man with past medical history of gastric adenocarcinoma (diagnosed in March 2025) s/p Chemo-Port placement in right upper chest, PAD s/p bilateral lower extremity stents, hypertension, peptic ulcer disease, COPD without home oxygen who initially presented to the hospital on 04/30/2025 with multiple episodes of coffee-ground hematemesis. EGD on 05/21/2025 showed complete obstruction at the pyloric channel secondary to gastric adenocarcinoma.. Upper GI series showed duodenal bulb deformity. Held home aspirin and Plavix in the setting of hematemesis secondary to gastric adenocarcinoma. Continue to monitor H&H, hemoglobin remained stable. Continued home pregabalin 50 mg 3 times daily for lower extremity neuropathy, Trelegy inhaler for COPD, Losartan 50 mg daily for HTN. Started Protonix 40 mg twice daily. Added famotidine 40 mg twice daily and Reglan 5 mg IV every 6 hours as patient's symptoms were not well-controlled. Pain management includes Sinton 5/325 mg every 6 hours as needed. Patient developed a productive cough. CXR 05/30 showed mild pneumonia left base, started IV Ceftriaxone 1g QD and Doxycycline 100mg BID (05/30 - 06/06). Patient initiated on clears diet once though continued to have nausea, intermittent periods of emesis, acid reflux. Patient's oncologist, Dr. Canada, was notified of patient's hospitalization and status, recommended J-tube placement to provide nutrition, with the plan to start chemotherapy after tube feed goal rate achieved. Started on D5 given low serum glucose in preparation for J-tube placement. J-tube placed by Dr. Rosales on 05/27. Patient started on 05/28 on Jevity tube feeds at 10 cc with advancement at 10 cc every 6 hours with goal rate 60 cc/h with 50 cc water flushes every 6 hours, per dietitian. Tube feeds were advanced to 40 cc/h when patient had severe pain, abdominal distention, and more coffee-ground emesis. Tube feeds were decreased to 20 cc/h, patient did not tolerate due to above symptoms. NG tube placement was attempted, but attempts were unsuccessful to be placed though patient's symptoms were relieved with Sinton. Tube feeds were held for bowel rest for 1 day, then started tube feeds at 20 cc/h Osmolite formula with the same goal rate. His tube feeds were also held for the same symptoms as well as acid reflux. Dr. Canada was updated on patient's inability to reach tube feed goal rate and recommended transferring to Dr. Rubalcava, oncologist, at [facility] for pyloric channel stent placement as patient has not reached adequate nutrition during his 13-day stay in the hospital. Patient requires transfer to [facility] for pyloric channel stent placement for gastric outlet obstruction 2/2 gastric adenocarcinoma as he is not tolerating tube feeds and had inadequate nutrition. Diagnoses #Upper GI Bleed from ulcerated gastric tumor - stable #Gastric outlet obstruction #Gastric Adenocarcinoma #Malnutrition #GERD #Peptic ulcer disease #Community-acquired pneumonia #Hypertension - chronic #COPD #PAD s/p BLE stents #LLE neuropathy #Asymptomatic Bradycardia #Microcytic Anemia Phyllis Miller MD PGY1 Time Spent with Patient Time attestation: Total time spent providing and/or coordinating discharge services: Time spent: Greater than 30 minutes Exam Vital Signs Temp Pulse Resp BP Pulse Ox O2 Del Method O2 Flow Rate 97.8 F 65 16 112/71 95 Room Air 3 06/02/25 12:00 06/02/25 12:06/02/25 12:06/02/25 12:06/02/25 12:06/02/25 12:05/28/25 00:00 Narrative Exam General: No acute distress, well nourished, lying in bed Eye: PERRL, EOMI, normal conjunctiva, no scleral icterus HENT: Normocephalic, atraumatic, normal hearing, moist oral mucosa, temporal wasting Neck: Supple, non-tender, no JVD, no lymphadenopathy Lungs: Clear to auscultation bilaterally, non-labored respirations, symmetric chest rise, no use of accessory muscles Heart: Normal S1 and S2, no S3 or S4 appreciated. Normal rate and regular rhythm, no murmurs, rubs gallops, or edema. Peripheral pulses intact bilaterally, capillary refill brisk distally. R chest with chemo port intact Abdomen: Jejunostomy tube in place, no drainage or bleeding around insertion site. Tenderness to palpation around J tube site. Abdominal distension. Musculoskeletal: Normal range of motion and strength, no tenderness or swelling Skin: Skin is warm, dry, no rashes. No jaundice. Midline abdominal incision intact with stables, clean, no drainage. Neurologic: Alert, awake and oriented x3. CN II-XII grossly intact. No focal neuro deficits. No signs of meningeal irritation noted. Psychiatric: Cooperative, appropriate mood and affect Discharge Plan Plan Patient Disposition: [facility] Facility Pt Being Transferred to: [facility] Service Needed for Transfer: Oncology Patient condition on transfer: Stable Prescriptions/Referrals Prescriptions/Med Rec: No Action losartan 50 mg Tablet 50 mg PO HS Trelegy Ellipta 100-62.5-25 mcg blister with device 1 inh inhalation Q24H famotidine [Acid Controller] 10 mg tablet 10 mg PO Q6H PRN (Reason: acid reflux) Rx Instructions: OTC aspirin 81 mg tablet 81 mg PO HS omeprazole 20 mg capsule,delayed release(DR/EC) 20 mg PO BID Patient Comments: OTC cholecalciferol (vitamin D3) [Vitamin D3] 25 mcg (1,000 unit) capsule 25 mcg PO HS cyanocobalamin (vitamin B-12) [Vitamin B-12] 100 mcg tablet 100 mcg PO HS albuterol sulfate 90 mcg/actuation HFA aerosol inhaler 1 puff INHALATION Q8H PRN (Reason: shortness of breath or wheezing) Patient Comments: inhale 1 puff by mouth every 4 hours if needed Trelegy Ellipta 100-62.5-25 mcg blister with device 1 inh inhalation QDAY Referrals: Keila Shepard PA-C [Primary Care Provider] - Patient/Caregiver Discharge Instructions Print Language: Luxembourgish Stand Alone Forms: [facility] Info., Patient Portal Info Letter Discharge Order Discharge Orders: Discharge (Routine); Ordered 06/02/25 Ordered By: Young Espana Quality Discharge Quality Measures VTE prophylaxis MD Attestestation MD Attestation I have examined the patient, reviewed labs and imaging findings, discussed the case with the resident(s), and reviewed entered orders. I agree with the plan of care as outlined in this note. Time Spent; [address] Herlinda MD
--- NOTE | 2025-06-02 15:43 | PC.SS ---
SS follow up note; Patient will need HLOC, tranfer nurseNina working on transfer.
[2025-06-02 16:00] VITALS: BP 104/63; PULSE 63; RESP 17; TEMP 36.3; O2SAT 96
--- NOTE | 2025-06-02 18:26 | PC.CM ---
Addendum entered by Nina Bass RN 06/02/25 18:44: 1840 I received a call back from Margarita with [facility]. She states she verified Dr. Rubalcava that he has accepted patient. Margarita states they will need authorization from patient's insurance. I called [facility] and left a detailed message asking for a call back. They send a transfer back agreement. I will also follow up tomorrow with [facility] office. Once [facility] gets authorization for transfer, they will work on getting a bed. 182 I put [facility] transfer nurse on conference call with Margarita at [facility]. Original Note: 1648 I faxed over information to [facility]. 1610 I recieved a referal to transfer patient to [facility]. I was told Dr. Patricia our oncologist spoke to Dr. Rubalcava oncologist at [facility]. Dr Humphreys states Dr. Rubalcava has accepted patient.
[2025-06-02 20:00] VITALS: BP 109/61; PULSE 61; RESP 15; TEMP 36.4; O2SAT 95
--- NOTE | 2025-06-02 21:09 | PD.IMPROG ---
Documentation for date of: 06/02/25 Subjective Subjective Interval history: Patient not tolerating jejunostomy feeding in the process of being transferred to a tertiary facility Exam Vital Signs Temp Pulse Resp BP Pulse Ox O2 Del Method O2 Flow Rate 97.3 F 63 17 104/63 96 Room Air 3 06/02/25 16:00 06/02/25 16:00 06/02/25 16:00 06/02/25 16:00 06/02/25 16:00 06/02/25 16:00 05/28/25 00:00 Objective Labs 06/02/25 09:05 06/02/25 09:05 Labs: Laboratory Results - last 24 hr 06/02/25 09:05 WBC 7.5 RBC 5.06 Hgb 11.0 L Hct 36.1 L MCV 71 L MCH 21.7 L MCHC 30.5 L RDW Std Deviation 58.6 H Plt Count 461 H D Neut % (Auto) 70 Lymph % (Auto) 17 [place] % (Auto) 5 Eos % (Auto) 6 Baso % (Auto) 2 Neut # (Auto) 5.3 Lymph # (Auto) 1.3 [place] # (Auto) 0.4 Eos # (Auto) 0.4 Baso # (Auto) 0.2 Immature Gran # (Auto) 0.05 H Absolute Nucleated RBC 0.00 Immature Gran % 1 H Nucleated RBC % 0 Sodium 139 Potassium 4.1 Chloride 101 Carbon Dioxide 24.0 Anion Gap 14 BUN 14 Creatinine 0.8 Estim Creat Clear Calc 64.8 eGFR > 60 BUN/Creatinine Ratio 18 Glucose 73 L Calculated Osmolality 277 Calcium 8.8 Corrected Calcium 9.2 Phosphorus 2.9 Magnesium 1.9 Total Bilirubin 0.7 AST 15 ALT 12 Alkaline Phosphatase 141 H Total Protein 5.5 L Albumin 3.5 Globulin 2.0 L Albumin/Globulin Ratio 1.8 Triglycerides 113 Cholesterol 112 L LDL Cholesterol, Calc 60 HDL Cholesterol 29 L Cholesterol/HDL Ratio 3.9 L Impressions Impression: 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 #Hematemesis Hgb stable (11.7 to 11.9 ), MCV stable (73 to 74), platelet count decreasing to previous baseline (808 from 978), INR 1.0, alk phos elevated (343), Port-A-Cath placement normal Plan: EGD for potential therapeutic intervention tomorrow; clear liquid diet; NPO midnight #COPD, HTN, HLD, COPD Plan: As per primary team Patient seen by Dr. Daron Hood MD, and staffed with Dr. Malachi Ascencio MD, attending. Attending physician attestation Patient examined by me Laboratory data reviewed Imaging studies reviewed Treatment plan outlined for fiberoptic esophagogastroduodenoscopy with possible therapeutic intervention under intravenous moderate patient is scheduled for tomorrow Clear liquid diet at 12 midnight N.p.o. midnight tonight except p.o. meds IV Protonix Serial CBC Transfuse PRBC if the hemoglobin drops below 7 g Thank you very much for the opportunity to participate in the care of this patient Time Spent With Patient Time: Total time spent is greater than 50% in coordination of care (as documented) at patient's floor/unit and/or counseling patient:
[2025-06-02] MEDS: DOCUSATE SOD LIQD 100 MG/10 ML UDC GT (21:42)
--- NOTE | 2025-06-02 21:58 | PC.NURSE ---
Pt requested to get half of the famotidine dose (20 mg) instead of 40 mg, Dr. Gallardo was made aware. okay with pt getting 20 mg only. Will return 20 mg pill to [facility].
[2025-06-03] VITALS (7 sets, daily range): BP systolic 98–126; BP diastolic 64–75; PULSE 55–84; RESP 12–20; TEMP 36.1–36.8; O2SAT 91–98; BMI 18.6
[2025-06-03] MEDS: HYDROcodone/APAP 5/325 TABLET 1 TAB GT ×2 (04:39→11:52)
[2025-06-03] MEDS: PREGABALIN 50 MG CAPSULE GT ×3 (05:22→22:11)
[2025-06-03 06:16] LABS: Basophils # (Auto) 0.1 Thou/mm3 (0.0-0.2); Basophils % (Auto) 2 % (0-2.5); Eosinophils # (Auto) 0.4 Thou/mm3 (0.0-0.5); Eosinophils % (Auto) 5 % (0-10); Hematocrit 32.7 % (41.0-53.0); Hemoglobin 10.2 g/dL (13.5-16.0); Immature Granulocytes Auto 0.08 Thou/mm3 (0.00-0.00); Lymphocytes # (Auto) 1.1 Thou/mm3 (1.0-4.8); Lymphocytes % (Auto) 13 % (10-50); Mean Corpuscular HGB Conc 31.2 g/dl (31.0-37.0); Mean Corpuscular Hemoglobin 21.8 pg (25.0-35.0); Mean Corpuscular Volume 70 fL (80-100); Monocytes # (Auto) 0.4 Thou/mm3 (0.0-0.8); Monocytes % (Auto) 5 % (0-12); Neutrophils # (Auto) 6.2 Thou/mm3 (1.8-7.7); Neutrophils % (Auto) 75 % (37-80); Nucleated Red Blood Cell # 0.00 Thou/mm3 (0.00-0.00); Nucleated Red Blood Cell % 0 /100 WBC (0); Platelet Count 404 Thou/mm3 (140-440); RDW Standard Deviation 56.4 fL (35.1-43.9); Red Blood Count 4.67 Miln/mm3 (4.50-5.90); White Blood Count 8.3 Thou/mm3 (3.8-10.6)
[2025-06-03] MEDS: UMECLIDINIUM PO (06:53)
[2025-06-03] MEDS: TRELEGY PO (06:53)
[2025-06-03] MEDS: VILANTEROL PO (06:53)
[2025-06-03 07:01] LABS: Alanine Aminotransferase 9 U/L (10-49); Albumin, Serum 3.2 gm/dL (3.4-4.8); Albumin/Globulin Ratio 1.8 (1.2-2.2); Alkaline Phosphatase 117 U/L (46-116); Anion Gap 12 (7-16); Aspartate Amino Transferase 12 U/L (0-34); BUN/Creatinine Ratio 13 Ratio (12-20); Bilirubin,Total 0.7 mg/dL (0.3-1.2); Blood Urea Nitrogen 10 mg/dL (9-23); Calcium 8.5 mg/dL (8.3-10.6); Calcium (Corrected) 9.1 mg/dL (8.5-10.1); Carbon Dioxide 25.4 mMol/L (20.0-31.0); Chloride 101 mMol/L (98-107); Creatinine (Component) 0.8 mg/dL (0.6-1.3); Estimated Creatinine Clearance 64.8 mL/min (>60); Globulin 1.8 gm/dL (2.3-3.5); Glucose 110 mg/dL (74-106); Magnesium 1.3 mg/dL (1.6-2.6); Osmolality,Calculated 275 (275-295); Phosphorous 2.7 mg/dL (2.4-5.1); Potassium 3.8 mMol/L (3.4-5.1); Sodium 138 mMol/L (136-145); Total Protein 5.0 gm/dL (5.7-8.2); eGFR > 60 See Note
--- NOTE | 2025-06-03 08:14 | PC.CM ---
Addendum entered by Nina Bass RN 06/03/25 18:36: Patient has been accepted by [facility] with Dr. Rubalcava. Authorization has been obtained and we are waiting for bed availability. I will take packet to Med/surg floor. Addendum entered by Nina Bass RN 06/03/25 11:57: 1025 I spoke to [facility] and they are aware that [facility] is getting then the authorization paperwork proceded and they will sent the auth to [facility] directly. I had Dr. Pate complete the transfer back agreement for [facility] and I faxed it back to them. [phone] I spoke to Cris from [facility] and she states she will work on getting authorization for [facility]. Original Note: I called [facility] and I left a message for them to call me back concerning patient's transfer and authorization.
--- NOTE | 2025-06-03 08:25 | ESPR_ITS ---
<Statement entered by Young Espana MD - 06/03/25 20:45> Patient was examined and case was reviewed with team including attending physician. Note reviewed, I agree with most of its contents and agree with the patient's care as documented by Dr. Miller Patient seen today at the bedside found awake, alert, orientedx3. No overnight events reported. Vital signs stable at this time. Patient is pending bed availabilty at [facility]. As patients has been unable to tolerate any tube feeds and has not had proper nutrition for some time. Started the patient on PPN. Ultimately patient will require higher level of care possibly surgical oncology. Case discussed with my attending Dr. Herlinda Espana MD PGY-2 Documentation for date of: 06/03/25 Subjective Subjective Interval history: Patient evaluated at bedside. Reports no abdominal pain or distention with free water flushes. Reports no new symptoms. Patient transferred to [facility] was approved, insurance authorization approved, awaiting bed availability. Started PPN through [facility] for nutrition as patient has been unable to tolerate tube feeds. Will start Osmolite at 10 cc/h per dietitian. If patient does not tolerate tube feeds can discontinue, just continue with PPN as he waits for transfer. Patient had a phone visit appointment with Dr. Patricia today at 3 PM, but family got a call saying that they were unable to go through with the visit. Tried to contact Dr. Patricia directly, called clinic and left a message, got no response. Exam Vital Signs Temp Pulse Resp BP Pulse Ox O2 Del Method O2 Flow Rate 97.3 F 68 20 125/75 95 Room Air 3 06/03/25 00:00 06/03/25 06:56 06/03/25 06:56 06/03/25 00:00 06/03/25 06:56 06/03/25 00:00 05/28/25 00:00 Narrative Exam General: No acute distress, well nourished, lying in bed Eye: PERRL, EOMI, normal conjunctiva, no scleral icterus HENT: Normocephalic, atraumatic, normal hearing, moist oral mucosa, temporal wasting Neck: Supple, non-tender, no JVD, no lymphadenopathy Lungs: Clear to auscultation bilaterally, non-labored respirations, symmetric chest rise, no use of accessory muscles Heart: Normal S1 and S2, no S3 or S4 appreciated. Normal rate and regular rhythm, no murmurs, rubs gallops, or edema. Peripheral pulses intact bilaterally, capillary refill brisk distally. R chest with chemo port intact Abdomen: Jejunostomy tube in place, no drainage or bleeding around insertion site. Tenderness to palpation around J tube site. Mild abdominal distension. Musculoskeletal: Normal range of motion and strength, no tenderness or swelling Skin: Skin is warm, dry, no rashes. No jaundice. Midline abdominal incision intact with stables, clean, no drainage. Neurologic: Alert, awake and oriented x3. CN II-XII grossly intact. No focal neuro deficits. No signs of meningeal irritation noted. Psychiatric: Cooperative, appropriate mood and affect Objective Labs 06/04/25 05:40 06/04/25 05:40 Labs: Laboratory Results - last 24 hr 06/02/25 06/03/25 09:05 05:50 WBC 7.5 8.3 RBC 5.06 4.67 Hgb 11.0 L 10.2 L Hct 36.1 L 32.7 L MCV 71 L 70 L MCH 21.7 L 21.8 L MCHC 30.5 L 31.2 RDW Std Deviation 58.6 H 56.4 H Plt Count 461 H D 404 D Neut % (Auto) 70 75 Lymph % (Auto) [address] [place] % (Auto) 5 5 Eos % (Auto) 6 5 Baso % (Auto) 2 2 Neut # (Auto) 5.3 6.2 Lymph # (Auto) 1.[address] [place] # (Auto) 0.4 0.4 Eos # (Auto) 0.4 0.4 Baso # (Auto) 0.2 0.1 Immature Gran # (Auto) 0.05 H 0.08 H Absolute Nucleated RBC 0.00 0.00 Immature Gran % 1 H 1 H Nucleated RBC % 0 0 Sodium 139 138 Potassium 4.1 3.8 Chloride 101 101 Carbon Dioxide 24.0 25.4 Anion Gap 14 12 BUN 14 10 Creatinine 0.8 0.8 Estim Creat Clear Calc 64.8 64.8 eGFR > 60 > 60 BUN/Creatinine Ratio 18 13 Glucose 73 L 110 H D Calculated Osmolality 277 275 Calcium 8.8 8.5 Corrected Calcium 9.2 9.1 Phosphorus 2.9 2.7 Magnesium 1.9 1.3 L Total Bilirubin 0.7 0.7 AST 15 12 ALT 12 9 L Alkaline Phosphatase 141 H 117 H D Total Protein 5.5 L 5.0 L Albumin 3.5 3.2 L Globulin 2.0 L 1.8 L Albumin/Globulin Ratio 1.8 1.8 Triglycerides 113 Cholesterol 112 L LDL Cholesterol, Calc 60 HDL Cholesterol 29 L Cholesterol/HDL Ratio 3.9 L Quality Measures Quality Measures VTE prophylaxis Advance care planning discussed with:: patient and child Assessment & Plan Assessment Current Active Medications: Generic Name Dose Route Start Last Admin Trade Name Freq PRN Reason Stop Dose Admin Hydrocodone Bitart/Acetaminophen 1 tab 05/29/25 19:15 06/03/25 04:39 Hydrocodone/Apap 5/325 Tablet GT 06/06/25 19:14 1 tab Q6HR PRN Administration PAIN SCALE 4-10(Mod-Sev Albuterol 2.5 mg 05/27/25 13:49 Albuterol Rt 2.5 Mg/0.5 Ml Nebu INH X1 PRN WHEEZING Trelegy 100/62.5/25 0 ea 06/03/25 07:00 06/03/25 07:56 Mcg (Fluticasone, INH 07/03/25 06:59 Not Given Umeclidinium, DAILY HYACINTH Vilanterol) Inhaler Docusate Sodium 100 mg 05/29/25 09:00 06/02/25 21:42 Docusate Sod Liqd 100 Mg/10 Ml Udc GT 06/28/25 08:59 100 mg BID HYACINTH Administration Protocol Famotidine 40 mg 06/01/25 13:45 06/02/25 21:54 Famotidine 20 Mg Tablet PO 07/01/25 13:44 20 mg BID HYACINTH Administration Doxycycline Hyclate 100 mg/ 100 mls @ 100 mls/hr 05/30/25 21:00 06/02/25 21:37 Sodium Chloride IV 06/06/25 20:59 100 mls/hr BID HYACINTH Administration Ceftriaxone Sodium/Dextrose 1 gm in 50 mls @ 100 mls/hr 05/30/25 16:10 06/02/25 09:15 Rocephin/D5w 1gm Iv Premix IV 06/06/25 16:09 100 mls/hr QDAY HYACINTH Administration Dextrose/Sodium Chloride 1,000 mls @ 50 mls/hr 06/02/25 14:30 06/02/25 14:43 D5-1/2ns IV 07/02/25 14:29 50 mls/hr .Q20H HYACINTH Administration Magnesium Sulfate 2 gm in 50 mls @ 25 mls/hr 06/03/25 08:24 Magnesium Sulfate Ivpb IV 06/03/25 10:23 X1 ONE Losartan Potassium 50 mg 05/30/25 09:00 06/02/25 10:01 Losartan Potassium 25 Mg Tablet GT 06/29/25 08:59 Not Given QDAY HYACINTH Metoclopramide HCl 5 mg 06/01/25 12:00 06/03/25 05:19 Metoclopramide Inj 5 Mg/Ml Vial 2 Ml IVP 07/01/25 11:59 Not Given Q6HR [facility] Protocol Multivitamins 1 tab 05/28/25 14:30 06/02/25 09:16 Multivitamins Tablet PO 06/27/25 14:29 Not Given QDAY HYACINTH Ondansetron HCl 4 mg 05/20/25 14:32 05/31/25 11:35 Ondansetron Inj 2 Mg/Ml Inj 2 Ml IVP 06/19/25 14:31 4 mg Q6H PRN Administration NAUSEA OR VOMITING Protocol Pantoprazole Sodium 40 mg 06/02/25 14:00 06/02/25 21:41 Pantoprazole 40 Mg Tablet PO 07/02/25 13:59 Not Given BID [facility] Pharmacy Consult 1 each 05/26/25 10:38 Pha To Consult Parenteral Nutr 1 Each Each XX 06/25/25 10:37 PRN PRN CONSULT Pregabalin 50 mg 05/29/25 22:00 06/03/25 05:22 Pregabalin 50 Mg Capsule GT 06/28/25 21:59 50 mg TID HYACINTH Administration Simethicone 80 mg 05/22/25 23:13 06/01/25 20:21 Simethicone 80 Mg Chew PO 06/21/25 23:12 80 mg QID PRN Administration GAS Thiamine HCl 100 mg 05/30/25 09:00 06/02/25 09:16 Thiamine 100 Mg Tablet GT 06/29/25 08:59 Not Given QDAY HYACINTH Plan Mr. Melendez is a 79 y/o gentleman with hx of recently diagnosed gastric adenocarcinoma (followed by Dr. Canada and Dr. Phillips, not yet started on chemo), PAD with BLE stents, HTN, history of PUD, COPD with no home oxygen, who was admitted for upper GI bleed i/s/o gastric adenocarcinoma. IR GI upper series which demonstrated outlet obstruction 2/2 gastric cancer. J tube placed 05/27. P ending transfer to [facility] for pyloric channel stent placem.ent #Upper GI Bleed from ulcerated gastric tumor-stable #Gastric outlet obstruction #Gastric Adenocarcinoma (dx 03/2025) Diagnosed in 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 Patient has Chemo-Port in place on right upper chest placed on 05/18. Plan: - Pending transfer to [facility] (Dr. Rubalcava, oncologist) for pyloric channel stent placement, transfer accepted, insurance authorization approved, pending bed placement - Daily CBC to monitor H&H - Avoid NSAIDs - Transfusion if hgb <7 - Continue Pantoprazole 40 mg BID IV and famotidine 20 mg BID - Pain management with [place] 5-325 q6h, morphine 2 mg q3h PRN ? GI consulted, appreciate recs #Anorexia 2/2 gastric outlet obstruction-s/p J tube placement 05/27 #Weight loss 2/2 malignancy #Malnutrition Jejunostomy placement 05/27 Patient not tolerating Jevity or Osmolite tube feeds Tolerated free water flushes Plan: - Start PPN through [facility] in anticipation for transfer to [facility] - Start Osmolite tube feeds 10 cc/h. If patient does not tolerate tube feeds, can d/c - Thiamine 100 mg/day x 7 days, c/f refeeding syndrome #Constipation - resolved Patient has not had a bowel movement in 3 days Patient continues to develop pain and abdominal distension when tube feeds are restarted (both with Jevity and Osmolite feeds) Abdominal XR 05/31: Nonobstructive bowel gas pattern, contrast throughout, no free air Plan: - Colace 00 mg BID - Continue simethicone 80 mg QID #GERD #Hx PUD Home meds: Omeprazole 20mg BID, Famotidine 10 mg PRN, Patient continues to have acid reflux with frequent burping and occasional vomitus i/s/o gastric adenocarcinoma cause gastric outles obstruction Patient has been refusing pantoprazole as he does not think this is helping his sx Plan: - D/C pantoprazole - Continue Famotidine 20 mg BID IV, pantoprazole 40 mg BID IV - Continue Reglan 5 mg IV q6h per Dr. Ascencio - Will continue to assess sx #Community-acquired pneumonia Productive cough present CXR (05/30): Mild pneumonia left base Afebrile, no leukocytosis Plan: - Continue IV Ceftriaxone 1g QD and Doxycycline 100mg BID (05/30 - 06/06) - CTM with temp, daily CBC - Encourage incentive spirometry #Hypertension - chronic Home meds: Losartan 50 mg daily BP appropriate Plan: - Continue Losartan 50 mg daily #COPD Not on home oxygen Per patient he has a history of pulmonary nodules seen on chest CT. He reports that he gets imaging done on his lungs every 6 months. His lung nodules that are certain size have been biopsied and have so far been benign. SpO2 appropriate on 3L CXR 05/25: Significant hyperexpansion. Basilar bronchitis pattern. No lobar PNA or pulmonary edema. Plan: -Continue home Trelegy inhaler (pt own medication) -O2 supplementation PRN #PAD s/p BLE stents Plan: Hold home aspirin 81 and Plavix i/s/o GI bleed #LLE neuropathy Parasthesia of LLE plantar surface of foot Home meds: Pregabalin 50 mg TID Pt reports improved sx on home med Plan: - Continue pregabalin 50mg TID - SCDs #Asymptomatic Bradycardia VSS TSH WNL EKG normal sinus bradycardia to 50s Plan: - CTM #Microcytic Anemia Query anemia of chronic disease iso gastric cancer vs anemia 2/2 acute blood losses. Hgb stable Plan: -CTM Hgb -transfuse if < 7 #Leukocytosis WBC 15.6 on 05/28 Most likely 2/2 reactive i/s/o J tube placement Plan: - CTM #Thrombocytosis - downtrending DDX: reactive thrombocytosis iso blood loss from GI bleed, vs gastric malignancy Plan: - CTM Dispo: pending transfer to [facility] Diet: PPN through [facility] Bowel Reg: Docusate 100 mg BID, simethicone 80 mg QID VTE ppx: SCD GI ppx: Protonix 40 BID IV, famotidine 20 mg BID IV Code status: FULL Attending Provider Attestation/Addendum I have examined the patient, reviewed labs and imaging findings, discussed the case with the resident(s), and reviewed entered orders. I agree with the plan of care as outlined in this note, with these additional summaries/recommendations: Patient seen at bedside. No acute overnight events. Patient started on PPN today and trickle feeds with Osmolite at 10 cc an hour. Patient was accepted to [facility] for oncology surgery for gastric adenocarcinoma with gastric outlet obstruction. Patient did receive a J-tube although we have unable to advance goal feeds secondary to abdominal pain with intractable nausea/vomiting. Continue pain management. Patient updated on the plan and agreement. All questions answered to satisfaction. Please see residents note for additional details and management. Dr. Herlinda MD
[2025-06-03] MEDS: Magnesium Sulfate 2 GM Ivpb 2 GM/50 ML BAG IV (09:09)
[2025-06-03] MEDS: DOXYCYCLINE INJ 100 MG in SODIUM CHLORIDE 0.9% (POP) 100 ML IV ×2 (09:10→20:57)
[2025-06-03] MEDS: LOSARTAN POTASSIUM 25 MG TABLET 50 MG GT (09:10)
[2025-06-03] MEDS: MULTIVITAMINS TABLET 1 TAB PO (09:11)
[2025-06-03] MEDS: PANTOPRAZOLE 40 MG TABLET PO (09:11)
[2025-06-03] MEDS: cefTRIAXone/D5w 1gm IV premix 1 GM/50 ML BAG IV (09:12)
--- NOTE | 2025-06-03 11:30 | PC.NURSE ---
consulted hospitalist Dr. cook regarding picc line/central lne insertion, procedure cancelled due to patient being transferred, central line no longer needed at this time
--- NOTE | 2025-06-03 13:00 | PC.DIETICIAN ---
Nutrition recommendations: 1. Osmolite 1.5 at 10 ml/hr via J-tube by pump (do not advance). If no IV fluids, water flushes of 40 ml/hr (or per MD). *No need to check residuals with J-tube feeds. 2. PPN: D5% AA4.25% at 105 ml/hr with 500 ml 20% lipid 3 times a week (). ??? Start at 50 ml/hr for 8 hrs, then advance to goal of 105 ml/hr. ??? 2520 ml volume, 107 g AA, 126 g dextrose, 1286 total calories, NPC 857. GIR=1.4 / LIR=0.7
[2025-06-03] MEDS: DEXTROSE 5%-0.45% NS 1,000 ML 50 ML IV (14:26)
[2025-06-03] MEDS: [UNRECOGNIZED DRUG - OTHER] IV (18:56)
[2025-06-03] MEDS: MAGNESIUM SULF IV (18:56)
[2025-06-03] MEDS: MULTIVITAMIN IV (18:56)
[2025-06-03] MEDS: FAT EMULSIONS 20% IV 500 ML 32 ML IV (18:56)
[2025-06-03] MEDS: MORPHINE SULF INJ 10 MG/ML VIAL 2 MG IVP (20:49)
--- NOTE | 2025-06-03 20:54 | PD.IMPROG ---
Documentation for date of: 06/03/25 Subjective Subjective Interval history: Hemoglobin hematocrit 10.2 and 32.7 Accepted for transfer to [facility] pending bed PPN started cannot tolerate the jejunostomy feeding Exam Vital Signs Temp Pulse Resp BP Pulse Ox O2 Del Method O2 Flow Rate 97.3 F 60 17 126/65 96 Room Air 3 06/03/25 20:00 06/03/25 20:00 06/03/25 20:00 06/03/25 20:00 06/03/25 20:00 06/03/25 20:00 06/03/25 08:00 Objective Labs 06/03/25 05:50 06/03/25 05:50 Labs: Laboratory Results - last 24 hr 06/03/25 05:50 WBC 8.3 RBC 4.67 Hgb 10.2 L Hct 32.7 L MCV 70 L MCH 21.8 L MCHC 31.2 RDW Std Deviation 56.4 H Plt Count 404 D Neut % (Auto) 75 Lymph % (Auto) 13 [place] % (Auto) 5 Eos % (Auto) 5 Baso % (Auto) 2 Neut # (Auto) 6.2 Lymph # (Auto) 1.1 [place] # (Auto) 0.4 Eos # (Auto) 0.4 Baso # (Auto) 0.1 Immature Gran # (Auto) 0.08 H Absolute Nucleated RBC 0.00 Immature Gran % 1 H Nucleated RBC % 0 Sodium 138 Potassium 3.8 Chloride 101 Carbon Dioxide 25.4 Anion Gap 12 BUN 10 Creatinine 0.8 Estim Creat Clear Calc 64.8 eGFR > 60 BUN/Creatinine Ratio 13 Glucose 110 H D Calculated Osmolality 275 Calcium 8.5 Corrected Calcium 9.1 Phosphorus 2.7 Magnesium 1.3 L Total Bilirubin 0.7 AST 12 ALT 9 L Alkaline Phosphatase 117 H D Total Protein 5.0 L Albumin 3.2 L Globulin 1.8 L Albumin/Globulin Ratio 1.8 Impressions Impression: # Adenocarcinoma gastric causing gastric outlet obstruction # Unable to tolerate jejunostomy feeding Awaiting bed at [facility] Assessment & Plan A&P Narrative Patient is a 79-year-old male with PMH of recently diagnosed gastric carcinoma presenting to the ER for hematemesis. #Hematemesis Hgb stable (11.7 to 11.9 ), MCV stable (73 to 74), platelet count decreasing to previous baseline (808 from 978), INR 1.0, alk phos elevated (343), Port-A-Cath placement normal Plan: EGD for potential therapeutic intervention tomorrow; clear liquid diet; NPO midnight #COPD, HTN, HLD, COPD Plan: As per primary team Patient seen by Dr. Daron Hood MD, and staffed with Dr. Malachi Ascencio MD, attending. Attending physician attestation Patient examined by me Laboratory data reviewed Imaging studies reviewed Treatment plan outlined for fiberoptic esophagogastroduodenoscopy with possible therapeutic intervention under intravenous moderate patient is scheduled for tomorrow Clear liquid diet at 12 midnight N.p.o. midnight tonight except p.o. meds IV Protonix Serial CBC Transfuse PRBC if the hemoglobin drops below 7 g Thank you very much for the opportunity to participate in the care of this patient Time Spent With Patient Time: Total time spent is greater than 50% in coordination of care (as documented) at patient's floor/unit and/or counseling patient:
[2025-06-03] MEDS: DOCUSATE SOD LIQD 100 MG/10 ML UDC GT (20:57)
[2025-06-04] VITALS (7 sets, daily range): BP systolic 97–126; BP diastolic 58–72; PULSE 63–69; RESP 14–18; TEMP 36.1–36.3; O2SAT 92–95
--- NOTE | 2025-06-04 02:59 | PC.NURSE ---
Per Dr. Lynch, Pt okay to have water flushes of 40 ml/hr as long as Pt tolerates.
--- NOTE | 2025-06-04 05:17 | PC.NURSE ---
Bedside blood glucose 143. Pt refused PRN regular insulin per protocol. Will continue to check blood sugar levels every 6 hrs. as ordered.
[2025-06-04 06:08] LABS: Basophils # (Auto) 0.1 Thou/mm3 (0.0-0.2); Basophils % (Auto) 1 % (0-2.5); Eosinophils # (Auto) 0.4 Thou/mm3 (0.0-0.5); Eosinophils % (Auto) 4 % (0-10); Hematocrit 33.6 % (41.0-53.0); Hemoglobin 10.5 g/dL (13.5-16.0); Immature Granulocytes Auto 0.06 Thou/mm3 (0.00-0.00); Lymphocytes # (Auto) 1.0 Thou/mm3 (1.0-4.8); Lymphocytes % (Auto) 12 % (10-50); Mean Corpuscular HGB Conc 31.3 g/dl (31.0-37.0); Mean Corpuscular Hemoglobin 21.9 pg (25.0-35.0); Mean Corpuscular Volume 70 fL (80-100); Monocytes # (Auto) 0.4 Thou/mm3 (0.0-0.8); Monocytes % (Auto) 4 % (0-12); Neutrophils # (Auto) 6.7 Thou/mm3 (1.8-7.7); Neutrophils % (Auto) 78 % (37-80); Nucleated Red Blood Cell # 0.00 Thou/mm3 (0.00-0.00); Nucleated Red Blood Cell % 0 /100 WBC (0); Platelet Count 467 Thou/mm3 (140-440); RDW Standard Deviation 55.9 fL (35.1-43.9); Red Blood Count 4.79 Miln/mm3 (4.50-5.90); White Blood Count 8.6 Thou/mm3 (3.8-10.6)
[2025-06-04 06:47] LABS: Alanine Aminotransferase 7 U/L (10-49); Albumin, Serum 3.2 gm/dL (3.4-4.8); Albumin/Globulin Ratio 1.8 (1.2-2.2); Alkaline Phosphatase 111 U/L (46-116); Anion Gap 9 (7-16); Aspartate Amino Transferase 12 U/L (0-34); BUN/Creatinine Ratio 10 Ratio (12-20); Bilirubin,Total 0.5 mg/dL (0.3-1.2); Blood Urea Nitrogen 7 mg/dL (9-23); Calcium 8.2 mg/dL (8.3-10.6); Calcium (Corrected) 8.8 mg/dL (8.5-10.1); Carbon Dioxide 26.4 mMol/L (20.0-31.0); Chloride 103 mMol/L (98-107); Creatinine (Component) 0.7 mg/dL (0.6-1.3); Estimated Creatinine Clearance 68.9 mL/min (>60); Globulin 1.8 gm/dL (2.3-3.5); Glucose 139 mg/dL (74-106); Magnesium 2.0 mg/dL (1.6-2.6); Osmolality,Calculated 275 (275-295); Phosphorous 2.5 mg/dL (2.4-5.1); Potassium 3.6 mMol/L (3.4-5.1); Sodium 138 mMol/L (136-145); Total Protein 5.0 gm/dL (5.7-8.2); eGFR > 60 See Note
[2025-06-04] MEDS: VILANTEROL INH (07:25)
[2025-06-04] MEDS: TRELEGY INH (07:25)
[2025-06-04] MEDS: UMECLIDINIUM INH (07:25)
--- NOTE | 2025-06-04 09:13 | ESPR_ITS ---
<Statement entered by Young Espana MD - 06/04/25 21:37> Patient was examined and case was reviewed with team including attending physician. Note reviewed, I agree with most of its contents and agree with the patient's care as documented by MS Sy Thacker Patient seen today at the bedside found awake, alert, orientedx3. No overnight events reported. Vital signs stable at this time. Currently tolerating PPN and J-tube feeds on very low rate, some mild nausea noted will keep current regimen at this time. Patient still pending bed to [facility]. Young Espana MD PGY-2 Documentation for date of: 06/04/25 Subjective Subjective Interval history: pt was seen at bedside today and is alert and oriented x4. Pt states that he is not having any abnormal pain sensation or having any other abnormal symptoms related to his PEG tube at rest. However, when the tube feedings start, pt reports feeling discomfort and pain at an 8 out of 10. Pt states that he does not want to pause tube feeds at this time. Patient transferred to [facility] was approved, insurance authorization approved. F/U with [facility] transfer nurse who stated that we are still awaiting bed availability. Pt does not have any further questions or concerns at this time. Exam Vital Signs Temp Pulse Resp BP Pulse Ox O2 Del Method O2 Flow Rate 97.1 F 66 14 99/62 92 L Room Air 3 06/04/25 08:00 06/04/25 08:00 06/04/25 08:00 06/04/25 08:00 06/04/25 08:00 06/04/25 08:00 06/03/25 08:00 Narrative Exam General: No acute distress, well nourished, lying in bed Eye: PERRL, EOMI, normal conjunctiva, no scleral icterus HENT: Normocephalic, atraumatic, normal hearing, moist oral mucosa, temporal wasting Neck: Supple, non-tender, no JVD, no lymphadenopathy Lungs: Clear to auscultation bilaterally, non-labored respirations, symmetric chest rise, no use of accessory muscles Heart: Normal S1 and S2, no S3 or S4 appreciated. Normal rate and regular rhythm, no murmurs, rubs gallops, or edema. Peripheral pulses intact bilaterally, capillary refill brisk distally. R chest with chemo port intact Abdomen: Jejunostomy tube in place, no drainage or bleeding around insertion site. Tenderness to palpation around J tube site. Mild abdominal distension. Musculoskeletal: Normal range of motion and strength, no tenderness or swelling Skin: Skin is warm, dry, no rashes. No jaundice. Midline abdominal incision intact with stables, clean, no drainage. Neurologic: Alert, awake and oriented x3. CN II-XII grossly intact. No focal neuro deficits. No signs of meningeal irritation noted. Psychiatric: Cooperative, appropriate mood and affect Objective Objective Narrative Objective Narrative: Vital signs steady and stable. Pt's glucose mildly elevated but declining glucose per RN. Pt states that he doesnt understand why he needs insulin and is upset. Will continue to monitor. Labs 06/05/25 04:20 06/05/25 04:20 Labs: Laboratory Results - last 24 hr 06/04/25 05:40 WBC 8.6 RBC 4.79 Hgb 10.5 L Hct 33.6 L MCV 70 L MCH 21.9 L MCHC 31.3 RDW Std Deviation 55.9 H Plt Count 467 H D Neut % (Auto) 78 Lymph % (Auto) 12 [place] % (Auto) 4 Eos % (Auto) 4 Baso % (Auto) 1 Neut # (Auto) 6.7 Lymph # (Auto) 1.0 [place] # (Auto) 0.4 Eos # (Auto) 0.4 Baso # (Auto) 0.1 Immature Gran # (Auto) 0.06 H Absolute Nucleated RBC 0.00 Immature Gran % 1 H Nucleated RBC % 0 Sodium 138 Potassium 3.6 Chloride 103 Carbon Dioxide 26.4 Anion Gap 9 BUN 7 L Creatinine 0.7 Estim Creat Clear Calc 68.9 eGFR > 60 BUN/Creatinine Ratio 10 L Glucose 139 H Calculated Osmolality 275 Calcium 8.2 L Corrected Calcium 8.8 Phosphorus 2.5 Magnesium 2.0 Total Bilirubin 0.5 AST 12 ALT 7 L Alkaline Phosphatase 111 Total Protein 5.0 L Albumin 3.2 L Globulin 1.8 L Albumin/Globulin Ratio 1.8 Quality Measures Quality Measures VTE prophylaxis Advance care planning discussed with:: patient Assessment & Plan Assessment Current Active Medications: Generic Name Dose Route Start Last Admin Trade Name Freq PRN Reason Stop Dose Admin Hydrocodone Bitart/Acetaminophen 1 tab 06/03/25 16:45 06/04/25 05:27 Hydrocodone/Apap 10/325 Tab PO 06/08/25 16:41 1 tab Q6HR PRN Administration PAIN SCALE 1-3 (mild Trelegy 100/62.5/25 0 ea 06/03/25 07:00 06/04/25 07:25 Mcg (Fluticasone, INH 07/03/25 06:59 1 inha Umeclidinium, DAILY HYACINTH Administration Vilanterol) Inhaler Docusate Sodium 100 mg 05/29/25 09:00 06/03/25 20:57 Docusate Sod Liqd 100 Mg/10 Ml Udc GT 06/28/25 08:59 100 mg BID HYACINTH Administration Protocol Famotidine 20 mg 06/03/25 10:45 06/03/25 21:04 Famotidine Inj 10 Mg/Ml Vial 2 Ml IVP 07/03/25 10:44 Not Given BID HYACINTH Doxycycline Hyclate 100 mg/ 100 mls @ 100 mls/hr 05/30/25 21:00 06/03/25 20:57 Sodium Chloride IV 06/06/25 20:59 100 mls/hr BID HYACINTH Administration Ceftriaxone Sodium/Dextrose 1 gm in 50 mls @ 100 mls/hr 05/30/25 16:10 06/03/25 16:34 Rocephin/D5w 1gm Iv Premix IV 06/06/25 16:09 Infused QDAY HYACINTH Infusion Dextrose/Sodium Chloride 1,000 mls @ 50 mls/hr 06/02/25 14:30 06/03/25 14:26 D5-1/2ns IV 07/02/25 14:29 50 mls/hr .Q20H HYACINTH Administration Fat Emulsion Intravenous 500 mls @ 32 mls/hr 06/03/25 18:00 06/03/25 18:56 Intralipid 20% Iv IV 07/03/25 17:59 32 mls/hr TUTHSA@1800 HYACINTH Administration Magnesium Sulfate 2 gm/ 2,014 mls @ 50 mls/hr 06/03/25 18:00 06/03/25 18:56 Multivitamins/Minerals 10 ml/ IV 06/05/25 10:16 50 mls/hr Amino Acids/Electrolytes/ QDAY@1800 ONE Administration Dextrose Insulin Human Regular 0 unit 06/03/25 15:46 Insulin Hum Regular 1 Unit/0.01 Ml (Per Unit) SC 07/03/25 15:45 Q6HR PRN GLYCEMIC MANAGEMENT ON PN Protocol Losartan Potassium 50 mg 05/30/25 09:00 06/03/25 09:10 Losartan Potassium 25 Mg Tablet GT 06/29/25 08:59 50 mg QDAY HYACINTH Administration Metoclopramide HCl 5 mg 06/01/25 12:00 06/04/25 05:26 Metoclopramide Inj 5 Mg/Ml Vial 2 Ml IVP 07/01/25 11:59 Not Given Q6HR HYACINTH Protocol Morphine Sulfate 2 mg 06/03/25 16:43 06/03/25 20:49 Morphine Sulf Inj 10 Mg/Ml Vial IVP 06/08/25 16:42 2 mg Q4HR PRN Administration PAIN SCALE 4-10(Mod-Sev Multivitamins 1 tab 05/28/25 14:30 06/03/25 09:11 Multivitamins Tablet PO 06/27/25 14:29 1 tab QDAY HYACINTH Administration Ondansetron HCl 4 mg 05/20/25 14:32 05/31/25 11:35 Ondansetron Inj 2 Mg/Ml Inj 2 Ml IVP 06/19/25 14:31 4 mg Q6H PRN Administration NAUSEA OR VOMITING Protocol Pantoprazole Sodium 40 mg 06/03/25 10:45 06/03/25 21:04 Pantoprazole Inj 40 Mg Vial IVP 07/03/25 10:44 Not Given BID [facility] Pharmacy Consult 1 each 05/26/25 10:38 Pha To Consult Parenteral Nutr 1 Each Each XX 06/25/25 10:37 PRN PRN CONSULT Simethicone 80 mg 05/22/25 23:13 06/01/25 20:21 Simethicone 80 Mg Chew PO 06/21/25 23:12 80 mg QID PRN Administration GAS Thiamine HCl 100 mg 05/30/25 09:00 06/03/25 09:11 Thiamine 100 Mg Tablet GT 06/29/25 08:59 Not Given QDAY [facility] Plan #Upper GI Bleed from ulcerated gastric tumor-stable #Gastric outlet obstruction #Gastric Adenocarcinoma (dx 03/2025) Diagnosed in 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 Patient has Chemo-Port in place on right upper chest placed on 05/18. Plan: - Pending transfer to [facility] (Dr. Rubalcava, oncologist) for pyloric channel stent placement, transfer accepted, insurance authorization approved, pending bed placement as of 06/04/25 - Daily CBC to monitor H&H - Avoid NSAIDs - Transfusion if hgb <7 - Continue Pantoprazole 40 mg BID IV and famotidine 20 mg BID - Pain management with Riverside 5-325 q6h, morphine 2 mg q3h PRN ? GI consulted, per recommendations continue current management of PPN until transfer to [facility]. #Anorexia 2/2 gastric outlet obstruction-s/p J tube placement 05/27 #Weight loss 2/2 malignancy #Malnutrition Jejunostomy placement 05/27 Patient not tolerating Jevity or Osmolite tube feeds Tolerated free water flushes Plan: - Start PPN through [facility]IV in anticipation for transfer to [facility] - Start Osmolite tube feeds 10 cc/h. If patient does not tolerate tube feeds, can d/c - Thiamine 100 mg/day x 7 days, c/f refeeding syndrome Plan has been discussed and approved with my senior resident Dr. Petr Espana and my attending physician Dr. Herlinda Thacker (Medical Student) Attending Provider Attestation/Addendum I have examined the patient, reviewed labs and imaging findings, discussed the case with the resident(s), and reviewed entered orders. I agree with the plan of care as outlined in this note, with these additional summaries/recommendations: Patient seen at bedside. No acute overnight events. Patient continues to endorse abdominal pain rated 6 out of 10 in severity. We will continue Riverside and morphine for breakthrough pain. Patient was restarted on trickle feeds yesterday with Osmolite at 10 cc an hour which she tolerated overnight but today endorsing increasing abdominal pain. We will place tube feeds back on hold. Continue PPN started yesterday's 06/03/2025. 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 Status post J-tube although still not tolerating low amounts of feeds. Continue pain management and antireflux medicines. Patient and family updated on the plan and agreement. All questions answered to satisfaction. Please see residents note for additional details management. Dr. Herlinda MD
[2025-06-04] MEDS: MORPHINE SULF INJ 10 MG/ML VIAL 2 MG IVP ×3 (09:34→21:08)
[2025-06-04] MEDS: MULTIVITAMINS TABLET 1 TAB PO (09:35)
[2025-06-04] MEDS: DOCUSATE SOD LIQD 100 MG/10 ML UDC GT ×2 (09:35→21:00)
[2025-06-04] MEDS: LOSARTAN POTASSIUM 25 MG TABLET 50 MG GT (09:35)
[2025-06-04] MEDS: THIAMINE 100 MG TABLET GT (09:35)
[2025-06-04] MEDS: cefTRIAXone/D5w 1gm IV premix 1 GM/50 ML BAG IV (09:38)
[2025-06-04] MEDS: DOXYCYCLINE INJ 100 MG in SODIUM CHLORIDE 0.9% (POP) 100 ML IV ×2 (10:19→20:59)
--- NOTE | 2025-06-04 12:01 | PC.NURSE ---
PHARMACY CONTACTED IN REGARDS TO PPN THAT IS HANGING, LEAVE BAG THAT IS HANGING CHANGE THE BAG AT 1800.
--- NOTE | 2025-06-04 15:20 | PC.SS ---
Rounding: Pending transfer waiting on bed availability.
[2025-06-04] MEDS: DEXTROSE 5%-0.45% NS 1,000 ML 50 ML IV (16:20)
[2025-06-04] MEDS: POTASSIUM PHOS IV (17:42)
[2025-06-04] MEDS: AMINO ACIDS IV (17:42)
[2025-06-04] MEDS: D5W IV (17:42)
--- NOTE | 2025-06-04 17:54 | PD.IMPROG ---
Documentation for date of: 06/04/25 Subjective Subjective Interval history: Patient evaluated Started on PPN Bed waiting at [facility] Exam Vital Signs Temp Pulse Resp BP Pulse Ox O2 Del Method O2 Flow Rate 97.2 F 68 16 102/68 93 L Room Air 3 06/04/25 16:00 06/04/25 16:00 06/04/25 16:00 06/04/25 16:00 06/04/25 16:00 06/04/25 16:00 06/04/25 16:00 Objective Labs 06/04/25 05:40 06/04/25 05:40 Labs: Laboratory Results - last 24 hr 06/04/25 05:40 WBC 8.6 RBC 4.79 Hgb 10.5 L Hct 33.6 L MCV 70 L MCH 21.9 L MCHC 31.3 RDW Std Deviation 55.9 H Plt Count 467 H D Neut % (Auto) 78 Lymph % (Auto) 12 [place] % (Auto) 4 Eos % (Auto) 4 Baso % (Auto) 1 Neut # (Auto) 6.7 Lymph # (Auto) 1.0 [place] # (Auto) 0.4 Eos # (Auto) 0.4 Baso # (Auto) 0.1 Immature Gran # (Auto) 0.06 H Absolute Nucleated RBC 0.00 Immature Gran % 1 H Nucleated RBC % 0 Sodium 138 Potassium 3.6 Chloride 103 Carbon Dioxide 26.4 Anion Gap 9 BUN 7 L Creatinine 0.7 Estim Creat Clear Calc 68.9 eGFR > 60 BUN/Creatinine Ratio 10 L Glucose 139 H Calculated Osmolality 275 Calcium 8.2 L Corrected Calcium 8.8 Phosphorus 2.5 Magnesium 2.0 Total Bilirubin 0.5 AST 12 ALT 7 L Alkaline Phosphatase 111 Total Protein 5.0 L Albumin 3.2 L Globulin 1.8 L Albumin/Globulin Ratio 1.8 Impressions Impression: # Hematemesis secondary to gastric adenocarcinoma Continue to follow hemoglobin hematocrit is relatively stable at the moment No need for a repeat endoscopy # Failure to thrive continue TPN and also trickle feeds through the jejunostomy tube Waiting [facility] Assessment & Plan A&P Narrative Patient is a 79-year-old male with PMH of recently diagnosed gastric carcinoma presenting to the ER for hematemesis. #Hematemesis Hgb stable (11.7 to 11.9 ), MCV stable (73 to 74), platelet count decreasing to previous baseline (808 from 978), INR 1.0, alk phos elevated (343), Port-A-Cath placement normal Plan: EGD for potential therapeutic intervention tomorrow; clear liquid diet; NPO midnight #COPD, HTN, HLD, COPD Plan: As per primary team Patient seen by Dr. Daron Hood MD, and staffed with Dr. Malachi Ascencio MD, attending. Attending physician attestation Patient examined by me Laboratory data reviewed Imaging studies reviewed Treatment plan outlined for fiberoptic esophagogastroduodenoscopy with possible therapeutic intervention under intravenous moderate patient is scheduled for tomorrow Clear liquid diet at 12 midnight N.p.o. midnight tonight except p.o. meds IV Protonix Serial CBC Transfuse PRBC if the hemoglobin drops below 7 g Thank you very much for the opportunity to participate in the care of this patient Time Spent With Patient Time: Total time spent is greater than 50% in coordination of care (as documented) at patient's floor/unit and/or counseling patient:
--- NOTE | 2025-06-04 17:56 | PC.CC ---
spoke to Jason at [facility], no bed availability at this time. current vital signs provided.
--- NOTE | 2025-06-04 20:25 | PC.NURSE ---
pt complained of unrelieved pain since tube feeding were restarted and requested to hold tube feedings for now to see if pain improves, okay to hold feedings per Dr. Hope.
[2025-06-05] VITALS (8 sets, daily range): BP systolic 94–114; BP diastolic 59–75; PULSE 59–66; RESP 17–20; TEMP 36.2–36.5; O2SAT 91–96
[2025-06-05] MEDS: MORPHINE SULF INJ 10 MG/ML VIAL 2 MG IVP ×4 (01:12→21:35)
[2025-06-05 06:03] LABS: Basophils # (Auto) 0.1 Thou/mm3 (0.0-0.2); Basophils % (Auto) 1 % (0-2.5); Eosinophils # (Auto) 0.3 Thou/mm3 (0.0-0.5); Eosinophils % (Auto) 4 % (0-10); Hematocrit 33.2 % (41.0-53.0); Hemoglobin 10.4 g/dL (13.5-16.0); Immature Granulocytes Auto 0.03 Thou/mm3 (0.00-0.00); Lymphocytes # (Auto) 1.1 Thou/mm3 (1.0-4.8); Lymphocytes % (Auto) 12 % (10-50); Mean Corpuscular HGB Conc 31.3 g/dl (31.0-37.0); Mean Corpuscular Hemoglobin 21.9 pg (25.0-35.0); Mean Corpuscular Volume 70 fL (80-100); Monocytes # (Auto) 0.4 Thou/mm3 (0.0-0.8); Monocytes % (Auto) 5 % (0-12); Neutrophils # (Auto) 6.7 Thou/mm3 (1.8-7.7); Neutrophils % (Auto) 77 % (37-80); Nucleated Red Blood Cell # 0.00 Thou/mm3 (0.00-0.00); Nucleated Red Blood Cell % 0 /100 WBC (0); Platelet Count 496 Thou/mm3 (140-440); RDW Standard Deviation 56.5 fL (35.1-43.9); Red Blood Count 4.75 Miln/mm3 (4.50-5.90); White Blood Count 8.7 Thou/mm3 (3.8-10.6)
[2025-06-05 06:39] LABS: Alanine Aminotransferase 8 U/L (10-49); Albumin, Serum 3.4 gm/dL (3.4-4.8); Albumin/Globulin Ratio 2.0 (1.2-2.2); Alkaline Phosphatase 112 U/L (46-116); Anion Gap 10 (7-16); Aspartate Amino Transferase 16 U/L (0-34); BUN/Creatinine Ratio 20 Ratio (12-20); Bilirubin,Total 0.7 mg/dL (0.3-1.2); Blood Urea Nitrogen 12 mg/dL (9-23); Calcium 8.3 mg/dL (8.3-10.6); Calcium (Corrected) 8.8 mg/dL (8.5-10.1); Carbon Dioxide 24.6 mMol/L (20.0-31.0); Chloride 104 mMol/L (98-107); Creatinine (Component) 0.6 mg/dL (0.6-1.3); Estimated Creatinine Clearance 80.3 mL/min (>60); Globulin 1.7 gm/dL (2.3-3.5); Glucose 106 mg/dL (74-106); Magnesium 1.9 mg/dL (1.6-2.6); Osmolality,Calculated 277 (275-295); Phosphorous 3.0 mg/dL (2.4-5.1); Potassium 3.9 mMol/L (3.4-5.1); Sodium 139 mMol/L (136-145); Total Protein 5.1 gm/dL (5.7-8.2); eGFR > 60 See Note
[2025-06-05] MEDS: ONDANSETRON INJ 2 MG/ML INJ 2 ML 4 MG IVP (07:19)
--- NOTE | 2025-06-05 07:29 | PC.NURSE ---
Pt c/o feeling dizzy and nauseous and abd pain 9/10. Checked blood sugar, results 123. Medicated with prn zofran and morphine. abd round and firm. Emotional support provided. States feels slightly better at this time.
[2025-06-05] MEDS: FAMOTIDINE INJ 10 MG/ML VIAL 2 ML 20 MG IVP (08:24)
[2025-06-05] MEDS: cefTRIAXone/D5w 1gm IV premix 1 GM/50 ML BAG IV (08:36)
[2025-06-05] MEDS: DOCUSATE SOD LIQD 100 MG/10 ML UDC GT ×2 (08:40→21:26)
[2025-06-05] MEDS: MULTIVITAMINS TABLET 1 TAB PO (08:40)
[2025-06-05] MEDS: THIAMINE 100 MG TABLET GT (08:40)
--- NOTE | 2025-06-05 08:51 | ESPR_ITS ---
<Statement entered by Bi Toscano MD - 06/05/25 14:38> Senior Resident Attestation: I supervised/discussed management plan with financial internship physician Dr. Miller, and was involved in the care of this patient. I personally saw and examined the patient and discussed the assessment and plan with the entire medicine team, including my attending. I agree with the assessment and plan as documented. Patient was seen and examined at the bedside. His tube feeds were held due to intolerable pain. He is only on PPN now. He is refusing pantoprazole and famotidine as it makes his pain worse. Transfer was accepted but the bed is still pending. Patient's care was discussed with attending physician, Dr. Pate. Bi Toscano MD PGY-3. Documentation for date of: 06/05/25 Subjective Subjective Interval history: Patient evaluated at bedside. Tube feeds stopped overnight as patient was not tolerating. Reports improved abdominal pain and distension this AM. Continues to get PPN through [facility]. Pending transfer to [facility] for pyloric channel stent placement, pending bed availability. Dr. Patricia was not able too complete phone visit last with patient. Patient has been refusing pantoprazole and famotidine, made these meds PRN. Exam Vital Signs Temp Pulse Resp BP Pulse Ox O2 Del Method O2 Flow Rate 97.2 F 59 L 18 110/75 95 Room Air 3 06/05/25 07:46 06/05/25 08:39 06/05/25 07:46 06/05/25 08:39 06/05/25 07:46 06/05/25 07:46 06/04/25 16:00 Narrative Exam General: No acute distress, well nourished, lying in bed Eye: PERRL, EOMI, normal conjunctiva, no scleral icterus HENT: Normocephalic, atraumatic, normal hearing, moist oral mucosa, temporal wasting Neck: Supple, non-tender, no JVD, no lymphadenopathy Lungs: Clear to auscultation bilaterally, non-labored respirations, symmetric chest rise, no use of accessory muscles Heart: Normal S1 and S2, no S3 or S4 appreciated. Normal rate and regular rhythm, no murmurs, rubs gallops, or edema. Peripheral pulses intact bilaterally, capillary refill brisk distally. R chest with chemo port intact Abdomen: Jejunostomy tube in place, no drainage or bleeding around insertion site. Tenderness to palpation around J tube site. Mild abdominal distension. Musculoskeletal: Normal range of motion and strength, no tenderness or swelling Skin: Skin is warm, dry, no rashes. No jaundice. Midline abdominal incision intact with stables, clean, no drainage. Neurologic: Alert, awake and oriented x3. CN II-XII grossly intact. No focal neuro deficits. No signs of meningeal irritation noted. Psychiatric: Cooperative, appropriate mood and affect Objective Labs 06/05/25 04:20 06/05/25 04:20 Labs: Laboratory Results - last 24 hr 06/05/25 04:20 WBC 8.7 RBC 4.75 Hgb 10.4 L Hct 33.2 L MCV 70 L MCH 21.9 L MCHC 31.3 RDW Std Deviation 56.5 H Plt Count 496 H Neut % (Auto) 77 Lymph % (Auto) 12 [place] % (Auto) 5 Eos % (Auto) 4 Baso % (Auto) 1 Neut # (Auto) 6.7 Lymph # (Auto) 1.1 [place] # (Auto) 0.4 Eos # (Auto) 0.3 Baso # (Auto) 0.1 Immature Gran # (Auto) 0.03 H Absolute Nucleated RBC 0.00 Immature Gran % 0 Nucleated RBC % 0 Sodium 139 Potassium 3.9 Chloride 104 Carbon Dioxide 24.6 Anion Gap 10 BUN 12 Creatinine 0.6 Estim Creat Clear Calc 80.3 eGFR > 60 BUN/Creatinine Ratio 20 Glucose 106 Calculated Osmolality 277 Calcium 8.3 Corrected Calcium 8.8 Phosphorus 3.0 Magnesium 1.9 Total Bilirubin 0.7 AST 16 ALT 8 L Alkaline Phosphatase 112 Total Protein 5.1 L Albumin 3.4 Globulin 1.7 L Albumin/Globulin Ratio 2.0 Quality Measures Quality Measures VTE prophylaxis Advance care planning discussed with:: patient and child Assessment & Plan Assessment Current Active Medications: Generic Name Dose Route Start Last Admin Trade Name Freq PRN Reason Stop Dose Admin Hydrocodone Bitart/Acetaminophen 1 tab 06/03/25 16:45 06/05/25 04:46 Hydrocodone/Apap 10/325 Tab PO 06/08/25 16:41 1 tab Q6HR PRN Administration PAIN SCALE 1-3 (mild Trelegy 100/62.5/25 0 ea 06/03/25 07:00 06/05/25 06:57 Mcg (Fluticasone, INH 07/03/25 06:59 Not Given Umeclidinium, DAILY HYACINTH Vilanterol) Inhaler Docusate Sodium 100 mg 05/29/25 09:00 06/05/25 08:40 Docusate Sod Liqd 100 Mg/10 Ml Udc GT 06/28/25 08:59 100 mg BID HYACINTH Administration Protocol Famotidine 20 mg 06/03/25 10:45 06/05/25 08:24 Famotidine Inj 10 Mg/Ml Vial 2 Ml IVP 07/03/25 10:44 20 mg BID HYACINTH Administration Doxycycline Hyclate 100 mg/ 100 mls @ 100 mls/hr 05/30/25 21:00 06/04/25 20:59 Sodium Chloride IV 06/06/25 20:59 100 mls/hr BID HYACINTH Administration Ceftriaxone Sodium/Dextrose 1 gm in 50 mls @ 100 mls/hr 05/30/25 16:10 06/05/25 08:36 Rocephin/D5w 1gm Iv Premix IV 06/06/25 16:09 100 mls/hr QDAY HYACINTH Administration Dextrose/Sodium Chloride 1,000 mls @ 50 mls/hr 06/02/25 14:30 06/04/25 16:20 D5-1/2ns IV 07/02/25 14:29 50 mls/hr .Q20H HYACINTH Administration Fat Emulsion Intravenous 500 mls @ 32 mls/hr 06/03/25 18:00 06/03/25 18:56 Intralipid 20% Iv IV 07/03/25 17:59 32 mls/hr TUTHSA@1800 HYACINTH Administration Potassium Phosphate 15 mmol/ 2,005 mls @ 105 mls/hr 06/04/25 18:00 06/04/25 17:42 Amino Acids IV 06/05/25 13:05 105 mls/hr QDAY@1800 ONE Administration Insulin Human Regular 0 unit 06/03/25 15:46 Insulin Hum Regular 1 Unit/0.01 Ml (Per Unit) SC 07/03/25 15:45 Q6HR PRN GLYCEMIC MANAGEMENT ON PN Protocol Losartan Potassium 50 mg 05/30/25 09:00 06/05/25 08:39 Losartan Potassium 25 Mg Tablet GT 06/29/25 08:59 Not Given QDAY HYACINTH Metoclopramide HCl 5 mg 06/01/25 12:00 06/05/25 05:26 Metoclopramide Inj 5 Mg/Ml Vial 2 Ml IVP 07/01/25 11:59 Not Given Q6HR HYACINTH Protocol Morphine Sulfate 2 mg 06/03/25 16:43 06/05/25 07:18 Morphine Sulf Inj 10 Mg/Ml Vial IVP 06/08/25 16:42 2 mg Q4HR PRN Administration PAIN SCALE 4-10(Mod-Sev Multivitamins 1 tab 05/28/25 14:30 06/05/25 08:40 Multivitamins Tablet PO 06/27/25 14:29 1 tab QDAY HYACINTH Administration Ondansetron HCl 4 mg 05/20/25 14:32 06/05/25 07:19 Ondansetron Inj 2 Mg/Ml Inj 2 Ml IVP 06/19/25 14:31 4 mg Q6H PRN Administration NAUSEA OR VOMITING Protocol Pantoprazole Sodium 40 mg 06/03/25 10:45 06/05/25 08:24 Pantoprazole Inj 40 Mg Vial IVP 07/03/25 10:44 40 mg BID HYACINTH Administration Pharmacy Consult 1 each 05/26/25 10:38 Pha To Consult Parenteral Nutr 1 Each Each XX 06/25/25 10:37 PRN PRN CONSULT Simethicone 80 mg 05/22/25 23:13 06/01/25 20:21 Simethicone 80 Mg Chew PO 06/21/25 23:12 80 mg QID PRN Administration GAS Thiamine HCl 100 mg 05/30/25 09:00 06/05/25 08:40 Thiamine 100 Mg Tablet GT 06/29/25 08:59 100 mg QDAY HYACINTH Administration Plan Mr. Melendez is a 79 y/o gentleman with hx of recently diagnosed gastric adenocarcinoma (followed by Dr. Canada and Dr. Phillips, not yet started on chemo), PAD with BLE stents, HTN, history of PUD, COPD with no home oxygen, who was admitted for upper GI bleed i/s/o gastric adenocarcinoma. IR GI upper series which demonstrated outlet obstruction 2/2 gastric cancer. J tube placed 05/27. P ending transfer to [facility] for pyloric channel stent placement #Upper GI Bleed from ulcerated gastric tumor-stable #Gastric outlet obstruction #Gastric Adenocarcinoma (dx 03/2025) Diagnosed in 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 Patient has Chemo-Port in place on right upper chest placed on 05/18. Patient reports that pantoprazole and famotidine makes abdominal sx worse. Reflux may be due to bile reflux rather than acid reflux. Made PPI PRN instead of scheduled. Plan: - Pending transfer to [facility] (Dr. Rubalcava, oncologist) for pyloric channel stent placement, transfer accepted, insurance authorization approved, pending bed placement - Daily CBC to monitor H&H - Avoid NSAIDs - Transfusion if hgb <7 - Continue Pantoprazole 40 mg BID PRN IV and famotidine 20 mg PRN BID - Pain management with [place] 10-325 q6h, morphine 2 mg q3h PRN ? GI consulted, appreciate recs #Anorexia 2/2 gastric outlet obstruction-s/p J tube placement 05/27 #Weight loss 2/2 malignancy #Malnutrition Jejunostomy placement 05/27 Patient not tolerating Jevity or Osmolite tube feeds Tolerated free water flushes Plan: - Continue PPN through [facility] in anticipation for transfer to [facility] - Held tube feeds due to patient intolerance - Thiamine 100 mg/day x 7 days, c/f refeeding syndrome #Constipation - resolved Patient has not had a bowel movement in 3 days Patient continues to develop pain and abdominal distension when tube feeds are restarted (both with Jevity and Osmolite feeds) Abdominal XR 05/31: Nonobstructive bowel gas pattern, contrast throughout, no free air Plan: - Colace 100 mg BID - Continue simethicone 80 mg QID #GERD #Hx PUD Home meds: Omeprazole 20mg BID, Famotidine 10 mg PRN, Patient continues to have acid reflux with frequent burping and occasional vomitus i/s/o gastric adenocarcinoma cause gastric outles obstruction Patient has been refusing pantoprazole, famotidine as he does not think this is helping his sx, makes abdominal pain worse Plan: - Famotidine 20 mg PRN IV, pantoprazole 40 mg PRN IV - Continue Reglan 5 mg IV q6h per Dr. Ascencio - Will continue to assess sx #Community-acquired pneumonia Productive cough present CXR (05/30): Mild pneumonia left base Afebrile, no leukocytosis Plan: - Continue IV Ceftriaxone 1g QD and Doxycycline 100mg BID (05/30 - 06/06) - CTM with temp, daily CBC - Encourage incentive spirometry #Hypertension - chronic Home meds: Losartan 50 mg daily BP appropriate Plan: - Continue Losartan 50 mg daily #COPD Not on home oxygen Per patient he has a history of pulmonary nodules seen on chest CT. He reports that he gets imaging done on his lungs every 6 months. His lung nodules that are certain size have been biopsied and have so far been benign. SpO2 appropriate on 3L CXR 05/25: Significant hyperexpansion. Basilar bronchitis pattern. No lobar PNA or pulmonary edema. Plan: -Continue home Trelegy inhaler (pt own medication) -O2 supplementation PRN #PAD s/p BLE stents Plan: Hold home aspirin 81 and Plavix i/s/o GI bleed #LLE neuropathy Parasthesia of LLE plantar surface of foot Home meds: Pregabalin 50 mg TID Pt reports improved sx on home med Plan: - Continue pregabalin 50mg TID - SCDs #Asymptomatic Bradycardia VSS TSH WNL EKG normal sinus bradycardia to 50s Plan: - CTM #Microcytic Anemia Query anemia of chronic disease iso gastric cancer vs anemia 2/2 acute blood losses. Hgb stable Plan: -CTM Hgb -transfuse if < 7 #Leukocytosis WBC 15.6 on 05/28 Most likely 2/2 reactive i/s/o J tube placement Plan: - CTM #Thrombocytosis - downtrending DDX: reactive thrombocytosis iso blood loss from GI bleed, vs gastric malignancy Plan: - CTM Dispo: pending transfer to [facility] for pyloric channel stent Diet: PPN through [facility] Bowel Reg: Docusate 100 mg BID, simethicone 80 mg QID VTE ppx: SCD GI ppx: Protonix 40 BID PRN IV, famotidine 20 mg BID PRN IV Code status: FULL Plan discussed with Dr. Toscano and Dr. Herlinda Miller MD PGY1 Attending Provider Attestation/Addendum I have examined the patient, reviewed labs and imaging findings, discussed the case with the resident(s), and reviewed entered orders. I agree with the plan of care as outlined in this note, with these additional summaries/recommendations: Patient seen at bedside. No acute overnight events. Patient continues to endorse moderate to severe intractable abdominal pain. We will increase [place] frequency and continue IV morphine for breakthrough pain. We were unable to titrate to extended morphine given J-tube. Patient was restarted on trickle feeds with Osmolite at 10 cc an hour but now no longer tolerating. DC tube feeds again. Continue PPN which was started on 06/03/2025. Patient was accepted to [facility] for oncology surgery for gastric stent in the setting of gastric outlet obstruction from gastric adenocarcinoma of the lesser curvature. Patient reports that IV Protonix and famotidine actually makes his symptoms worse and these were changed to as needed. In-house oncology following. We will update patient as soon as a bed opens up at [facility]. Patient updated on the plan and agreement. Please see residents note for additional details and management. Dr. Herlinda MD
[2025-06-05] MEDS: DOXYCYCLINE INJ 100 MG in SODIUM CHLORIDE 0.9% (POP) 100 ML IV ×2 (09:12→21:22)
[2025-06-05] MEDS: MORPHINE SULF INJ 10 MG/ML VIAL IVP (10:03)
--- NOTE | 2025-06-05 10:50 | PC.SS ---
1050-Pt is a 79 yo male who was admitted on 05/20, and per following medical provider, he was recently diagnosed gastric adenocarcinoma (followed by Dr. Canada and Dr. Phillips, not yet started on chemo), who was admitted for upper GI bleed i/s/o gastric adenocarcinoma. Pending transfer to [facility] . Wait: Bed.
--- NOTE | 2025-06-05 11:38 | PC.CC ---
I spoke to [facility] transfer center, they are at capacity and still pending bed availability. Dr. Miller made aware.
[2025-06-05] MEDS: DEXTROSE 5%-0.45% NS 1,000 ML 50 ML IV (12:54)
[2025-06-05] MEDS: MULTIVITAMIN IV (13:00)
[2025-06-05] MEDS: [UNRECOGNIZED DRUG - OTHER] IV (13:00)
[2025-06-05] MEDS: POT CHL ADDITIVE IV (13:00)
[2025-06-05] MEDS: MAGNESIUM SULF IV (13:00)
--- NOTE | 2025-06-05 16:33 | ESPR_ITS ---
Documentation for date of: 06/05/25 Subjective Subjective Interval history: Patient evaluated on PPN awaiting bed at [facility] Exam Vital Signs Temp Pulse Resp BP Pulse Ox O2 Del Method O2 Flow Rate 97.2 F 61 18 94/59 L 94 L Room Air 3 06/05/25 16:00 06/05/25 16:00 06/05/25 16:00 06/05/25 16:00 06/05/25 16:00 06/05/25 16:00 06/04/25 16:00 Objective Labs 06/05/25 04:20 06/05/25 04:20 Labs: Laboratory Results - last 24 hr 06/05/25 04:20 WBC 8.7 RBC 4.75 Hgb 10.4 L Hct 33.2 L MCV 70 L MCH 21.9 L MCHC 31.3 RDW Std Deviation 56.5 H Plt Count 496 H Neut % (Auto) 77 Lymph % (Auto) 12 [place] % (Auto) 5 Eos % (Auto) 4 Baso % (Auto) 1 Neut # (Auto) 6.7 Lymph # (Auto) 1.1 [place] # (Auto) 0.4 Eos # (Auto) 0.3 Baso # (Auto) 0.1 Immature Gran # (Auto) 0.03 H Absolute Nucleated RBC 0.00 Immature Gran % 0 Nucleated RBC % 0 Sodium 139 Potassium 3.9 Chloride 104 Carbon Dioxide 24.6 Anion Gap 10 BUN 12 Creatinine 0.6 Estim Creat Clear Calc 80.3 eGFR > 60 BUN/Creatinine Ratio 20 Glucose 106 Calculated Osmolality 277 Calcium 8.3 Corrected Calcium 8.8 Phosphorus 3.0 Magnesium 1.9 Total Bilirubin 0.7 AST 16 ALT 8 L Alkaline Phosphatase 112 Total Protein 5.1 L Albumin 3.4 Globulin 1.7 L Albumin/Globulin Ratio 2.0 Impressions Impression: Gastric adenocarcinoma with gastric outlet obstruction Waiting bed at [facility] Continue PPN Trickle feed via the jejunostomy tube Assessment & Plan A&P Narrative Patient is a 79-year-old male with PMH of recently diagnosed gastric carcinoma presenting to the ER for hematemesis. #Hematemesis Hgb stable (11.7 to 11.9 ), MCV stable (73 to 74), platelet count decreasing to previous baseline (808 from 978), INR 1.0, alk phos elevated (343), Port-A-Cath placement normal Plan: EGD for potential therapeutic intervention tomorrow; clear liquid diet; NPO midnight #COPD, HTN, HLD, COPD Plan: As per primary team Patient seen by Dr. Daron Hood MD, and staffed with Dr. Malachi Ascencio MD, attending. Attending physician attestation Patient examined by me Laboratory data reviewed Imaging studies reviewed Treatment plan outlined for fiberoptic esophagogastroduodenoscopy with possible therapeutic intervention under intravenous moderate patient is scheduled for tomorrow Clear liquid diet at 12 midnight N.p.o. midnight tonight except p.o. meds IV Protonix Serial CBC Transfuse PRBC if the hemoglobin drops below 7 g Thank you very much for the opportunity to participate in the care of this patient Time Spent With Patient Time: Total time spent is greater than 50% in coordination of care (as documented) at patient's floor/unit and/or counseling patient:
[2025-06-05] MEDS: FAT EMULSIONS 20% IV 500 ML 32 ML IV (17:29)
[2025-06-06] VITALS (7 sets, daily range): BP systolic 91–127; BP diastolic 49–72; PULSE 61–88; RESP 15–18; TEMP 36.3–36.8; O2SAT 94–98
[2025-06-06] MEDS: MORPHINE SULF INJ 10 MG/ML VIAL 2 MG IVP ×3 (01:31→19:39)
--- NOTE | 2025-06-06 07:54 | PC.NURSE ---
Pt vomited 828 ml of thin brown fluid no blood noticed
[2025-06-06 08:32] LABS: Basophils # (Auto) 0.1 Thou/mm3 (0.0-0.2); Basophils % (Auto) 1 % (0-2.5); Eosinophils # (Auto) 0.3 Thou/mm3 (0.0-0.5); Eosinophils % (Auto) 3 % (0-10); Hematocrit 31.8 % (41.0-53.0); Hemoglobin 9.8 g/dL (13.5-16.0); Immature Granulocytes Auto 0.14 Thou/mm3 (0.00-0.00); Lymphocytes # (Auto) 0.9 Thou/mm3 (1.0-4.8); Lymphocytes % (Auto) 7 % (10-50); Mean Corpuscular HGB Conc 30.8 g/dl (31.0-37.0); Mean Corpuscular Hemoglobin 21.5 pg (25.0-35.0); Mean Corpuscular Volume 70 fL (80-100); Monocytes # (Auto) 0.4 Thou/mm3 (0.0-0.8); Monocytes % (Auto) 4 % (0-12); Neutrophils # (Auto) 10.2 Thou/mm3 (1.8-7.7); Neutrophils % (Auto) 84 % (37-80); Nucleated Red Blood Cell # 0.00 Thou/mm3 (0.00-0.00); Nucleated Red Blood Cell % 0 /100 WBC (0); Platelet Count 457 Thou/mm3 (140-440); RDW Standard Deviation 56.6 fL (35.1-43.9); Red Blood Count 4.55 Miln/mm3 (4.50-5.90); White Blood Count 12.1 Thou/mm3 (3.8-10.6)
[2025-06-06] MEDS: AMINO ACIDS 4.25 %/D5W 1,000 ML 105 ML IV (08:40)
[2025-06-06 09:07] LABS: Alanine Aminotransferase 10 U/L (10-49); Albumin, Serum 3.5 gm/dL (3.4-4.8); Albumin/Globulin Ratio 1.9 (1.2-2.2); Alkaline Phosphatase 112 U/L (46-116); Anion Gap 11 (7-16); Aspartate Amino Transferase 17 U/L (0-34); BUN/Creatinine Ratio 23 Ratio (12-20); Bilirubin,Total 0.7 mg/dL (0.3-1.2); Blood Urea Nitrogen 16 mg/dL (9-23); Calcium 8.5 mg/dL (8.3-10.6); Calcium (Corrected) 8.9 mg/dL (8.5-10.1); Carbon Dioxide 23.5 mMol/L (20.0-31.0); Chloride 100 mMol/L (98-107); Creatinine (Component) 0.7 mg/dL (0.6-1.3); Estimated Creatinine Clearance 68.8 mL/min (>60); Globulin 1.8 gm/dL (2.3-3.5); Glucose 125 mg/dL (74-106); Magnesium 1.4 mg/dL (1.6-2.6); Osmolality,Calculated 270 (275-295); Phosphorous 1.9 mg/dL (2.4-5.1); Potassium 3.6 mMol/L (3.4-5.1); Sodium 134 mMol/L (136-145); Total Protein 5.3 gm/dL (5.7-8.2); eGFR > 60 See Note
[2025-06-06] MEDS: cefTRIAXone/D5w 1gm IV premix 1 GM/50 ML BAG IV (09:22)
[2025-06-06] MEDS: MULTIVITAMINS TABLET 1 TAB PO (09:22)
[2025-06-06] MEDS: DOCUSATE SOD LIQD 100 MG/10 ML UDC GT ×2 (09:22→21:00)
[2025-06-06] MEDS: LOSARTAN POTASSIUM 25 MG TABLET 50 MG GT (09:23)
[2025-06-06] MEDS: THIAMINE 100 MG TABLET GT (09:23)
--- NOTE | 2025-06-06 09:37 | PC.SS ---
[id number] contacted JAZ Fleming from Transfer Center and she reported at this time the wait is a Bed Acceptance. [facility] has accepted.
[2025-06-06] MEDS: DOXYCYCLINE INJ 100 MG in SODIUM CHLORIDE 0.9% (POP) 100 ML IV (09:48)
--- NOTE | 2025-06-06 09:55 | ESPR_ITS ---
<Statement entered by Young Espana MD - 06/06/25 21:07> Patient was examined and case was reviewed with team including attending physician. Note reviewed, I agree with most of its contents and agree with the patient's care as documented by Dr. Miller Patient seen today at the bedside found awake, alert, orientedx3. No overnight events reported. Vital signs stable at this time. Continues on parenteral nutrition, still pending transfer to [facility], bed not available yet. Will plan for PICC line placement tomorrow for more optimal nutrition while awaiting transfer. Case discussed with my attending Dr. Azeb Espana MD PGY-2 Documentation for date of: 06/06/25 Subjective Subjective Interval history: Yesterday, increased [place] 10/325 mg PO (through J tube) q6 to q4h, continue morphine 2 mg IV q4h. Increased because patient was having inadequate coverage of pain with previous regimen. Cannot give extended release opioids as PO meds have to be crushed and put in J tube. 2 episodes of vomitus overnight, consisting of yellow phlegm once, blood another time. Holding tube feeds. Denies pain or abdominal distension this AM. Exam Vital Signs Temp Pulse Resp BP Pulse Ox O2 Del Method O2 Flow Rate 97.6 F 88 18 125/72 95 Room Air 3 06/06/25 07:36 06/06/25 09:23 06/06/25 07:36 06/06/25 09:23 06/06/25 07:36 06/06/25 07:36 06/04/25 16:00 Narrative Exam General: No acute distress, well nourished, lying in bed Eye: PERRL, EOMI, normal conjunctiva, no scleral icterus HENT: Normocephalic, atraumatic, normal hearing, moist oral mucosa, temporal wasting Neck: Supple, non-tender, no JVD, no lymphadenopathy Lungs: Clear to auscultation bilaterally, non-labored respirations, symmetric chest rise, no use of accessory muscles Heart: Normal S1 and S2, no S3 or S4 appreciated. Normal rate and regular rhythm, no murmurs, rubs gallops, or edema. Peripheral pulses intact bilaterally, capillary refill brisk distally. R chest with chemo port intact Abdomen: Jejunostomy tube in place, no drainage or bleeding around insertion site. Tenderness to palpation around J tube site. Mild abdominal distension. Musculoskeletal: Normal range of motion and strength, no tenderness or swelling Skin: Skin is warm, dry, no rashes. No jaundice. Midline abdominal incision intact with stables, clean, no drainage. Neurologic: Alert, awake and oriented x3. CN II-XII grossly intact. No focal neuro deficits. No signs of meningeal irritation noted. Psychiatric: Cooperative, appropriate mood and affect Objective Labs 06/07/25 08:12 06/07/25 08:12 Labs: Laboratory Results - last 24 hr 06/06/25 07:41 WBC 12.1 H RBC 4.55 Hgb 9.8 L Hct 31.8 L MCV 70 L MCH 21.5 L MCHC 30.8 L RDW Std Deviation 56.6 H Plt Count 457 H D Neut % (Auto) 84 H Lymph % (Auto) 7 L [place] % (Auto) 4 Eos % (Auto) 3 Baso % (Auto) 1 Neut # (Auto) 10.2 H Lymph # (Auto) 0.9 L [place] # (Auto) 0.4 Eos # (Auto) 0.3 Baso # (Auto) 0.1 Immature Gran # (Auto) 0.14 H Absolute Nucleated RBC 0.00 Immature Gran % 1 H Nucleated RBC % 0 Sodium 134 L Potassium 3.6 Chloride 100 Carbon Dioxide 23.5 Anion Gap 11 BUN 16 Creatinine 0.7 Estim Creat Clear Calc 68.8 eGFR > 60 BUN/Creatinine Ratio 23 H Glucose 125 H Calculated Osmolality 270 L Calcium 8.5 Corrected Calcium 8.9 Phosphorus 1.9 L Magnesium 1.4 L Total Bilirubin 0.7 AST 17 ALT 10 Alkaline Phosphatase 112 Total Protein 5.3 L Albumin 3.5 Globulin 1.8 L Albumin/Globulin Ratio 1.9 Quality Measures Quality Measures VTE prophylaxis Advance care planning discussed with:: patient and child Assessment & Plan Assessment Current Active Medications: Generic Name Dose Route Start Last Admin Trade Name Freq PRN Reason Stop Dose Admin Hydrocodone Bitart/Acetaminophen 1 tab 06/05/25 15:14 06/06/25 09:22 Hydrocodone/Apap 10/325 Tab PO 06/10/25 15:13 1 tab Q4HR PRN Administration PAIN SCALE 1-3 (mild Trelegy 100/62.525 0 ea 06/03/25 07:00 06/05/25 06:57 Mcg (Fluticasone, INH 07/03/25 06:59 Not Given Umeclidinium, DAILY HYACINTH Vilanterol) Inhaler Docusate Sodium 100 mg 05/29/25 09:00 06/06/25 09:22 Docusate Sod Liqd 100 Mg/10 Ml Udc GT 06/28/25 08:59 100 mg BID HYACINTH Administration Protocol Famotidine 20 mg 06/05/25 09:06 Famotidine Inj 10 Mg/Ml Vial 2 Ml IVP 07/03/25 10:44 BID PRN Abdominal Distention Doxycycline Hyclate 100 mg/ 100 mls @ 100 mls/hr 05/30/25 21:00 06/06/25 09:48 Sodium Chloride IV 06/06/25 20:59 100 mls/hr BID HYACINTH Administration Ceftriaxone Sodium/Dextrose 1 gm in 50 mls @ 100 mls/hr 05/30/25 16:10 06/06/25 09:22 Rocephin/D5w 1gm Iv Premix IV 06/06/25 16:09 100 mls/hr QDAY HYACINTH Administration Dextrose/Sodium Chloride 1,000 mls @ 50 mls/hr 06/02/25 14:30 06/05/25 12:54 D5-1/2ns IV 07/02/25 14:29 50 mls/hr .Q20H HYACINTH Administration Fat Emulsion Intravenous 500 mls @ 32 mls/hr 06/03/25 18:00 06/05/25 17:29 Intralipid 20% Iv IV 07/03/25 17:59 32 mls/hr [id number]@1800 HYACINTH Administration Amino Acids 1,000 mls @ 105 mls/hr 06/06/25 08:19 06/06/25 08:40 Clinimix 4.25/5 IV 06/06/25 17:50 105 mls/hr X1 ONE Administration Magnesium Sulfate 2 gm/ 1,009 mls @ 105 mls/hr 06/06/25 17:51 Potassium Phosphate 15 mmol/ IV 06/07/25 03:27 Amino Acids X1 ONE Amino Acids/Electrolytes/Dextrose 2,000 mls @ 105 mls/hr 06/07/25 03:28 Clinimix E 4.25/5 IV 06/07/25 22:30 X1 ONE Insulin Human Regular 0 unit 06/03/25 15:46 Insulin Hum Regular 1 Unit/0.01 Ml (Per Unit) SC 07/03/25 15:45 Q6HR PRN GLYCEMIC MANAGEMENT ON PN Protocol Losartan Potassium 50 mg 05/30/25 09:00 06/06/25 09:23 Losartan Potassium 25 Mg Tablet GT 06/29/25 08:59 50 mg QDAY HYACINTH Administration Metoclopramide HCl 5 mg 06/06/25 08:40 Metoclopramide Inj 5 Mg/Ml Vial 2 Ml IVP 07/01/25 11:59 Q6HR PRN nausea Protocol Morphine Sulfate 2 mg 06/03/25 16:43 06/06/25 01:31 Morphine Sulf Inj 10 Mg/Ml Vial IVP 06/08/25 16:42 2 mg Q4HR PRN Administration PAIN SCALE 4-10(Mod-Sev Multivitamins 1 tab 05/28/25 14:30 06/06/25 09:22 Multivitamins Tablet PO 06/27/25 14:29 1 tab QDAY HYACINTH Administration Ondansetron HCl 4 mg 05/20/25 14:32 06/05/25 07:19 Ondansetron Inj 2 Mg/Ml Inj 2 Ml IVP 06/19/25 14:31 4 mg Q6H PRN Administration NAUSEA OR VOMITING Protocol Pantoprazole Sodium 40 mg 06/05/25 09:06 Pantoprazole Inj 40 Mg Vial IVP 07/03/25 10:44 BID PRN Abdominal Distention Pharmacy Consult 1 each 05/26/25 10:38 Pha To Consult Parenteral Nutr 1 Each Each XX 06/25/25 10:37 PRN PRN CONSULT Simethicone 80 mg 05/22/25 23:13 06/01/25 20:21 Simethicone 80 Mg Chew PO 06/21/25 23:12 80 mg QID PRN Administration GAS Thiamine HCl 100 mg 05/30/25 09:00 06/06/25 09:23 Thiamine 100 Mg Tablet GT 06/29/25 08:59 100 mg QDAY HYACINTH Administration Plan Mr. Melendez is a 79 y/o gentleman with hx of recently diagnosed gastric adenocarcinoma (followed by Dr. Canada and Dr. Phillips, not yet started on chemo), PAD with BLE stents, HTN, history of PUD, COPD with no home oxygen, who was admitted for upper GI bleed i/s/o gastric adenocarcinoma. IR GI upper series which demonstrated outlet obstruction 2/2 gastric cancer. J tube placed 05/27. P ending transfer to [facility] for pyloric channel stent placement #Upper GI Bleed from ulcerated gastric tumor-stable #Gastric outlet obstruction #Gastric Adenocarcinoma (dx 03/2025) Diagnosed in 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 Patient has Chemo-Port in place on right upper chest placed on 05/18. Patient reports that pantoprazole and famotidine makes abdominal sx worse. Reflux may be due to bile reflux rather than acid reflux. Made PPI PRN instead of scheduled. Plan: - Pending transfer to [facility] (Dr. Rubalcava, oncologist) for pyloric channel stent placement, transfer accepted, insurance authorization approved, pending bed placement - Daily CBC to monitor H&H - Avoid NSAIDs - Transfusion if hgb <7 - Continue Pantoprazole 40 mg BID PRN IV and famotidine 20 mg PRN BID - Pain management with [place] 10-325 q4h, morphine 2 mg q3h PRN ? GI consulted, appreciate recs #Anorexia 2/2 gastric outlet obstruction-s/p J tube placement 05/27 #Weight loss 2/2 malignancy #Malnutrition Jejunostomy placement 05/27 Patient not tolerating Jevity or Osmolite tube feeds Tolerated free water flushes Plan: - Continue PPN through PIV in anticipation for transfer to [facility] - Held tube feeds due to patient intolerance - Thiamine 100 mg/day x 7 days, c/f refeeding syndrome #Constipation - resolved Patient has not had a bowel movement in 3 days Patient continues to develop pain and abdominal distension when tube feeds are restarted (both with Jevity and Osmolite feeds) Abdominal XR 05/31: Nonobstructive bowel gas pattern, contrast throughout, no free air Plan: - Colace 100 mg BID - Continue simethicone 80 mg QID #GERD #Hx PUD Home meds: Omeprazole 20mg BID, Famotidine 10 mg PRN, Patient continues to have acid reflux with frequent burping and occasional vomitus i/s/o gastric adenocarcinoma cause gastric outles obstruction Patient has been refusing pantoprazole, famotidine as he does not think this is helping his sx, makes abdominal pain worse Plan: - Famotidine 20 mg PRN IV, pantoprazole 40 mg PRN IV - Continue Reglan 5 mg IV q6h PRN per Dr. Ascencio - Will continue to assess sx #Community-acquired pneumonia Productive cough present CXR (05/30): Mild pneumonia left base Afebrile, no leukocytosis Plan: - Continue IV Ceftriaxone 1g QD and Doxycycline 100mg BID (05/30 - 06/06) - CTM with temp, daily CBC - Encourage incentive spirometry #Hypertension - chronic Home meds: Losartan 50 mg daily BP appropriate Plan: - Continue Losartan 50 mg daily #COPD Not on home oxygen Per patient he has a history of pulmonary nodules seen on chest CT. He reports that he gets imaging done on his lungs every 6 months. His lung nodules that are certain size have been biopsied and have so far been benign. SpO2 appropriate on 3L CXR 05/25: Significant hyperexpansion. Basilar bronchitis pattern. No lobar PNA or pulmonary edema. Plan: -Continue home Trelegy inhaler (pt own medication) -O2 supplementation PRN #PAD s/p BLE stents Plan: Hold home aspirin 81 and Plavix i/s/o GI bleed #LLE neuropathy Parasthesia of LLE plantar surface of foot Home meds: Pregabalin 50 mg TID Pt reports improved sx on home med Plan: - Continue pregabalin 50mg TID - SCDs #Asymptomatic Bradycardia VSS TSH WNL EKG normal sinus bradycardia to 50s Plan: - CTM #Microcytic Anemia Query anemia of chronic disease iso gastric cancer vs anemia 2/2 acute blood losses. Hgb stable Plan: -CTM Hgb -transfuse if < 7 #Leukocytosis WBC 15.6 on 05/28 Most likely 2/2 reactive i/s/o J tube placement Plan: - CTM #Thrombocytosis - downtrending DDX: reactive thrombocytosis iso blood loss from GI bleed, vs gastric malignancy Plan: - CTM Dispo: pending transfer to [facility] for pyloric channel stent Diet: PPN through PIV Bowel Reg: Docusate 100 mg BID, simethicone 80 mg QID VTE ppx: SCD GI ppx: Protonix 40 BID PRN IV, famotidine 20 mg BID PRN IV Code status: FULL Plan discussed with Dr. Humphreys and Dr. Azeb Miller MD PGY1 Attending Provider Attestation/Addendum Sarah Reyna DO, attest that I was physically present for the issa portions of the service and evaluated the patient with the resident and I reviewed and discussed the case with the resident and agree with the resident's findings and plans of care as documented above Patient seen eval this a.m. He states that he is doing well. Pain is controlled with [place], but will come unexpectedly. He is pending transfer to outside hospital for pyloric channel stent. Will continue with current management otherwise. Patient has not been able to tolerate any p.o. intake. Will place PICC line tomorrow so that patient can continue with TPN.
[2025-06-06] MEDS: UMECLIDINIUM INH (10:59)
[2025-06-06] MEDS: VILANTEROL INH (10:59)
[2025-06-06] MEDS: TRELEGY INH (10:59)
--- NOTE | 2025-06-06 11:06 | PC.CC ---
1104 called [facility], spoke to Kenzie for transfer update. Kenzie stated pending bed availability.
[2025-06-06] MEDS: DEXTROSE 5%-0.45% NS 1,000 ML 50 ML IV (15:02)
--- NOTE | 2025-06-06 16:47 | PD.IMPROG ---
Documentation for date of: 06/06/25 Subjective Subjective Interval history: Hemoglobin hematocrit 9.8 and 31.8 Not able to tolerate any jejunostomy feeding even trickle feeding at 10 cc an hour Spoke with Dr Rosales there is really no balloon of the jejunostomy tube so it cannot be an obstruction from the jejunostomy site Waiting bed at [facility] Exam Vital Signs Temp Pulse Resp BP Pulse Ox O2 Del Method O2 Flow Rate 97.6 F 82 18 127/65 94 L Room Air 3 06/06/25 16:00 06/06/25 16:00 06/06/25 16:00 06/06/25 16:00 06/06/25 16:00 06/06/25 16:00 06/04/25 16:00 Objective Labs 06/06/25 07:41 06/06/25 07:41 Labs: Laboratory Results - last 24 hr 06/06/25 07:41 WBC 12.1 H RBC 4.55 Hgb 9.8 L Hct 31.8 L MCV 70 L MCH 21.5 L MCHC 30.8 L RDW Std Deviation 56.6 H Plt Count 457 H D Neut % (Auto) 84 H Lymph % (Auto) 7 L [place] % (Auto) 4 Eos % (Auto) 3 Baso % (Auto) 1 Neut # (Auto) 10.2 H Lymph # (Auto) 0.9 L [place] # (Auto) 0.4 Eos # (Auto) 0.3 Baso # (Auto) 0.1 Immature Gran # (Auto) 0.14 H Absolute Nucleated RBC 0.00 Immature Gran % 1 H Nucleated RBC % 0 Sodium 134 L Potassium 3.6 Chloride 100 Carbon Dioxide 23.5 Anion Gap 11 BUN 16 Creatinine 0.7 Estim Creat Clear Calc 68.8 eGFR > 60 BUN/Creatinine Ratio 23 H Glucose 125 H Calculated Osmolality 270 L Calcium 8.5 Corrected Calcium 8.9 Phosphorus 1.9 L Magnesium 1.4 L Total Bilirubin 0.7 AST 17 ALT 10 Alkaline Phosphatase 112 Total Protein 5.3 L Albumin 3.5 Globulin 1.8 L Albumin/Globulin Ratio 1.9 Impressions Impression: Gastric adenocarcinoma causing gastric outlet obstruction Gastric motility disorder Not tolerating jejunostomy feeding on PPN Continue current management Assessment & Plan A&P Narrative Patient is a 79-year-old male with PMH of recently diagnosed gastric carcinoma presenting to the ER for hematemesis. #Hematemesis Hgb stable (11.7 to 11.9 ), MCV stable (73 to 74), platelet count decreasing to previous baseline (808 from 978), INR 1.0, alk phos elevated (343), Port-A-Cath placement normal Plan: EGD for potential therapeutic intervention tomorrow; clear liquid diet; NPO midnight #COPD, HTN, HLD, COPD Plan: As per primary team Patient seen by Dr. Daron Hood MD, and staffed with Dr. Malachi Ascencio MD, attending. Attending physician attestation Patient examined by me Laboratory data reviewed Imaging studies reviewed Treatment plan outlined for fiberoptic esophagogastroduodenoscopy with possible therapeutic intervention under intravenous moderate patient is scheduled for tomorrow Clear liquid diet at 12 midnight N.p.o. midnight tonight except p.o. meds IV Protonix Serial CBC Transfuse PRBC if the hemoglobin drops below 7 g Thank you very much for the opportunity to participate in the care of this patient Time Spent With Patient Time: Total time spent is greater than 50% in coordination of care (as documented) at patient's floor/unit and/or counseling patient:
[2025-06-06] MEDS: [UNRECOGNIZED DRUG - OTHER] IV (17:02)
[2025-06-06] MEDS: MAGNESIUM SULF IV (17:02)
[2025-06-06] MEDS: POTASSIUM PHOS IV (17:02)
--- NOTE | 2025-06-06 18:21 | PC.NURSE ---
pt inform me that IV in Left Forarm and Left Hand bray. I removed both IV's and attempt to insert a new IV but was unsuccessful. Two other nurse also attempt and was unsuccessful. Called ER nurse for help and got 2 IV in pt.
--- NOTE | 2025-06-06 23:34 | PC.NURSE ---
Patient refused to have enema.
[2025-06-07] VITALS (7 sets, daily range): BP systolic 101–147; BP diastolic 51–67; PULSE 53–85; RESP 15–18; TEMP 36.3–36.9; O2SAT 94–98; BMI 18.7
--- NOTE | 2025-06-07 | XR_ITS ---
Examination: Ultrasound-guided needle placement right brachial vein. Dual-lumen central line placement (PICC line). Fluoroscopy AP chest, portable, single view Exam date and time:June 07, 2025 1224 hours INDICATIONS: Need for long-term TPN A timeout was completed verifying correct patient, procedure, site, positioning Informed consent provided Technique: The patient's site was prepped and draped in sterile fashion. Maximum Sterile Barrier Technique used including cap, mask, sterile gown, sterile gloves, and sterile full body drape. If ultrasound technique used: sterile gel and sterile probe covers. Hand Hygiene performed using proper scrub, soap and water, or alcohol-based hand rub. Ultrasound site right portable apparatus utilized to confirm patency of the right brachial vein Utilizing ultrasonographic guidance successful 21-gauge needle puncture into the right brachial vein. Ultrasound images recorded and stored. 5 cc 1% lidocaine administered for local anesthetic. Successful micropuncture with a 21-gauge needle is performed. 0.18 wire guide is then introduced into the SVC under fluoroscopic guidance. Dual-lumen catheter dilator is then introduced, followed by the catheter in the SVC and proper position under fluoroscopic guidance. Successful aspiration of blood and flushing with heparinized saline is then performed in the 2 venous limbs. The catheter sutured in place. Findings: Under fluoroscopy, the tip of the catheter is in good position in the vena cava. Portable chest x-ray, post line placement is ordered. Estimated blood loss 3 cc The patient tolerated the procedure well and was in stable and satisfactory condition at completion of the procedure Impression: Successful ultrasound-guided needle placement right brachial vein Successful placement of dual lumen central line, percutaneous Fluoroscopy 0.1 minute radiation dose 0.39 milligray 1 spot fluoroscopic chest. AP chest completion procedure demonstrates satisfactory position central line. May use central line.
[2025-06-07] MEDS: MORPHINE SULF INJ 10 MG/ML VIAL 2 MG IVP ×4 (00:04→16:41)
--- NOTE | 2025-06-07 02:13 | PC.NURSE ---
Dr. Lynch notified regarding Clinimix infiltration in peripheral IV. No new orders.
[2025-06-07] MEDS: DEXTROSE 5%-0.45% NS 1,000 ML 50 ML IV (03:09)
[2025-06-07] MEDS: METOCLOPRAMIDE INJ 5 MG/ML VIAL 2 ML IVP ×2 (03:09→11:41)
[2025-06-07] MEDS: AMINO ACID 4.25%/D5W E 2,000 ML 105 ML IV (03:09)
--- NOTE | 2025-06-07 07:35 | PC.NURSE ---
SPOKE TO PHARMACY TO GET PATIENTS MEDICATIONS SWITCH FROM PO TO GT.
[2025-06-07] MEDS: ONDANSETRON INJ 2 MG/ML INJ 2 ML 4 MG IVP ×2 (07:46→18:23)
--- NOTE | 2025-06-07 07:51 | PC.CM ---
[id number] I received a call from Sahara with the transfer center at [facility]. She asked for VS and stated she was going to check on bed availability today and get back to me.
--- NOTE | 2025-06-07 07:54 | PC.NURSE ---
DR. KHOURY MADE AWARE PT'S LEFT ARM IS SWOLLEN AND PT C/O PAIN. LEFT ARM WAS ELEVATED AND PT REFUSED A COLD COMPRESS. MADE AWARE.
--- NOTE | 2025-06-07 08:00 | PC.NURSE ---
LABS CONTACTED, PER ANALISA NURSE LAST NIGHT TOLD PHLEBO TO COME BACK AFTER BREAKFAST.
--- NOTE | 2025-06-07 08:42 | PD.RESPRO ---
Documentation for date of: 06/07/25 Subjective Subjective Interval history: NAEO. VSS. Plan for PICC line placement with initiation of TPN today. Still pending bed availability at [facility] for transfer. Exam Vital Signs Temp Pulse Resp BP Pulse Ox O2 Del Method O2 Flow Rate 97.4 F 85 16 147/67 H 97 Room Air 3 06/07/25 07:47 06/07/25 07:47 06/07/25 07:47 06/07/25 07:47 06/07/25 07:47 06/07/25 07:47 06/04/25 16:00 Narrative Exam General: No acute distress, well nourished, lying in bed Eye: PERRL, EOMI, normal conjunctiva, no scleral icterus HENT: Normocephalic, atraumatic, normal hearing, moist oral mucosa, temporal wasting Neck: Supple, non-tender, no JVD, no lymphadenopathy Lungs: Clear to auscultation bilaterally, non-labored respirations, symmetric chest rise, no use of accessory muscles Heart: Normal S1 and S2, no S3 or S4 appreciated. Normal rate and regular rhythm, no murmurs, rubs gallops, or edema. Peripheral pulses intact bilaterally, capillary refill brisk distally. R chest with chemo port intact Abdomen: Jejunostomy tube in place, no drainage or bleeding around insertion site. Tenderness to palpation around J tube site. Mild abdominal distension. Musculoskeletal: Normal range of motion and strength, no tenderness or swelling Skin: Skin is warm, dry, no rashes. No jaundice. Midline abdominal incision intact with stables, clean, no drainage. Neurologic: Alert, awake and oriented x3. CN II-XII grossly intact. No focal neuro deficits. No signs of meningeal irritation noted. Psychiatric: Cooperative, appropriate mood and affect Objective Labs 06/07/25 08:12 06/07/25 08:12 Labs: Laboratory Results - last 24 hr 06/06/25 07:41 WBC 12.1 H RBC 4.55 Hgb 9.8 L Hct 31.8 L MCV 70 L MCH 21.5 L MCHC 30.8 L RDW Std Deviation 56.6 H Plt Count 457 H D Neut % (Auto) 84 H Lymph % (Auto) 7 L Wake % (Auto) 4 Eos % (Auto) 3 Baso % (Auto) 1 Neut # (Auto) 10.2 H Lymph # (Auto) 0.9 L Wake # (Auto) 0.4 Eos # (Auto) 0.3 Baso # (Auto) 0.1 Immature Gran # (Auto) 0.14 H Absolute Nucleated RBC 0.00 Immature Gran % 1 H Nucleated RBC % 0 Sodium 134 L Potassium 3.6 Chloride 100 Carbon Dioxide 23.5 Anion Gap 11 BUN 16 Creatinine 0.7 Estim Creat Clear Calc 68.8 eGFR > 60 BUN/Creatinine Ratio 23 H Glucose 125 H Calculated Osmolality 270 L Calcium 8.5 Corrected Calcium 8.9 Phosphorus 1.9 L Magnesium 1.4 L Total Bilirubin 0.7 AST 17 ALT 10 Alkaline Phosphatase 112 Total Protein 5.3 L Albumin 3.5 Globulin 1.8 L Albumin/Globulin Ratio 1.9 Quality Measures Quality Measures VTE prophylaxis Assessment & Plan Assessment Current Active Medications: Generic Name Dose Route Start Last Admin Trade Name Freq PRN Reason Stop Dose Admin Hydrocodone Bitart/Acetaminophen 1 tab 06/07/25 07:36 Hydrocodone/Apap 10/325 Tab GT 06/10/25 15:13 Q4HR PRN PAIN SCALE 1-3 (mild Trelegy 100/62.525 0 ea 06/03/25 07:00 06/07/25 06:25 Mcg (Fluticasone, INH 07/03/25 06:59 Not Given Umeclidinium, DAILY HYACINTH Vilanterol) Inhaler Docusate Sodium 100 mg 05/29/25 09:00 06/06/25 21:00 Docusate Sod Liqd 100 Mg/10 Ml Udc GT 06/28/25 08:59 100 mg BID HYACINTH Administration Protocol Famotidine 20 mg 06/05/25 09:06 Famotidine Inj 10 Mg/Ml Vial 2 Ml IVP 07/03/25 10:44 BID PRN Abdominal Distention Dextrose/Sodium Chloride 1,000 mls @ 50 mls/hr 06/02/25 14:30 06/07/25 03:09 D5-1/2ns IV 07/02/25 14:29 50 mls/hr .Q20H HYACINTH Administration Fat Emulsion Intravenous 500 mls @ 32 mls/hr 06/03/25 18:00 06/05/25 17:29 Intralipid 20% Iv IV 07/03/25 17:59 32 mls/hr [id number] HYACINTH Administration Amino Acids/Electrolytes/Dextrose 2,000 mls @ 105 mls/hr 06/07/25 03:28 06/07/25 03:09 Clinimix E 4.25/5 IV 06/07/25 22:30 105 mls/hr X1 ONE Administration Insulin Human Regular 0 unit 06/03/25 15:46 Insulin Hum Regular 1 Unit/0.01 Ml (Per Unit) SC 07/03/25 15:45 Q6HR PRN GLYCEMIC MANAGEMENT ON PN Protocol Losartan Potassium 50 mg 05/30/25 09:00 06/06/25 09:23 Losartan Potassium 25 Mg Tablet GT 06/29/25 08:59 50 mg QDAY HYACINTH Administration Metoclopramide HCl 5 mg 06/06/25 08:40 06/07/25 03:09 Metoclopramide Inj 5 Mg/Ml Vial 2 Ml IVP 07/01/25 11:59 5 mg Q6HR PRN Administration nausea Protocol Morphine Sulfate 2 mg 06/03/25 16:43 06/07/25 07:47 Morphine Sulf Inj 10 Mg/Ml Vial IVP 06/08/25 16:42 2 mg Q4HR PRN Administration PAIN SCALE 4-10(Mod-Sev Multivitamins/Minerals 15 ml 06/07/25 09:00 Multivitamin 15 Ml Udc GT 07/07/25 08:59 QDAY HYACINTH Ondansetron HCl 4 mg 05/20/25 14:32 06/07/25 07:46 Ondansetron Inj 2 Mg/Ml Inj 2 Ml IVP 06/19/25 14:31 4 mg Q6H PRN Administration NAUSEA OR VOMITING Protocol Pantoprazole Sodium 40 mg 06/05/25 09:06 Pantoprazole Inj 40 Mg Vial IVP 07/03/25 10:44 BID PRN Abdominal Distention Pharmacy Consult 1 each 05/26/25 10:38 Pha To Consult Parenteral Nutr 1 Each Each XX 06/25/25 10:37 PRN PRN CONSULT Simethicone 80 mg 06/07/25 07:36 Simethicone 80 Mg Chew GT 06/21/25 23:12 QID PRN GAS Thiamine HCl 100 mg 05/30/25 09:00 06/06/25 09:23 Thiamine 100 Mg Tablet GT 06/29/25 08:59 100 mg QDAY [facility] Administration Plan Mr. Melendez is a 79 y/o gentleman with hx of recently diagnosed gastric adenocarcinoma (followed by Dr. Canada and Dr. Phillips, not yet started on chemo), PAD with BLE stents, HTN, history of PUD, COPD with no home oxygen, who was admitted for upper GI bleed i/s/o gastric adenocarcinoma. IR GI upper series which demonstrated outlet obstruction 2/2 gastric cancer. J tube placed 05/27. Pending transfer to [facility] for pyloric channel stent placement #Upper GI Bleed from ulcerated gastric tumor-stable #Gastric outlet obstruction #Gastric Adenocarcinoma (dx 03/2025) Diagnosed in 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 Patient has Chemo-Port in place on right upper chest placed on 05/18. Patient reports that pantoprazole and famotidine makes abdominal sx worse. Reflux may be due to bile reflux rather than acid reflux. Made PPI PRN instead of scheduled. Plan: - Pending transfer to [facility] (Dr. Rubalcava, oncologist) for pyloric channel stent placement, transfer accepted, insurance authorization approved, pending bed placement - Daily CBC to monitor H&H - Avoid NSAIDs - Transfusion if hgb <7 - Continue Pantoprazole 40 mg BID PRN IV and famotidine 20 mg PRN BID - Pain management with [place] 10-325 q4h, morphine 2 mg q3h PRN ? GI consulted, appreciate recs #Anorexia 2/2 gastric outlet obstruction-s/p J tube placement 05/27 #Weight loss 2/2 malignancy #Malnutrition Jejunostomy placement 05/27 Patient not tolerating Jevity or Osmolite tube feeds Tolerated free water flushes Plan: - PICC line placement + start TPN - Held tube feeds due to patient intolerance - Thiamine 100 mg/day x 7 days, c/f refeeding syndrome #Left upper extremity swelling Left arm swelling, no TTP, no warmth or erythema Plan: - Pending LUE Doppler US #Constipation - resolved Patient has not had a bowel movement in 3 days Patient continues to develop pain and abdominal distension when tube feeds are restarted (both with Jevity and Osmolite feeds) Abdominal XR 05/31: Nonobstructive bowel gas pattern, contrast throughout, no free air Plan: - Colace 100 mg BID - Continue simethicone 80 mg QID #GERD #Hx PUD Home meds: Omeprazole 20mg BID, Famotidine 10 mg PRN, Patient continues to have acid reflux with frequent burping and occasional vomitus i/s/o gastric adenocarcinoma cause gastric outles obstruction Patient has been refusing pantoprazole, famotidine as he does not think this is helping his sx, makes abdominal pain worse Plan: - Famotidine 20 mg PRN IV, pantoprazole 40 mg PRN IV - Reglan 5 mg IV q6h PRN - Will continue to assess sx #Community-acquired pneumonia - resolved CXR (05/30): Mild pneumonia left base Afebrile Completed course of Ceftriaxone and Doxycycline (05/30-06/06) Plan: - CTM with temp, daily CBC - Encourage incentive spirometry #Hypertension - chronic Home meds: Losartan 50 mg daily BP appropriate Plan: - Continue Losartan 50 mg daily #COPD Not on home oxygen Per patient he has a history of pulmonary nodules seen on chest CT. He reports that he gets imaging done on his lungs every 6 months. His lung nodules that are certain size have been biopsied and have so far been benign. SpO2 appropriate on 3L CXR 05/25: Significant hyperexpansion. Basilar bronchitis pattern. No lobar PNA or pulmonary edema. Plan: -Continue home Trelegy inhaler (pt own medication) -O2 supplementation PRN #PAD s/p BLE stents Plan: Hold home aspirin 81 and Plavix i/s/o GI bleed #LLE neuropathy Parasthesia of LLE plantar surface of foot Home meds: Pregabalin 50 mg TID Pt reports improved sx on home med Plan: - Continue pregabalin 50mg TID - SCDs #Asymptomatic Bradycardia VSS TSH WNL EKG normal sinus bradycardia to 50s Plan: - CTM #Microcytic Anemia DDX: anemia of chronic disease iso gastric cancer vs anemia 2/2 acute blood losses. Hgb stable Plan: -CTM Hgb -transfuse if < 7 #Leukocytosis Completed course of abx for PNA Afebrile DDX: acute infection, gastric adenocarcinoma, dehydration Plan: - CTM with daily CBC - Continue free water flushes through J tube #Thrombocytosis DDX: reactive thrombocytosis iso blood loss from GI bleed, vs gastric malignancy Plan: - CTM with daily CBC Dispo: pending transfer to [facility] for pyloric channel stent Diet: currently PPN through PIV. Pending PICC line placement by IR in order to start TPN Bowel Reg: Docusate 100 mg BID, simethicone 80 mg QID VTE ppx: SCD GI ppx: Protonix 40 BID PRN IV, famotidine 20 mg BID PRN IV Code status: FULL Plan discussed with Dr. Humphreys and Dr. Azeb Miller MD PGY1
[2025-06-07 09:10] LABS: Basophils # (Auto) 0.2 Thou/mm3 (0.0-0.2); Basophils % (Auto) 1 % (0-2.5); Eosinophils # (Auto) 0.3 Thou/mm3 (0.0-0.5); Eosinophils % (Auto) 2 % (0-10); Hematocrit 32.3 % (41.0-53.0); Hemoglobin 10.0 g/dL (13.5-16.0); Immature Granulocytes Auto 0.10 Thou/mm3 (0.00-0.00); Lymphocytes # (Auto) 1.3 Thou/mm3 (1.0-4.8); Lymphocytes % (Auto) 10 % (10-50); Mean Corpuscular HGB Conc 31.0 g/dl (31.0-37.0); Mean Corpuscular Hemoglobin 21.5 pg (25.0-35.0); Mean Corpuscular Volume 69 fL (80-100); Monocytes # (Auto) 0.6 Thou/mm3 (0.0-0.8); Monocytes % (Auto) 4 % (0-12); Neutrophils # (Auto) 11.0 Thou/mm3 (1.8-7.7); Neutrophils % (Auto) 82 % (37-80); Nucleated Red Blood Cell # 0.00 Thou/mm3 (0.00-0.00); Nucleated Red Blood Cell % 0 /100 WBC (0); Platelet Count 549 Thou/mm3 (140-440); RDW Standard Deviation 55.8 fL (35.1-43.9); Red Blood Count 4.66 Miln/mm3 (4.50-5.90); White Blood Count 13.4 Thou/mm3 (3.8-10.6)
[2025-06-07 09:26] LABS: Alanine Aminotransferase 18 U/L (10-49); Albumin, Serum 3.6 gm/dL (3.4-4.8); Albumin/Globulin Ratio 1.8 (1.2-2.2); Alkaline Phosphatase 115 U/L (46-116); Anion Gap 9 (7-16); Aspartate Amino Transferase 21 U/L (0-34); BUN/Creatinine Ratio 23 Ratio (12-20); Bilirubin,Total 0.8 mg/dL (0.3-1.2); Blood Urea Nitrogen 14 mg/dL (9-23); Calcium 9.1 mg/dL (8.3-10.6); Calcium (Corrected) 9.4 mg/dL (8.5-10.1); Carbon Dioxide 25.0 mMol/L (20.0-31.0); Chloride 102 mMol/L (98-107); Creatinine (Component) 0.6 mg/dL (0.6-1.3); Estimated Creatinine Clearance 80.3 mL/min (>60); Globulin 2.0 gm/dL (2.3-3.5); Glucose 115 mg/dL (74-106); Magnesium 2.1 mg/dL (1.6-2.6); Osmolality,Calculated 273 (275-295); Phosphorous 2.9 mg/dL (2.4-5.1); Potassium 3.5 mMol/L (3.4-5.1); Sodium 136 mMol/L (136-145); Total Protein 5.6 gm/dL (5.7-8.2); eGFR > 60 See Note
[2025-06-07] MEDS: LOSARTAN POTASSIUM 25 MG TABLET 50 MG GT (09:48)
[2025-06-07] MEDS: THIAMINE 100 MG TABLET GT (09:48)
--- NOTE | 2025-06-07 10:31 | PC.NURSE ---
1000 PT REFUSED DOCUSATE AND MULTIVITAMIN. PT EDUCATED ON IMPORTANCE OF MEDICINE.
--- NOTE | 2025-06-07 11:21 | ESDS_ITS ---
<Statement entered by Sarah Bowie DO - 06/08/25 07:38> I, Sarah Bowie DO, attest that I was physically present for the issa portions of the service and evaluated the patient with the resident and I reviewed and discussed the case with the resident and agree with the resident's findings and plans of care as documented above <Statement entered by Young Espana MD - 06/07/25 16:59> Patient was examined and case was reviewed with team including attending physician. Note reviewed, I agree with most of its contents and agree with the patient's care as documented by Dr. Angela Espana MD PGY-2 Planned Discharge Date 06/07/25 DS: Providers Provider Date of admission: 05/20/25 14:32 Primary care physician: Keila Shepard PA-C Admitting Provider: Sarah Bowie DO Attending Provider on Admission: Sarah Bowie DO Consults: 05/20/25 14:38 Consult to Gastroenterology Urgent Comment: Consulting Provider: Malachi Ascencio 05/20/25 16:12 PT [Referral Physical Therapy] Routine Comment: Physician Instructions: Instructions: frailty, fall risk 05/24/25 14:51 Referral Registered Dietitian Routine Comment: 05/24/25 20:19 Referral Respiratory Therapy Routine Comment: 05/25/25 13:39 Referral - Station Cook Routine Service Needed for Transfer: Interventional Radiology Addl Comments:: pt case discussed with oncologist Dr. Patricia who recommends J tube placement to provide nutrition while patient has gastric outlet obstruction 2/2 gastric adenocarcinoma. Per GI, Dr. Ascencio, the J tube cannot be placed here at [facility] because it is technically more difficult given pt has gastric mass, thus recommends transfer to tertiary care facility for IR guided placement of J tube. 05/26/25 10:56 Consult to General Surgery Routine Comment: Consulting Provider: Ziggy Rosales 06/02/25 15:55 Referral - Station Cook Stat Service Needed for Transfer: Oncology 06/03/25 12:46 Referral Nutritional Services Stat Comment: Attending Provider on DC: Dr. Bowie Discharging Provider: Phyllis Miller, DS: Diagnosis Problem List Completed Was Problem List Reviewed/Reconciled?: Yes Hospital Course Hospital Course Hospital course: Mr. Melendez is a 79-year-old man with past medical history of gastric adenocarcinoma (diagnosed in March 2025) s/p Chemo-Port placement in right upper chest, PAD s/p bilateral lower extremity stents, hypertension, peptic ulcer disease, COPD without home oxygen who initially presented to the hospital on 04/30/2025 with multiple episodes of coffee-ground hematemesis. EGD on 05/21/2025 showed complete obstruction at the pyloric channel secondary to gastric adenocarcinoma.. Upper GI series showed duodenal bulb deformity. Held home aspirin and Plavix in the setting of hematemesis secondary to gastric adenocarcinoma. Continued to monitor H&H, hemoglobin remained stable. Continued home pregabalin 50 mg 3 times daily for lower extremity neuropathy, Trelegy inhaler for COPD, Losartan 50 mg daily for HTN. Pain management includes [place] 10/325 mg q4h and morphine 2 mg IV q4h as needed. Protonix and Famotidine PRN as patient noted that his pain worsened with these medicaitons. Patient developed a productive cough. CXR 05/30 showed mild pneumonia left base, completed course of IV Ceftriaxone 1g QD and Doxycycline 100mg BID (05/30 - 06/06). Patient initiated on clears diet once though continued to have nausea, intermittent periods of emesis, acid reflux. Patient's oncologist, Dr. Canada, was notified of patient's hospitalization and status, recommended J-tube placement to provide nutrition, with the plan to start chemotherapy after tube feed goal rate achieved. J-tube placed by Dr. Rosales on 05/27. Patient started on 05/28 on Jevity tube feeds at 10 cc with advancement at 10 cc every 6 hours with goal rate 60 cc/h with 50 cc water flushes every 6 hours, per dietitian. Patient did not tolerate tube feeds with Jevity or Osmolite, reported severe abdominal pain and distension. Tube feeds were held. Dr. Canada was updated on patient's inability to reach tube feed goal rate and recommended transferring to Dr. Rubalcava, oncologist, at [facility] for pyloric channel stent placement as patient has not reached adequate nutrition. Currently on PPN through peripheral IV, pending PICC line placement to initiate TPN. Patient requires transfer to [facility] for pyloric channel stent placement for gastric outlet obstruction 2/2 gastric adenocarcinoma as he is not tolerating tube feeds and had inadequate nutrition. Diagnoses #Upper GI Bleed from ulcerated gastric tumor - stable #Gastric outlet obstruction #Gastric Adenocarcinoma #Uncontrolled pain 2/2 gastric cancer #Malnutrition #GERD #Peptic ulcer disease #Community-acquired pneumonia #Hypertension - chronic #COPD #PAD s/p BLE stents #LLE neuropathy #Asymptomatic Bradycardia #Microcytic Anemia Phyllis Miller MD PGY1 Time Spent with Patient Time attestation: Total time spent providing and/or coordinating discharge services: Time spent: Greater than 30 minutes Exam Vital Signs Temp Pulse Resp BP Pulse Ox O2 Del Method O2 Flow Rate 97.4 F 85 16 147/67 H 97 Room Air 3 06/07/25 07:47 06/07/25 09:48 06/07/25 07:47 06/07/25 09:48 06/07/25 07:47 06/07/25 07:47 06/04/25 16:00 Discharge Plan Plan Patient Disposition: [facility] Facility Pt Being Transferred to: [facility] Service Needed for Transfer: Oncology Patient condition on transfer: Stable Prescriptions/Referrals Prescriptions/Med Rec: No Action losartan 50 mg Tablet 50 mg PO HS Trelegy Ellipta 100-62.5-25 mcg blister with device 1 inh inhalation Q24H famotidine [Acid Controller] 10 mg tablet 10 mg PO Q6H PRN (Reason: acid reflux) Rx Instructions: OTC aspirin 81 mg tablet 81 mg PO HS omeprazole 20 mg capsule,delayed release(DR/EC) 20 mg PO BID Patient Comments: OTC cholecalciferol (vitamin D3) [Vitamin D3] 25 mcg (1,000 unit) capsule 25 mcg PO HS cyanocobalamin (vitamin B-12) [Vitamin B-12] 100 mcg tablet 100 mcg PO HS albuterol sulfate 90 mcg/actuation HFA aerosol inhaler 1 puff INHALATION Q8H PRN (Reason: shortness of breath or wheezing) Patient Comments: inhale 1 puff by mouth every 4 hours if needed Trelegy Ellipta 100-62.5-25 mcg blister with device 1 inh inhalation QDAY Referrals: Keila Shepard PA-C [Primary Care Provider] - Patient/Caregiver Discharge Instructions Print Language: Tajik Stand Alone Forms: [facility] Award Info., Patient Portal Info Letter Discharge Order Discharge Orders: Discharge (Routine); Ordered 06/02/25 Ordered By: Young Espana Quality Discharge Quality Measures VTE prophylaxis
--- NOTE | 2025-06-07 11:38 | PC.CM ---
Addendum entered by Nina Bass RN 06/07/25 15:56: Patient had his PICC line placed. I called and set up transport with [facility]. facility maintenance supervisor time set for 0. I called bed side nurse and gave her an update. Packet ready with 1 CD. Original Note: I received a call from [place] at [facility]. Patient has been accepted to room H507A. Number to call and give report [phone]. Accepting doctor is Dr. Eli. Patient will be getting a PICC line prior to transport. I will complete packet and make sure we have a CD. I updated M/S payroll clerk and she was going to update the nurse Jennifer. Patient is aware and he signed pink transfer paperwork.
--- NOTE | 2025-06-07 12:05 | XR_ITS ---
Examination: Duplex scan of the upper extremity, unilateral left complete Date and time of exam: June 07, 2025 1410 hours INDICATIONS: Left arm swelling and pain beginning 2 days ago Technique: Duplex scan of the extremity veins using B-mode/grayscale imaging and Doppler spectral analysis and color flow Attention is directed to internal echogenicity, compression and augmentation involving these veins, color flow assessment, spectral analysis Findings: Major deep venous structures in the extremity demonstrate normal course and caliber. There is no evidence of deep vein thrombosis. Normal color flow and spectral analysis Impression: Negative for DVT..
--- NOTE | 2025-06-07 12:14 | PC.NURSE ---
DR. DILL MADE AWARE PT IS EXPERIENCING AN ACHE PAIN AROUND THE G TUBE SITE AND SMALL AMOUNT OF DRAINAGE. NO NEW ORDERS.
--- NOTE | 2025-06-07 12:26 | PC.NURSE ---
PT TRANSFER TO [facility] ACCOMPANIED BY FLAQUITA SEBASTIAN. PT ALERT AND ORIENTED X3. ULTRASOUND ARRIVING AT SAME TIME, COORDINATED CARE WITH TECH WILL CALL HER AFTER PT COMES FROM HIS PROCEDURE.
[2025-06-07] MEDS: HEPARIN SOD LOCK SYR 100 UNIT/ML 500 UNIT STFIELD (12:30)
[2025-06-07] MEDS: LIDOCAINE INJ PF 1% 30 ML VIAL 4 ML INFL (13:02)
--- NOTE | 2025-06-07 14:00 | PC.NURSE ---
PATIENT IS BACK IN THE ROOM ALERT AND ORIENTED X3. DAUGHTER AT BEDSIDE.
--- NOTE | 2025-06-07 14:39 | PC.NURSE ---
COORDINATED CARE WITH TRANSFER NURSE.
--- NOTE | 2025-06-07 14:40 | PC.NURSE ---
COORDINATED CARE WITH DR. KHOURY, UPDATED ON PICC LINE INSERTION AND COMPLETION OF ULTRASOUND DOPPLER OF [place] EXTREMITY. MD SIMMONS TO GIVE MORPHINE FOR PAIN BEFORE PT LEAVES.
--- NOTE | 2025-06-07 16:04 | PC.SS ---
SS follow up note; Patient got accepted to [facility], pending Pic Line.
--- NOTE | 2025-06-07 17:10 | PC.NURSE ---
CALLED [facility] REPORT GIVEN TO ROSE MARIE SEBASTIAN.
--- NOTE | 2025-06-07 18:45 | PC.NURSE ---
PATIENTS TRELLEGY INHALER GIVEN BACK TO EAGLE MARYANN'S DAUGHTER.
== END 2025-06-07 18:03 | disposition short-term general hospital (02) | DRG 374 ==
LOC: SERX 13:29 → SERHOLD 15:14 → S3SX 16:29
PROVIDERS: Specialist; Surgery; Admitting Provider Internal Medicine; Emergency Provider Emergency Medicine; PCP Physician Assistant; Visit Provider Internal Medicine
PROC: 0DJ08ZZ Inspection of Upper Intestinal Tract, Via Natural or Artificial Opening Endoscopic (ICD-10-PCS; CPT 43239; principal; 2025-05-21 18:30)
PROC: 0DHA0UZ Insertion of Feeding Device into Jejunum, Open Approach (ICD-10-PCS; CPT 49000; principal; 2025-05-27 14:45)
DX: C16.2 Malignant neoplasm of body of stomach (principal); J18.9 Pneumonia, unspecified organism; K26.4 Chronic or unspecified duodenal ulcer with hemorrhage; K31.1 Adult hypertrophic pyloric stenosis; E46 Unspecified protein-calorie malnutrition; J44.0 Chronic obstructive pulmonary disease with (acute) lower respiratory infection; Z60.2 Problems related to living alone; I10 Essential (primary) hypertension; K21.9 Gastro-esophageal reflux disease without esophagitis; N40.0 Benign prostatic hyperplasia without lower urinary tract symptoms; Z87.891 Personal history of nicotine dependence; J44.9 Chronic obstructive pulmonary disease, unspecified; Z95.828 Presence of other vascular implants and grafts; Z87.11 Personal history of peptic ulcer disease; D75.839 Thrombocytosis, unspecified; D50.9 Iron deficiency anemia, unspecified; G57.90 Unspecified mononeuropathy of unspecified lower limb; E78.5 Hyperlipidemia, unspecified; K22.4 Dyskinesia of esophagus; R62.7 Adult failure to thrive; Z79.82 Long term (current) use of aspirin; Z79.899 Other long term (current) drug therapy; R00.1 Bradycardia, unspecified; Z92.21 Personal history of antineoplastic chemotherapy
CPT/HCPCS: 36415; 71045; 71046; 71275; 74018; 74174; 74240; 80053; 80061; 81001; 83690; 83735; 84100; 84443; 84478; 84484; 85014; 85018; 85025; 85610; 86850; 86900; 86901; 93005; 93971; 94640; 94664; 96374; 96375; 97161; 99284; A4217; A4649; A9270; C1751; C1894; J0131; J0694; J0696; J1100; J1200; J1642; J1720; J1815; J2250; J2270; J2371; J2405; J2470; J2704; J2710; J2765; J3010; J3475; J3480; J3490; J7042; J7050; J7120; J7121; Q9967; J1596; J1805

== ENCOUNTER → 2025-07-16 | Outpatient (CLI) | payer OTHER, SELFPAY ==
[2025-07-16 15:31] LABS: Collection Type, Urine Clean Catch; Squamous Epithelial Cell,Urine 0 /hpf (0-5)
[2025-07-16 17:10] LABS: Bacteria,Urine Rare; Bilirubin,Urine Negative (Negative); Blood,Urine Negative (Negative); Clarity,Urine Clear (Clear/Hazy); Color,Urine Yellow (Lt Yel-Yel); Glucose, Urine Negative (Negative); Hyaline Casts,Urine < 1 /hpf (0-1); Ketones,Urine Negative (Negative); Leukocyte Esterase,Urine Negative (Negative); Nitrite,Urine Negative (Negative); PH,Urine 5.5 (5.0-7.0); Protein,Urine Negative (Neg - Trace); RBC,Urine 1 /hpf (0-3); Specific Gravity,Urine 1.022 (1.001-1.035); Urobilinogen,Urine Negative mg/dL (0.0-1.0); WBC,Urine 2 /hpf (0-5)
== END | disposition home or self-care (01) ==
LOC: SLDO 15:06
PROVIDERS: PCP Family Medicine; Referring Provider Physician Assistant; Visit Provider Physician Assistant
DX: K21.9 Gastro-esophageal reflux disease without esophagitis (principal); R10.9 Unspecified abdominal pain
CPT/HCPCS: 81001; 87086

== ENCOUNTER → 2025-07-26 | Outpatient (CLI) | payer OTHER, SELFPAY ==
[2025-07-26 15:26] LABS: Basophils # (Auto) 0.1 Thou/mm3 (0.0-0.2); Basophils % (Auto) 1 % (0-2.5); Eosinophils # (Auto) 0.3 Thou/mm3 (0.0-0.5); Eosinophils % (Auto) 4 % (0-10); Hematocrit 35.8 % (41.0-53.0); Hemoglobin 10.9 g/dL (13.5-16.0); Immature Granulocytes Auto 0.09 Thou/mm3 (0.00-0.00); Lymphocytes # (Auto) 1.1 Thou/mm3 (1.0-4.8); Lymphocytes % (Auto) 14 % (10-50); Mean Corpuscular HGB Conc 30.4 g/dl (31.0-37.0); Mean Corpuscular Hemoglobin 23.4 pg (25.0-35.0); Mean Corpuscular Volume 77 fL (80-100); Monocytes # (Auto) 0.2 Thou/mm3 (0.0-0.8); Monocytes % (Auto) 2 % (0-12); Neutrophils # (Auto) 5.7 Thou/mm3 (1.8-7.7); Neutrophils % (Auto) 77 % (37-80); Nucleated Red Blood Cell # 0.00 Thou/mm3 (0.00-0.00); Nucleated Red Blood Cell % 0 /100 WBC (0); Platelet Count 436 Thou/mm3 (140-440); RDW Standard Deviation 74.9 fL (35.1-43.9); Red Blood Count 4.65 Miln/mm3 (4.50-5.90); White Blood Count 7.4 Thou/mm3 (3.8-10.6)
[2025-07-26 15:45] LABS: Alanine Aminotransferase 14 U/L (10-49); Albumin, Serum 3.4 gm/dL (3.4-4.8); Albumin/Globulin Ratio 1.7 (1.2-2.2); Alkaline Phosphatase 109 U/L (46-116); Amylase 39 U/L (30-118); Anion Gap 11 (7-16); Aspartate Amino Transferase 16 U/L (0-34); BUN/Creatinine Ratio 30 Ratio (12-20); Bilirubin,Total 0.3 mg/dL (0.3-1.2); Blood Urea Nitrogen 21 mg/dL (9-23); Calcium 9.0 mg/dL (8.3-10.6); Calcium (Corrected) 9.5 mg/dL (8.5-10.1); Carbon Dioxide 27.0 mMol/L (20.0-31.0); Chloride 103 mMol/L (98-107); Creatinine (Component) 0.7 mg/dL (0.6-1.3); Globulin 2.0 gm/dL (2.3-3.5); Glucose 100 mg/dL (74-106); Lipase 15 U/L (12-53); Osmolality,Calculated 284 (275-295); Potassium 4.6 mMol/L (3.4-5.1); Sodium 141 mMol/L (136-145); Total Protein 5.4 gm/dL (5.7-8.2); eGFR > 60 See Note
== END | disposition home or self-care (01) ==
LOC: SLDO 14:19
PROVIDERS: PCP Physician Assistant; Referring Provider Physician Assistant; Visit Provider Physician Assistant
DX: R10.9 Unspecified abdominal pain (principal); K21.9 Gastro-esophageal reflux disease without esophagitis
CPT/HCPCS: 36415; 80053; 82150; 83690; 85025

== ENCOUNTER → 2025-08-06 | Outpatient (CLI) | payer OTHER, SELFPAY ==
--- NOTE | 2025-08-06 10:30 | XR_ITS ---
Examination: CT abdomen and pelvis without contrast. Coronal 3-D reconstructions. Sagittal 2-D reconstructions. Date and time of exam: August 06, 2025, 10:30 a.m., comparison May 20, 2025 INDICATIONS: Gastric carcinoma undergoing chemotherapy, generalized abdominal pain several days CTDI: vol (mGy): 5.77 DLP: (mGycm): 276 Technique: Axial images of the abdomen have been obtained, 3 mm slice thickness Intravenous contrast material has not been administered. Low dose protocols were performed. One or more of the following dose reduction techniques were used; automated exposure control, adjustment of the mA and/or KV according to patient size, use of iterative reconstruction technique. Findings: 11 mm right lobe liver lesion Gallbladder wall appears thickened Gastric stent There is no IV or oral contrast which significantly limits this study No splenic lesion No pancreatic mass Multiple para-aortic lymph nodes ranging in size from 2 to 8 mm Heavy abdominal aortic calcification No bowel obstruction Normal appendix Mild small bowel ileus Severe calcification around stents in the common iliac arteries distal aorta Intact urinary bladder Transverse prostate dimension 34 mm Moderate osteopenia IMPRESSION: 11 mm right lobe liver lesion, consider MRI abdomen liver follow-up pre and postcontrast Gastric stent Multiple subcentimeter para-aortic lymph nodes
== END | disposition home or self-care (01) ==
PROVIDERS: PCP Physician Assistant; Referring Provider Physician Assistant; Visit Provider Physician Assistant
DX: K76.89 Other specified diseases of liver (principal); C16.9 Malignant neoplasm of stomach, unspecified; C78.7 Secondary malignant neoplasm of liver and intrahepatic bile duct
CPT/HCPCS: 74176

== ENCOUNTER → 2025-08-10 | Outpatient (CLI) | payer OTHER, SELFPAY ==
[2025-08-10 14:45] LABS: Basophils # (Auto) 0.1 Thou/mm3 (0.0-0.2); Basophils % (Auto) 1 % (0-2.5); Eosinophils # (Auto) 0.2 Thou/mm3 (0.0-0.5); Eosinophils % (Auto) 3 % (0-10); Hematocrit 32.2 % (41.0-53.0); Hemoglobin 10.0 g/dL (13.5-16.0); Immature Granulocytes Auto 0.08 Thou/mm3 (0.00-0.00); Lymphocytes # (Auto) 1.0 Thou/mm3 (1.0-4.8); Lymphocytes % (Auto) 17 % (10-50); Mean Corpuscular HGB Conc 31.1 g/dl (31.0-37.0); Mean Corpuscular Hemoglobin 23.5 pg (25.0-35.0); Mean Corpuscular Volume 76 fL (80-100); Monocytes # (Auto) 0.8 Thou/mm3 (0.0-0.8); Monocytes % (Auto) 13 % (0-12); Neutrophils # (Auto) 3.7 Thou/mm3 (1.8-7.7); Neutrophils % (Auto) 65 % (37-80); Nucleated Red Blood Cell # 0.02 Thou/mm3 (0.00-0.00); Nucleated Red Blood Cell % 0 /100 WBC (0); Platelet Count 472 Thou/mm3 (140-440); RDW Standard Deviation 74.6 fL (35.1-43.9); Red Blood Count 4.25 Miln/mm3 (4.50-5.90); White Blood Count 5.7 Thou/mm3 (3.8-10.6)
[2025-08-10 14:53] LABS: Alanine Aminotransferase 12 U/L (10-49); Albumin, Serum 2.8 gm/dL (3.4-4.8); Albumin/Globulin Ratio 1.8 (1.2-2.2); Alkaline Phosphatase 70 U/L (46-116); Anion Gap 13 (7-16); Aspartate Amino Transferase 17 U/L (0-34); BUN/Creatinine Ratio 43 Ratio (12-20); Bilirubin,Total 0.4 mg/dL (0.3-1.2); Blood Urea Nitrogen 34 mg/dL (9-23); Calcium 8.2 mg/dL (8.3-10.6); Calcium (Corrected) 9.2 mg/dL (8.5-10.1); Carbon Dioxide 23.0 mMol/L (20.0-31.0); Chloride 116 mMol/L (98-107); Creatinine (Component) 0.8 mg/dL (0.6-1.3); Globulin 1.6 gm/dL (2.3-3.5); Glucose 115 mg/dL (74-106); Magnesium 2.2 mg/dL (1.6-2.6); Osmolality,Calculated 310 (275-295); Phosphorous 3.3 mg/dL (2.4-5.1); Potassium 3.1 mMol/L (3.4-5.1); Sodium 152 mMol/L (136-145); Total Protein 4.4 gm/dL (5.7-8.2); eGFR > 60 See Note
== END | disposition home or self-care (01) ==
LOC: SLDO 13:50
PROVIDERS: PCP Physician Assistant; Referring Provider Hospitalist; Visit Provider Hospitalist
DX: C16.9 Malignant neoplasm of stomach, unspecified (principal); K31.1 Adult hypertrophic pyloric stenosis; E43 Unspecified severe protein-calorie malnutrition; C78.7 Secondary malignant neoplasm of liver and intrahepatic bile duct
CPT/HCPCS: 36415; 80053; 83735; 84100; 85025